=== PATIENT | male | born 1980 | race Caucasian/White ===

== ENCOUNTER 2016-07-27 19:37 | Observation (INO) | payer SELFPAY ==
[2016-07-27 20:08] LABS: BASOPHILS # (AUTO) 0.1 X10^3/uL (0.0-0.1); BASOPHILS % (AUTO) 0.7 % (0.2-1.0); EOSINOPHILS # (AUTO) 0.2 x10^3/uL (0.0-0.2); EOSINOPHILS % (AUTO) 1.9 % (0.9-2.9); HEMATOCRIT 42.9 % (42.0-54.0); HEMOGLOBIN 13.3 g/dL (13.5-18.0); LYMPHOCYTES # (AUTO) 3.1 X10^3/uL (1.3-2.9); LYMPHOCYTES % (AUTO) 29.5 % (21.0-51.0); MEAN CORPUSCULAR HEMOGLOBIN 24.3 pg (27.0-34.0); MEAN CORPUSCULAR HGB CONC 31.1 g/dL (33.0-35.0); MEAN CORPUSCULAR VOLUME 78.3 fL (80.0-100.0); MEAN PLATELET VOLUME 7.3 fL (7.4-11.0); MONOCYTES # (AUTO) 1.1 x10^3/uL (0.3-0.8); MONOCYTES % (AUTO) 10.4 % (0.0-13.0); NEUTROPHILS # (AUTO) 6.1 x10^3/uL (2.2-4.8); NEUTROPHILS % (AUTO) 57.5 % (42.0-75.0); PLATELET COUNT 320 X10^3/uL (150.0-450.0); RED BLOOD COUNT 5.48 X10^6/uL (4.7-6.0); RED CELL DISTRIBUTION WIDTH 19.2 % (11.6-16.5); WHITE BLOOD COUNT 10.6 X10^3/uL (3.6-10.0)
--- NOTE | 2016-07-27 20:12 | DR.GENAD ---
HPI - PCP Primary Care Physician: [email or web address] - HPI Comment HPI Comment: PATIIENT WITH HISTORY CHF WITH EF 45% THAT REPORT ECHO DONE PRESENT TODAY WITH INCREASING SOB. PATIENT NOT TAKING MED CURRENTLY. NO FEVER. REPORT LOWER EXTREMITY EDEMA WELL. - Complaint/Symptoms Chief Complaint Doctors Comments: INCREASING SOB AND EDEMA LOWER EXTREMITIES. Chief Complaint:: pt c/o being sob sleeping alot and feet swelling and cough - Nurses notes reviewed Nurses Notes Review: Yes - Source History Provided: Patient - Mode of Arrival Mode of Arrival: EMS - Timing Onset of Chief Complaint: 05/13/16 Came on: Gradually - Duration Duration: Constant Duration: Days - Severity Severity: Moderate PMH - PMH Past Medical History: Yes Past Medical History: CHF, Hypertension Past Surgical History: Yes Surgical History: Tonsillectomy - Family History History of Family Medical Conditions: Yes Family Medical History: Diabetes Mellitus, Cancer, [place], Coronary Artery Disease, Heart Failure, Sudden Cardiac , Hypertension - Social History Alcohol Use: None Do you use any recreational Drugs:: No Lives With: Family Lives Where: Home - infectious screening In the last 2 months have you had wt loss of >10#?: NO Have you had fever, night sweats or hemotysis?: No Have you traveled outside the country in the last 6 months?: No Isolation: Standard ROS - Review of Systems Constitutional: Weakness, Fatigue. negative: Chills, Fever Eyes: No Symptoms Reported. negative: Eye Pain, Discharge ENTM: negative: Ear Pain, Nose Discharge, Nose Congestion, Throat Pain Respiratoy: Productive Cough, Short of Breath, Wheezing, Hemoptysis Cardiovascular: Chest Pain, Edema Gastrointestinal/Abdominal: No Symptoms Reported Genitourinary: No Symptoms Reported Neurological: Weakness, Dizziness. negative: Headache Musculoskeletal: Back Pain, Chest wall, Back Integumentary: No Symptoms Reported Hematologic/Lymphatic: No Symptoms Reported Endocrine: No Symptoms Reported All Other Systems: Reviewed and Negative PE - Vital Signs Vitals: Temperature 98 F Pulse Rate [Left Brachial] 128 Pulse Rate 130 Respiratory Rate 18 Blood Pressure [Right Arm] 120/57 Blood Pressure [Left Arm] 118/87 Blood Pressure 146/101 O2 Sat by Pulse Oximetry 100 - General Limitations: No Limitations General Appearance: Alert - Head Head Exam: Normal Inspection - Eyes Eye exam: Normal Appearance - ENT ENT Exam: Normal External Ear Exam External Ear Exam: Normal External Inspection TM/Canal Exam: Bilateral Normal Nose Exam: Normal Nose Exam Mouth Exam: Normal Inspection Throat Exam: Normal Inspection - Neck Neck Exam: Trachea Midline. negative: Tenderness, Meningismus, Lymphadenopathy - Chest Chest Inspection: Symmetric Chest Wall Rise - Respiratory Respiratory Exam: Respiratory Distress. negative: Chest Wall Tenderness Respiratory Exam: Bilateral Wheezing, Bilateral Crackles, Upper Wheezing, Upper Rhonchi, Lower Wheezing, Lower Rhonchi - Cardiovascular Cardiovascular Exam: Regular Rate, Normal Rhythm, Normal Heart Sounds, +S3, +S4 - Abdominal Exam Abdominal Exam: Normal Bowel Sounds, Soft. negative: Tenderness - Extremities Extremities Exam: Edema - Back Back Exam: Paraspinal Tenderness - Neurologic Neurological Exam: Alert, Oriented X3 - Psychiatric Psychiatric Exam: Anxious - Skin Skin Exam: Erythema MDM - Differential Diagnosis Differential Diagnosis: CHF, PULMONARY EDEMA, [place], PNEUMONIA, RESPIRATORY DISTRESS Course - Treatment Treatment: SEE ORDERS. - Consultation Consultation Comments: DISCUSS PATIENT WITH DR. WHEAT. HE WILL ADMIT PATIENT. - Education/Counseling Education/Counseling: Patient, Education Educated On: Treatment, Diagnosis ROR - Labs Reviewed Laboratory Results Reviewed?: Yes Result Diagrams: 07/27/16 19:55 07/27/16 19:55 Laboratory: WBC 10.6 X10^3/uL (3.6-10.0) H 07/27/16 19:55 RBC 5.48 X10^6/uL (4.7-6.0) 07/27/16 19:55 Hgb 13.3 g/dL (13.5-18.0) L 07/27/16 19:55 Hct 42.9 % (42.0-54.0) 07/27/16 19:55 MCV 78.3 fL (80.0-100.0) L 07/27/16 19:55 MCH 24.3 pg (27.0-34.0) L 07/27/16 19:55 MCHC 31.1 g/dL (33.0-35.0) L 07/27/16 19:55 RDW 19.2 % (11.6-16.5) H 07/27/16 19:55 Plt Count 320 X10^3/uL (150.0-450.0) 07/27/16 19:55 Plt Count Comment Adequate (ADEQUATE) 07/27/16 19:55 MPV 7.3 fL (7.4-11.0) L 07/27/16 19:55 Neut % 57.5 % (42.0-75.0) 07/27/16 19:55 Lymph % 29.5 % (21.0-51.0) 07/27/16 19:55 [place] % 10.4 % (0.0-13.0) 07/27/16 19:55 Eos % 1.9 % (0.9-2.9) 07/27/16 19:55 Baso % 0.7 % (0.2-1.0) 07/27/16 19:55 Neut # 6.1 x10^3/uL (2.2-4.8) H 07/27/16 19:55 Lymph # 3.1 X10^3/uL (1.3-2.9) H 07/27/16 19:55 [place] # 1.1 x10^3/uL (0.3-0.8) H 07/27/16 19:55 Eos # 0.2 x10^3/uL (0.0-0.2) 07/27/16 19:55 Baso # 0.1 X10^3/uL (0.0-0.1) 07/27/16 19:55 Absolute Nucleated RBC 0.1 /100WBC 07/27/16 19:55 Plt Morphology Comment Normal (NORMAL) 07/27/16 19:55 RBC Morphology Abnormal (NORMAL) 07/27/16 19:55 Poikilocytosis 1+ A 07/27/16 19:55 Anisocytosis 1+ A 07/27/16 19:55 Sodium 140 mmol/L (136-145) 07/27/16 19:55 Corrected Sodium TNP 07/27/16 19:55 Potassium 4.1 mmol/L (3.5-5.1) 07/27/16 19:55 Chloride 104 mmol/L (98-107) 07/27/16 19:55 Carbon Dioxide 26.9 mmol/L (21-32) 07/27/16 19:55 BUN 17 mg/dL (7-18) 07/27/16 19:55 Creatinine 1.40 mg/dL (0.70-1.30) H 07/27/16 19:55 Est GFR (MDRD) Af Amer > 60 (>60) 07/27/16 19:55 Est GFR (MDRD) Non-Af > 60 (>60) 07/27/16 19:55 Glucose 72 mg/dL (65-99) 07/27/16 19:55 Calcium 8.5 mg/dL (8.5-10.1) 07/27/16 19:55 Corrected Calcium 9.3 mg/dL (8.5-10.1) 07/27/16 19:55 Total Bilirubin 1.20 mg/dL (0.2-1.0) H 07/27/16 19:55 AST 69 Units/L (15-37) H 07/27/16 19:55 ALT 72 Units/L (12-78) 07/27/16 19:55 Alkaline Phosphatase 216 Units/L (46-116) H 07/27/16 19:55 Creatine Kinase 119 Units/L (39-308) 07/27/16 19:55 CK-MB (CK-2) 3.2 ng/mL (0-4.0) 07/27/16 19:55 CK/CKMB % Calc 2.7 % (<4) 07/27/16 19:55 Troponin I 0.08 ng/mL (0-1.5) 07/27/16 19:55 B-Natriuretic Peptide 1780 pg/mL (0-79) H* 07/27/16 19:55 Total Protein 7.4 g/dL (6.4-8.2) 07/27/16 19:55 Albumin 3.0 g/dL (3.4-5.0) L 07/27/16 19:55 Globulin 4.4 g/dL (2.5-4.5) 07/27/16 19:55 Albumin/Globulin Ratio 0.7 Ratio (1.1-2.1) L 07/27/16 19:55 Specimen Type Clean catch urine 07/27/16 21:08 Urine Color Dark yellow (YELLOW) 07/27/16 21:08 Urine Appearance Hazy (CLEAR) 07/27/16 21:08 Urine pH 6.5 (5.0 - 8.0) 07/27/16 21:08 Ur Specific [place] 1.015 (1.000-1.030) 07/27/16 21:08 Urine Protein 3+ (NEGATIVE) 07/27/16 21:08 Urine Glucose (UA) Negative (NEGATIVE) 07/27/16 21:08 Urine Ketones Negative (NEGATIVE) 07/27/16 21:08 Urine Occult Blood 3+ (NEGATIVE) 07/27/16 21:08 Urine Nitrite Negative (NEGATIVE) 07/27/16 21:08 Urine Bilirubin Negative (NEGATIVE) 07/27/16 21:08 Urine Urobilinogen Normal (NORMAL) 07/27/16 21:08 Ur Leukocyte Esterase 3+ (NEGATIVE) 07/27/16 21:08 Urine RBC 3 - 5 /HPF (NEGATIVE) 07/27/16 21:08 Urine WBC 25 - 30 with clumps /HPF (NEGATIVE) 07/27/16 21:08 Ur Squamous Epith Cells Few /HPF (NEGATIVE) 07/27/16 21:08 Urine Bacteria Trace /HPF (NEGATIVE) 07/27/16 21:08 Ur Culture Indicated? No/not ordered 07/27/16 21:08 Urine Opiates Screen Negative (NEG=<300) 07/27/16 21:08 Urine Methadone Screen Negative (NEG=<300) 07/27/16 21:08 Ur Barbiturates Screen Negative (NEG=<200) 07/27/16 21:08 Ur Phencyclidine Scrn Negative (NEG=<25) 07/27/16 21:08 Ur Amphetamines Screen Positive (NEG=<1000) 07/27/16 21:08 U Benzodiazepines Scrn Negative (NEG=<200) 07/27/16 21:08 Urine Cocaine Screen Negative (NEG=<300) 07/27/16 21:08 U Marijuana (THC) Screen Negative (NEG=<50) 07/27/16 21:08 - XRAY XRAY Interpreted by: Radiologist XRAY Findings: REPORT DISCUSS WITH PATIENT. - EKG Rhythm: NSR (EKG NOTED) - Diagnosis Discharge Problem: Drug abuse CHF (congestive heart failure) Qualifiers: Congestive heart failure type: combined Congestive heart failure chronicity: acute on chronic Qualified Code(s): I50.43 - Acute on chronic combined systolic (congestive) and diastolic (congestive) heart failure UTI (urinary tract infection) Qualifiers: Urinary tract infection type: site unspecified Hematuria presence: with hematuria Qualified Code(s): N39.0 - Urinary tract infection, site not specified - Discharge Plan Disposition: 09 ADMITTED INPATIENT Condition: Stable - Follow ups/Referrals - Instructions
[2016-07-27 20:23] LABS: ANISOCYTOSIS 1+; PLATELET MORPHOLOGY COMMENT NORMAL (NORMAL); POIKILOCYTOSIS 1+
[2016-07-27] MEDS ORDERED: LASIX IVP ONE ×2 (20:28→21:01)
[2016-07-27 20:31] LABS: BLOOD UREA NITROGEN 17 mg/dL (7-18); CALCIUM 8.5 mg/dL (8.5-10.1); CARBON DIOXIDE 26.9 mmol/L (21-32); CHLORIDE 104 mmol/L (98-107); GLUCOSE 72 mg/dL (65-99); SODIUM 140 mmol/L (136-145); TROPONIN I 0.08 ng/mL (0-1.5); eGFR BLACK RACES > 60 (>60); eGFR NON BLACK RACES > 60 (>60)
[2016-07-27 20:36] LABS: ALANINE AMINOTRANSFERASE 72 Units/L (12-78); ALKALINE PHOSPHATASE 216 Units/L (46-116); ASPARTATE AMINO TRANSFERASE 69 Units/L (15-37); CKMB % 2.7 % (<4); COR CA(FOR HYPOALB) 9.3 mg/dL (8.5-10.1); CREATINE KINASE 119 Units/L (39-308); CREATINE KINASE MB 3.2 ng/mL (0-4.0); TOTAL PROTEIN 7.4 g/dL (6.4-8.2)
[2016-07-27 20:53] LABS: B-TYPE NATRIURETIC PEPTIDE 1780 pg/mL (0-79)
[2016-07-27 21:18] LABS: BILIRUBIN,URINE NEGATIVE (NEGATIVE); BLOOD/HEMOGLOBIN,URINE 3+ (NEGATIVE); GLUCOSE, URINE NEGATIVE (NEGATIVE); KETONES,URINE NEGATIVE (NEGATIVE); LEUKOCYTE ESTERASE ,URINE 3+ (NEGATIVE); NITRITES,URINE NEGATIVE (NEGATIVE); PH,URINE 6.5 (5.0 - 8.0); PROTEIN,URINE 3+ (NEGATIVE); UROBILINOGEN,URINE NORMAL (NORMAL)
[2016-07-27 21:28] LABS: APPEARANCE,URINE HAZY (CLEAR); COLOR,URINE DARK YELLOW (YELLOW)
[2016-07-27 21:31] LABS: BACTERIA,URINE TRACE /HPF (NEGATIVE); SQUAMOUS EPITHELIAL CELL,UR FEW /HPF (NEGATIVE)
[2016-07-27 23:47] VITALS: BMI 24.6
[2016-07-28] MEDS: ROCEPHIN VIAL 1 GM 1 GM in NS 50 ML IV + SPIKE MINIBAG* 50 ML IV SCH ×2 (00:50→09:19)
[2016-07-28 02:24] LABS: CKMB % 2.5 % (<4); CREATINE KINASE MB 2.9 ng/mL (0-4.0); TROPONIN I 0.08 ng/mL (0-1.5)
--- NOTE | 2016-07-28 05:22 | RAD ---
Chest AP portable Indication: Abnormal heartbeat. Dyspnea and swelling. Findings: There is no pneumothorax or effusion. There is cardiomegaly and increased interstitial [place]. Impression: Cardiomegaly and pulmonary edema. Reported By:
[2016-07-28] MEDS ORDERED: NS 100 ML IV 100 ML IV ONE (09:23)
[2016-07-28] MEDS ORDERED: TOPROL XL PO SCH (10:00)
[2016-07-28] MEDS ORDERED: LASIX IVP ONE (10:10)
[2016-07-28] MEDS ORDERED: TOPROL XL PO ONE (10:20)
[2016-07-28 12:44] VITALS: BP 132/76
== END 2016-07-28 14:50 | disposition home or self-care (01) ==
LOC: ER 19:48 → OBS 22:50
PROVIDERS: ADMIT Obstetrics & Gynecology Obstetrics; ATTEND Obstetrics & Gynecology Obstetrics
DX: I50.43 Acute on chronic combined systolic (congestive) and diastolic (congestive) heart failure (principal); N39.0 Urinary tract infection, site not specified; R06.02 Shortness of breath; R60.0 Localized edema; I10 Essential (primary) hypertension; I51.7 Cardiomegaly; J81.0 Acute pulmonary edema; R94.31 Abnormal electrocardiogram [ECG] [EKG]; R94.30 Abnormal result of cardiovascular function study, unspecified
CPT/HCPCS: 36415; 71010; 80053; 80307; 81001; 82550; 82553; 83880; 84484; 85025; 93005; 93010; 94760; 96365; 96374; 99284; A4216; A4222; G0378; G0434; J0696; J1940

== ENCOUNTER 2016-07-29 05:40 | Inpatient (IN) | payer SELFPAY ==
[2016-07-29] MEDS ORDERED: D5 NS 1000 ML 1,000 ML IV ONE ×2 (05:47→06:38)
[2016-07-29] MEDS ORDERED: NARCAN INJ ONE ×2 (05:49→06:19)
[2016-07-29] MEDS ORDERED: D50W ABBOJECT SYR IV ONE ×3 (05:51→06:20)
[2016-07-29] MEDS ORDERED: NARCAN INJ IVP ONE (06:22)
[2016-07-29] MEDS ORDERED: DUONEB 0.5 MG/3 MG ONE (06:28)
[2016-07-29 06:33] LABS: BILIRUBIN,URINE NEGATIVE (NEGATIVE); BLOOD/HEMOGLOBIN,URINE 5+ (NEGATIVE); GLUCOSE, URINE NEGATIVE (NEGATIVE); KETONES,URINE NEGATIVE (NEGATIVE); LEUKOCYTE ESTERASE ,URINE 3+ (NEGATIVE); NITRITES,URINE NEGATIVE (NEGATIVE); PROTEIN,URINE 3+ (NEGATIVE); UROBILINOGEN,URINE 1+ (NORMAL)
--- NOTE | 2016-07-29 06:35 | DR.AMS ---
HPI - Time Seen Time seen: 06:00 - PCP Primary Care Physician: WHEAT - Complaint Cheif Complaint Doctors Comments: GcS 8 on arrival Chief Complaint:: EMS CALLED TOO A UNRESPONSIVE AND FOAMING AT THE MOUTH. REC'D PT VIA EMS WITH SNORING RESPIRATIONS O2 SAT 84% PT'S EARS ARE CYANOTIC WELL THE END OF HIS NOSE. PT HAS HX OF IV DRUG USE. PT HAS FRESH BRUISING TOO RT UPPER ARM AND FRESH PUNCTURE SITE TOO RT WRIST. - Reviewed Nurses Notes Reviewed: Yes - Source History Provided: EMS - Mode of Arrival Mode of Arrival: EMS - Timing Onset of Chief Complaint: 07/29/16 Came On: Gradually Symptoms: Unchanged - Duration Duration: Unknown Duration: Hours - Quality Quality: Decreased Alertness - Severity Severity: Severe, Unable to care for self - Context Recent: Drug Use History Of: IV Drug Use - Associated Signs and Symptoms Associated Signs and Symptoms: Slurred Speech, Confusion, Decreased LOC PMH - PMH Past Medical History: Yes Past Medical History: CHF, Hypertension Past Surgical History: Yes Surgical History: Tonsillectomy - Family History History of Family Medical Conditions: Yes Family Medical History: Diabetes Mellitus, Cancer, [place], Coronary Artery Disease, Heart Failure, Sudden Cardiac , Hypertension - Social History Type of Tobacco Use: Cigarettes Do you use any recreational Drugs:: Yes (IV DRUG USER) Lives With: Friend Lives Where: [place] - infectious screening In the last 2 months have you had wt loss of >10#?: NO Have you had fever, night sweats or hemotysis?: No Have you traveled outside the country in the last 6 months?: No Isolation: Standard ROS - Review of Systems Unable to Obtain Due To: Altered mental status, Medical urgency PE - Vitals Vital Signs: Temp Pulse Pulse Resp BP BP BP 07/29/16 06:52 101 H 24 124/69 07/29/16 06:30 96 H 25 H 148/65 07/29/16 06:15 107 H 24 143/63 07/29/16 06:00 87 26 H 129/78 07/29/16 05:51 97.1 F L 98 H 12 113/84 07/28/16 12:00 132/76 132/76 11/27/15 04:00 120/57 Pulse Ox 07/29/16 06:52 95 07/29/16 06:30 100 07/29/16 06:15 98 07/29/16 06:00 100 07/29/16 05:51 84 L 07/28/16 12:00 11/27/15 04:00 - General Limitations: Altered Mental Status General Appearance: Lethargic, In Distress - Head Head Exam: Normal Inspection Head Exam Physical: negative: Laceration, Abrasion, Contusion, Hematoma, Raccoon Eyes, Fisher's Sign, Tenderness of Temporal Artery, CSF Rhinorrhea, CSF Otorrhea, Other - Eyes Eye exam: Miosis - ENT ENT Exam: Normal Exam External Ear Exam: Normal External Inspection Nose Exam: Normal Nose Exam - Neck Neck Exam: Normal Inspection, Full ROM, Trachea Midline - Chest Chest Inspection: Normal Inspection - Respiratory Respiratory Exam: Respiratory Distress Respiratory Exam: Bilateral Wheezing - Cardiovascular Cardiovascular Exam: Regular Rate - Abdominal Exam Abdominal Exam: Normal Inspection, Normal Bowel Sounds, Soft. negative: Distention, Tenderness - Extremities Extremities Exam: Full ROM - Neurological Neurological Exam: Other (lethargic) Patient Oriented To: Person, Place Speech: Other (awake oriented after D50 throuh IO) - Psychological Psychiatric Exam: Flat Affect - Skin Skin Exam: Mottled (on arrival improved after D50). negative: Normal Color Course - Treatment Treatment: patient arrived unresponsive FSBS 20, given D50 IO and narcan, Awake and talking with course breath sounds. Bp, sats good. ABG reveals acidosis oxygen over 300. 0650: FSBS 156 patient Alert and oriented wanting oral fluid( ice chips given). GCS 15 - Consultation Called: 07:15 Call Returned: 07:15 Consultation Comments: case discussed with DR. Nicholas give 2 amps bicarbonate in IVF and D5Ns ROR - Labs Reviewed Result Diagrams: 07/29/16 06:45 07/29/16 06:05 Laboratory: Sample Site Right brachial 07/29/16 06:58 ABG pH 7.280 (7.35-7.45) L 07/29/16 06:58 ABG pCO2 38.0 mmHg (35.0-45.0) 07/29/16 06:58 ABG pO2 59.0 mmHg (80.0-100.0) L 07/29/16 06:58 ABG HCO3 17.9 mmol/L (22-26) L* 07/29/16 06:58 ABG O2 Saturation 86.0 % (90-100) L 07/29/16 06:58 ABG Base Excess -8.2 mmol/L (-2.0-2.0) L 07/29/16 06:58 Jacques Test Na 07/29/16 06:58 A-a Gradient 122.0 mmHg 07/29/16 06:58 FiO2 32.000 07/29/16 06:58 Blood Gas Comments Hermila well aw 07/29/16 06:58 Sodium 135 mmol/L (136-145) L 07/29/16 06:05 Corrected Sodium TNP 07/29/16 06:05 Potassium 5.5 mmol/L (3.5-5.1) H 07/29/16 06:05 Chloride 101 mmol/L (98-107) 07/29/16 06:05 Carbon Dioxide 18.9 mmol/L (21-32) L 07/29/16 06:05 BUN 27 mg/dL (7-18) H 07/29/16 06:05 Creatinine 2.43 mg/dL (0.70-1.30) H 07/29/16 06:05 Est GFR (MDRD) Af Amer 39 (>60) L 07/29/16 06:05 Est GFR (MDRD) Non-Af 32 (>60) L 07/29/16 06:05 Glucose 13 mg/dL (65-99) L* 07/29/16 06:05 Calcium 8.7 mg/dL (8.5-10.1) 07/29/16 06:05 Urine Opiates Screen Negative (NEG=<300) 07/29/16 06:11 Urine Methadone Screen Negative (NEG=<300) 07/29/16 06:11 Ur Barbiturates Screen Negative (NEG=<200) 07/29/16 06:11 Ur Phencyclidine Scrn Negative (NEG=<25) 07/29/16 06:11 Ur Amphetamines Screen Positive (NEG=<1000) 07/29/16 06:11 U Benzodiazepines Scrn Positive (NEG=<200) 07/29/16 06:11 Urine Cocaine Screen Negative (NEG=<300) 07/29/16 06:11 U Marijuana (THC) Screen Negative (NEG=<50) 07/29/16 06:11 - XRAY XRAY Interpreted by: Radiologist XRAY Findings: chest: cardiomegaly no CHF - EKG Rate: 101 [place]: Normal Rhythm: NSR Block: None Hypertrophy: None ST: Nonsp - Diagnosis Discharge Problem: Hypoglycemia, Drug abuse - Discharge Plan Condition: Stable - Follow ups/Referrals Follow ups/Referrals: NFD,None [Primary Care Provider] - 3 days - Instructions
[2016-07-29 06:57] LABS: ABG BASE EXCESS -9.1 mmol/L (-2.0-2.0); ABG HCO3 20.4 mmol/L (22-26)
[2016-07-29 06:59] LABS: ABG ALLEN TEST POS
--- NOTE | 2016-07-29 07:00 | RAD ---
HISTORY: Shortness of breath Study: Chest one view Comparison: July 27, 2016 Findings: The heart remains enlarged. There is no congestive heart failure visible on today's examination. No acute alveolar infiltrates or pleural effusions are identified. The bony thorax is unremarkable. IMPRESSION: Cardiomegaly without congestive heart failure Lungs clear Reported By:
[2016-07-29] MEDS ORDERED: DUONEB 0.5 MG/3 MG NEB ONE (07:01)
[2016-07-29 07:05] LABS: BLOOD UREA NITROGEN 27 mg/dL (7-18); CALCIUM 8.7 mg/dL (8.5-10.1); CARBON DIOXIDE 18.9 mmol/L (21-32); CHLORIDE 101 mmol/L (98-107); CREATININE 2.43 mg/dL (0.70-1.30); SODIUM 135 mmol/L (136-145); eGFR BLACK RACES 39 (>60); eGFR NON BLACK RACES 32 (>60)
[2016-07-29 07:06] LABS: GLUCOSE 13 mg/dL (65-99)
[2016-07-29] MEDS ORDERED: TORADOL 60 MG VIAL IVP ONE (07:06)
[2016-07-29 07:07] LABS: ABG BASE EXCESS -8.2 mmol/L (-2.0-2.0)
[2016-07-29 07:08] LABS: ABG HCO3 17.9 mmol/L (22-26)
[2016-07-29] MEDS ORDERED: TORADOL 30 MG VIAL ONE (07:21)
[2016-07-29] MEDS ORDERED: SODIUM BICARBONATE 8.4% INJ ADULT 100 ML in NS 1/2 1000 ML IV 1,000 ML IV ONE (07:23)
[2016-07-29 07:24] LABS: APPEARANCE,URINE HAZY (CLEAR); BACTERIA,URINE TRACE /HPF (NEGATIVE); COLOR,URINE AMBER (YELLOW); RBC,URINE 40-50 /HPF (NEGATIVE); SQUAMOUS EPITHELIAL CELL,UR RARE /HPF (NEGATIVE)
[2016-07-29 07:26] LABS: BASOPHILS # (AUTO) 0.1 X10^3/uL (0.0-0.1); BASOPHILS % (AUTO) 0.4 % (0.2-1.0); EOSINOPHILS % (AUTO) 0.1 % (0.9-2.9); HEMATOCRIT 43.4 % (42.0-54.0); LYMPHOCYTES # (AUTO) 1.3 X10^3/uL (1.3-2.9); LYMPHOCYTES % (AUTO) 6.5 % (21.0-51.0); MEAN PLATELET VOLUME 7.8 fL (7.4-11.0); MONOCYTES # (AUTO) 1.7 x10^3/uL (0.3-0.8); MONOCYTES % (AUTO) 8.1 % (0.0-13.0); NEUTROPHILS # (AUTO) 17.5 x10^3/uL (2.2-4.8); NEUTROPHILS % (AUTO) 84.9 % (42.0-75.0); PLATELET COUNT 250 X10^3/uL (150.0-450.0); RED BLOOD COUNT 5.43 X10^6/uL (4.7-6.0); RED CELL DISTRIBUTION WIDTH 19.3 % (11.6-16.5)
[2016-07-29 07:30] LABS: WHITE BLOOD COUNT 20.7 X10^3/uL (3.6-10.0)
[2016-07-29 07:43] LABS: BAND NEUTROPHILS % 2 % (0-10)
[2016-07-29 07:44] LABS: PLATELET MORPHOLOGY COMMENT NORMAL (NORMAL)
[2016-07-29] MEDS ORDERED: NS 1/2 1000 ML IV 1,000 ML IV ONE (08:42)
[2016-07-29] MEDS ORDERED: SODIUM BICARBONATE 8.4% INJ ADULT ONE (08:42)
[2016-07-29 08:49] VITALS: BMI 24.5
[2016-07-29] MEDS ORDERED: PHARMACY CONSULT - TPN XX SCH (10:00)
[2016-07-29] MEDS ORDERED: PHARMACY CONSULT - DOSE _____ XX SCH (10:00)
[2016-07-29] MEDS ORDERED: PHARMACY CONSULT - VANCOMYCIN XX SCH (10:00)
[2016-07-29] MEDS: LEVAQUIN PREMIX IV 750 MG 750 MG/150 ML BAG IV SCH (10:34)
[2016-07-29] MEDS ORDERED: HumuLIN R SUBCUT PRN (11:00)
[2016-07-29 11:43] LABS: ALBUMIN 3.1 g/dL (3.4-5.0); BILIRUBIN,DIRECT 2.12 mg/dL (0-0.2); TOTAL PROTEIN 7.8 g/dL (6.4-8.2)
[2016-07-29] MEDS: DUONEB 0.5 MG/3 MG NEB SCH ×2 (11:46→16:59)
[2016-07-29] MEDS: VANCOMYCIN 1 GM PREMIX (ADDVANTAGE) 250 ML IV SCH (12:08)
--- NOTE | 2016-07-29 13:01 | DR.H&P ---
H&P - History & Physical for Day of: H&P Date: 07/29/16 - Chief Complaint Chief Complaint: UNRESPONSIVE - Allergies Allergies/Adverse Reactions: Allergies Allergy/AdvReac Type Severity Reaction Status Date / Time No Known Drug Allergy Allergy Verified 11/25/15 00:18 - History of Present Illness History of Present Illness: THIS IS A 35 YEAR OLD MALE, WHO PRESENTS TO THE EMERGENCY ROOM, VIA EMS, WITH REPORTS OF BEING UNRESPONSIVE, FOAMING FROM HIS MOUTH, AND O2 SATURATION OF 84%. ON ARRIVAL, PATIENT'S EARS AND TIP OF NOSE IS CYANOTIC. GCS WAS 8. PATIENT HAS A HISTORY OF IV DRUG USE AND HAS FRESH BRUISING NOTED TO HIS RIGHT UPPER ARM WITH FRESH PUNCTURE SITE TO RIGHT WRIST. PATIENT WAS LETHARGIC AND IN DISTRESS ON ARRIVAL TO ER. ON AUSCULTATION, LUNGS WERE NOTED WITH BILATERAL WHEEZING AND PATIENT WAS IN RESPIRATORY DISTRESS. SKIN WAS MOTTLED. LABS AND XRAY OBTAINED. CBC WNL EXCEPT: WBC 20.7, HGB 13.0. CMP WNL EXCEPT: SODIUM 135, POTASSIUM 5.5, CARBON DIOXIDE 18.9, BUN/CREAT 27/ 2.43, GFR 32, GLUCOSE 13, TOT BILIRUBIN 3.30, DIRECT BILIRUBIN 2.12, INDIRECT BILIRUBIN 1.18, AST 495, ALT 308, ALK PHOS 247, ALBUMIN 3.1. ABG ABNORMALS: PH 7.140, PCO2 60.0, PO2 430.0, HCO3 20.4, FIO2 100.0. URINALYSIS ABNORMALS: PROTEIN 3+, OCCULT BLOOD 5+, UROBILINOGEN 1+, LEUKOCYTE ESTERASE 3+, RBC 40-50, WBC 30-40, BACTERIA TRACE; CULTURE PENDING. AN IO WAS PLACED PER ER DOCTOR AND D50 WAS ADMINISTERED FOR A GLUCOSE OF 13. PATIENT ALSO RECEIVED NARCAN AND BECAME MORE RESPONSIVE WITH COARSE BREATH SOUNDS, SLURRED SPEECH, AND CONFUSION. PATIENT HAS A HISTORY OF CHF WITH AN EJECTION FRACTION OF 45%. PATIENT STATES HE TAKES HIS GRANDMOTHER'S DIURETIC FOR CHF. PATIENT WILL BE ADMITTED TO HOSPITAL FOR FURTHER TREATMENT AND EVALUATION. PATIENT WILL BE STARTED ON IV LEVAQUIN, IV VANCOMYCIN, AGGRESSIVE IV FLUID HYDRATION, AND MONITOR ON CONTINUOUS PULSE OXIMETRY AND THERMOCOUPLE TESTER. WE WILL FOLLOW UP IN AM WITH LABS. - Past Medical History Past Medical History: Angina, CHF, Hypertension Additional Medical History: Enlarged Tonsils - Past Surgical History Surgical History: Tonsillectomy - Family History Family Medical History: Diabetes Mellitus, Cancer, [place], Coronary Artery Disease, Heart Failure, Sudden Cardiac , Hypertension - Social History Does patient currently use any type of tobacco product: Yes Have you used tobacco products in the last 12 months: Yes Type of Tobacco Use: Cigarettes Does any household member use tobacco: Yes Alcohol Use: None Drug Use: Other (IV Drug Use) - Medications Home Medications: Metoprolol Succinate Ext Rel [TOPROL XL 100 MG *] 100 mg PO DAILY #30 tabsr - Review of Systems Constitutional: Other (Lethargy) Eyes: denies: Pain, Vision Change, Conjunctivae Inflammation, Eyelid Inflammation, Redness ENT: No Symptoms Reported. denies: Ear Pain, Ear Discharge, Nose Pain, Nose Discharge, Nose Congestion, Mouth Pain, Mouth Swelling, Throat Pain, Throat Swelling Respiratory: Shortness of Breath, SOB with Excertion, Wheezing. denies: Cough, Hemoptysis, Pleuritic Pain, Sputum Cardiovascular: No Symptoms Reported. denies: Chest Pain, Palpitations, Orthopnea, Paroxysmal Noc. Dyspnea, Edema, Light Headedness Gastrointestinal: No Symptoms Reported. denies: Nausea, Vomiting, Abdominal Pain, Diarrhea, Constipation, Melena, Hematochezia Genitourinary: Dysuria, Frequency, Hematuria. denies: Incontinence, Retention Musculoskeletal: No Symptoms Reported. denies: Shoulder Pain, Arm Pain, Back Pain, Hand Pain, Leg Pain, Foot Pain, Neck Pain Skin: Bruising (Right Upper Arm and Right Wrist). denies: Rash, Lesions, Jaundice, Wound, Ecchymosis Neurological: Weakness, Confusion, Other (Lethargy). denies: Numbness, Incoordination, Change in Speech, Seizures - Physical Exam Vital Signs: Temperature 97.5 F Pulse Rate [Apical] 88 Pulse Rate 89 Respiratory Rate 20 Blood Pressure [Right Arm] 123/57 Blood Pressure [Left Arm] 117/86 O2 Sat by Pulse Oximetry 100 Oriented: Person Eyes: Normal. negative: Blurred Vision, Diplopia, Discharge, Pain, Redness, Photophobia Ear: Normal. negative: Swelling, Ecchymosis, Hemotypanum, Abrasion, Laceration Nose: Normal. negative: Injected, Discharge, Blood Throat: Dry. negative: Tonsillar Hypertrophy, Exudate Respiratory: Wheezes Throughout Cardiovascular: Normal. negative: Murmur, Edema : Dysuria, Hematuria, Frequency. negative: Testicular Pain Auscultation: Bowel Sounds: Decreased. negative: Bruit Palpation: Normal. negative: Spleen Enlarged, Liver Enlarged, Mass Pulsatile Tenderness: Normal. negative: Rebound, Guarding, Rigidity Skin: Decreased [place], Bruising (Right Upper Arm and Right Wrist). negative: Wound Musculoskeletal: Instability Mood Description: Withdrawn Affect: Flat Speech Pattern: Unclear, Inappropriate - Assessment/Plan (1) Unresponsive Status: Acute Plan: ADMIT PATIENT, START IV FLUIDS WITH BICARB, SUPPLEMENTAL OXYGEN, IV VANCOMYCIN, LEVAQUIN, MONITOR. (2) Rhabdomyolysis Qualifiers: Rhabdomyolysis type: non-traumatic Encounter type: E Qualified Code(s): M62.82 - Rhabdomyolysis Status: Acute Plan: START IV FLUIDS WITH TWO AMP OF BICARB, [place] LABS. (3) Leukocytosis Qualifiers: Leukocytosis type: L Status: Acute Plan: START IV VANCOMYCIN, LEVAQUIN, IV FLUIDS, MONITOR VITAL SIGNS, LABS. (4) Hypoglycemia Status: Acute Plan: MONITOR GLUCOSE, START D5 1/2 NS, MONITOR. (5) Hypoalbuminemia Status: Acute Plan: START ALBUMIN, MONITOR LABS. (6) Poor nutrition Status: Acute Plan: START ALBUMIN, TPN, MONITOR. (7) CHF (congestive heart failure) Qualifiers: Congestive heart failure type: unspecified congestive heart failure type Congestive heart failure chronicity: acute Qualified Code(s): I50.9 - Heart failure, unspecified Status: Chronic Plan: MONITOR CHEST XRAY. (8) Drug abuse Status: Chronic Plan: CONTINUE TO MONITOR.
[2016-07-29] MEDS: ALBUMIN HUMAN 25%- 100ML 100 ML IV SCH (14:04)
--- NOTE | 2016-07-29 14:15 | DR.UPDATE ---
H&P Update History and Physical Update: History and Physical reviewed and patient examined. Changes noted: NO Yes with the following:Agree with H&P. will proceed with right IJ central venous catheter. Procedures (ALL) - Central Line Placement PCM.CLCO: written consent Time out performed: Yes Patient placed pm monitor/pulse ox: Yes prep: mask, gown, gloves, other Centrial line prep: chlorhexidine scrub Local anesthsia used: lidocane 1% Ultrasound used for placement: Yes Central line lumen ininserted: triple Post procedure: sutured in place, good blood return, all ports aspirated, flushed,capped, sterile dressing applied Post procedure xray: tip oc catheter in good position, no pneumothorax seen Patient tolerated procedure: Yes Complications: none
--- NOTE | 2016-07-29 14:36 | RAD ---
AP Chest Indication: Central line placement Comparison: 07/29/2016 Findings: Right-sided IJ central venous catheter is present with its tip within the lower SVC. No pneumothorax . The trachea is midline. The cardiac silhouette is moderately enlarged. The lungs are clear without focal infiltrate or effusion. The bony thorax is unremarkable. IMPRESSION: 1. Moderate cardiomegaly. 2.Right IJ central venous catheter with its tip terminating in the lower SVC without pneumothorax Reported By:
[2016-07-29] MEDS: CLINIMIX 4.25 %/10 % 1,000 ML with MVI INJ (ADULT) 10 ML, TRACE ELEMENTS INJ 10 ML, TPN... IV SCH ×10 (15:33→21:18)
[2016-07-29] MEDS: D5 NS + KCL 20 MEQ/L 1,000 ML IV SCH ×2 (18:40→21:13)
[2016-07-29] MEDS ORDERED: LIPOSYN III 20% 100ML 100 ML IV SCH (21:00)
[2016-07-29] MEDS: ZOFRAN INJ 4 MG VIAL IVP PRN (23:34)
[2016-07-30] MEDS: CLINIMIX 4.25 %/10 % 1,000 ML with MVI INJ (ADULT) 10 ML, TRACE ELEMENTS INJ 10 ML, TPN... IV SCH ×5 (00:35)
[2016-07-30] MEDS: DUONEB 0.5 MG/3 MG NEB SCH ×4 (00:40→17:05)
[2016-07-30] MEDS: D5 NS + KCL 20 MEQ/L 1,000 ML IV SCH ×2 (03:39→05:15)
[2016-07-30 06:57] LABS: ALANINE AMINOTRANSFERASE 775 Units/L (12-78); ALBUMIN 3.1 g/dL (3.4-5.0); ALKALINE PHOSPHATASE 202 Units/L (46-116); BLOOD UREA NITROGEN 44 mg/dL (7-18); CALCIUM 8.1 mg/dL (8.5-10.1); CARBON DIOXIDE 18.8 mmol/L (21-32); CHLORIDE 100 mmol/L (98-107); COR CA(FOR HYPOALB) 8.8 mg/dL (8.5-10.1); CREATININE 3.09 mg/dL (0.70-1.30); GLUCOSE 99 mg/dL (65-99); MAGNESIUM 2.5 mg/dL (1.7-2.9); PHOSPHORUS 5.4 mg/dL (2.6-4.7); TRIGLYCERIDES 60 mg/dL (0-150); eGFR BLACK RACES 30 (>60); eGFR NON BLACK RACES 25 (>60)
[2016-07-30 07:43] LABS: BASOPHILS # (AUTO) 0.2 X10^3/uL (0.0-0.1); BASOPHILS % (AUTO) 0.7 % (0.2-1.0); EOSINOPHILS # (AUTO) 0.2 x10^3/uL (0.0-0.2); EOSINOPHILS % (AUTO) 0.9 % (0.9-2.9); HEMATOCRIT 41.8 % (42.0-54.0); HEMOGLOBIN 13.1 g/dL (13.5-18.0); LYMPHOCYTES # (AUTO) 2.1 X10^3/uL (1.3-2.9); LYMPHOCYTES % (AUTO) 9.8 % (21.0-51.0); MEAN CORPUSCULAR HEMOGLOBIN 24.6 pg (27.0-34.0); MEAN CORPUSCULAR HGB CONC 31.3 g/dL (33.0-35.0); MEAN CORPUSCULAR VOLUME 78.5 fL (80.0-100.0); MONOCYTES # (AUTO) 1.6 x10^3/uL (0.3-0.8); MONOCYTES % (AUTO) 7.4 % (0.0-13.0); NEUTROPHILS # (AUTO) 17.5 x10^3/uL (2.2-4.8); NEUTROPHILS % (AUTO) 81.2 % (42.0-75.0); PLATELET COUNT 301 X10^3/uL (150.0-450.0); RED BLOOD COUNT 5.33 X10^6/uL (4.7-6.0)
[2016-07-30 07:51] LABS: WHITE BLOOD COUNT 21.6 X10^3/uL (3.6-10.0)
[2016-07-30 07:57] LABS: SODIUM 133 mmol/L (136-145)
[2016-07-30 08:11] LABS: BAND NEUTROPHILS % 3 % (0-10)
[2016-07-30 08:12] LABS: PLATELET MORPHOLOGY COMMENT NORMAL (NORMAL)
[2016-07-30 08:36] LABS: ASPARTATE AMINO TRANSFERASE 1237 Units/L (15-37)
[2016-07-30] MEDS: VANCOMYCIN 1 GM PREMIX (ADDVANTAGE) 250 ML IV SCH (08:54)
[2016-07-30] MEDS ORDERED: D5 NS 1000 ML 1,000 ML IV SCH (10:00)
[2016-07-30] MEDS: ALBUMIN HUMAN 25%- 100ML 100 ML IV SCH (10:03)
[2016-07-30] MEDS ORDERED: CLINIMIX 4.25 %/10 % 1,000 ML with MVI INJ (ADULT) 10 ML, TRACE ELEMENTS INJ 10 ML, POT... IV SCH ×5 (11:00)
--- NOTE | 2016-07-30 13:26 | PCM.PROG ---
Progress Note - Progress Note for Day of Date: 07/30/16 - Subjective Subjective: PATIENT RESTS IN BED, GRANDMOTHER AT BEDSIDE. PATIENT IS CURRETNLY BEING TREATED FOR RHABDOMYOLYSIS, DEHYDRATION, RENAL FAILURE, LEUKOCYTOSIS, AND POOR NUTRITION. HE IS MORE ALERT THIS MORNING AND REPORTS HE DOESN'T FEEL WELL. PATIENT HAD A CENTRAL LINE PLACED YESTERDAY DUE TO POOR VENOUS ACCESS AND FOR FURTHER IV NUTRITION AND IV ANTIBIOTICS. STAFF REPORTS PATIENT HAD NEMEROUS BOUTS OF VOMITING THROUGH THE NIGHT. HE DENIES NAUSEA THIS MORNING. PATIENT IS SHORT OF BREATH AT REST. ON AUSCULTATION, LUNGS ARE DIMINISHED BUT CLEAR. CBC WNL EXCEPT: WBC 21.6, H/H 13.1/41.8. CMP WNL EXCEPT: SODIUM 133, POTASSIUM 5.8, CARBON DIOXIDE 18.8, BUN/CREAT 44/3.09, GFR 25, CALCIUM 8.1, TOT BILIRUBIN 3.00, AST 1237, ALT 775, ALK PHOS 202, ALBUMIN 3.1. CHEST XRAY REPORTS MODERATE CARDIOMEGALY. WE WILL OBTAIN AN ECHO, RENAL US, START A CLEAR LIQUID DIET. WE WILL CONTINUE AGGRESSIVE IV HYDRATION, IV ANTIBIOTICS, TPN, ALBUMIN, AND MONITOR. WE WILL FOLLOW UP IN AM WITH LABS. - Past Medical Family Social History Past Med/Fam/Surg Hx: No changes since H&P Allergies: Allergies No Known Drug Allergy Allergy (Verified 11/25/15 00:18) - Review of Systems ROS: No change since H&P - Vital Signs and I&O's Vital Signs: Temperature 97.0 F Pulse Rate [Apical] 92 Pulse Rate 78 Respiratory Rate 18 Blood Pressure [Right Arm] 123/57 Blood Pressure [Left Arm] 109/76 O2 Sat by Pulse Oximetry 98 Intake and Output: Intake & Output 07/28/16 07/29/16 07/30/16 07/31/16 11:59 11:59 11:59 11:59 Intake Total 5726 Output Total 600 Balance 5126 - Physical Exam Oriented: Normal, Time, Person, Place Eyes: Normal. negative: Blurred Vision, Diplopia, Discharge, Pain, Redness, Photophobia Ear: Normal. negative: Swelling, Ecchymosis, Hemotypanum, Abrasion, Laceration Nose: Normal. negative: Injected, Discharge, Blood Throat: Dry. negative: Tonsillar Hypertrophy, Exudate Respiratory: Generalized, Diminished Cardiovascular: Normal. negative: Murmur, Edema : Dysuria, Hematuria, Frequency. negative: Testicular Pain Auscultation: Bowel Sounds: Decreased. negative: Bruit Palpation: Normal Tenderness: Normal. negative: Rebound, Guarding, Rigidity Skin: Decreased Turgur, Bruising (Right Upper Arm and Right Wrist). negative: Wound Musculoskeletal: Instability Psychiatric: Normal Mood Description: Calm, Appropriate Affect: Normal Speech Pattern: Clear, Appropriate - Laboratory and Diagnostics Result Diagrams: 07/30/16 07:30 07/30/16 05:27 Labs: Laboratory WBC 21.6 X10^3/uL (3.6-10.0) H* 07/30/16 07:30 RBC 5.33 X10^6/uL (4.7-6.0) 07/30/16 07:30 Hgb 13.1 g/dL (13.5-18.0) L 07/30/16 07:30 Hct 41.8 % (42.0-54.0) L 07/30/16 07:30 MCV 78.5 fL (80.0-100.0) L 07/30/16 07:30 MCH 24.6 pg (27.0-34.0) L 07/30/16 07:30 MCHC 31.3 g/dL (33.0-35.0) L 07/30/16 07:30 RDW 19.0 % (11.6-16.5) H 07/30/16 07:30 Plt Count 301 X10^3/uL (150.0-450.0) 07/30/16 07:30 Plt Count Comment Adequate (ADEQUATE) 07/30/16 07:30 MPV 8.0 fL (7.4-11.0) 07/30/16 07:30 Neut % 81.2 % (42.0-75.0) H 07/30/16 07:30 Lymph % 9.8 % (21.0-51.0) L 07/30/16 07:30 Blanco % 7.4 % (0.0-13.0) 07/30/16 07:30 Eos % 0.9 % (0.9-2.9) 07/30/16 07:30 Baso % 0.7 % (0.2-1.0) 07/30/16 07:30 Neut # 17.5 x10^3/uL (2.2-4.8) H 07/30/16 07:30 Lymph # 2.1 X10^3/uL (1.3-2.9) 07/30/16 07:30 [place]anco # 1.6 x10^3/uL (0.3-0.8) H 07/30/16 07:30 Eos # 0.2 x10^3/uL (0.0-0.2) 07/30/16 07:30 Baso # 0.2 X10^3/uL (0.0-0.1) H 07/30/16 07:30 Absolute Nucleated RBC 0.2 /100WBC 07/30/16 07:30 Total Counted 100 07/30/16 07:30 Neutrophils % (Manual) 71 % (39-76) 07/30/16 07:30 Band Neutrophils % 3 % (0-10) 07/30/16 07:30 Lymphocytes % (Manual) 20 % (13-43) 07/30/16 07:30 Monocytes % (Manual) 4 % (4-9) 07/30/16 07:30 Eosinophils % (Manual) 2 % (0-6) 07/30/16 07:30 Plt Morphology Comment Normal (NORMAL) 07/30/16 07:30 RBC Morphology Normal (NORMAL) 07/30/16 07:30 Sample Site Right brachial 07/29/16 06:58 ABG pH 7.280 (7.35-7.45) L 07/29/16 06:58 ABG pCO2 38.0 mmHg (35.0-45.0) 07/29/16 06:58 ABG pO2 59.0 mmHg (80.0-100.0) L 07/29/16 06:58 ABG HCO3 17.9 mmol/L (22-26) L* 07/29/16 06:58 ABG O2 Saturation 86.0 % (90-100) L 07/29/16 06:58 ABG Base Excess -8.2 mmol/L (-2.0-2.0) L 07/29/16 06:58 Jacques Test Na 07/29/16 06:58 A-a Gradient 122.0 mmHg 07/29/16 06:58 FiO2 32.000 07/29/16 06:58 Blood Gas Comments Hermila well aw 07/29/16 06:58 Sodium 133 mmol/L (136-145) L 07/30/16 05:27 Corrected Sodium TNP 07/30/16 05:27 Potassium 5.8 mmol/L (3.5-5.1) H 07/30/16 05:27 Chloride 100 mmol/L (98-107) 07/30/16 05:27 Carbon Dioxide 18.8 mmol/L (21-32) L 07/30/16 05:27 BUN 44 mg/dL (7-18) H 07/30/16 05:27 Creatinine 3.09 mg/dL (0.70-1.30) H 07/30/16 05:27 Est GFR (MDRD) Af Amer 30 (>60) L 07/30/16 05:27 Est GFR (MDRD) Non-Af 25 (>60) L 07/30/16 05:27 Glucose 99 mg/dL (65-99) 07/30/16 05:27 Calcium 8.1 mg/dL (8.5-10.1) L 07/30/16 05:27 Corrected Calcium 8.8 mg/dL (8.5-10.1) 07/30/16 05:27 Phosphorus 5.4 mg/dL (2.6-4.7) H 07/30/16 05:27 Magnesium 2.5 mg/dL (1.7-2.9) 07/30/16 05:27 Total Bilirubin 3.00 mg/dL (0.2-1.0) H 07/30/16 05:27 Direct Bilirubin 2.12 mg/dL (0-0.2) H 07/29/16 10:10 Indirect Bilirubin 1.18 mg/dL (0.2-0.8) H 07/29/16 10:10 AST 1237 Units/L (15-37) H 07/30/16 05:27 ALT 775 Units/L (12-78) H 07/30/16 05:27 Alkaline Phosphatase 202 Units/L (46-116) H 07/30/16 05:27 Total Protein 7.0 g/dL (6.4-8.2) 07/30/16 05:27 Albumin 3.1 g/dL (3.4-5.0) L 07/30/16 05:27 Globulin 3.9 g/dL (2.5-4.5) 07/30/16 05:27 Albumin/Globulin Ratio 0.8 Ratio (1.1-2.1) L 07/30/16 05:27 Prealbumin 11.8 mg/dL (18-35.7) L 07/29/16 18:30 Triglycerides 60 mg/dL (0-150) 07/30/16 05:27 Specimen Type Catherized urine 07/29/16 06:11 Urine Color Lisette (YELLOW) 07/29/16 06:11 Urine Appearance Hazy (CLEAR) 07/29/16 06:11 Urine pH 7.0 (5.0 - 8.0) 07/29/16 06:11 Ur Specific [place] 1.010 (1.000-1.030) 07/29/16 06:11 Urine Protein 3+ (NEGATIVE) 07/29/16 06:11 Urine Glucose (UA) Negative (NEGATIVE) 07/29/16 06:11 Urine Ketones Negative (NEGATIVE) 07/29/16 06:11 Urine Occult Blood 5+ (NEGATIVE) 07/29/16 06:11 Urine Nitrite Negative (NEGATIVE) 07/29/16 06:11 Urine Bilirubin Negative (NEGATIVE) 07/29/16 06:11 Urine Urobilinogen 1+ (NORMAL) 07/29/16 06:11 Ur Leukocyte Esterase 3+ (NEGATIVE) 07/29/16 06:11 Urine RBC 40-50 /HPF (NEGATIVE) 07/29/16 06:11 Urine WBC 30-40 /HPF (NEGATIVE) 07/29/16 06:11 Ur Squamous Epith Cells Rare /HPF (NEGATIVE) 07/29/16 06:11 Urine Bacteria Trace /HPF (NEGATIVE) 07/29/16 06:11 Ur Culture Indicated? Yes/culture set up 07/29/16 06:11 Urine Opiates Screen Negative (NEG=<300) 07/29/16 06:11 Urine Methadone Screen Negative (NEG=<300) 07/29/16 06:11 Ur Barbiturates Screen Negative (NEG=<200) 07/29/16 06:11 Ur Phencyclidine Scrn Negative (NEG=<25) 07/29/16 06:11 Ur Amphetamines Screen Positive (NEG=<1000) 07/29/16 06:11 U Benzodiazepines Scrn Positive (NEG=<200) 07/29/16 06:11 Urine Cocaine Screen Negative (NEG=<300) 07/29/16 06:11 U Marijuana (THC) Screen Negative (NEG=<50) 07/29/16 06:11 - Plan (1) Unresponsive Status: Acute Plan: CONTINUE IV FLUIDS WITH BICARB, SUPPLEMENTAL OXYGEN, IV VANCOMYCIN, LEVAQUIN, MONITOR. (2) Rhabdomyolysis Status: Acute Qualifiers: Rhabdomyolysis type: non-traumatic Encounter type: E Qualified Code(s): M62.82 - Rhabdomyolysis Plan: CONTINUE AGGRESSIVE IV FLUIDS HYDRATION, MONTOR LABS. (3) Renal failure Status: Acute Qualifiers: Renal failure chronicity: acute Acute renal failure type: A Chronic kidney disease stage: C Plan: OBTAIN RENAL US, MONITOR LABS, CONTINUE IV FLUIDS. (4) Leukocytosis Status: Acute Qualifiers: Leukocytosis type: L Plan: CONTINUE IV VANCOMYCIN, LEVAQUIN, IV FLUIDS, MONITOR VITAL SIGNS, LABS. (5) Hypoglycemia Status: Acute Plan: MONITOR GLUCOSE, CONITNUE D5 1/2 NS, MONITOR. (6) Hypoalbuminemia Status: Acute Plan: CONTINUE ALBUMIN, MONITOR LABS. (7) Poor nutrition Status: Acute Plan: START CLEAR LIQUID DIET, CONTINUE ALBUMIN, TPN, MONITOR. (8) CHF (congestive heart failure) Status: Chronic Qualifiers: Congestive heart failure type: unspecified congestive heart failure type Congestive heart failure chronicity: acute Qualified Code(s): I50.9 - Heart failure, unspecified Plan: OBTAIN ECHO, MONITOR CHEST XRAY. (9) Drug abuse Status: Chronic Plan: CONTINUE TO MONITOR.
[2016-07-30] MEDS: D5 NS IV SCH ×2 (16:58)
[2016-07-30] MEDS: SODIUM BICARBONATE IV SCH ×2 (16:58)
--- NOTE | 2016-07-30 18:04 | US ---
HISTORY: Acute renal failure. Study: Renal ultrasound Comparison: None. Technique: Multiple etienne scale and color flow Doppler images of the kidneys were obtained. The sierra on of the urinary bladder was evaluated as well. Findings: The right kidney is normal in echotexture and size. The right kidney measures 10 x 6 x 6 centimeters . No focal mass, hydronephrosis, or stones identified. The left kidney is unremarkable in its echotexture and size. The left kidney measures 8 x 6 x 4 cent imeters. No focal mass, hydronephrosis, or stone can be seen within the left kidney. The region of the urinary bladder is grossly unremarkable. IMPRESSION: 1. Unremarkable evaluation of the kidneys. Reported By:
[2016-07-30] MEDS: CLINIMIX 4.25 %/10 % 1,000 ML with MVI INJ (ADULT) 10 ML, TRACE ELEMENTS INJ 10 ML, DRU... IV SCH ×4 (20:12)
[2016-07-30] MEDS: SNACK - Diabetic Appropriate PO SCH (21:31)
[2016-07-31] MEDS: DUONEB 0.5 MG/3 MG NEB SCH ×4 (01:00→16:05)
[2016-07-31] MEDS: SODIUM BICARBONATE IV SCH ×8 (03:26→21:19)
[2016-07-31] MEDS: D5 NS IV SCH ×8 (03:26→21:19)
[2016-07-31] MEDS: CLINIMIX 4.25 %/10 % 1,000 ML with MVI INJ (ADULT) 10 ML, TRACE ELEMENTS INJ 10 ML, DRU... IV SCH ×20 (05:50→22:56)
--- NOTE | 2016-07-31 06:34 | RAD ---
Chest AP portable Indication: CHF. Comparison: July 29, 2016. Findings: There is cardiomegaly. Right IJ catheter tip projects over the cavoatrial junction. There is no pneumothorax, effusion or consolidation. Impression: Cardiomegaly without severe edema or a new acute abnormality. Reported By:
[2016-07-31] MEDS: ALBUMIN HUMAN 25%- 100ML 100 ML IV SCH (10:12)
[2016-07-31] MEDS: VANCOMYCIN 1 GM PREMIX (ADDVANTAGE) 250 ML IV SCH (10:13)
[2016-07-31] MEDS: LEVAQUIN PREMIX IV 750 MG 750 MG/150 ML BAG IV SCH (10:13)
[2016-07-31 11:21] LABS: ALANINE AMINOTRANSFERASE 986 Units/L (12-78); ALBUMIN 3.2 g/dL (3.4-5.0); ALKALINE PHOSPHATASE 177 Units/L (46-116); BLOOD UREA NITROGEN 64 mg/dL (7-18); CALCIUM 8.1 mg/dL (8.5-10.1); CARBON DIOXIDE 25.8 mmol/L (21-32); CHLORIDE 102 mmol/L (98-107); COR CA(FOR HYPOALB) 8.7 mg/dL (8.5-10.1); CREATININE 2.97 mg/dL (0.70-1.30); GLUCOSE 91 mg/dL (65-99); MAGNESIUM 1.9 mg/dL (1.7-2.9); PHOSPHORUS 3.2 mg/dL (2.6-4.7); SODIUM 134 mmol/L (136-145); TOTAL PROTEIN 6.5 g/dL (6.4-8.2); TRIGLYCERIDES 43 mg/dL (0-150); eGFR BLACK RACES 31 (>60); eGFR NON BLACK RACES 26 (>60)
[2016-07-31 11:23] LABS: LACTIC ACID 1.7 mmol/L (0.4-2.0)
[2016-07-31 11:34] LABS: ASPARTATE AMINO TRANSFERASE 1376 Units/L (15-37)
[2016-07-31 11:40] LABS: BASOPHILS # (AUTO) 0.1 X10^3/uL (0.0-0.1); EOSINOPHILS # (AUTO) 0.2 x10^3/uL (0.0-0.2); MONOCYTES # (AUTO) 1.8 x10^3/uL (0.3-0.8)
[2016-07-31 11:59] LABS: BASOPHILS % (AUTO) 0.6 % (0.2-1.0); EOSINOPHILS % (AUTO) 0.9 % (0.9-2.9); HEMATOCRIT 39.6 % (42.0-54.0); HEMOGLOBIN 12.1 g/dL (13.5-18.0); LYMPHOCYTES % (AUTO) 8.3 % (21.0-51.0); MEAN CORPUSCULAR HEMOGLOBIN 24.2 pg (27.0-34.0); MEAN CORPUSCULAR HGB CONC 30.6 g/dL (33.0-35.0); MEAN PLATELET VOLUME 8.6 fL (7.4-11.0); MONOCYTES % (AUTO) 7.7 % (0.0-13.0); NEUTROPHILS # (AUTO) 19.3 x10^3/uL (2.2-4.8); NEUTROPHILS % (AUTO) 82.5 % (42.0-75.0); PLATELET COUNT 257 X10^3/uL (150.0-450.0); RED BLOOD COUNT 5.01 X10^6/uL (4.7-6.0)
[2016-07-31] MEDS: COLACE CAP 100 MG PO SCH ×2 (12:08→21:19)
[2016-07-31] MEDS: MILK OF MAGNESIA PO SCH ×4 (12:09→21:22)
[2016-07-31 12:35] LABS: WHITE BLOOD COUNT 23.4 X10^3/uL (3.6-10.0)
[2016-07-31 12:52] LABS: PLATELET MORPHOLOGY COMMENT NORMAL (NORMAL)
[2016-07-31] MEDS ORDERED: NS 1000 ML 1,000 ML IV ONE (13:38)
--- NOTE | 2016-07-31 14:31 | PCM.PROG ---
Progress Note - Progress Note for Day of Date: 07/31/16 - Subjective Subjective: PATIENT RESTS IN BED, FRIENDS AT BEDSIDE. PATIENT IS CURRENTLY BEING TREATED FOR RHABDOMYOLYSIS, DEHYDRATION, RENAL FAILURE, LEUKOCYTOSIS, AND POOR NUTRITION. HE CONTINUES TO REPORT THAT HE DOESN'T FEEL WELL. HE IS NOTED WITH CELLULITIES WITH ERYTHEMA, WARMTH, AND EDEMA TO BILATERAL LOWER EXTREMITIES. PATIENT CONTINUES ON IV VANCOMYCIN, IV LEVAQUIN, AND TPN. PATIENT IS ALSO NOTED WITH GENERALIZED NON-PITTING EDEMA TO UPPER EXTERMITIES. WE DISCUSS AGGRESSIVE IV FLUID HYDRATION FOR RENAL FAILURE AND RHABDO AND CELLULITIS POSSIBLY RELATED TO IV DRUG USE. PATIENT VOICES UNDERSTANDING. PATIENT HAS REFUSED BLOOD CULTURES, LABS, AND ABG THIS MORNING AND STATES HE'S TIRED OF BEING STUCK. WE WILL OBTAIN BLOOD FROM CENTRAL LINE FOR LABS. ON AUSCULTATION, LUNGS ARE DIMINISHED BUT CLEAR. CBC WNL EXCEPT: WBC 23.4, H/H 12.1/39.6. CMP WNL EXCEPT: SODIUM 134, POTASSIUM 4.8, BUN/CREAT 64/2.97, GFR 26 , CALCIUM 8.1, TOT BILIRUBIN 5.00, AST 1376, ALT 986, ALK PHOS 177, ALBUMIN 3.2. RENAL US REPORTS UNREMARKABLE EVALUATION OF THE KIDNEYS. CHEST XRAY REPORTS CARDIOMEGALY WITHOUT SEVERE EDEMA OR A NEW ACUTE ABNORMALITY. WE WILL ADMINISTER NS BOLUS, ADVANCE DIET TO SOFT. WE WILL OBTAIN HEPATITIS PANEL, START BOWEL REGIMEN FOR CONSTIPATION, CONTINUE AGGRESSIVE IV HYDRATION, IV ANTIBIOTICS, TPN, ALBUMIN, AND MONITOR. WE WILL FOLLOW UP IN AM WITH LABS. - Past Medical Family Social History Past Med/Fam/Surg Hx: No changes since H&P Allergies: Allergies No Known Drug Allergy Allergy (Verified 11/25/15 00:18) - Review of Systems ROS: No change since H&P - Vital Signs and I&O's Vital Signs: Temperature 97.9 F Pulse Rate [Apical] 106 Pulse Rate 100 Respiratory Rate 20 Blood Pressure [Right Arm] 123/57 Blood Pressure [Left Arm] 141/93 O2 Sat by Pulse Oximetry 99 Intake and Output: Intake & Output 07/29/16 07/30/16 07/31/16 08/01/16 11:59 11:59 11:59 11:59 Intake Total 5726 6026 Output Total 600 253 Balance 9829 4540 - Physical Exam Oriented: Normal, Time, Person, Place Eyes: Normal. negative: Blurred Vision, Diplopia, Discharge, Pain, Redness, Photophobia Ear: Normal. negative: Swelling, Ecchymosis, Hemotypanum, Abrasion, Laceration Nose: Normal. negative: Injected, Discharge, Blood Throat: Dry. negative: Tonsillar Hypertrophy, Exudate Respiratory: Generalized, Diminished Cardiovascular: Normal. negative: Murmur, Edema : Dysuria, Hematuria, Frequency. negative: Testicular Pain Auscultation: Bowel Sounds: Normal. negative: Bruit Palpation: Normal. negative: Spleen Enlarged, Liver Enlarged, Mass Pulsatile Tenderness: Normal. negative: Rebound, Guarding, Rigidity Skin: Decreased Turgur, Wound (Cellulitis BLE), Bruising (Right Upper Arm and Right Wrist) Musculoskeletal: Instability Psychiatric: Normal Mood Description: Calm, Appropriate Affect: Normal Speech Pattern: Clear, Appropriate - Laboratory and Diagnostics Result Diagrams: 07/31/16 10:50 07/31/16 10:50 Labs: Laboratory WBC 23.4 X10^3/uL (3.6-10.0) H* 07/31/16 10:50 RBC 5.01 X10^6/uL (4.7-6.0) 07/31/16 10:50 Hgb 12.1 g/dL (13.5-18.0) L 07/31/16 10:50 Hct 39.6 % (42.0-54.0) L 07/31/16 10:50 MCV 79.0 fL (80.0-100.0) L 07/31/16 10:50 MCH 24.2 pg (27.0-34.0) L 07/31/16 10:50 MCHC 30.6 g/dL (33.0-35.0) L 07/31/16 10:50 RDW 19.0 % (11.6-16.5) H 07/31/16 10:50 Plt Count 257 X10^3/uL (150.0-450.0) 07/31/16 10:50 Plt Count Comment Adequate (ADEQUATE) 07/31/16 10:50 MPV 8.6 fL (7.4-11.0) 07/31/16 10:50 Neut % 82.5 % (42.0-75.0) H 07/31/16 10:50 Lymph % 8.3 % (21.0-51.0) L 07/31/16 10:50 [place] % 7.7 % (0.0-13.0) 07/31/16 10:50 Eos % 0.9 % (0.9-2.9) 07/31/16 10:50 Baso % 0.6 % (0.2-1.0) 07/31/16 10:50 Neut # 19.3 x10^3/uL (2.2-4.8) H 07/31/16 10:50 Lymph # 2.0 X10^3/uL (1.3-2.9) 07/31/16 10:50 [place] # 1.8 x10^3/uL (0.3-0.8) H 07/31/16 10:50 Eos # 0.2 x10^3/uL (0.0-0.2) 07/31/16 10:50 Baso # 0.1 X10^3/uL (0.0-0.1) 07/31/16 10:50 Absolute Nucleated RBC 0.4 /100WBC 07/31/16 10:50 Total Counted 100 07/30/16 07:30 Neutrophils % (Manual) 71 % (39-76) 07/30/16 07:30 Band Neutrophils % 3 % (0-10) 07/30/16 07:30 Lymphocytes % (Manual) 20 % (13-43) 07/30/16 07:30 Monocytes % (Manual) 4 % (4-9) 07/30/16 07:30 Eosinophils % (Manual) 2 % (0-6) 07/30/16 07:30 Plt Morphology Comment Normal (NORMAL) 07/31/16 10:50 RBC Morphology Normal (NORMAL) 07/31/16 10:50 Sample Site Right brachial 07/29/16 06:58 ABG pH 7.280 (7.35-7.45) L 07/29/16 06:58 ABG pCO2 38.0 mmHg (35.0-45.0) 07/29/16 06:58 ABG pO2 59.0 mmHg (80.0-100.0) L 07/29/16 06:58 ABG HCO3 17.9 mmol/L (22-26) L* 07/29/16 06:58 ABG O2 Saturation 86.0 % (90-100) L 07/29/16 06:58 ABG Base Excess -8.2 mmol/L (-2.0-2.0) L 07/29/16 06:58 Jacques Test Na 07/29/16 06:58 A-a Gradient 122.0 mmHg 07/29/16 06:58 FiO2 32.000 07/29/16 06:58 Blood Gas Comments Hermila well aw 07/29/16 06:58 Sodium 134 mmol/L (136-145) L 07/31/16 10:50 Corrected Sodium TNP 07/31/16 10:50 Potassium 4.8 mmol/L (3.5-5.1) 07/31/16 10:50 Chloride 102 mmol/L (98-107) 07/31/16 10:50 Carbon Dioxide 25.8 mmol/L (21-32) 07/31/16 10:50 BUN 64 mg/dL (7-18) H 07/31/16 10:50 Creatinine 2.97 mg/dL (0.70-1.30) H 07/31/16 10:50 Est GFR (MDRD) Af Amer 31 (>60) L 07/31/16 10:50 Est GFR (MDRD) Non-Af 26 (>60) L 07/31/16 10:50 Glucose 91 mg/dL (65-99) 07/31/16 10:50 Lactic Acid 1.7 mmol/L (0.4-2.0) 07/31/16 10:50 Calcium 8.1 mg/dL (8.5-10.1) L 07/31/16 10:50 Corrected Calcium 8.7 mg/dL (8.5-10.1) 07/31/16 10:50 Phosphorus 3.2 mg/dL (2.6-4.7) 07/31/16 10:50 Magnesium 1.9 mg/dL (1.7-2.9) 07/31/16 10:50 Total Bilirubin 5.00 mg/dL (0.2-1.0) H 07/31/16 10:50 Direct Bilirubin 2.12 mg/dL (0-0.2) H 07/29/16 10:10 Indirect Bilirubin 1.18 mg/dL (0.2-0.8) H 07/29/16 10:10 AST 1376 Units/L (15-37) H 07/31/16 10:50 ALT 986 Units/L (12-78) H 07/31/16 10:50 Alkaline Phosphatase 177 Units/L (46-116) H 07/31/16 10:50 Total Protein 6.5 g/dL (6.4-8.2) 07/31/16 10:50 Albumin 3.2 g/dL (3.4-5.0) L 07/31/16 10:50 Globulin 3.3 g/dL (2.5-4.5) 07/31/16 10:50 Albumin/Globulin Ratio 1.0 Ratio (1.1-2.1) L 07/31/16 10:50 Prealbumin 11.8 mg/dL (18-35.7) L 07/29/16 18:30 Triglycerides 43 mg/dL (0-150) 07/31/16 10:50 Specimen Type Catherized urine 07/29/16 06:11 Urine Color Lisette (YELLOW) 07/29/16 06:11 Urine Appearance Hazy (CLEAR) 07/29/16 06:11 Urine pH 7.0 (5.0 - 8.0) 07/29/16 06:11 Ur Specific [place] 1.010 (1.000-1.030) 07/29/16 06:11 Urine Protein 3+ (NEGATIVE) 07/29/16 06:11 Urine Glucose (UA) Negative (NEGATIVE) 07/29/16 06:11 Urine Ketones Negative (NEGATIVE) 07/29/16 06:11 Urine Occult Blood 5+ (NEGATIVE) 07/29/16 06:11 Urine Nitrite Negative (NEGATIVE) 07/29/16 06:11 Urine Bilirubin Negative (NEGATIVE) 07/29/16 06:11 Urine Urobilinogen 1+ (NORMAL) 07/29/16 06:11 Ur Leukocyte Esterase 3+ (NEGATIVE) 07/29/16 06:11 Urine RBC 40-50 /HPF (NEGATIVE) 07/29/16 06:11 Urine WBC 30-40 /HPF (NEGATIVE) 07/29/16 06:11 Ur Squamous Epith Cells Rare /HPF (NEGATIVE) 07/29/16 06:11 Urine Bacteria Trace /HPF (NEGATIVE) 07/29/16 06:11 Ur Culture Indicated? Yes/culture set up 07/29/16 06:11 Urine Opiates Screen Negative (NEG=<300) 07/29/16 06:11 Urine Methadone Screen Negative (NEG=<300) 07/29/16 06:11 Ur Barbiturates Screen Negative (NEG=<200) 07/29/16 06:11 Ur Phencyclidine Scrn Negative (NEG=<25) 07/29/16 06:11 Ur Amphetamines Screen Positive (NEG=<1000) 07/29/16 06:11 U Benzodiazepines Scrn Positive (NEG=<200) 07/29/16 06:11 Urine Cocaine Screen Negative (NEG=<300) 07/29/16 06:11 U Marijuana (THC) Screen Negative (NEG=<50) 07/29/16 06:11 - Plan (1) Sepsis Status: Suspected Qualifiers: Sepsis type: sepsis due to unspecified organism Qualified Code(s): A41.9 - Sepsis, unspecified organism Plan: OBTAIN BLOOD CULTURES, LACTIC ACID, CONTINUE IV FLUIDS WITH BICARB, SUPPLEMENTAL OXYGEN, IV VANCOMYCIN, LEVAQUIN, MONITOR. (2) Leukocytosis Status: Acute Qualifiers: Leukocytosis type: L Plan: OBTAIN BLOOD CULTURES, LACTIC ACID, CONTINUE IV FLUIDS WITH BICARB, SUPPLEMENTAL OXYGEN, IV VANCOMYCIN, LEVAQUIN, MONITOR. (3) Bilateral lower leg cellulitis Status: Acute Plan: CONTINUE IV ANTIBIOTICS, MONITOR. (4) Rhabdomyolysis Status: Acute Qualifiers: Rhabdomyolysis type: non-traumatic Encounter type: E Qualified Code(s): M62.82 - Rhabdomyolysis Plan: CONTINUE AGGRESSIVE IV FLUIDS HYDRATION, MONTOR LABS. (5) Renal failure Status: Acute Qualifiers: Renal failure chronicity: acute Acute renal failure type: A Chronic kidney disease stage: C Plan: OBTAIN RENAL US, MONITOR LABS, CONTINUE IV FLUIDS. (6) Hypoglycemia Status: Acute Plan: MONITOR GLUCOSE, CONITNUE D5 1/2 NS, MONITOR. (7) Hypoalbuminemia Status: Acute Plan: CONTINUE ALBUMIN, MONITOR LABS. (8) Poor nutrition Status: Acute Plan: START CLEAR LIQUID DIET, CONTINUE ALBUMIN, TPN, MONITOR. (9) CHF (congestive heart failure) Status: Chronic Qualifiers: Congestive heart failure type: unspecified congestive heart failure type Congestive heart failure chronicity: acute Qualified Code(s): I50.9 - Heart failure, unspecified Plan: OBTAIN ECHO, MONITOR CHEST XRAY. (10) Drug abuse Status: Chronic Plan: CONTINUE TO MONITOR. (11) Unresponsive Status: Resolved
[2016-07-31] MEDS: MIRALAX POWDER (1 DOSE 17GM) PO SCH (21:22)
[2016-07-31] MEDS: SNACK - Diabetic Appropriate PO SCH (22:57)
[2016-08-01] MEDS: DUONEB 0.5 MG/3 MG NEB SCH ×4 (00:57→17:02)
[2016-08-01 05:15] LABS: ABG BASE EXCESS -0.1 mmol/L (-2.0-2.0); ABG HCO3 23.9 mmol/L (22-26)
[2016-08-01] MEDS: CLINIMIX 4.25 %/10 % 1,000 ML with MVI INJ (ADULT) 10 ML, TRACE ELEMENTS INJ 10 ML, DRU... IV SCH ×12 (06:04→21:04)
[2016-08-01] MEDS: D5 NS IV SCH ×8 (06:08→21:02)
[2016-08-01] MEDS: SODIUM BICARBONATE IV SCH ×8 (06:08→21:02)
[2016-08-01 07:00] LABS: BASOPHILS # (AUTO) 0.1 X10^3/uL (0.0-0.1); BASOPHILS % (AUTO) 0.5 % (0.2-1.0); EOSINOPHILS # (AUTO) 0.4 x10^3/uL (0.0-0.2); EOSINOPHILS % (AUTO) 1.9 % (0.9-2.9); HEMATOCRIT 38.9 % (42.0-54.0); LYMPHOCYTES # (AUTO) 1.9 X10^3/uL (1.3-2.9); LYMPHOCYTES % (AUTO) 10.3 % (21.0-51.0); MEAN CORPUSCULAR HEMOGLOBIN 24.2 pg (27.0-34.0); MEAN CORPUSCULAR HGB CONC 30.9 g/dL (33.0-35.0); MEAN CORPUSCULAR VOLUME 78.3 fL (80.0-100.0); MONOCYTES # (AUTO) 1.8 x10^3/uL (0.3-0.8); MONOCYTES % (AUTO) 9.7 % (0.0-13.0); NEUTROPHILS # (AUTO) 14.1 x10^3/uL (2.2-4.8); NEUTROPHILS % (AUTO) 77.6 % (42.0-75.0); PLATELET COUNT 224 X10^3/uL (150.0-450.0); RED BLOOD COUNT 4.96 X10^6/uL (4.7-6.0); RED CELL DISTRIBUTION WIDTH 19.1 % (11.6-16.5); WHITE BLOOD COUNT 18.2 X10^3/uL (3.6-10.0)
[2016-08-01 07:04] LABS: ALANINE AMINOTRANSFERASE 706 Units/L (12-78); ALBUMIN 2.9 g/dL (3.4-5.0); ALKALINE PHOSPHATASE 166 Units/L (46-116); ASPARTATE AMINO TRANSFERASE 768 Units/L (15-37); BLOOD UREA NITROGEN 63 mg/dL (7-18); CALCIUM 7.9 mg/dL (8.5-10.1); CHLORIDE 102 mmol/L (98-107); COR CA(FOR HYPOALB) 8.8 mg/dL (8.5-10.1); CREATININE 2.18 mg/dL (0.70-1.30); GLUCOSE 100 mg/dL (65-99); LACTIC ACID 1.4 mmol/L (0.4-2.0); MAGNESIUM 1.8 mg/dL (1.7-2.9); PHOSPHORUS 1.8 mg/dL (2.6-4.7); SODIUM 134 mmol/L (136-145); TRIGLYCERIDES 41 mg/dL (0-150); eGFR BLACK RACES 44 (>60); eGFR NON BLACK RACES 37 (>60)
[2016-08-01 07:26] LABS: TOTAL PROTEIN 6.1 g/dL (6.4-8.2)
[2016-08-01 07:46] LABS: BAND NEUTROPHILS % 6 % (0-10); BASOPHILS % (MANUAL) 1 % (0-1); HYPOCHROMASIA SLIGHT; PLATELET MORPHOLOGY COMMENT NORMAL (NORMAL)
--- NOTE | 2016-08-01 07:48 | RAD ---
HISTORY: Shortness of breath Study: Single view of the chest. Comparison: 07/31/2016 Findings: Cardiomegaly and pulmonary edema which is not changed from prior. No focal consolidations, pleural e ffusions or pneumothorax. Osseous structures demonstrate no acute abnormality. IMPRESSION: 1. Cardiomegaly and pulmonary edema which has not changed since prior. Reported By:
[2016-08-01] MEDS: ALBUMIN HUMAN 25%- 100ML 100 ML IV SCH (08:23)
[2016-08-01] MEDS: COLACE CAP 100 MG PO SCH ×2 (08:24→20:53)
[2016-08-01] MEDS: MILK OF MAGNESIA PO SCH ×4 (08:24→20:52)
[2016-08-01] MEDS: VANCOMYCIN 1 GM PREMIX (ADDVANTAGE) 250 ML IV SCH (08:24)
--- NOTE | 2016-08-01 13:54 | VAS ---
VENOUS ULTRASOUND DOPPLER EXAMINATION OF THE BILATERAL LOWER EXTREMITIES HISTORY: The lateral pain and swelling Comparison: None TECHNIQUE: Multiple etienne scale and color flow Doppler images of the deep venous system were obtaine d of the right and left lower extremity. FINDINGS: The deep venous system of the right and left lower extremities were evaluated from the level of the common femoral vein through the popliteal vein. Normal color flow and augmentation can be observed. In addition, normal compression is seen throughout the deep venous system. IMPRESSION: 1. Negative for DVT. Reported By:
[2016-08-01] MEDS: ZOFRAN INJ 4 MG VIAL IVP PRN (18:25)
[2016-08-01] MEDS: MIRALAX POWDER (1 DOSE 17GM) PO SCH (20:52)
[2016-08-01] MEDS: SNACK - Diabetic Appropriate PO SCH (21:03)
[2016-08-01 21:35] LABS: HEPATITIS A ANTIBODY IGM Negative (Negative)
[2016-08-01 22:09] LABS: HEPATITIS B CORE IGM Negative (Negative); HEPATITIS B SURFACE ANTIGEN Negative (Negative)
[2016-08-02] MEDS: DUONEB 0.5 MG/3 MG NEB SCH ×4 (00:51→17:16)
[2016-08-02 05:39] LABS: BASOPHILS # (AUTO) 0.1 X10^3/uL (0.0-0.1); BASOPHILS % (AUTO) 0.8 % (0.2-1.0); EOSINOPHILS # (AUTO) 0.2 x10^3/uL (0.0-0.2); EOSINOPHILS % (AUTO) 1.5 % (0.9-2.9); HEMATOCRIT 37.2 % (42.0-54.0); HEMOGLOBIN 11.8 g/dL (13.5-18.0); LYMPHOCYTES # (AUTO) 1.8 X10^3/uL (1.3-2.9); LYMPHOCYTES % (AUTO) 11.4 % (21.0-51.0); MEAN CORPUSCULAR HEMOGLOBIN 24.4 pg (27.0-34.0); MEAN CORPUSCULAR HGB CONC 31.7 g/dL (33.0-35.0); MEAN CORPUSCULAR VOLUME 76.8 fL (80.0-100.0); MEAN PLATELET VOLUME 7.8 fL (7.4-11.0); MONOCYTES # (AUTO) 2.3 x10^3/uL (0.3-0.8); MONOCYTES % (AUTO) 14.8 % (0.0-13.0); NEUTROPHILS # (AUTO) 11.1 x10^3/uL (2.2-4.8); NEUTROPHILS % (AUTO) 71.5 % (42.0-75.0); PLATELET COUNT 193 X10^3/uL (150.0-450.0); RED BLOOD COUNT 4.84 X10^6/uL (4.7-6.0); RED CELL DISTRIBUTION WIDTH 19.6 % (11.6-16.5); WHITE BLOOD COUNT 15.6 X10^3/uL (3.6-10.0)
[2016-08-02 05:42] LABS: ALANINE AMINOTRANSFERASE 528 Units/L (12-78); ALBUMIN 2.9 g/dL (3.4-5.0); ALKALINE PHOSPHATASE 164 Units/L (46-116); ASPARTATE AMINO TRANSFERASE 508 Units/L (15-37); BLOOD UREA NITROGEN 54 mg/dL (7-18); CALCIUM 8.1 mg/dL (8.5-10.1); CARBON DIOXIDE 22.4 mmol/L (21-32); CHLORIDE 105 mmol/L (98-107); CREATININE 1.63 mg/dL (0.70-1.30); GLUCOSE 105 mg/dL (65-99); SODIUM 137 mmol/L (136-145); TOTAL PROTEIN 5.9 g/dL (6.4-8.2); eGFR BLACK RACES > 60 (>60); eGFR NON BLACK RACES 51 (>60)
[2016-08-02] MEDS: D5 NS IV SCH ×2 (06:19)
[2016-08-02] MEDS: SODIUM BICARBONATE IV SCH ×2 (06:19)
[2016-08-02] MEDS: CLINIMIX 4.25 %/10 % 1,000 ML with MVI INJ (ADULT) 10 ML, TRACE ELEMENTS INJ 10 ML, DRU... IV SCH ×4 (06:19)
[2016-08-02 06:41] LABS: BAND NEUTROPHILS % 4 % (0-10); PLATELET MORPHOLOGY COMMENT NORMAL (NORMAL)
[2016-08-02 06:42] LABS: ANISOCYTOSIS 1+; CRENATED RBC SLIGHT; HYPOCHROMASIA SLIGHT; OVALOCYTES SLIGHT; POIKILOCYTOSIS 1+
--- NOTE | 2016-08-02 07:30 | RAD ---
HISTORY: Congestive heart failure Study: Single view of the chest. Comparison: 08/01/2016 Findings: Cardiomegaly and pulmonary edema. Unchanged from prior. Right-sided central catheter terminating ove r the SVC. No focal consolidations, pleural effusions or pneumothorax. Osseous structures demonstrat e no acute abnormality. IMPRESSION: 1. No change in cardiomegaly and pulmonary edema. Reported By:
[2016-08-02] MEDS: ALBUMIN HUMAN 25%- 100ML 100 ML IV SCH (08:32)
[2016-08-02] MEDS: COLACE CAP 100 MG PO SCH ×2 (08:33→22:14)
[2016-08-02] MEDS: VANCOMYCIN 1 GM PREMIX (ADDVANTAGE) 250 ML IV SCH ×2 (08:33→22:13)
[2016-08-02] MEDS: MILK OF MAGNESIA PO SCH ×4 (08:33→22:14)
[2016-08-02] MEDS: LEVAQUIN PREMIX IV 750 MG 750 MG/150 ML BAG IV SCH (10:43)
[2016-08-02] MEDS: LASIX IVP SCH ×2 (13:30→22:14)
[2016-08-02] MEDS ORDERED: NS 500 ML IV 500 ML IV ONE (22:08)
[2016-08-02] MEDS: MIRALAX POWDER (1 DOSE 17GM) PO SCH (22:15)
[2016-08-03] MEDS: DUONEB 0.5 MG/3 MG NEB SCH ×5 (00:39→20:52)
[2016-08-03 04:59] LABS: BASOPHILS % (AUTO) 0.2 % (0.2-1.0); EOSINOPHILS # (AUTO) 0.1 x10^3/uL (0.0-0.2); EOSINOPHILS % (AUTO) 0.7 % (0.9-2.9); HEMATOCRIT 36.6 % (42.0-54.0); HEMOGLOBIN 11.6 g/dL (13.5-18.0); LYMPHOCYTES # (AUTO) 1.4 X10^3/uL (1.3-2.9); LYMPHOCYTES % (AUTO) 8.8 % (21.0-51.0); MEAN CORPUSCULAR HEMOGLOBIN 24.1 pg (27.0-34.0); MEAN CORPUSCULAR HGB CONC 31.7 g/dL (33.0-35.0); MEAN PLATELET VOLUME 7.5 fL (7.4-11.0); MONOCYTES # (AUTO) 2.6 x10^3/uL (0.3-0.8); MONOCYTES % (AUTO) 15.7 % (0.0-13.0); NEUTROPHILS # (AUTO) 12.2 x10^3/uL (2.2-4.8); NEUTROPHILS % (AUTO) 74.6 % (42.0-75.0); PLATELET COUNT 209 X10^3/uL (150.0-450.0); RED BLOOD COUNT 4.81 X10^6/uL (4.7-6.0); RED CELL DISTRIBUTION WIDTH 19.4 % (11.6-16.5); WHITE BLOOD COUNT 16.3 X10^3/uL (3.6-10.0)
[2016-08-03 05:12] LABS: ALANINE AMINOTRANSFERASE 444 Units/L (12-78); ALKALINE PHOSPHATASE 162 Units/L (46-116); ASPARTATE AMINO TRANSFERASE 423 Units/L (15-37); BLOOD UREA NITROGEN 40 mg/dL (7-18); CALCIUM 8.7 mg/dL (8.5-10.1); CARBON DIOXIDE 27.9 mmol/L (21-32); CHLORIDE 103 mmol/L (98-107); COR CA(FOR HYPOALB) 9.5 mg/dL (8.5-10.1); CREATININE 1.53 mg/dL (0.70-1.30); GLUCOSE 97 mg/dL (65-99); SODIUM 138 mmol/L (136-145); TOTAL PROTEIN 6.2 g/dL (6.4-8.2); eGFR BLACK RACES > 60 (>60); eGFR NON BLACK RACES 55 (>60)
[2016-08-03 05:16] LABS: BAND NEUTROPHILS % 1 % (0-10); HYPOCHROMASIA SLIGHT; PLATELET MORPHOLOGY COMMENT NORMAL (NORMAL)
--- NOTE | 2016-08-03 06:41 | RAD ---
HISTORY: Follow up congestive heart failure Study: Chest one view Comparison: August 02, 2016 and multiple priors Findings: There is a right IJ line in good position. The heart remains markedly enlarged. There does not appea r to be any congestive heart failure on today's examination. However there is now visualized diffuse alveolar infiltrate throughout the right lung. This is most consistent with pneumonia. The left ramandeep g is clear. No pleural effusions are identified. The bony thorax is unremarkable. IMPRESSION: Cardiomegaly without congestive heart failure Now visualized is diffuse alveolar infiltrate throughout the right lung most consistent with pneumon ia. Reported By:
[2016-08-03 09:03] LABS: CREATININE 1.46 mg/dL (0.70-1.30); VANCOMYCIN,TROUGH 13.8 ug/mL (15-20)
[2016-08-03] MEDS: MILK OF MAGNESIA PO SCH ×4 (09:14→21:13)
[2016-08-03] MEDS: VANCOMYCIN 1 GM PREMIX (ADDVANTAGE) 250 ML IV SCH ×2 (09:14→21:14)
[2016-08-03] MEDS: COLACE CAP 100 MG PO SCH ×2 (09:14→21:13)
[2016-08-03] MEDS: ALBUMIN HUMAN 25%- 100ML 100 ML IV SCH (10:29)
[2016-08-03] MEDS ORDERED: MAALOX or MYLANTA PO PRN (12:13)
--- NOTE | 2016-08-03 16:29 | PCM.PROG ---
Progress Note - Progress Note for Day of Date: 08/03/16 - Subjective Subjective: PATIENT RESTS IN BED, GRANDMOTHER AT BEDSIDE. PATIENT IS ALERT AND ORIENTED. PATIENT IS SLOWLY IMPROVING EACH DAY WITH IV ANTIBIOTICS. PATIENT CONTINUES WITH CELLULITIES WITH ERYTHEMA, WARMTH, AND EDEMA TO BILATERAL LOWER EXTREMITIES. PATIENT CONTINUES ON IV VANCOMYCIN, IV LEVAQUIN, AND TPN. APPETITE IS IMPROVING. PATIENT HAS SCROTAL EDEMA RELATED TO DEPENDANT EDEMA AND AGGRESSIVE IV HYDRATION WITH RENAL FAILURE. WBC HAS IMPROVED FROM 23.4 TO 16.3. ON AUSCULTATION, RIGHT LUNG IS NOTED WITH SCATTERED WHEEZES, LEFT LUNG IS CLEAR. COUGH IS MOIST, NON-RPODUCTIVE. CBC WNL EXCEPT: WBC 16.3, H/H 11.6/ 36.6. CMP WNL EXCEPT: BUN/CREAT 40/1.53, GFR 55, TOT BILIRUBIN 6.80, AST 423, ALT 444, ALK PHOS 162, TOT PROTEIN 6.2, ALBUMIN 3.0. CHEST XRAY REPORTS CARDIOMEGALY WITHOUT CHF; DIFFUSE ALVEOLAR INFILTRATE THROUGHOUT THE RIGHT LUNG. WE WILL CONSULT GI RELATED TO ELEVATED BILIRUBIN, ADVANCE DIET TO REGULAR , CONTINUE BOWEL REGIMEN, IV ANTIBIOTICS, TPN, ALBUMIN, AND MONITOR. WE WILL FOLLOW UP IN AM WITH LABS AND CHEST XRAY. - Past Medical Family Social History Past Med/Fam/Surg Hx: No changes since H&P Allergies: Allergies No Known Drug Allergy Allergy (Verified 11/25/15 00:18) - Review of Systems ROS: No change since H&P - Vital Signs and I&O's Vital Signs: Temperature 98.5 F Pulse Rate [Left Brachial] 126 Pulse Rate [Apical] 119 Pulse Rate 112 Respiratory Rate 22 Blood Pressure [Right Arm] 123/57 Blood Pressure [Left Arm] 129/91 O2 Sat by Pulse Oximetry 96 Intake and Output: Intake & Output 08/01/16 08/02/16 08/03/16 08/04/16 11:59 11:59 11:59 11:59 Intake Total 520 5956 2860 900 Output Total 2550 1500 Balance -2029 4456 2860 900 - Physical Exam Oriented: Normal, Time, Person, Place Eyes: Normal. negative: Blurred Vision, Diplopia, Discharge, Pain, Redness, Photophobia Ear: Normal. negative: Swelling, Ecchymosis, Hemotypanum, Abrasion, Laceration Nose: Normal. negative: Injected, Discharge, Blood Throat: Dry. negative: Tonsillar Hypertrophy, Exudate Respiratory: Right, Left (Clear), Wheezes Cardiovascular: Normal. negative: Murmur, Edema : Normal. negative: Testicular Pain Auscultation: Bowel Sounds: Normal. negative: Bruit Palpation: Normal. negative: Spleen Enlarged, Liver Enlarged, Mass Pulsatile Tenderness: Normal. negative: Rebound, Guarding, Rigidity Skin: Normal, Wound (Cellulitis BLE) Musculoskeletal: Instability Psychiatric: Normal Mood Description: Calm, Appropriate Affect: Normal Speech Pattern: Clear, Appropriate - Laboratory and Diagnostics Result Diagrams: 08/03/16 04:25 08/03/16 08:36 Labs: 07/31/16 15:56 Leg - Left Gram Stain - Final 07/31/16 15:56 Leg - Left Wound Culture - Preliminary 07/31/16 14:20 Blood Blood Culture - Preliminary 07/31/16 14:15 Blood Blood Culture - Preliminary Laboratory WBC 16.3 X10^3/uL (3.6-10.0) H 08/03/16 04:25 RBC 4.81 X10^6/uL (4.7-6.0) 08/03/16 04:25 Hgb 11.6 g/dL (13.5-18.0) L 08/03/16 04:25 Hct 36.6 % (42.0-54.0) L 08/03/16 04:25 MCV 76.0 fL (80.0-100.0) L 08/03/16 04:25 MCH 24.1 pg (27.0-34.0) L 08/03/16 04:25 MCHC 31.7 g/dL (33.0-35.0) L 08/03/16 04:25 RDW 19.4 % (11.6-16.5) H 08/03/16 04:25 Plt Count 209 X10^3/uL (150.0-450.0) 08/03/16 04:25 Plt Count Comment Adequate (ADEQUATE) 08/03/16 04:25 MPV 7.5 fL (7.4-11.0) 08/03/16 04:25 Neut % 74.6 % (42.0-75.0) 08/03/16 04:25 Lymph % 8.8 % (21.0-51.0) L 08/03/16 04:25 [place] % 15.7 % (0.0-13.0) H 08/03/16 04:25 Eos % 0.7 % (0.9-2.9) L 08/03/16 04:25 Baso % 0.2 % (0.2-1.0) 08/03/16 04:25 Neut # 12.2 x10^3/uL (2.2-4.8) H 08/03/16 04:25 Lymph # 1.4 X10^3/uL (1.3-2.9) 08/03/16 04:25 [place] # 2.6 x10^3/uL (0.3-0.8) H 08/03/16 04:25 Eos # 0.1 x10^3/uL (0.0-0.2) 08/03/16 04:25 Baso # 0.0 X10^3/uL (0.0-0.1) 08/03/16 04:25 Absolute Nucleated RBC 0.2 /100WBC 08/03/16 04:25 Total Counted 100 08/03/16 04:25 Neutrophils % (Manual) 73 % (39-76) 08/03/16 04:25 Band Neutrophils % 1 % (0-10) 08/03/16 04:25 Lymphocytes % (Manual) 12 % (13-43) L 08/03/16 04:25 Monocytes % (Manual) 14 % (4-9) H 08/03/16 04:25 Eosinophils % (Manual) 1 % (0-6) 08/01/16 05:55 Basophils % (Manual) 1 % (0-1) 08/01/16 05:55 Plt Morphology Comment Normal (NORMAL) 08/03/16 04:25 RBC Morphology Abnormal (NORMAL) 08/03/16 04:25 Hypochromasia Slight A 08/03/16 04:25 Poikilocytosis 1+ A 08/02/16 04:55 Anisocytosis 1+ A 08/02/16 04:55 Ovalocytes Slight A 08/02/16 04:55 Crenated Cell Slight A 08/02/16 04:55 Sample Site Lb 08/01/16 05:10 ABG pH 7.430 (7.35-7.45) 08/01/16 05:10 ABG pCO2 36.0 mmHg (35.0-45.0) 08/01/16 05:10 ABG pO2 86.0 mmHg (80.0-100.0) 08/01/16 05:10 ABG HCO3 23.9 mmol/L (22-26) 08/01/16 05:10 ABG O2 Saturation 97.0 % (90-100) 08/01/16 05:10 ABG Base Excess -0.1 mmol/L (-2.0-2.0) 08/01/16 05:10 Jacques Test N/a 08/01/16 05:10 A-a Gradient 97.0 mmHg 08/01/16 05:10 FiO2 32.000 08/01/16 05:10 Blood Gas Comments Hermila well 08/01/16 05:10 Sodium 138 mmol/L (136-145) 08/03/16 04:25 Corrected Sodium TNP 08/03/16 04:25 Potassium 3.9 mmol/L (3.5-5.1) 08/03/16 04:25 Chloride 103 mmol/L (98-107) 08/03/16 04:25 Carbon Dioxide 27.9 mmol/L (21-32) 08/03/16 04:25 BUN 40 mg/dL (7-18) H 08/03/16 04:25 Creatinine 1.46 mg/dL (0.70-1.30) H 08/03/16 08:36 Est GFR (MDRD) Af Amer > 60 (>60) 08/03/16 04:25 Est GFR (MDRD) Non-Af 55 (>60) L 08/03/16 04:25 Glucose 97 mg/dL (65-99) 08/03/16 04:25 Lactic Acid 1.4 mmol/L (0.4-2.0) 08/01/16 05:55 Calcium 8.7 mg/dL (8.5-10.1) 08/03/16 04:25 Corrected Calcium 9.5 mg/dL (8.5-10.1) 08/03/16 04:25 Phosphorus 1.8 mg/dL (2.6-4.7) L 08/01/16 05:55 Magnesium 1.8 mg/dL (1.7-2.9) 08/01/16 05:55 Total Bilirubin 6.80 mg/dL (0.2-1.0) H 08/03/16 04:25 Direct Bilirubin 2.12 mg/dL (0-0.2) H 07/29/16 10:10 Indirect Bilirubin 1.18 mg/dL (0.2-0.8) H 07/29/16 10:10 AST 423 Units/L (15-37) H 08/03/16 04:25 ALT 444 Units/L (12-78) H 08/03/16 04:25 Alkaline Phosphatase 162 Units/L (46-116) H 08/03/16 04:25 Total Protein 6.2 g/dL (6.4-8.2) L 08/03/16 04:25 Albumin 3.0 g/dL (3.4-5.0) L 08/03/16 04:25 Globulin 3.2 g/dL (2.5-4.5) 08/03/16 04:25 Albumin/Globulin Ratio 0.9 Ratio (1.1-2.1) L 08/03/16 04:25 Prealbumin 11.8 mg/dL (18-35.7) L 07/29/16 18:30 Triglycerides 41 mg/dL (0-150) 08/01/16 05:55 Specimen Type Catherized urine 07/29/16 06:11 Urine Color [place] (YELLOW) 07/29/16 06:11 Urine Appearance Hazy (CLEAR) 07/29/16 06:11 Urine pH 7.0 (5.0 - 8.0) 07/29/16 06:11 Ur Specific [place] 1.010 (1.000-1.030) 07/29/16 06:11 Urine Protein 3+ (NEGATIVE) 07/29/16 06:11 Urine Glucose (UA) Negative (NEGATIVE) 07/29/16 06:11 Urine Ketones Negative (NEGATIVE) 07/29/16 06:11 Urine Occult Blood 5+ (NEGATIVE) 07/29/16 06:11 Urine Nitrite Negative (NEGATIVE) 07/29/16 06:11 Urine Bilirubin Negative (NEGATIVE) 07/29/16 06:11 Urine Urobilinogen 1+ (NORMAL) 07/29/16 06:11 Ur Leukocyte Esterase 3+ (NEGATIVE) 07/29/16 06:11 Urine RBC 40-50 /HPF (NEGATIVE) 07/29/16 06:11 Urine WBC 30-40 /HPF (NEGATIVE) 07/29/16 06:11 Ur Squamous Epith Cells Rare /HPF (NEGATIVE) 07/29/16 06:11 Urine Bacteria Trace /HPF (NEGATIVE) 07/29/16 06:11 Ur Culture Indicated? Yes/culture set up 07/29/16 06:11 Vancomycin Trough 13.8 ug/mL (15-20) L 08/03/16 08:36 Random Vancomycin 6.4 ug/mL 08/01/16 05:55 Urine Opiates Screen Negative (NEG=<300) 07/29/16 06:11 Urine Methadone Screen Negative (NEG=<300) 07/29/16 06:11 Ur Barbiturates Screen Negative (NEG=<200) 07/29/16 06:11 Ur Phencyclidine Scrn Negative (NEG=<25) 07/29/16 06:11 Ur Amphetamines Screen Positive (NEG=<1000) 07/29/16 06:11 U Benzodiazepines Scrn Positive (NEG=<200) 07/29/16 06:11 Urine Cocaine Screen Negative (NEG=<300) 07/29/16 06:11 U Marijuana (THC) Screen Negative (NEG=<50) 07/29/16 06:11 Hepatitis A IgM Ab Negative (Negative) 07/31/16 10:50 Hep Bs Antigen Negative (Negative) 07/31/16 10:50 Hep Bs Ag Confirmation TNP 07/31/16 10:50 Hep B Core IgM Ab Negative (Negative) 07/31/16 10:50 Hepatitis C Ab Index >11.00 IV 07/31/16 10:50 Hepatitis C Interp High pos (Negative) H 07/31/16 10:50 Hepatitis Interpret See note 07/31/16 10:50 - Plan (1) Bilateral lower leg cellulitis Status: Acute Plan: CONTINUE IV ANTIBIOTICS, MONITOR. (2) Elevated bilirubin Status: Acute Plan: CONSULT GI, CONTINUE IV FLUIDS, MONITOR LABS. (3) Elevated LFTs Status: Acute Plan: ABOVE. (4) Leukocytosis Status: Acute Qualifiers: Leukocytosis type: L Plan: CONTINUE IV VANCOMYCIN, LEVAQUIN, MONITOR. (5) Rhabdomyolysis Status: Acute Qualifiers: Rhabdomyolysis type: non-traumatic Encounter type: E Qualified Code(s): M62.82 - Rhabdomyolysis Plan: CONTINUE TO [place] LABS. (6) Renal failure Status: Acute Qualifiers: Renal failure chronicity: acute Acute renal failure type: A Chronic kidney disease stage: C Plan: CONTINUE TO MONITOR LABS, CONTINUE IV FLUIDS. (7) Hypoalbuminemia Status: Acute Plan: CONTINUE ALBUMIN, MONITOR LABS. (8) Poor nutrition Status: Acute Plan: ADVANCE DIET TO REGULAR, CONTINUE ALBUMIN, TPN, MONITOR. (9) Scrotal edema Status: Acute Plan: CONTINUE TO MONITOR. (10) CHF (congestive heart failure) Status: Chronic Qualifiers: Congestive heart failure type: unspecified congestive heart failure type Congestive heart failure chronicity: acute Qualified Code(s): I50.9 - Heart failure, unspecified Plan: OBTAIN ECHO, MONITOR CHEST XRAY. (11) Drug abuse Status: Chronic Plan: CONTINUE TO MONITOR. (12) Unresponsive Status: Resolved Plan: CONTINUE IV FLUIDS WITH BICARB, SUPPLEMENTAL OXYGEN, IV VANCOMYCIN, LEVAQUIN, MONITOR. (13) Sepsis Status: Ruled-out Qualifiers: Sepsis type: sepsis due to unspecified organism Qualified Code(s): A41.9 - Sepsis, unspecified organism (14) Hypoglycemia Status: Resolved
[2016-08-03] MEDS: PROTONIX INJ 40 MG VIAL IVP SCH (17:47)
[2016-08-03] MEDS: MIRALAX POWDER (1 DOSE 17GM) PO SCH (21:14)
[2016-08-03] MEDS: PEPCID 20 MG IV PREMIX* 20 MG/50 ML BAG IV SCH (21:14)
[2016-08-03] MEDS: ROBITUSSIN DM PO SCH (21:14)
[2016-08-03] MEDS ORDERED: TYLENOL 325 MG TAB PO PRN (21:15)
[2016-08-04] MEDS: DUONEB 0.5 MG/3 MG NEB SCH ×5 (01:16→16:19)
[2016-08-04 05:56] LABS: ALANINE AMINOTRANSFERASE 327 Units/L (12-78); ALBUMIN 2.8 g/dL (3.4-5.0); ALKALINE PHOSPHATASE 150 Units/L (46-116); ASPARTATE AMINO TRANSFERASE 261 Units/L (15-37); BLOOD UREA NITROGEN 28 mg/dL (7-18); CALCIUM 8.3 mg/dL (8.5-10.1); CHLORIDE 103 mmol/L (98-107); COR CA(FOR HYPOALB) 9.3 mg/dL (8.5-10.1); COR NA(FOR HYPERGLY) 138 mmol/L (136-145); CREATININE 1.44 mg/dL (0.70-1.30); GLUCOSE 117 mg/dL (65-99); SODIUM 138 mmol/L (136-145); eGFR BLACK RACES > 60 (>60); eGFR NON BLACK RACES 59 (>60)
[2016-08-04 06:19] LABS: BASOPHILS # (AUTO) 0.1 X10^3/uL (0.0-0.1); BASOPHILS % (AUTO) 0.5 % (0.2-1.0); EOSINOPHILS # (AUTO) 0.3 x10^3/uL (0.0-0.2); EOSINOPHILS % (AUTO) 1.9 % (0.9-2.9); HEMATOCRIT 34.3 % (42.0-54.0); HEMOGLOBIN 10.8 g/dL (13.5-18.0); LYMPHOCYTES # (AUTO) 1.6 X10^3/uL (1.3-2.9); LYMPHOCYTES % (AUTO) 9.7 % (21.0-51.0); MEAN CORPUSCULAR HEMOGLOBIN 24.1 pg (27.0-34.0); MEAN CORPUSCULAR HGB CONC 31.6 g/dL (33.0-35.0); MEAN CORPUSCULAR VOLUME 76.3 fL (80.0-100.0); MEAN PLATELET VOLUME 7.9 fL (7.4-11.0); MONOCYTES # (AUTO) 2.5 x10^3/uL (0.3-0.8); MONOCYTES % (AUTO) 15.3 % (0.0-13.0); NEUTROPHILS # (AUTO) 11.8 x10^3/uL (2.2-4.8); NEUTROPHILS % (AUTO) 72.6 % (42.0-75.0); PLATELET COUNT 185 X10^3/uL (150.0-450.0); RED CELL DISTRIBUTION WIDTH 19.9 % (11.6-16.5); WHITE BLOOD COUNT 16.2 X10^3/uL (3.6-10.0)
--- NOTE | 2016-08-04 06:19 | RAD ---
HISTORY: Follow up pneumonia Study: Chest one view Comparison: August 03, 2016 Findings: There is a right IJ line in good position. The heart remains enlarged. No definite congestive heart failure is present. There is dense consolidation of the right upper lobe and a large portion of the right lower lobe not significantly changed when compared with the prior examination. The left lung i s clear. The bony thorax is unremarkable. IMPRESSION: Cardiomegaly without congestive heart failure No change dense alveolar infiltrate throughout the right lung most consistent with pneumonia Reported By:
[2016-08-04 06:42] LABS: BAND NEUTROPHILS % 3 % (0-10)
[2016-08-04 06:43] LABS: PLATELET MORPHOLOGY COMMENT NORMAL (NORMAL)
[2016-08-04] MEDS: MILK OF MAGNESIA PO SCH ×4 (08:53→16:45)
[2016-08-04] MEDS: PEPCID 20 MG IV PREMIX* 20 MG/50 ML BAG IV SCH (08:53)
[2016-08-04] MEDS: COLACE CAP 100 MG PO SCH ×2 (08:54→09:01)
[2016-08-04] MEDS: ROBITUSSIN DM PO SCH ×4 (08:54→17:50)
[2016-08-04] MEDS: PROTONIX INJ 40 MG VIAL IVP SCH (08:54)
[2016-08-04] MEDS: ALBUMIN HUMAN 25%- 100ML 100 ML IV SCH (11:11)
[2016-08-04] MEDS: VANCOMYCIN 1 GM PREMIX (ADDVANTAGE) 250 ML IV SCH (11:50)
[2016-08-04] MEDS: LEVAQUIN PREMIX IV 750 MG 750 MG/150 ML BAG IV SCH (13:15)
[2016-08-04 16:37] VITALS: BP 145/99
--- NOTE | 2016-08-05 06:19 | US ---
HISTORY: Elevated liver enzymes Study: Right upper quadrant ultrasound Comparison: None Technique: Multiple grayscale sonographic images were obtained. The examination was limited by respi ratory motion and a moderately large amount of bowel gas. Findings: The liver was normal in size and configuration and without cysts, mass, or biliary ductal dilatation . No gallstones are present within the gallbladder. The gallbladder wall appeared mildly thickened w hich could be on the basis of inflammation or chronic liver disease. The common duct measured 3.6 mi llimeters. The pancreas was obscured by overlying bowel gas. The right kidney measured 12 x 6.5 x 6 centimeters and demonstrated no solid masses, hydronephrosis, stones, or perinephric fluid collectio ns. IMPRESSION: Limited examination for the reasons noted above. No evidence for cholelithiasis, however, there is mild thickening of the gallbladder wall which coul d be on the basis of a calculus cholecystitis or chronic liver disease. Clinical correlation is sarahy mmended. Reported By:
[2016-08-05] MEDS ORDERED: LASIX ONE (07:05)
--- NOTE | 2016-08-05 11:32 | PCM.PROG ---
Progress Note - Progress Note for Day of Date: 08/02/16 - Subjective Subjective: PATIENT RESTS IN BED AND IS MILDLY SHORT OF BREATH. PATIENT IS ON ROOM AIR AND WITH 100% OXYGEN SATURATION. PATIENT IS ALERT AND ORIENTED. PATIENT IS SHOWING SLOW PROGRESS WITH LOWER EXTREMITY CELLULITIS. BILATERAL LOWER EXTREMITIES CONTINUE WITH ERYTHEMA, WARMTH, AND EDEMA. PATIENT HAS REPORTED SEVERE BILATERAL LEG PAIN AND WE OBTAINED A LOWER EXTREMITY VENOUS DOPPLER THAT WAS NEGATIVE FOR DVT. PATIENT CONTINUES ON IV VANCOMYCIN, IV LEVAQUIN, AND TPN. PATIENT REPORTS SCROTAL EDEMA AND UPON EXAMINTATION SCROTUM IS NOTED WITH NON-PITTING EDEMA RELATED TO RENAL FAILURE AND AGGRESSIVE IV HYDRATION. ON AUSCULTATION, LUNGS ARE DIMINISHED. COUGH IS MOIST, NON- PRODUCTIVE, INTERMITTENT. CBC WNL EXCEPT: WBC 15.6, H/H 11.8/37.2. CMP WNL EXCEPT: BUN/CREAT 54/1.63, GFR 51, TOT BILIRUBIN 6.00, AST 508, ALT 528, ALK PHOS 164, TOT PROTEIN 5.9, ALBUMIN 2.9. CHEST XRAY IS REPORTING CARDIOMEGALY AND PULMONARY EDEMA. WE WILL DISCONTINUE IV FLUIDS, TPN, AND CHANGE VANCOMYCIN TO BID. WE WILL ADMINISTER LASIX 40MG IV BID FOR TWO DOSES FOR CHF. WE WILL FOLLOW UP IN AM WITH LABS AND CHEST XRAY. - Past Medical Family Social History Past Med/Fam/Surg Hx: No changes since H&P Allergies: Allergies No Known Drug Allergy Allergy (Verified 11/25/15 00:18) - Review of Systems ROS: No change since H&P - Vital Signs and I&O's Vital Signs: Temperature 98.5 F Pulse Rate [Right Brachial] 129 Pulse Rate [Left Brachial] 129 Pulse Rate [Apical] 119 Pulse Rate 86 Respiratory Rate 22 Blood Pressure [Right Arm] 145/99 Blood Pressure [Left Arm] 152/97 O2 Sat by Pulse Oximetry 95 Intake and Output: Intake & Output 08/02/16 08/03/16 08/04/16 08/05/16 11:59 11:59 11:59 11:59 Intake Total 5956 2860 2570 480 Output Total 1500 Balance 4456 2860 2570 480 - Physical Exam Oriented: Normal, Time, Person, Place Eyes: Normal. negative: Blurred Vision, Diplopia, Discharge, Pain, Redness, Photophobia Ear: Normal. negative: Swelling, Ecchymosis, Hemotypanum, Abrasion, Laceration Nose: Normal. negative: Injected, Discharge, Blood Throat: Dry. negative: Tonsillar Hypertrophy, Exudate Respiratory: Generalized, Diminished Cardiovascular: Normal. negative: Murmur, Edema : Normal. negative: Testicular Pain Auscultation: Bowel Sounds: Normal. negative: Bruit Palpation: Normal. negative: Spleen Enlarged, Liver Enlarged, Mass Pulsatile Tenderness: Normal. negative: Rebound, Guarding, Rigidity Skin: Normal, Wound (Cellulitis BLE) Musculoskeletal: Instability Psychiatric: Normal Mood Description: Calm, Appropriate Affect: Normal Speech Pattern: Clear, Appropriate - Laboratory and Diagnostics Result Diagrams: 08/04/16 05:10 08/04/16 05:10 Labs: 08/04/16 10:34 Sputum - Expectorated Sputum Sputum Culture - Final 08/04/16 10:34 Sputum - Expectorated Sputum - Final 07/31/16 15:56 Leg - Left Gram Stain - Final 07/31/16 15:56 Leg - Left Wound Culture - Final 07/31/16 14:20 Blood Blood Culture - Preliminary 07/31/16 14:15 Blood Blood Culture - Preliminary Laboratory WBC 16.2 X10^3/uL (3.6-10.0) H 08/04/16 05:10 RBC 4.50 X10^6/uL (4.7-6.0) L 08/04/16 05:10 Hgb 10.8 g/dL (13.5-18.0) L 08/04/16 05:10 Hct 34.3 % (42.0-54.0) L 08/04/16 05:10 MCV 76.3 fL (80.0-100.0) L 08/04/16 05:10 MCH 24.1 pg (27.0-34.0) L 08/04/16 05:10 MCHC 31.6 g/dL (33.0-35.0) L 08/04/16 05:10 RDW 19.9 % (11.6-16.5) H 08/04/16 05:10 Plt Count 185 X10^3/uL (150.0-450.0) 08/04/16 05:10 Plt Count Comment Adequate (ADEQUATE) 08/04/16 05:10 MPV 7.9 fL (7.4-11.0) 08/04/16 05:10 Neut % 72.6 % (42.0-75.0) 08/04/16 05:10 Lymph % 9.7 % (21.0-51.0) L 08/04/16 05:10 Hawkins % 15.3 % (0.0-13.0) H 08/04/16 05:10 Eos % 1.9 % (0.9-2.9) 08/04/16 05:10 Baso % 0.5 % (0.2-1.0) 08/04/16 05:10 Neut # 11.8 x10^3/uL (2.2-4.8) H 08/04/16 05:10 Lymph # 1.6 X10^3/uL (1.3-2.9) 08/04/16 05:10 Hawkins # 2.5 x10^3/uL (0.3-0.8) H 08/04/16 05:10 Eos # 0.3 x10^3/uL (0.0-0.2) H 08/04/16 05:10 Baso # 0.1 X10^3/uL (0.0-0.1) 08/04/16 05:10 Absolute Nucleated RBC 0.1 /100WBC 08/04/16 05:10 Total Counted 100 08/04/16 05:10 Neutrophils % (Manual) 87 % (39-76) H 08/04/16 05:10 Band Neutrophils % 3 % (0-10) 08/04/16 05:10 Lymphocytes % (Manual) 9 % (13-43) L 08/04/16 05:10 Monocytes % (Manual) 1 % (4-9) L 08/04/16 05:10 Eosinophils % (Manual) 1 % (0-6) 08/01/16 05:55 Basophils % (Manual) 1 % (0-1) 08/01/16 05:55 Plt Morphology Comment Normal (NORMAL) 08/04/16 05:10 RBC Morphology Normal (NORMAL) 08/04/16 05:10 Hypochromasia Slight A 08/03/16 04:25 Poikilocytosis 1+ A 08/02/16 04:55 Anisocytosis 1+ A 08/02/16 04:55 Ovalocytes Slight A 08/02/16 04:55 Crenated Cell Slight A 08/02/16 04:55 Sample Site Lb 08/01/16 05:10 ABG pH 7.430 (7.35-7.45) 08/01/16 05:10 ABG pCO2 36.0 mmHg (35.0-45.0) 08/01/16 05:10 ABG pO2 86.0 mmHg (80.0-100.0) 08/01/16 05:10 ABG HCO3 23.9 mmol/L (22-26) 08/01/16 05:10 ABG O2 Saturation 97.0 % (90-100) 08/01/16 05:10 ABG Base Excess -0.1 mmol/L (-2.0-2.0) 08/01/16 05:10 Jacques Test N/a 08/01/16 05:10 A-a Gradient 97.0 mmHg 08/01/16 05:10 FiO2 32.000 08/01/16 05:10 Blood Gas Comments Hermila well 08/01/16 05:10 Sodium 138 mmol/L (136-145) 08/04/16 05:10 Corrected Sodium 138 mmol/L (136-145) 08/04/16 05:10 Potassium 3.9 mmol/L (3.5-5.1) 08/04/16 05:10 Chloride 103 mmol/L (98-107) 08/04/16 05:10 Carbon Dioxide 28.0 mmol/L (21-32) 08/04/16 05:10 BUN 28 mg/dL (7-18) H 08/04/16 05:10 Creatinine 1.44 mg/dL (0.70-1.30) H 08/04/16 05:10 Est GFR (MDRD) Af Amer > 60 (>60) 08/04/16 05:10 Est GFR (MDRD) Non-Af 59 (>60) 08/04/16 05:10 Glucose 117 mg/dL (65-99) H 08/04/16 05:10 Lactic Acid 1.4 mmol/L (0.4-2.0) 08/01/16 05:55 Calcium 8.3 mg/dL (8.5-10.1) L 08/04/16 05:10 Corrected Calcium 9.3 mg/dL (8.5-10.1) 08/04/16 05:10 Phosphorus 1.8 mg/dL (2.6-4.7) L 08/01/16 05:55 Magnesium 1.8 mg/dL (1.7-2.9) 08/01/16 05:55 Total Bilirubin 5.80 mg/dL (0.2-1.0) H 08/04/16 05:10 Direct Bilirubin 2.12 mg/dL (0-0.2) H 07/29/16 10:10 Indirect Bilirubin 1.18 mg/dL (0.2-0.8) H 07/29/16 10:10 AST 261 Units/L (15-37) H 08/04/16 05:10 ALT 327 Units/L (12-78) H 08/04/16 05:10 Alkaline Phosphatase 150 Units/L (46-116) H 08/04/16 05:10 Total Protein 6.0 g/dL (6.4-8.2) L 08/04/16 05:10 Albumin 2.8 g/dL (3.4-5.0) L 08/04/16 05:10 Globulin 3.2 g/dL (2.5-4.5) 08/04/16 05:10 Albumin/Globulin Ratio 0.9 Ratio (1.1-2.1) L 08/04/16 05:10 Prealbumin 11.8 mg/dL (18-35.7) L 07/29/16 18:30 Triglycerides 41 mg/dL (0-150) 08/01/16 05:55 Specimen Type Catherized urine 07/29/16 06:11 Urine Color Lisette (YELLOW) 07/29/16 06:11 Urine Appearance Hazy (CLEAR) 07/29/16 06:11 Urine pH 7.0 (5.0 - 8.0) 07/29/16 06:11 Ur Specific [place] 1.010 (1.000-1.030) 07/29/16 06:11 Urine Protein 3+ (NEGATIVE) 07/29/16 06:11 Urine Glucose (UA) Negative (NEGATIVE) 07/29/16 06:11 Urine Ketones Negative (NEGATIVE) 07/29/16 06:11 Urine Occult Blood 5+ (NEGATIVE) 07/29/16 06:11 Urine Nitrite Negative (NEGATIVE) 07/29/16 06:11 Urine Bilirubin Negative (NEGATIVE) 07/29/16 06:11 Urine Urobilinogen 1+ (NORMAL) 07/29/16 06:11 Ur Leukocyte Esterase 3+ (NEGATIVE) 07/29/16 06:11 Urine RBC 40-50 /HPF (NEGATIVE) 07/29/16 06:11 Urine WBC 30-40 /HPF (NEGATIVE) 07/29/16 06:11 Ur Squamous Epith Cells Rare /HPF (NEGATIVE) 07/29/16 06:11 Urine Bacteria Trace /HPF (NEGATIVE) 07/29/16 06:11 Ur Culture Indicated? Yes/culture set up 07/29/16 06:11 Vancomycin Trough 13.8 ug/mL (15-20) L 08/03/16 08:36 Random Vancomycin 6.4 ug/mL 08/01/16 05:55 Urine Opiates Screen Negative (NEG=<300) 07/29/16 06:11 Urine Methadone Screen Negative (NEG=<300) 07/29/16 06:11 Ur Barbiturates Screen Negative (NEG=<200) 07/29/16 06:11 Ur Phencyclidine Scrn Negative (NEG=<25) 07/29/16 06:11 Ur Amphetamines Screen Positive (NEG=<1000) 07/29/16 06:11 U Benzodiazepines Scrn Positive (NEG=<200) 07/29/16 06:11 Urine Cocaine Screen Negative (NEG=<300) 07/29/16 06:11 U Marijuana (THC) Screen Negative (NEG=<50) 07/29/16 06:11 Hepatitis A IgM Ab Negative (Negative) 07/31/16 10:50 Hep Bs Antigen Negative (Negative) 07/31/16 10:50 Hep Bs Ag Confirmation TNP 07/31/16 10:50 Hep B Core IgM Ab Negative (Negative) 07/31/16 10:50 Hepatitis C Ab Index >11.00 IV 07/31/16 10:50 Hepatitis C Interp High pos (Negative) H 07/31/16 10:50 Hepatitis Interpret See note 07/31/16 10:50 - Plan (1) CHF (congestive heart failure) Status: Chronic Qualifiers: Congestive heart failure type: unspecified congestive heart failure type Congestive heart failure chronicity: acute Qualified Code(s): I50.9 - Heart failure, unspecified Plan: ADMINISTER LASIX 40MG IV BID FOR TWO DOSES, OBTAIN ECHO, MONITOR CHEST XRAY. (2) Bilateral lower leg cellulitis Status: Acute Plan: CONTINUE IV ANTIBIOTICS, MONITOR. (3) Elevated bilirubin Status: Acute Plan: CONSULT GI, CONTINUE IV FLUIDS, MONITOR LABS. (4) Elevated LFTs Status: Acute Plan: ABOVE. (5) Leukocytosis Status: Acute Qualifiers: Leukocytosis type: L Plan: CONTINUE IV VANCOMYCIN, LEVAQUIN, MONITOR. (6) Rhabdomyolysis Status: Acute Qualifiers: Rhabdomyolysis type: non-traumatic Encounter type: E Qualified Code(s): M62.82 - Rhabdomyolysis Plan: CONTINUE TO [place] LABS. (7) Renal failure Status: Acute Qualifiers: Renal failure chronicity: acute Acute renal failure type: A Chronic kidney disease stage: C Plan: CONTINUE TO MONITOR LABS, CONTINUE IV FLUIDS. (8) Hypoalbuminemia Status: Acute Plan: CONTINUE ALBUMIN, MONITOR LABS. (9) Poor nutrition Status: Acute Plan: ADVANCE DIET TO REGULAR, CONTINUE ALBUMIN, TPN, MONITOR. (10) Scrotal edema Status: Acute Plan: CONTINUE TO MONITOR. (11) Drug abuse Status: Chronic Plan: CONTINUE TO MONITOR.
--- NOTE | 2016-08-05 11:35 | DR.CARTERD ---
- Discharge Summary for: Discharge Summary for Date of:: 08/04/16 - Admission Date Date of Admission: 07/29/16 - Admission Diagnoses Admission Diagnosis: (1) Unresponsive (2) Rhabdomyolysis (3) Leukocytosis (4) Hypoglycemia (5) Hypoalbuminemia (6) Poor nutrition (7) CHF (congestive heart failure) (8) Drug abuse - Discharge Date Discharge Date: 08/04/16 - Discharge Diagnoses Discharge Diagnosis: (1) Pneumonia (2) Bilateral lower leg cellulitis (3) Hepatitis C (4) Elevated bilirubin (5) Elevated LFTs (6) Leukocytosis (7) Rhabdomyolysis (8) Renal failure (9) Hypoalbuminemia (10) Poor nutrition (11) Scrotal edema (12) CHF (congestive heart failure) (13) Drug abuse (14) Unresponsive (15) Sepsis (16) Hypoglycemia - Hospital Course Hospital Course: THIS IS A 35 YEAR OLD MALE, WHO PRESENTED TO THE EMERGENCY ROOM, VIA EMS, WITH REPORTS OF BEING UNRESPONSIVE, FOAMING FROM HIS MOUTH, AND O2 SATURATION OF 84% . ON ARRIVAL, PATIENT'S EARS AND TIP OF NOSE WERE CYANOTIC. GCS WAS 8. PATIENT HAS A HISTORY OF IV DRUG USE AND HAD FRESH BRUISING NOTED TO HIS RIGHT UPPER ARM WITH FRESH PUNCTURE SITE TO RIGHT WRIST. PATIENT WAS LETHARGIC AND IN DISTRESS ON ARRIVAL TO ER. ON AUSCULTATION, LUNGS WERE NOTED WITH BILATERAL WHEEZING AND PATIENT WAS IN RESPIRATORY DISTRESS. SKIN WAS MOTTLED. LABS AND XRAY OBTAINED. CBC WNL EXCEPT: WBC 20.7, HGB 13.0. CMP WNL EXCEPT: SODIUM 135 , POTASSIUM 5.5, CARBON DIOXIDE 18.9, BUN/CREAT 27/2.43, GFR 32, GLUCOSE 13, TOT BILIRUBIN 3.30, DIRECT BILIRUBIN 2.12, INDIRECT BILIRUBIN 1.18, AST 495, ALT 308, ALK PHOS 247, ALBUMIN 3.1. ABG ABNORMALS: PH 7.140, PCO2 60.0, PO2 430.0, HCO3 20.4, FIO2 100.0. URINALYSIS ABNORMALS: PROTEIN 3+, OCCULT BLOOD 5+ , UROBILINOGEN 1+, LEUKOCYTE ESTERASE 3+, RBC 40-50, WBC 30-40, BACTERIA TRACE; CULTURE PENDING. TOXICOLOGY REPORTS POSITIVE FOR AMPHETAMINES AND BENZODIAZEPINES. AN IO WAS PLACED PER ER DOCTOR AND D50 WAS ADMINISTERED FOR A GLUCOSE OF 13. PATIENT ALSO RECEIVED NARCAN AND BECAME MORE RESPONSIVE WITH COARSE BREATH SOUNDS, SLURRED SPEECH, AND CONFUSION NOTED. PATIENT HAS A HISTORY OF CHF WITH AN EJECTION FRACTION OF 45% NOTED IN 2015. PATIENT STATED HE TOOK HIS GRANDMOTHER'S DIURETIC FOR CHF. PATIENT WAS BE ADMITTED TO HOSPITAL FOR FURTHER TREATMENT AND EVALUATION. PATIENT WAS STARTED ON IV LEVAQUIN, IV VANCOMYCIN, AGGRESSIVE IV FLUID HYDRATION, AND MONITORED ON CONTINUOUS PULSE OXIMETRY AND PASTRY MIXER. OVER THE COURSE OF A WEEK WE MONITORED PATIENT ON TELEMETRY AND ADMINISTERED IV FLUIDS WITH IV ANTIBIOTICS AND PATIENT SLOWLY IMPROVED. HE WAS NOTED WITH CELLULITIS TO BILATERAL LOWER EXTREMITIES AND A VENOUS DOPPLER WAS NEGATIVE FOR DVT. PHYSICAL THERAPY WORKED WITH PATIENT FOR STRENGTH AND MOBILITY. PATIENT IMPROVED. ON THE LAST DAY, PATIENT REPORTED HE FELT WELL. GI CONSULTED FOR ELEVATED BILIRUBIN AND LFT'S AND OBTAINED A LIVER ULTRASOUND WHICH REPORTED NORMAL LIVER; MILD THICKENING OF THE GALLBLADDER WALL WITHOUT EVIDENCE FOR CHOLELITHIASIS. HEPATITIS PANEL WAS OBTAINED AND REPORTED HIGH PROBABILITY OF HEPATITIS C. PATIENT WAS NOTED WITH A RIGHT LUNG INFILTRATE ONE DAY PRIOR TO DISCHARGE AND WE DISCUSSED THIS WITH PATIENT. PATIENT WAS AFEBRILE WITH NO RESPIRATORY DISTRESS NOTED. O2 SATURATION WAS 95% ON 2 LITERS OF OXYGEN VIA NASAL CANNULA. PATIENT REPORTED THAT HE WAS FEELING BETTER WITH NEB TREATMENT AND IV ANTIBIOTICS. WE PLANNED FOR DISCHARGE. WE ALSO DISCUSSED CESSATION OF ILLICIT DRUGS AND HE VOICED UNDERSTANDING. PATIENT IS DISCHARGED ON LEVAQUIN, MUCINEX, DUONEBS, ZANTAC, LASIX, AND LISINOPRIL. - Discharge Medications Discharge Medications: Furosemide [Lasix] 20 mg PO BID #60 tab 08/04/16 [Rx] Guaifenesin Ext Rel [Mucinex Expectorant] 600 mg PO Q12H #28 tab.sr.12h [Rx] Ipratropium/Albuterol Nebule [DUONEB 0.5 MG/3 MG NEBULE *] 1 ea NEB QID #120 each 08/04/16 [Rx] Levofloxacin [Levaquin Tab 750 mg] 750 mg PO Q24H #14 tab 08/04/16 [Rx] Lisinopril 10 mg PO HS #30 tab 08/04/16 [Rx] Ranitidine HCl [ZANTAC TAB 150 MG *] 150 mg PO BID #60 tab 08/04/16 [Rx] - Discharge Disposition Discharge Disposition: PATIENT IS TO FOLLOW UP WITH MD OF CHOICE IN THREE DAYS.
[2016-08-10 07:20] LABS: HCV VIRAL LOG 5.4 log IU
== END 2016-08-04 18:28 | disposition home or self-care (01) | DRG 947 ==
LOC: ER 05:40 → ICU 07:16 → MED/SURG 07-31 09:20
PROVIDERS: ADMIT Internal Medicine; ATTEND Internal Medicine
PROC: 05HM33Z Insertion of Infusion Device into Right Internal Jugular Vein, Percutaneous Approach (ICD-10-PCS; principal; 2016-07-29)
DX: R41.82 Altered mental status, unspecified (principal); E16.1 Other hypoglycemia; I50.9 Heart failure, unspecified; R06.09 Other forms of dyspnea; I51.7 Cardiomegaly; R47.81 Slurred speech; R06.02 Shortness of breath; M62.82 Rhabdomyolysis; E86.0 Dehydration; N17.8 Other acute kidney failure; D72.828 Other elevated white blood cell count; F15.10 Other stimulant abuse, uncomplicated; E88.09 Other disorders of plasma-protein metabolism, not elsewhere classified; L03.116 Cellulitis of left lower limb; L03.115 Cellulitis of right lower limb; R94.5 Abnormal results of liver function studies; E80.6 Other disorders of bilirubin metabolism; N50.89 Other specified disorders of the male genital organs; Z78.1 Physical restraint status; J18.8 Other pneumonia, unspecified organism; B17.10 Acute hepatitis C without hepatic coma; R26.89 Other abnormalities of gait and mobility; I87.2 Venous insufficiency (chronic) (peripheral); F13.10 Sedative, hypnotic or anxiolytic abuse, uncomplicated; Y95 Nosocomial condition
CPT/HCPCS: 36415; 36556; 36600; 51702; 71010; 76705; 76770; 80048; 80053; 80074; 80076; 80202; 80307; 81001; 82565; 82803; 83605; 83735; 84100; 84134; 84478; 85025; 87040; 87070; 87075; 87086; 87205; 87522; 87902; 93005; 93010; 93306; 93970; 94640; 96365; 96367; 96374; 96375; 99284; 99285; A4222; B4189; C9113; P9047; S0028; G0434; J1885; J1940; J1956; J2310; J2405; J3370; J3480; J3490; J7620

== ENCOUNTER 2016-08-04 23:44 | Emergency (ER) | payer SELFPAY ==
[2016-08-05 00:01] VITALS: BMI 25.0
--- NOTE | 2016-08-05 00:04 | DR.GENAD ---
HPI - PCP Primary Care Physician: NFD - Complaint/Symptoms Chief Complaint:: PT STATES" I WENT HOME TODAY FROM THE HOSPITAL AND I TOLD THEM I WASN'T ANY BETTER. I CAN'T BREATHE AND I FEEL WORSE THAN I DID. I GOT PNUEMONIA AND THEY SENT ME HOME WHY? MY JUNK IS SWOLLEN AND BLUE THAT CANISTER RIGHT THERE. " - Nurses notes reviewed Nurses Notes Review: Yes - Source History Provided: Patient - Mode of Arrival Mode of Arrival: EMS - Timing Onset of Chief Complaint: 08/04/16 Came on: Gradually - Duration Duration: Constant How lon Duration: Days - Location Location: lungs - Severity Severity: Moderate - Associated Signs and Symptoms Associated Signs and Symptoms: swollen testicles PMH - PMH Past Medical History: Yes Past Medical History: Angina, CHF, Hypertension Past Surgical History: Yes Surgical History: Tonsillectomy - Family History History of Family Medical Conditions: Yes Family Medical History: Diabetes Mellitus, Cancer, PR, Coronary Artery Disease, Heart Failure, Sudden Cardiac , Hypertension - Social History Type of Tobacco Use: Cigarettes Alcohol Use: Occasionally Do you use any recreational Drugs:: Yes Lives With: Family Lives Where: Home - infectious screening In the last 2 months have you had wt loss of >10#?: NO Have you had fever, night sweats or hemotysis?: No Have you traveled outside the country in the last 6 months?: No Isolation: Standard ROS - Review of Systems Constitutional: Fever Eyes: No Symptoms Reported ENTM: No Symptoms Reported Respiratoy: Productive Cough Gastrointestinal/Abdominal: No Symptoms Reported Genitourinary: Other (testicles swollen) Neurological: No Symptoms Reported Musculoskeletal: No Symptoms Reported Integumentary: No Symptoms Reported Hematologic/Lymphatic: No Symptoms Reported Endocrine: No Symptoms Reported Psychiatric: Depression All Other Systems: Reviewed and Negative PE - Vital Signs Vitals: Temperature 100 F Pulse Rate [Apical] 126 Pulse Rate 130 Respiratory Rate 22 Blood Pressure [Right Arm] 136/92 Blood Pressure [Left Arm] 152/97 Blood Pressure 158/90 O2 Sat by Pulse Oximetry 96 - General Limitations: No Limitations General Appearance: Alert - Head Head Exam: Normal Inspection - Eyes Eye exam: Normal Appearance, EOMI. negative: Scleral Icterus, Conjunctival Injection - ENT ENT Exam: Normal Exam External Ear Exam: Normal External Inspection Mouth Exam: Normal Inspection Throat Exam: Normal Inspection - Neck Neck Exam: Normal Inspection, Full ROM, Trachea Midline - Chest Chest Inspection: Normal Inspection - Respiratory Respiratory Exam: Normal Lung Sounds Bilat, Respiratory Distress. negative: Accessory Muscle Use Respiratory Exam: Bilateral Rhonchi, Right Rhonchi - Cardiovascular Cardiovascular Exam: Tachycardia - Abdominal Exam Abdominal Exam: Normal Inspection, Normal Bowel Sounds, Soft. negative: Distention, Tenderness Abdominal Tenderness: Other (scrotum the size of a grape fruit but normal color) - Extremities Extremities Exam: Normal Inspection, Full ROM - Back Back Exam: Normal Inspection, Full ROM - Neurologic Neurological Exam: Alert, Oriented X3, CN II-XII Intact - Psychiatric Psychiatric Exam: Anxious - Skin Skin Exam: Intact. negative: Normal Color (left leg with erythema early cellulitis) Course - Consultation Called: 00:05 Call Returned: 06:58 Consultation Comments: Nurse electrician supervisor substation relayed message to transfer patient per DR. Nicholas. [id number]: [facility] case discused [facility] DR. PRATER accepted, zithromax added to antibiotics already given. ROR - Labs Reviewed Result Diagrams: 08/05/16 00:30 08/05/16 00:30 Laboratory: 08/05/16 00:15 Sputum - Expectorated Sputum - Final WBC 16.7 X10^3/uL (3.6-10.0) H 08/05/16 00:30 RBC 4.65 X10^6/uL (4.7-6.0) L 08/05/16 00:30 Hgb 11.0 g/dL (13.5-18.0) L 08/05/16 00:30 Hct 35.2 % (42.0-54.0) L 08/05/16 00:30 MCV 75.7 fL (80.0-100.0) L 08/05/16 00:30 MCH 23.6 pg (27.0-34.0) L 08/05/16 00:30 MCHC 31.2 g/dL (33.0-35.0) L 08/05/16 00:30 RDW 19.7 % (11.6-16.5) H 08/05/16 00:30 Plt Count 175 X10^3/uL (150.0-450.0) 08/05/16 00:30 Plt Count Comment Adequate (ADEQUATE) 08/05/16 00:30 MPV 7.5 fL (7.4-11.0) 08/05/16 00:30 Neut % 73.0 % (42.0-75.0) 08/05/16 00:30 Lymph % 8.5 % (21.0-51.0) L 08/05/16 00:30 [place] % 16.7 % (0.0-13.0) H 08/05/16 00:30 Eos % 1.1 % (0.9-2.9) 08/05/16 00:30 Baso % 0.7 % (0.2-1.0) 08/05/16 00:30 Neut # 12.2 x10^3/uL (2.2-4.8) H 08/05/16 00:30 Lymph # 1.4 X10^3/uL (1.3-2.9) 08/05/16 00:30 [place] # 2.8 x10^3/uL (0.3-0.8) H 08/05/16 00:30 Eos # 0.2 x10^3/uL (0.0-0.2) 08/05/16 00:30 Baso # 0.1 X10^3/uL (0.0-0.1) 08/05/16 00:30 Absolute Nucleated RBC 0.1 /100WBC 08/05/16 00:30 Plt Morphology Comment Normal (NORMAL) 08/05/16 00:30 RBC Morphology Abnormal (NORMAL) 08/05/16 00:30 Hypochromasia 1+ A 08/05/16 00:30 Poikilocytosis 1+ A 08/05/16 00:30 Anisocytosis Slight A 08/05/16 00:30 Target Cells Noted 08/05/16 00:30 Ovalocytes Noted 08/05/16 00:30 Sample Site Lbra 08/05/16 00:23 ABG pH 7.480 (7.35-7.45) H 08/05/16 00:23 ABG pCO2 32.0 mmHg (35.0-45.0) L 08/05/16 00:23 ABG pO2 57.0 mmHg (80.0-100.0) L 08/05/16:23 ABG HCO3 23.8 mmol/L (22-26) 08/05/16 00:23 ABG O2 Saturation 91.0 % (90-100) 08/05/16 00:23 ABG Base Excess 0.9 mmol/L (-2.0-2.0) 08/05/16: Jacques Test Na 08/05/16: A-a Gradient 53.0 mmHg 08/05/16:23 FiO2 21.000 08/05/16 00:23 Blood Gas Comments Hermila abg well-mtf 08/05/16:23 Sodium 138 mmol/L (136-145) 08/05/16 00:30 Corrected Sodium TNP 08/05/16:30 Potassium 4.1 mmol/L (3.5-5.1) 08/05/16: Chloride 102 mmol/L (98-107) 08/05/16: Carbon Dioxide 24.0 mmol/L (21-32) 08/05/16 00:30 BUN 26 mg/dL (7-18) H 08/05/16 00:30 Creatinine 1.64 mg/dL (0.70-1.30) H 08/05/16 00:30 Est GFR (MDRD) Af Amer > 60 (>60) 08/05/16 00:30 Est GFR (MDRD) Non-Af 51 (>60) L 08/05/16 00:30 Glucose 109 mg/dL (65-99) H 08/05/16 00:30 Calcium 8.4 mg/dL (8.5-10.1) L 08/05/16 00:30 Corrected Calcium 9.1 mg/dL (8.5-10.1) 08/05/16 00:30 Total Bilirubin 5.50 mg/dL (0.2-1.0) H 08/05/16 00:30 AST 181 Units/L (15-37) H 08/05/16 00:30 ALT 273 Units/L (12-78) H 08/05/16 00:30 Alkaline Phosphatase 143 Units/L (46-116) H 08/05/16 00:30 Creatine Kinase 476 Units/L (39-308) H 08/05/16 00:30 CK-MB (CK-2) 4.0 ng/mL (0-4.0) 08/05/16 00: CK/CKMB % Calc 0.8 % (<4) 08/05/16 00:30 Troponin I 0.10 ng/mL (0-1.5) 08/05/16 00:30 B-Natriuretic Peptide 2900 pg/mL (0-79) H* 08/05/16 00:30 Total Protein 6.5 g/dL (6.4-8.2) 08/05/16 00:30 Albumin 3.1 g/dL (3.4-5.0) L 08/05/16 00:30 Globulin 3.4 g/dL (2.5-4.5) 08/05/16 00:30 Albumin/Globulin Ratio 0.9 Ratio (1.1-2.1) L 08/05/16 00:30 Specimen Type Clean catch urine 08/05/16 01:03 Urine Color Dark yellow (YELLOW) 08/05/16 01:03 Urine Appearance Clear (CLEAR) 08/05/16 01:03 Urine pH 5.0 (5.0 - 8.0) 08/05/16 01:03 Ur Specific [place] 1.010 (1.000-1.030) 08/05/16 01:03 Urine Protein 2+ (NEGATIVE) 08/05/16 01:03 Urine Glucose (UA) Negative (NEGATIVE) 08/05/16 01:03 Urine Ketones Negative (NEGATIVE) 08/05/16 01:03 Urine Occult Blood 1+ (NEGATIVE) 08/05/16 01:03 Urine Nitrite Negative (NEGATIVE) 08/05/16 01:03 Urine Bilirubin 1+ (NEGATIVE) 08/05/16 01:03 Urine Urobilinogen 1+ (NORMAL) 08/05/16 01:03 Ur Leukocyte Esterase 1+ (NEGATIVE) 08/05/16 01:03 Urine RBC 0-3 /HPF (NEGATIVE) 08/05/16 01:03 Urine WBC 6-8 /HPF (NEGATIVE) 08/05/16 01:03 Ur Squamous Epith Cells Rare /HPF (NEGATIVE) 08/05/16 01:03 Urine Bacteria 1+ /HPF (NEGATIVE) 08/05/16 01:03 Ur Culture Indicated? Yes/culture set up 08/05/16 01:03 Urine Opiates Screen Negative (NEG=<300) 08/05/16 01:03 Urine Methadone Screen Negative (NEG=<300) 08/05/16 01:03 Ur Barbiturates Screen Negative (NEG=<200) 08/05/16 01:03 Ur Phencyclidine Scrn Negative (NEG=<25) 08/05/16 01:03 Ur Amphetamines Screen Negative (NEG=<1000) 08/05/16 01:03 U Benzodiazepines Scrn Negative (NEG=<200) 08/05/16 01:03 Urine Cocaine Screen Negative (NEG=<300) 08/05/16 01:03 U Marijuana (THC) Screen Negative (NEG=<50) 08/05/16 01:03 - XRAY XRAY Interpreted by: Radiologist XRAY Findings: chest: right lobar infiltrate-pneumonia /CHF - EKG Rate: 134 [place]: Normal Rhythm: ST Block: None Hypertrophy: None ST: Normal Procedures - Central Line Central Line Lumen: single Central Line Procedure: sterile drapes applied Central Line Postion: subclavian (R) Anesthesia: Lidocaine cc's of anesthesia: 10 Progress: unable to get vein, procedure halted. - Diagnosis Discharge Problem: Pneumonia Qualifiers: Pneumonia type: due to unspecified organism Laterality: right Lung location: lower lobe of lung Qualified Code(s): J18.1 - Lobar pneumonia, unspecified organism Cellulitis Qualifiers: Site of cellulitis: extremity Site of cellulitis of extremity: lower extremity Laterality: left Qualified Code(s): L03.116 - Cellulitis of left lower limb CHF (congestive heart failure) Qualifiers: Congestive heart failure type: unspecified congestive heart failure type Congestive heart failure chronicity: acute on chronic Qualified Code(s): I50.9 - Heart failure, unspecified - Discharge Plan Condition: Stable - Follow ups/Referrals Follow ups/Referrals: NFD,None [Primary Care Provider] - 3 days - Instructions
[2016-08-05 00:28] LABS: ABG BASE EXCESS 0.9 mmol/L (-2.0-2.0); ABG HCO3 23.8 mmol/L (22-26)
--- NOTE | 2016-08-05 00:28 | RAD ---
EXAM: Chest X-ray INDICATION: Shortness of breath COMPARISION: Prior exam from August 04, 2016 TECHNIQUE: AP, single view FINDINGS: Again identified is dense consolidation throughout the right lung. The heart is moderately enlarged and there is central vascular congestion and interstitial prominence bilaterally. No pneumothorax or pleural effusion. The regional skeleton is intact. IMPRESSION: Dense alveolar consolidation is seen throughout the right lung consistent with pneumonia. There is c ardiomegaly with vascular congestion and interstitial prominence consistent with congestive heart fa ilure. Reported By:
[2016-08-05] MEDS ORDERED: XOPENEX 1.25 MG/3 ML NEBULE NEB ONE (00:41)
[2016-08-05] MEDS ORDERED: XOPENEX 1.25 MG/3 ML NEBULE ONE (00:41)
[2016-08-05 00:47] LABS: BASOPHILS # (AUTO) 0.1 X10^3/uL (0.0-0.1); BASOPHILS % (AUTO) 0.7 % (0.2-1.0); EOSINOPHILS # (AUTO) 0.2 x10^3/uL (0.0-0.2); EOSINOPHILS % (AUTO) 1.1 % (0.9-2.9); HEMATOCRIT 35.2 % (42.0-54.0); LYMPHOCYTES # (AUTO) 1.4 X10^3/uL (1.3-2.9); LYMPHOCYTES % (AUTO) 8.5 % (21.0-51.0); MEAN CORPUSCULAR HEMOGLOBIN 23.6 pg (27.0-34.0); MEAN CORPUSCULAR HGB CONC 31.2 g/dL (33.0-35.0); MEAN CORPUSCULAR VOLUME 75.7 fL (80.0-100.0); MEAN PLATELET VOLUME 7.5 fL (7.4-11.0); MONOCYTES # (AUTO) 2.8 x10^3/uL (0.3-0.8); MONOCYTES % (AUTO) 16.7 % (0.0-13.0); NEUTROPHILS # (AUTO) 12.2 x10^3/uL (2.2-4.8); PLATELET COUNT 175 X10^3/uL (150.0-450.0); RED BLOOD COUNT 4.65 X10^6/uL (4.7-6.0); RED CELL DISTRIBUTION WIDTH 19.7 % (11.6-16.5); WHITE BLOOD COUNT 16.7 X10^3/uL (3.6-10.0)
[2016-08-05 01:02] LABS: BLOOD UREA NITROGEN 26 mg/dL (7-18); CALCIUM 8.4 mg/dL (8.5-10.1); CHLORIDE 102 mmol/L (98-107); CREATININE 1.64 mg/dL (0.70-1.30); GLUCOSE 109 mg/dL (65-99); SODIUM 138 mmol/L (136-145); eGFR BLACK RACES > 60 (>60); eGFR NON BLACK RACES 51 (>60)
[2016-08-05] MEDS ORDERED: MOTRIN TAB 800 MG PO ONE ×2 (01:06→01:28)
[2016-08-05 01:09] LABS: B-TYPE NATRIURETIC PEPTIDE 2900 pg/mL (0-79)
[2016-08-05 01:12] LABS: BILIRUBIN,URINE 1+ (NEGATIVE); BLOOD/HEMOGLOBIN,URINE 1+ (NEGATIVE); GLUCOSE, URINE NEGATIVE (NEGATIVE); KETONES,URINE NEGATIVE (NEGATIVE); LEUKOCYTE ESTERASE ,URINE 1+ (NEGATIVE); NITRITES,URINE NEGATIVE (NEGATIVE); PROTEIN,URINE 2+ (NEGATIVE); UROBILINOGEN,URINE 1+ (NORMAL)
[2016-08-05 01:15] LABS: HYPOCHROMASIA 1+; PLATELET MORPHOLOGY COMMENT NORMAL (NORMAL)
[2016-08-05 01:16] LABS: ANISOCYTOSIS SLIGHT; OVALOCYTES NOTED; POIKILOCYTOSIS 1+; TARGET CELLS NOTED
[2016-08-05 01:24] LABS: APPEARANCE,URINE CLEAR (CLEAR); BACTERIA,URINE 1+ /HPF (NEGATIVE); COLOR,URINE DARK YELLOW (YELLOW); RBC,URINE 0-3 /HPF (NEGATIVE); SQUAMOUS EPITHELIAL CELL,UR RARE /HPF (NEGATIVE)
[2016-08-05 01:39] LABS: ALANINE AMINOTRANSFERASE 273 Units/L (12-78); ALBUMIN 3.1 g/dL (3.4-5.0); ALKALINE PHOSPHATASE 143 Units/L (46-116); ASPARTATE AMINO TRANSFERASE 181 Units/L (15-37); CKMB % 0.8 % (<4); COR CA(FOR HYPOALB) 9.1 mg/dL (8.5-10.1); CREATINE KINASE 476 Units/L (39-308); TOTAL PROTEIN 6.5 g/dL (6.4-8.2)
[2016-08-05] MEDS ORDERED: ROCEPHIN VIAL 1 GM IM ONE (02:25)
[2016-08-05] MEDS ORDERED: XYLOCAINE 1 % (PLAIN) ONE (02:31)
[2016-08-05] MEDS ORDERED: ROCEPHIN VIAL 1 GM ONE (02:31)
[2016-08-05] MEDS ORDERED: ZITHROMAX TAB 250 MG PO ONE ×3 (04:35→06:32)
[2016-08-05] MEDS ORDERED: LASIX ONE (07:05)
[2016-08-05 07:14] VITALS: BP 136/90
[2016-08-05] MEDS ORDERED: LASIX PO SCH (09:00)
== END 2016-08-05 08:05 | disposition short-term general hospital (02) ==
LOC: ER 23:46
PROC: 02HV33Z Insertion of Infusion Device into Superior Vena Cava, Percutaneous Approach (ICD-10-PCS; principal; 2016-08-04)
DX: I50.9 Heart failure, unspecified (principal); J18.1 Lobar pneumonia, unspecified organism; L03.116 Cellulitis of left lower limb
CPT/HCPCS: 36415; 36556; 36600; 71010; 80053; 80307; 81001; 82550; 82553; 82803; 83880; 84484; 85025; 87070; 87086; 87205; 93005; 94640; 96372; 99283; 99285; A4216; A4222; Q0144; G0434; J0696; J2001

== ENCOUNTER 2016-11-21 15:48 | Observation (INO) | payer SELFPAY ==
[2016-11-21] MEDS ORDERED: LASIX IVP ONE ×4 (16:25→18:14)
[2016-11-21 16:28] LABS: BASOPHILS # (AUTO) 0.1 X10^3/uL (0.0-0.1); BASOPHILS % (AUTO) 1.3 % (0.2-1.0); EOSINOPHILS # (AUTO) 0.1 x10^3/uL (0.0-0.2); EOSINOPHILS % (AUTO) 1.3 % (0.9-2.9); HEMATOCRIT 40.7 % (42.0-54.0); HEMOGLOBIN 13.7 g/dL (13.5-18.0); LYMPHOCYTES # (AUTO) 3.5 X10^3/uL (1.3-2.9); LYMPHOCYTES % (AUTO) 33.5 % (21.0-51.0); MEAN CORPUSCULAR HEMOGLOBIN 28.8 pg (27.0-34.0); MEAN CORPUSCULAR HGB CONC 33.6 g/dL (33.0-35.0); MEAN CORPUSCULAR VOLUME 85.5 fL (80.0-100.0); MEAN PLATELET VOLUME 7.4 fL (7.4-11.0); MONOCYTES # (AUTO) 0.9 x10^3/uL (0.3-0.8); MONOCYTES % (AUTO) 8.3 % (0.0-13.0); NEUTROPHILS # (AUTO) 5.8 x10^3/uL (2.2-4.8); NEUTROPHILS % (AUTO) 55.6 % (42.0-75.0); PLATELET COUNT 300 X10^3/uL (150.0-450.0); RED BLOOD COUNT 4.76 X10^6/uL (4.7-6.0); RED CELL DISTRIBUTION WIDTH 15.2 % (11.6-16.5); WHITE BLOOD COUNT 10.3 X10^3/uL (3.6-10.0)
--- NOTE | 2016-11-21 16:33 | DR.GENAD ---
HPI - PCP Primary Care Physician: PRASHANT - Complaint/Symptoms Chief Complaint Doctors Comments: Patient states he has been having sharp chest pain in anterior chest worst when he takes a deep breath for the past seven days. States he is suppose to be wearing a defibrillator vest at all times and he has the vest but cannot afford the monthly payments. States he was in [place] for four weeks and they told him his EF was 15% and he was suppose to get a pacemaker but could not afford it. He has not been able to afford his medicines and has been off most of his medicines for a while and off the medicines for leg swelling for the past two days. States he is suppose to be on Aldactone, Lasix Coreg but has not been on them in a while. States his hands and legs has been swelling for the past two days. He denies cold, cough, fever or chills. States his heart was beating fast earlier. Chief Complaint:: PATIENT STATED SHE HAS BEEN HAVING SHORTNESS OF BREATH AND CHEST PAIN FOR 3 DAYS. - Nurses notes reviewed Nurses Notes Review: Yes - Source History Provided: Patient - Mode of Arrival Mode of Arrival: Ambulatory - Timing Onset of Chief Complaint: 11/19/16 Came on: Gradually - Duration Duration: Intermittent How lon Duration: Days - Location Location: xiphoid chest pain - Severity Severity: Moderate - Modifying Factors Worsens:: deep breathing Improves:: nothing PMH - PMH Past Medical History: Yes Past Medical History: Angina, CHF, Hypertension Past Surgical History: Yes Surgical History: Tonsillectomy - Family History History of Family Medical Conditions: Yes Family Medical History: Diabetes Mellitus, Cancer, [place], Coronary Artery Disease, Heart Failure, Sudden Cardiac , Hypertension - Social History Does patient currently use any type of tobacco product: Yes Have you used tobacco products in the last 12 months: Yes Type of Tobacco Use: Cigarettes How many years tobacco product used: 10 Does any household member use tobacco: No Alcohol Use: None Do you use any recreational Drugs:: No Lives With: Family Lives Where: Home - infectious screening In the last 2 months have you had wt loss of >10#?: NO Have you had fever, night sweats or hemotysis?: No Have you traveled outside the country in the last 6 months?: No Isolation: Standard ROS - Review of Systems Constitutional: No Symptoms Reported, Weakness. negative: See HPI, Chills, Diaphoresis, Fever, Malaise, Irritable, Fatigue, Loss of Appetite, Other Eyes: No Symptoms Reported. negative: See HPI, Eye Pain, Blurred Vision, Tearing, Discharge, Photophobia, Diplopia, Other ENTM: No Symptoms Reported Respiratoy: No Symptoms Reported. negative: See HPI, Productive Cough, Non- Productive Cough, Moist Cough, Dry Cough, Hacking Cough, Barking Cough, Brassy Cough, Orthopnea, Short of Breath, Stridor, Wheezing, Hemoptysis, Other Cardiovascular: No Symptoms Reported. negative: See HPI, Chest Pain, Edema, Palpitations, Syncope, Cyanosis, Skin Mottling, Other Gastrointestinal/Abdominal: No Symptoms Reported. negative: See HPI, Abdominal Pain, Constipation, Diarrhea, Nausea, Vomiting, Food Intolerance, Other Genitourinary: No Symptoms Reported. negative: See HPI, Discharge, Dysuria, Frequency, Hematuria, Pain, Bleeding, Other Neurological: No Symptoms Reported. negative: See HPI, Anxiety, Depressed, Emotional Problems, Headache, Numbness, Paresthesia, Pre-existing Deficit, Seizure, Tingling, Tremors, Weakness, Dizziness, Problems Walking, Speech Problem, Other Musculoskeletal: No Symptoms Reported. negative: See HPI, Back Pain, Gout, Joint Pain, Joint Swelling, Muscle Pain, Muscle Stiffness, Neck Pain, Right, Left, Neck, Chest wall, Rib(s), Back, Shoulder, Arm, Elbow, Forearm, Wrist, Hand , Pelvis, Hip, Leg, Knee, Ankle, Foot, Other Integumentary: No Symptoms Reported. negative: See HPI, Change in Color, Change in Hair/Nails, Dryness, Lesions, Lumps, Rash, Itching, Wound, Bruises, Juandice, Other Hematologic/Lymphatic: No Symptoms Reported. negative: See HPI, Anemia, Blood Clots, Easy Bleeding, Easy Bruising, Swollen Glands, Lymphadenopathy, Other Endocrine: No Symptoms Reported Psychiatric: No Symptoms Reported PE - Vital Signs Vitals: Temperature 98.6 F Pulse Rate [Left Brachial] 96 Pulse Rate 120 Respiratory Rate 23 Blood Pressure [Right Arm] 123/81 Blood Pressure [Left Arm] 146/83 Blood Pressure 74/65 O2 Sat by Pulse Oximetry 97 - General Limitations: No Limitations General Appearance: Alert, In Distress (moderate) - Head Head Exam: Normal Inspection, Atraumatic, Normocephalic - Eyes Eye exam: Normal Appearance, PERRL, EOMI. negative: Scleral Icterus, Conjunctival Injection, Nystagmus, Miosis, Mydrasis, Periorbital Swelling, Periorbital Tenderness, Other - ENT ENT Exam: Normal Exam, Normal Oropharynx, Normal External Ear Exam, Mucous Membranes Moist, TM's Normal Bilaterally External Ear Exam: Normal External Inspection TM/Canal Exam: Bilateral Normal Mouth Exam: Normal Inspection. negative: Drooling, Trismus, Lip Swelling, Tongue Elevation, Tongue Swelling, Laceration, Other Throat Exam: Normal Inspection. negative: Tonsillar Erythema, Tonsillomegaly, Tonsillar Exudate, R Peritonsillar Mass, L Peritonsillar Mass, Muffled Voice, Other - Neck Neck Exam: Normal Inspection, Full ROM, Trachea Midline. negative: Tenderness, Meningismus, Lymphadenopathy, Thyromegaly, Other - Chest Chest Inspection: Normal Inspection, Symmetric Chest Wall Rise - Respiratory Respiratory Exam: Normal Lung Sounds Bilat Respiratory Exam: Bilateral Clear to Auscultation - Cardiovascular Cardiovascular Exam: Tachycardia, Irregular Rhythm, Systolic Murmur - Abdominal Exam Abdominal Exam: Normal Inspection, Normal Bowel Sounds, Soft Abdominal Tenderness: negative: RUQ, RLQ, LUQ, LLQ, Epigastrium, Suprapubic, Diffuse, Mild, Moderate, Severe, Other - Extremities Extremities Exam: Normal Inspection, Full ROM, Normal Capillary Refill. negative: Tenderness, Edema, Joint Swelling, Calf Tenderness, Other - Back Back Exam: Normal Inspection, Full ROM - Neurologic Neurological Exam: Alert, Oriented X3, CN II-XII Intact, Reflexes Normal. negative: Normal Gait (gait not tested) - Psychiatric Psychiatric Exam: Normal Affect, Normal Mood - Skin Skin Exam: Warm, Dry, Intact, Normal Color ROR - Labs Reviewed Laboratory Results Reviewed?: Yes (all labs and x-ray results and discussed with patient) Result Diagrams: 11/21/16 16:20 11/21/16 16:20 Laboratory: WBC 10.3 X10^3/uL (3.6-10.0) H 11/21/16 16:20 RBC 4.76 X10^6/uL (4.7-6.0) 11/21/16 16:20 Hgb 13.7 g/dL (13.5-18.0) 11/21/16 16:20 Hct 40.7 % (42.0-54.0) L 11/21/16 16:20 MCV 85.5 fL (80.0-100.0) 11/21/16 16:20 MCH 28.8 pg (27.0-34.0) 11/21/16 16:20 MCHC 33.6 g/dL (33.0-35.0) 11/21/16 16:20 RDW 15.2 % (11.6-16.5) 11/21/16 16:20 Plt Count 300 X10^3/uL (150.0-450.0) 11/21/16 16:20 MPV 7.4 fL (7.4-11.0) 11/21/16 16:20 Neut % 55.6 % (42.0-75.0) 11/21/16 16:20 Lymph % 33.5 % (21.0-51.0) 11/21/16 16:20 Coffey % 8.3 % (0.0-13.0) 11/21/16 16:20 Eos % 1.3 % (0.9-2.9) 11/21/16 16:20 Baso % 1.3 % (0.2-1.0) H 11/21/16 16:20 Neut # 5.8 x10^3/uL (2.2-4.8) H 11/21/16 16:20 Lymph # 3.5 X10^3/uL (1.3-2.9) H 11/21/16 16:20 [place] # 0.9 x10^3/uL (0.3-0.8) H 11/21/16 16:20 Eos # 0.1 x10^3/uL (0.0-0.2) 11/21/16 16:20 Baso # 0.1 X10^3/uL (0.0-0.1) 11/21/16 16:20 Absolute Nucleated RBC 0.1 /100WBC 11/21/16 16:20 INR Target Range - 11/21/16 16:20 INR 1.03 (0.8-1.3) 11/21/16 16:20 PTT 28.6 SECONDS (22.9-36.5) 11/21/16 16:20 PTT Comment - 11/21/16 16:20 Sodium 138 mmol/L (136-145) 11/21/16 16:20 Corrected Sodium TNP 11/21/16 16:20 Potassium 4.2 mmol/L (3.5-5.1) 11/21/16 16:20 Chloride 104 mmol/L (98-107) 11/21/16 16:20 Carbon Dioxide 26.2 mmol/L (21-32) 11/21/16 16:20 BUN 16 mg/dL (7-18) 11/21/16 16:20 Creatinine 1.14 mg/dL (0.70-1.30) 11/21/16 16:20 Est GFR (MDRD) Af Amer > 60 (>60) 11/21/16 16:20 Est GFR (MDRD) Non-Af > 60 (>60) 11/21/16 16:20 Glucose 90 mg/dL (65-99) 11/21/16 16:20 Calcium 8.8 mg/dL (8.5-10.1) 11/21/16 16:20 Corrected Calcium 9.4 mg/dL (8.5-10.1) 11/21/16 16:20 Magnesium 1.9 mg/dL (1.7-2.9) 11/21/16 16:20 Total Bilirubin 0.60 mg/dL (0.2-1.0) 11/21/16 16:20 AST 32 Units/L (15-37) 11/21/16 16:20 ALT 33 Units/L (12-78) 11/21/16 16:20 Alkaline Phosphatase 116 Units/L (46-116) 11/21/16 16:20 Creatine Kinase 66 Units/L (39-308) 11/21/16 16:20 CK-MB (CK-2) 2.7 ng/mL (0-4.0) 11/21/16 16:20 CK/CKMB % Calc 4.1 % (<4) 11/21/16 16:20 Troponin I 0.05 ng/mL (0-1.5) 11/21/16 16:20 B-Natriuretic Peptide 1680 pg/mL (0-79) H* 11/21/16 16:20 Total Protein 7.0 g/dL (6.4-8.2) 11/21/16 16:20 Albumin 3.2 g/dL (3.4-5.0) L 11/21/16 16:20 Globulin 3.8 g/dL (2.5-4.5) 11/21/16 16:20 Albumin/Globulin Ratio 0.8 Ratio (1.1-2.1) L 11/21/16 16:20 - XRAY XRAY Interpreted by: Radiologist (CXR: Unchanged cardiomegaly. Lungs are clear) - Diagnosis Discharge Problem: Dyspnea due to congestive heart failure, Congestive heart failure, Systolic CHF , Sinus tachycardia - Discharge Plan Disposition: ADMITTED INPATIENT Condition: Stable - Follow ups/Referrals Follow ups/Referrals: Luis Nicholas [Primary Care Provider] - 3 days - Instructions
[2016-11-21 16:42] LABS: BLOOD UREA NITROGEN 16 mg/dL (7-18); CALCIUM 8.8 mg/dL (8.5-10.1); CARBON DIOXIDE 26.2 mmol/L (21-32); CHLORIDE 104 mmol/L (98-107); CREATININE 1.14 mg/dL (0.70-1.30); SODIUM 138 mmol/L (136-145); TROPONIN I 0.05 ng/mL (0-1.5); eGFR BLACK RACES > 60 (>60); eGFR NON BLACK RACES > 60 (>60)
[2016-11-21 16:46] LABS: ALANINE AMINOTRANSFERASE 33 Units/L (12-78); ALBUMIN 3.2 g/dL (3.4-5.0); ALKALINE PHOSPHATASE 116 Units/L (46-116); ASPARTATE AMINO TRANSFERASE 32 Units/L (15-37); CKMB % 4.1 % (<4); COR CA(FOR HYPOALB) 9.4 mg/dL (8.5-10.1); CREATINE KINASE 66 Units/L (39-308); CREATINE KINASE MB 2.7 ng/mL (0-4.0); MAGNESIUM 1.9 mg/dL (1.7-2.9)
--- NOTE | 2016-11-21 16:51 | RAD ---
HISTORY: Chest pain. Study: Single-view chest. Comparison: August 05, 2016. Findings: The trachea is midline. The cardiac silhouette is enlarged similar to the comparison study. The lungs are clear without focal consolidation, pleural effusion or pneumothorax. The bony thorax is grossly unremarkable. IMPRESSION: 1. Unchanged cardiomegaly. 2. The lungs are clear. Reported By:
[2016-11-21] MEDS ORDERED: LOPRESSOR INJ 5 MG AMP IVP ONE (17:46)
[2016-11-21] MEDS ORDERED: LOPRESSOR INJ 5 MG AMP ONE (17:51)
[2016-11-21] MEDS ORDERED: MORPHINE SULFATE INJ 2 MG INJ IVP ONE (18:13)
[2016-11-21] MEDS ORDERED: MORPHINE SULFATE INJ 2 MG INJ ONE (18:14)
[2016-11-21] MEDS: COREG TAB 3.125 MG PO SCH (22:26)
[2016-11-21] MEDS: LASIX IVP SCH (22:27)
[2016-11-21] MEDS ORDERED: NS 100 ML IV 100 ML IV ONE (22:29)
[2016-11-21] MEDS: PEPCID 20 MG IV PREMIX* 20 MG/50 ML BAG IV SCH (22:41)
[2016-11-21 23:35] LABS: BILIRUBIN,URINE NEGATIVE (NEGATIVE); BLOOD/HEMOGLOBIN,URINE NEGATIVE (NEGATIVE); GLUCOSE, URINE NEGATIVE (NEGATIVE); KETONES,URINE NEGATIVE (NEGATIVE); LEUKOCYTE ESTERASE ,URINE NEGATIVE (NEGATIVE); NITRITES,URINE NEGATIVE (NEGATIVE); PH,URINE 6.5 (5.0 - 8.0); PROTEIN,URINE NEGATIVE (NEGATIVE); UROBILINOGEN,URINE NORMAL (NORMAL)
[2016-11-21 23:42] LABS: APPEARANCE,URINE CLEAR (CLEAR); BACTERIA,URINE NEGATIVE /HPF (NEGATIVE); COLOR,URINE YELLOW (YELLOW); RBC,URINE 0-3 /HPF (NEGATIVE); SQUAMOUS EPITHELIAL CELL,UR RARE /HPF (NEGATIVE)
[2016-11-22 01:23] VITALS: BMI 25.9
[2016-11-22 06:09] LABS: BASOPHILS # (AUTO) 0.1 X10^3/uL (0.0-0.1); EOSINOPHILS # (AUTO) 0.2 x10^3/uL (0.0-0.2); EOSINOPHILS % (AUTO) 2.1 % (0.9-2.9); HEMATOCRIT 42.5 % (42.0-54.0); HEMOGLOBIN 14.4 g/dL (13.5-18.0); LYMPHOCYTES # (AUTO) 3.5 X10^3/uL (1.3-2.9); LYMPHOCYTES % (AUTO) 39.8 % (21.0-51.0); MEAN CORPUSCULAR HGB CONC 33.8 g/dL (33.0-35.0); MEAN CORPUSCULAR VOLUME 85.6 fL (80.0-100.0); MEAN PLATELET VOLUME 7.8 fL (7.4-11.0); MONOCYTES # (AUTO) 0.8 x10^3/uL (0.3-0.8); NEUTROPHILS # (AUTO) 4.3 x10^3/uL (2.2-4.8); NEUTROPHILS % (AUTO) 48.1 % (42.0-75.0); PLATELET COUNT 313 X10^3/uL (150.0-450.0); RED BLOOD COUNT 4.97 X10^6/uL (4.7-6.0); RED CELL DISTRIBUTION WIDTH 14.8 % (11.6-16.5); WHITE BLOOD COUNT 8.9 X10^3/uL (3.6-10.0)
[2016-11-22 06:28] LABS: ALANINE AMINOTRANSFERASE 31 Units/L (12-78); ALBUMIN 3.3 g/dL (3.4-5.0); ALKALINE PHOSPHATASE 124 Units/L (46-116); ASPARTATE AMINO TRANSFERASE 27 Units/L (15-37); BLOOD UREA NITROGEN 16 mg/dL (7-18); CALCIUM 8.5 mg/dL (8.5-10.1); CARBON DIOXIDE 25.4 mmol/L (21-32); CHLORIDE 105 mmol/L (98-107); COR CA(FOR HYPOALB) 9.1 mg/dL (8.5-10.1); CREATININE 1.16 mg/dL (0.70-1.30); TOTAL PROTEIN 7.3 g/dL (6.4-8.2); eGFR BLACK RACES > 60 (>60); eGFR NON BLACK RACES > 60 (>60)
[2016-11-22 06:41] LABS: SODIUM 140 mmol/L (136-145)
[2016-11-22 07:01] LABS: CHOL/HDL RATIO 3.2 (0.0-5.0)
[2016-11-22] MEDS: LASIX IVP SCH (09:00)
[2016-11-22] MEDS ORDERED: LOVENOX INJ 30 MG SYR SC SCH (09:00)
[2016-11-22] MEDS: PEPCID 20 MG IV PREMIX* 20 MG/50 ML BAG IV SCH (09:00)
[2016-11-22] MEDS ORDERED: ALDACTONE TAB 25 MG PO SCH (09:00)
[2016-11-22] MEDS: COREG TAB 3.125 MG PO SCH (09:00)
[2016-11-22] MEDS ORDERED: NS 250 ML IV 250 ML IV ONE (09:07)
[2016-11-22 14:17] VITALS: BP 118/87
== END 2016-11-22 14:50 | disposition home or self-care (01) ==
LOC: ER 16:43 → MED/SURG 20:32
PROVIDERS: ADMIT Internal Medicine; ATTEND Internal Medicine
DX: R07.89 Other chest pain (principal); R06.09 Other forms of dyspnea; I51.7 Cardiomegaly; I50.20 Unspecified systolic (congestive) heart failure; R06.02 Shortness of breath; R94.31 Abnormal electrocardiogram [ECG] [EKG]
CPT/HCPCS: 36415; 71010; 80053; 80061; 80307; 81001; 82550; 82553; 83735; 83880; 84484; 85025; 85610; 85730; 93005; 93010; 94760; 96365; 96367; 96374; 96375; 99284; A4216; A4222; S0028; G0378; G0434; J1650; J1940; J2270; J3490

== ENCOUNTER 2016-12-20 11:06 | Emergency (ER) | payer SELFPAY ==
[2016-12-20 11:17] VITALS: BP 147/97; BMI 25.6
--- NOTE | 2016-12-20 11:51 | DR.GENAD ---
HPI - PCP Primary Care Physician: DR. CERDA - HPI Comment HPI Comment: PATIENT WITH HISTORY OF CHF WITH INCREASING SOB. PATIENT DENIES EDEMA. NO FEVER. NO PRODUCTIVE COUGH. WAS OUT OF HIS LASIX BUT STARTED TAKING IT AGAIN. - Complaint/Symptoms Chief Complaint Doctors Comments: SOB, EXERTIONAL DYSPNEA. Chief Complaint:: PT C/O FEELING LIKE FLUID IS BACKING UP AND HIS FACE IS SWOLLEN AND HE IS SHORT OF BREATHE.. Self Treatment fo Chief Complaint: PT C/O THAT IS SWELLING HAS BEEN GOING ON FOR A MONTH AND ITS WORSE TODAY.. - Nurses notes reviewed Nurses Notes Review: Yes - Source History Provided: Patient - Mode of Arrival Mode of Arrival: Ambulatory - Timing Onset of Chief Complaint: 12/20/16 Came on: Gradually - Duration Duration: Constant Duration: Weeks - Severity Severity: Moderate PMH - PMH Past Medical History: Yes Past Medical History: Angina, CHF, Hypertension Past Surgical History: Yes Surgical History: Tonsillectomy - Family History History of Family Medical Conditions: Yes Family Medical History: Diabetes Mellitus, Cancer, [place], Coronary Artery Disease, Heart Failure, Sudden Cardiac , Hypertension - Social History Does patient currently use any type of tobacco product: Yes Have you used tobacco products in the last 12 months: Yes Type of Tobacco Use: Cigarettes How many years tobacco product used: 10 Does any household member use tobacco: No Alcohol Use: None Do you use any recreational Drugs:: No Lives With: Family Lives Where: Home - infectious screening In the last 2 months have you had wt loss of >10#?: NO Have you had fever, night sweats or hemotysis?: No Have you traveled outside the country in the last 6 months?: No Isolation: Standard ROS - Review of Systems Constitutional: Weakness, Fatigue. negative: Chills, Fever Eyes: No Symptoms Reported ENTM: No Symptoms Reported. negative: Ear Pain, Nose Discharge, Nose Congestion , Throat Pain Respiratoy: Non-Productive Cough, Short of Breath. negative: Wheezing, Hemoptysis Cardiovascular: Chest Pain. negative: Edema Gastrointestinal/Abdominal: No Symptoms Reported. negative: Abdominal Pain, Diarrhea, Nausea, Vomiting Genitourinary: No Symptoms Reported. negative: Dysuria, Frequency, Hematuria Neurological: Weakness. negative: Headache, Dizziness Musculoskeletal: No Symptoms Reported Integumentary: No Symptoms Reported Hematologic/Lymphatic: No Symptoms Reported Endocrine: No Symptoms Reported All Other Systems: Reviewed and Negative PE - Vital Signs Vitals: Temperature 97.9 F Pulse Rate 116 Respiratory Rate 18 Blood Pressure [Right Arm] 118/87 Blood Pressure [Left Arm] 146/83 Blood Pressure 147/97 O2 Sat by Pulse Oximetry 99 - General Limitations: No Limitations General Appearance: Alert - Head Head Exam: Normal Inspection - Eyes Eye exam: Normal Appearance - ENT ENT Exam: Normal External Ear Exam External Ear Exam: Normal External Inspection TM/Canal Exam: Bilateral Normal Nose Exam: Normal Nose Exam Mouth Exam: Normal Inspection Throat Exam: Normal Inspection - Neck Neck Exam: Trachea Midline - Chest Chest Inspection: Symmetric Chest Wall Rise - Respiratory Respiratory Exam: Respiratory Distress. negative: Chest Wall Tenderness Respiratory Exam: Bilateral Rhonchi, Lower Rhonchi - Cardiovascular Cardiovascular Exam: Regular Rate, Normal Rhythm, Normal Heart Sounds - Abdominal Exam Abdominal Exam: Normal Bowel Sounds, Soft. negative: Tenderness - Extremities Extremities Exam: negative: Edema - Back Back Exam: Normal Inspection - Neurologic Neurological Exam: Alert, Oriented X3 - Psychiatric Psychiatric Exam: Normal Affect, Normal Mood - Skin Skin Exam: Normal Color MDM - Additional Information Additional Information Obtained From: Family - Differential Diagnosis Differential Diagnosis: CHF, PNEUMONIA, COPD, RESPIRATORY DISTRESS. Course - Treatment Treatment: SEE ORDERS. LASIX IN ED. - Education/Counseling Education/Counseling: Patient, Family, Education Educated On: Treatment, Diagnosis, Needs for Follow Up ROR - Labs Reviewed Laboratory Results Reviewed?: Yes Result Diagrams: 12/20/16 12:00 12/20/16 12:00 Laboratory: WBC 9.3 X10^3/uL (3.6-10.0) 12/20/16 12:00 RBC 4.81 X10^6/uL (4.7-6.0) 12/20/16 12:00 Hgb 13.3 g/dL (13.5-18.0) L 12/20/16 12:00 Hct 40.3 % (42.0-54.0) L 12/20/16 12:00 MCV 83.8 fL (80.0-100.0) 12/20/16 12:00 MCH 27.6 pg (27.0-34.0) 12/20/16 12:00 MCHC 33.0 g/dL (33.0-35.0) 12/20/16 12:00 RDW 15.5 % (11.6-16.5) 12/20/16 12:00 Plt Count 270 X10^3/uL (150.0-450.0) 12/20/16 12:00 MPV 7.5 fL (7.4-11.0) 12/20/16 12:00 Neut % 63.3 % (42.0-75.0) 12/20/16 12:00 Lymph % 27.3 % (21.0-51.0) 12/20/16 12:00 Bell % 7.0 % (0.0-13.0) 12/20/16 12:00 Eos % 1.9 % (0.9-2.9) 12/20/16 12:00 Baso % 0.5 % (0.2-1.0) 12/20/16 12:00 Neut # 5.9 x10^3/uL (2.2-4.8) H 12/20/16 12:00 Lymph # 2.5 X10^3/uL (1.3-2.9) 12/20/16 12:00 Bell # 0.7 x10^3/uL (0.3-0.8) 12/20/16 12:00 Eos # 0.2 x10^3/uL (0.0-0.2) 12/20/16 12:00 Baso # 0.0 X10^3/uL (0.0-0.1) 12/20/16 12:00 Absolute Nucleated RBC 0.1 /100WBC 12/20/16 12:00 Sodium 142 mmol/L (136-145) 12/20/16 12:00 Corrected Sodium TNP 12/20/16 12:00 Potassium 3.1 mmol/L (3.5-5.1) L 12/20/16 12:00 Chloride 107 mmol/L (98-107) 12/20/16 12:00 Carbon Dioxide 22.8 mmol/L (21-32) 12/20/16 12:00 BUN 14 mg/dL (7-18) 12/20/16 12:00 Creatinine 1.43 mg/dL (0.70-1.30) H 12/20/16 12:00 Est GFR (MDRD) Af Amer > 60 (>60) 12/20/16 12:00 Est GFR (MDRD) Non-Af 59 (>60) 12/20/16 12:00 Glucose 106 mg/dL (65-99) H 12/20/16 12:00 Calcium 8.4 mg/dL (8.5-10.1) L 12/20/16 12:00 Corrected Calcium 9.1 mg/dL (8.5-10.1) 12/20/16 12:00 Total Bilirubin 0.80 mg/dL (0.2-1.0) 12/20/16 12:00 AST 32 Units/L (15-37) 12/20/16 12:00 ALT 39 Units/L (12-78) 12/20/16 12:00 Alkaline Phosphatase 113 Units/L (46-116) 12/20/16 12:00 Creatine Kinase 74 Units/L (39-308) 12/20/16 12:00 CK-MB (CK-2) 2.8 ng/mL (0-4.0) 12/20/16 12:00 CK/CKMB % Calc 3.8 % (<4) 12/20/16 12:00 Troponin I 0.05 ng/mL (0-1.5) 12/20/16 12:00 B-Natriuretic Peptide 2330 pg/mL (0-79) H* 12/20/16 12:00 Total Protein 6.5 g/dL (6.4-8.2) 12/20/16 12:00 Albumin 3.1 g/dL (3.4-5.0) L 12/20/16 12:00 Globulin 3.4 g/dL (2.5-4.5) 12/20/16 12:00 Albumin/Globulin Ratio 0.9 Ratio (1.1-2.1) L 12/20/16 12:00 - XRAY XRAY Interpreted by: Radiologist XRAY Findings: REPORT DISCUSS WITH PATIENT. - EKG Rhythm: NSR (EKG NOTED) - Diagnosis Discharge Problem: Dyspnea due to congestive heart failure CHF (congestive heart failure) Qualifiers: Congestive heart failure type: combined Congestive heart failure chronicity: acute Qualified Code(s): I50.41 - Acute combined systolic (congestive) and diastolic (congestive) heart failure Chest pain Qualifiers: Chest pain type: intercostal pain Qualified Code(s): R07.82 - Intercostal pain - Discharge Plan Disposition: 01 HOME, SELF-CARE Condition: Stable - Follow ups/Referrals Follow ups/Referrals: NFD,None [Primary Care Provider] - 3 days ERNESTINA WHEAT [STAFF PHYSICIAN] - 3 days - Instructions Instructions: Heart Failure, [id number] Additional Instructions: RETURN TO ED IF WORSE. TAKE 80MG OF LASIX IN AM AND 40MG AT NIGHT. DAILY WEIGHT AND CHART AND TAKE TO PCP.
[2016-12-20] MEDS ORDERED: LASIX PO ONE (11:57)
[2016-12-20] MEDS ORDERED: LASIX ONE (11:57)
[2016-12-20 12:09] LABS: BASOPHILS % (AUTO) 0.5 % (0.2-1.0); EOSINOPHILS # (AUTO) 0.2 x10^3/uL (0.0-0.2); EOSINOPHILS % (AUTO) 1.9 % (0.9-2.9); HEMATOCRIT 40.3 % (42.0-54.0); HEMOGLOBIN 13.3 g/dL (13.5-18.0); LYMPHOCYTES # (AUTO) 2.5 X10^3/uL (1.3-2.9); LYMPHOCYTES % (AUTO) 27.3 % (21.0-51.0); MEAN CORPUSCULAR HEMOGLOBIN 27.6 pg (27.0-34.0); MEAN CORPUSCULAR VOLUME 83.8 fL (80.0-100.0); MEAN PLATELET VOLUME 7.5 fL (7.4-11.0); MONOCYTES # (AUTO) 0.7 x10^3/uL (0.3-0.8); NEUTROPHILS # (AUTO) 5.9 x10^3/uL (2.2-4.8); NEUTROPHILS % (AUTO) 63.3 % (42.0-75.0); PLATELET COUNT 270 X10^3/uL (150.0-450.0); RED BLOOD COUNT 4.81 X10^6/uL (4.7-6.0); RED CELL DISTRIBUTION WIDTH 15.5 % (11.6-16.5); WHITE BLOOD COUNT 9.3 X10^3/uL (3.6-10.0)
[2016-12-20 12:39] LABS: B-TYPE NATRIURETIC PEPTIDE 2330 pg/mL (0-79)
--- NOTE | 2016-12-20 12:42 | RAD ---
HISTORY: Swelling Study: Single view of the chest. Comparison: None. Findings: Cardiomegaly. No focal consolidations, pleural effusions or pneumothorax. Osseous structures demonstr ate no acute abnormality. IMPRESSION: 1. No acute cardiopulmonary process. Reported By:
[2016-12-20 13:02] LABS: ALANINE AMINOTRANSFERASE 39 Units/L (12-78); ALBUMIN 3.1 g/dL (3.4-5.0); ALKALINE PHOSPHATASE 113 Units/L (46-116); ASPARTATE AMINO TRANSFERASE 32 Units/L (15-37); BLOOD UREA NITROGEN 14 mg/dL (7-18); CALCIUM 8.4 mg/dL (8.5-10.1); CARBON DIOXIDE 22.8 mmol/L (21-32); CHLORIDE 107 mmol/L (98-107); CKMB % 3.8 % (<4); COR CA(FOR HYPOALB) 9.1 mg/dL (8.5-10.1); CREATINE KINASE 74 Units/L (39-308); CREATINE KINASE MB 2.8 ng/mL (0-4.0); CREATININE 1.43 mg/dL (0.70-1.30); SODIUM 142 mmol/L (136-145); TOTAL PROTEIN 6.5 g/dL (6.4-8.2); TROPONIN I 0.05 ng/mL (0-1.5); eGFR BLACK RACES > 60 (>60); eGFR NON BLACK RACES 59 (>60)
[2016-12-20] MEDS ORDERED: POTASSIUM CHLORIDE LIQ 20 MEQ UDC PO ONE (14:15)
[2016-12-20] MEDS ORDERED: POTASSIUM CHLORIDE LIQ 20 MEQ UDC ONE (14:19)
== END 2016-12-20 14:27 | disposition home or self-care (01) ==
LOC: ER 11:32
DX: I50.41 Acute combined systolic (congestive) and diastolic (congestive) heart failure (principal); R07.82 Intercostal pain; R06.02 Shortness of breath
CPT/HCPCS: 36415; 71010; 80053; 82550; 82553; 83880; 84484; 85025; 93005; 93010; 99282; 99283

== ENCOUNTER 2016-12-29 21:31 | Observation (INO) | payer SELFPAY ==
--- NOTE | 2016-12-29 21:45 | DR.CP ---
HPI - Time Seen Time seen: 21:45 - HPI Comment HPI Comment: PATIENT HAVE CHF WITH EF LESS THAN 15 PER PATIENT. ON LASIX BUT NOT TAKING MED RECENTLY. HAVE PROGRESSIVE SOB. CHEST PRESSURE STARTED FEW DAYS AGO AND IS WORSE TODAY. PATIENT HAVE HISTORY OF ILLICIT DRUG UAS. DENIES USE OF COCAINE. - Complaint Chief Complaint Doctor Comments: INCREASING SOB AND CHEST PAIN TIMES SEVERAL DAYS. - Reviewed Nurses Notes Review: Yes - Source History Provided: Patient - Mode of Arrival Mode of Arrival: EMS - Timing Came on: Gradually Pain: Present Now - Duration Duration: Constant Duration: Days - Location Location of Chest Pain: Chest Chest Pain Radiation Location: None - Context Cardiac Risk Factors: Smoker PE Risk Factors: None History of: Similar pain in the past Prehospital Care: None - Quality Quality: Pressure like, Heavy - Severity Severity: Moderate - Modifying Factors Worsens: Exertion, Breathing Impoves: Nothing - Associated Signs and Symptoms Associated Signs and Symptoms: Shortness of Breath PMH - PMH Past Medical History: Angina, CHF, Hypertension Past Surgical History: Yes Surgical History: Tonsillectomy - Family History Family Medical History: Diabetes Mellitus, Cancer, [place], Coronary Artery Disease, Heart Failure, Sudden Cardiac , Hypertension - Social History Do you use any recreational Drugs:: No ROS - Review of Systems Constitutional: Weakness, Fatigue. negative: Chills, Fever, Loss of Appetite Eyes: negative: Eye Pain, Discharge ENTM: negative: Ear Pain, Nose Discharge, Nose Congestion, Throat Pain Respiratoy: Productive Cough, Short of Breath, Wheezing. negative: Non- Productive Cough, Hemoptysis Cardiovascular: Chest Pain. negative: Edema, Palpitations Gastrointestinal/Abdominal: Nausea. negative: Abdominal Pain, Diarrhea, Vomiting Genitourinary: No Symptoms Reported. negative: Dysuria, Frequency, Hematuria Neurological: Weakness, Dizziness. negative: Headache Musculoskeletal: Muscle Pain Integumentary: No Symptoms Reported Hematologic/Lymphatic: No Symptoms Reported Endocrine: No Symptoms Reported All Other Systems: Reviewed and Negative PE - Vitals Vitals: Temperature 98.1 F Pulse Rate [Apical] 118 Pulse Rate 126 Respiratory Rate 18 Blood Pressure [Right Arm] 130/88 Blood Pressure [Left Arm] 146/83 Blood Pressure 142/91 O2 Sat by Pulse Oximetry 100 - General Limitations: No Limitations General Appearance: Alert - Head Head Exam: Normal Inspection - Eyes Eye exam: Normal Appearance - ENT ENT Exam: Normal External Ear Exam - Chest Chest Inspection: Symmetric Chest Wall Rise - Respiratory Respiratory Exam: Normal Lung Sounds Bilat Respiratory Exam: Bilateral Wheezing, Bilateral Rhonchi, Upper Rhonchi, Lower Wheezing, Lower Rhonchi - Cardiovascular Cardiovascular Exam: Regular Rate, Normal Rhythm, Normal Heart Sounds Pulse: Normal, Radial, Femoral Edema: Normal - Abdominal Exam Abdominal Exam: Normal Bowel Sounds, Soft. negative: Distention, Tenderness - Extremities Extremities Exam: Normal Inspection. negative: Edema - Back Back Exam: Normal Inspection - Neurologic Neurological Exam: Alert, Oriented X3, CN II-XII Intact. negative: Motor Sensory Deficit - Psychiatric Psychiatric Exam: Normal Affect, Normal Mood - Skin Skin Exam: Normal Color MDM - Differential Diagnosis Differential Diagnosis: Angina, CHF, Gastritis, Myocardial Infarction, Pericarditis, Pleuritis, Pancreatitis, Pneumonia, Pneumothorax, Pulmonary Embolus Course - Treatment Treatment: SEE ORDERS. LASIX IV IN ED. ZOFRAN AND TORADOL IV IN ED. - Consultation Consultation Comments: DISCUSS PATIENT WITH DR. CERDA. HE WILL ADMIT PATIENT. - Education/Counseling Education/Counseling: Patient, Education Educated On: Treatment, Diagnosis, Needs for Follow Up ROR - Labs Reviewed Laboratory Results Reviewed?: Yes Result Diagrams: 12/29/16 21:40 12/29/16 21:40 Laboratory: WBC 10.8 X10^3/uL (3.6-10.0) H 12/29/16 21:40 RBC 5.20 X10^6/uL (4.7-6.0) 12/29/16 21:40 Hgb 14.2 g/dL (13.5-18.0) 12/29/16 21:40 Hct 43.4 % (42.0-54.0) 12/29/16 21:40 MCV 83.3 fL (80.0-100.0) 12/29/16 21:40 MCH 27.2 pg (27.0-34.0) 12/29/16 21:40 MCHC 32.7 g/dL (33.0-35.0) L 12/29/16 21:40 RDW 16.5 % (11.6-16.5) 12/29/16 21:40 Plt Count 396 X10^3/uL (150.0-450.0) 12/29/16 21:40 MPV 7.4 fL (7.4-11.0) 12/29/16 21:40 Neut % 54.2 % (42.0-75.0) 12/29/16 21:40 Lymph % 34.5 % (21.0-51.0) 12/29/16 21:40 Branch % 8.1 % (0.0-13.0) 12/29/16 21:40 Eos % 1.5 % (0.9-2.9) 12/29/16 21:40 Baso % 1.7 % (0.2-1.0) H 12/29/16 21:40 Neut # 5.8 x10^3/uL (2.2-4.8) H 12/29/16 21:40 Lymph # 3.7 X10^3/uL (1.3-2.9) H 12/29/16 21:40 Branch # 0.9 x10^3/uL (0.3-0.8) H 12/29/16 21:40 Eos # 0.2 x10^3/uL (0.0-0.2) 12/29/16 21:40 Baso # 0.2 X10^3/uL (0.0-0.1) H 12/29/16 21:40 Absolute Nucleated RBC 0.0 /100WBC 12/29/16 21:40 Sample Site R rad 12/29/16 21:55 ABG pH 7.460 (7.35-7.45) H 12/29/16 21:55 ABG pCO2 30.0 mmHg (35.0-45.0) L 12/29/16 21:55 ABG pO2 98.0 mmHg (80.0-100.0) 12/29/16 21:55 ABG HCO3 21.3 mmol/L (22-26) L 12/29/16 21:55 ABG O2 Saturation 98.0 % (90-100) 12/29/16 21:55 ABG Base Excess -1.6 mmol/L (-2.0-2.0) 12/29/16 21:55 Jacques Test Pos 12/29/16 21:55 A-a Gradient 14.0 mmHg 12/29/16 21:55 FiO2 21.000 12/29/16 21:55 Blood Gas Comments Hermila well, afh 12/29/16 21:55 Sodium 140 mmol/L (136-145) 12/29/16 21:40 Corrected Sodium 140 mmol/L (136-145) 12/29/16 21:40 Potassium 3.8 mmol/L (3.5-5.1) 12/29/16 21:40 Chloride 105 mmol/L (98-107) 12/29/16 21:40 Carbon Dioxide 24.0 mmol/L (21-32) 12/29/16 21:40 BUN 21 mg/dL (7-18) H 12/29/16 21:40 Creatinine 1.51 mg/dL (0.70-1.30) H 12/29/16 21:40 Est GFR (MDRD) Af Amer > 60 (>60) 12/29/16 21:40 Est GFR (MDRD) Non-Af 56 (>60) L 12/29/16 21:40 Glucose 113 mg/dL (65-99) H 12/29/16 21:40 Calcium 8.9 mg/dL (8.5-10.1) 12/29/16 21:40 Corrected Calcium TNP 12/29/16 21:40 Total Bilirubin 0.70 mg/dL (0.2-1.0) 12/29/16 21:40 AST 48 Units/L (15-37) H 12/29/16 21:40 ALT 51 Units/L (12-78) 12/29/16 21:40 Alkaline Phosphatase 119 Units/L (46-116) H 12/29/16 21:40 Creatine Kinase 90 Units/L (39-308) 12/29/16 21:40 CK-MB (CK-2) 3.1 ng/mL (0-4.0) 12/29/16 21:40 CK/CKMB % Calc 3.4 % (<4) 12/29/16 21:40 Troponin I 0.05 ng/mL (0-1.5) 12/29/16 21:40 B-Natriuretic Peptide 2620 pg/mL (0-79) H* 12/29/16 21:40 Total Protein 7.4 g/dL (6.4-8.2) 12/29/16 21:40 Albumin 3.6 g/dL (3.4-5.0) 12/29/16 21:40 Globulin 3.8 g/dL (2.5-4.5) 12/29/16 21:40 Albumin/Globulin Ratio 0.9 Ratio (1.1-2.1) L 12/29/16 21:40 Urine Opiates Screen Negative (NEG=<300) 12/29/16 23:34 Urine Methadone Screen Negative (NEG=<300) 12/29/16 23:34 Ur Barbiturates Screen Negative (NEG=<200) 12/29/16 23:34 Ur Phencyclidine Scrn Negative (NEG=<25) 12/29/16 23:34 Ur Amphetamines Screen Positive (NEG=<1000) 12/29/16 23:34 U Benzodiazepines Scrn Negative (NEG=<200) 12/29/16 23:34 Urine Cocaine Screen Negative (NEG=<300) 12/29/16 23:34 U Marijuana (THC) Screen Negative (NEG=<50) 12/29/16 23:34 - XRAY XRAY Interpreted by: Radiologist XRAY Findings: REPORT DISCUSS WITH PATIENT. - EKG Rhythm: NSR (EKG NOTED) - Diagnosis Discharge Problem: Substance abuse Chest pain Qualifiers: Chest pain type: precordial pain Qualified Code(s): R07.2 - Precordial pain CHF (congestive heart failure) Qualifiers: Congestive heart failure type: combined Congestive heart failure chronicity: acute on chronic Qualified Code(s): I50.43 - Acute on chronic combined systolic (congestive) and diastolic (congestive) heart failure - Discharge Plan Disposition: ADMITTED INPATIENT Condition: Stable - Follow ups/Referrals - Instructions
[2016-12-29 21:54] LABS: BASOPHILS # (AUTO) 0.2 X10^3/uL (0.0-0.1); BASOPHILS % (AUTO) 1.7 % (0.2-1.0); EOSINOPHILS # (AUTO) 0.2 x10^3/uL (0.0-0.2); EOSINOPHILS % (AUTO) 1.5 % (0.9-2.9); HEMATOCRIT 43.4 % (42.0-54.0); HEMOGLOBIN 14.2 g/dL (13.5-18.0); LYMPHOCYTES # (AUTO) 3.7 X10^3/uL (1.3-2.9); LYMPHOCYTES % (AUTO) 34.5 % (21.0-51.0); MEAN CORPUSCULAR HEMOGLOBIN 27.2 pg (27.0-34.0); MEAN CORPUSCULAR HGB CONC 32.7 g/dL (33.0-35.0); MEAN CORPUSCULAR VOLUME 83.3 fL (80.0-100.0); MEAN PLATELET VOLUME 7.4 fL (7.4-11.0); MONOCYTES # (AUTO) 0.9 x10^3/uL (0.3-0.8); MONOCYTES % (AUTO) 8.1 % (0.0-13.0); NEUTROPHILS # (AUTO) 5.8 x10^3/uL (2.2-4.8); NEUTROPHILS % (AUTO) 54.2 % (42.0-75.0); PLATELET COUNT 396 X10^3/uL (150.0-450.0); RED CELL DISTRIBUTION WIDTH 16.5 % (11.6-16.5); WHITE BLOOD COUNT 10.8 X10^3/uL (3.6-10.0)
[2016-12-29 22:06] LABS: ABG ALLEN TEST POS; ABG BASE EXCESS -1.6 mmol/L (-2.0-2.0); ABG HCO3 21.3 mmol/L (22-26)
--- NOTE | 2016-12-29 22:07 | RAD ---
Chest, one view Indication: Chest pain Comparison: 12/20/2016 Findings: Cardiac silhouette enlargement is unchanged. The lungs are clear without overt edema, focal infiltrates, or large effusion. Impression: Stable cardiomegaly without acute chest process. Reported By:
[2016-12-29 22:16] LABS: ALANINE AMINOTRANSFERASE 51 Units/L (12-78); ALBUMIN 3.6 g/dL (3.4-5.0); ALKALINE PHOSPHATASE 119 Units/L (46-116); ASPARTATE AMINO TRANSFERASE 48 Units/L (15-37); BLOOD UREA NITROGEN 21 mg/dL (7-18); CALCIUM 8.9 mg/dL (8.5-10.1); CHLORIDE 105 mmol/L (98-107); CKMB % 3.4 % (<4); COR NA(FOR HYPERGLY) 140 mmol/L (136-145); CREATINE KINASE 90 Units/L (39-308); CREATINE KINASE MB 3.1 ng/mL (0-4.0); CREATININE 1.51 mg/dL (0.70-1.30); SODIUM 140 mmol/L (136-145); TOTAL PROTEIN 7.4 g/dL (6.4-8.2); TROPONIN I 0.05 ng/mL (0-1.5); eGFR BLACK RACES > 60 (>60); eGFR NON BLACK RACES 56 (>60)
[2016-12-29] MEDS ORDERED: LASIX IVP ONE ×2 (22:47→23:11)
[2016-12-29] MEDS ORDERED: TORADOL 30 MG VIAL IVP PRN (23:25)
[2016-12-30] MEDS: PEPCID 20 MG IV PREMIX* 20 MG/50 ML BAG IV SCH ×2 (01:05→09:20)
[2016-12-30 01:42] VITALS: BMI 25.9
[2016-12-30] MEDS ORDERED: XOPENEX 1.25 MG/3 ML NEBULE NEB ONE (04:03)
[2016-12-30 05:25] LABS: BASOPHILS # (AUTO) 0.1 X10^3/uL (0.0-0.1); BASOPHILS % (AUTO) 0.8 % (0.2-1.0); EOSINOPHILS # (AUTO) 0.2 x10^3/uL (0.0-0.2); EOSINOPHILS % (AUTO) 1.5 % (0.9-2.9); HEMATOCRIT 42.3 % (42.0-54.0); HEMOGLOBIN 13.9 g/dL (13.5-18.0); MEAN CORPUSCULAR HEMOGLOBIN 27.2 pg (27.0-34.0); MEAN CORPUSCULAR HGB CONC 32.8 g/dL (33.0-35.0); MEAN CORPUSCULAR VOLUME 83.1 fL (80.0-100.0); MEAN PLATELET VOLUME 7.8 fL (7.4-11.0); MONOCYTES # (AUTO) 0.8 x10^3/uL (0.3-0.8); MONOCYTES % (AUTO) 7.6 % (0.0-13.0); NEUTROPHILS # (AUTO) 5.8 x10^3/uL (2.2-4.8); NEUTROPHILS % (AUTO) 53.1 % (42.0-75.0); PLATELET COUNT 357 X10^3/uL (150.0-450.0); RED BLOOD COUNT 5.09 X10^6/uL (4.7-6.0); RED CELL DISTRIBUTION WIDTH 16.1 % (11.6-16.5); WHITE BLOOD COUNT 10.9 X10^3/uL (3.6-10.0)
[2016-12-30 05:33] LABS: ALANINE AMINOTRANSFERASE 55 Units/L (12-78); ALBUMIN 3.4 g/dL (3.4-5.0); ALKALINE PHOSPHATASE 114 Units/L (46-116); ASPARTATE AMINO TRANSFERASE 52 Units/L (15-37); BLOOD UREA NITROGEN 23 mg/dL (7-18); CALCIUM 8.7 mg/dL (8.5-10.1); CARBON DIOXIDE 22.2 mmol/L (21-32); CHLORIDE 106 mmol/L (98-107); CHOL/HDL RATIO 2.5 (0.0-5.0); CHOLESTEROL 142 mg/dL (0-200); CREATININE 1.55 mg/dL (0.70-1.30); HDL CHOLESTEROL 57 mg/dL (40-60); SODIUM 139 mmol/L (136-145); TOTAL PROTEIN 7.1 g/dL (6.4-8.2); TRIGLYCERIDES 56 mg/dL (0-150); eGFR BLACK RACES > 60 (>60); eGFR NON BLACK RACES 54 (>60)
[2016-12-30 05:38] LABS: CKMB % 3.8 % (<4); CREATINE KINASE MB 3.2 ng/mL (0-4.0); TROPONIN I 0.06 ng/mL (0-1.5)
[2016-12-30] MEDS: XOPENEX 1.25 MG/3 ML NEBULE NEB PRN ×2 (06:36→11:29)
[2016-12-30 08:42] VITALS: BP 151/98
[2016-12-30] MEDS ORDERED: XOPENEX 1.25 MG/3 ML NEBULE NEB SCH (09:00)
[2016-12-30] MEDS ORDERED: K-DUR TAB 20 MEQ PO SCH (09:00)
[2016-12-30] MEDS ORDERED: LASIX IVP SCH (09:00)
[2016-12-30 11:55] LABS: CKMB % 3.3 % (<4); CREATINE KINASE MB 2.9 ng/mL (0-4.0); TROPONIN I 0.06 ng/mL (0-1.5)
--- NOTE | 2017-01-05 23:05 | DR.CARTERS ---
Short Stay Summary - Short Stay Summary for: Short Stay Summary for Date of:: 12/30/16 - Admission Date Date of Admission: 12/29/16 - Discharge Date Discharge Date: 12/30/16 - Admission Diagnoses (1) CHF (congestive heart failure) Status: Acute (2) Chest pain Status: Acute - Hospital Course Hospital Course: IS A 36 YEAR OLD WHITE MALE WHO PRESENTED TO THE EMERGENCY ROOM WITH COMPLAINTS OF SHORTNESS OF BREATH AND CHEST PAIN. HE REPORTED THAT PAIN BEGAN SEVERAL DAYS AGO, BUT HAS PROGRESSIVELY GOTTEN WORSE. PATIENT REPORTS A HISTORY OF CONGESTIVE HEART FAILURE WITH AN EJECTION FRACTION OF LESS THAN 15%. HE REPORTS BEING PRESCRIBED LASIX, BUT ADMITS TO NOT BEING COMPLIANT WITH MEDICATION. HE HAS A HISTORY OF ILLICIT DRUG USE, BUT DENIES USE OF COCAINE LATELY. ASSOCIATED SYMPTOMS WERE WEAKNESS, FATIGUE, PRODUCTIVE COUGH, WHEEZING, DIZZINESS, NAUSEA, AND MUSCLE PAIN. ON EXAMINATION, LUNGS WERE NOTED WITH BILATERAL WHEEZING AND RHONCHI TO AUSCULTATION. ABDOMEN WAS ROUND, SOFT, AND NON -TENDER WITH NORMAL BOWEL SOUNDS IN ALL QUADRANTS. ON ARRIVAL TO THE ER, VITAL SIGNS WERE 98.1-126-18-99%-142/91. LABS, CHEST XRAY, AND EKG WERE OBTAINED. ABNORMAL LAB VALUES INCLUDE THE FOLLOWING: WBC 10.8, BUN 21, CREATININE 1.51, GLUCOSE 113, AST 48, ALK PHOS 119, BNP 2620. ABG REPORTED PH 7.460, PC02 30, P02 98, HC03 21.3. TOXICOLOGY POSITIVE FOR AMPHETAMINES. CHEST XRAY REPORTED STABLE CARDIOMEGALY WITHOUT ACUTE CHEST PROCESS. EKG REPORTED SINUS TACHYCARDA WITH HR 122, RIGHT VENTRICULAR HYPERTROPHY. PATIENT WAS ADMITTED FOR FURTHER TREATMENT AND EVALUATION. HE WAS STARTED ON LASIX 40MG IV BID, PEPCID 20GM IV Q124, TORADOL 30MG IV Q6HPRN, AND NEB TX QID. WE PLANNED TO OBTAIN SERIAL CARDIAC ENZYMES AND EKGS AND FOLLOW UP WITH AM LABS. DAY 2 OF STAY: IS ALERT AND ORIENTED, LYING IN BED ON MORNING ROUNDS. HE DENIES COMPLAINTS OF CHEST PAIN OR SHORTNESS OF BREATH UPON ROUNDS. ON EXAMINATION, LUNG SOUNDS WERE DIMINISHED THROUGHOUT. ABDOMEN WAS SOFT, ROUND, AND NON-TENDER WITH NORMAL BOWEL SOUNDS NOTED IN ALL QUADRANTS. HE IS UTILIZING OXYGEN VIA NASAL CANNULA WITH OXYGEN AT 2L/MIN. HIS VITAL SIGNS THIS MORNING WERE 98.5-116-22-94%-151/98. LABS AND EKGS WERE OBTAINED. ABNORMAL LAB VALUES INCLUDE THE FOLLOWING: WBC 10.9, AST 52, A/G RATIO 0.9, BUN 23, CREATININE 1.55 , BNP 2510. CARDIAC ENZYMES WITHIN NORMAL LIMITS. MOST RECENT EKG REPORTED SINUS TACHYCARDIA WITH HR 123. PATIENT REPORTS FEELING BETTER TODAY THAN ON ADMISSION AND STATES THAT HE IS READY FOR DISCHARGE HOME. WE DISCUSSED WITH PATIENT THE IMPORTANCE OF COMPLIANCE WITH MEDICATIONS FOR HEART FAILURE. WE PLANNED FOR DISCHARGE. INSTRUCTIONS FOR MEDICATIONS AND FOLLOW UP WERE DISCUSSED WITH PATIENT. HE VERBALIZED UNDERSTANDING OF ALL ORDERS. PATIENT WAS DISCHARGED TO HOME WITH FAMILY IN STABLE CONDITION WITH NEW PRESCRIPTIONS FOR LASIX 20MG PO BID AND LISINOPRIL 5MG PO DAILY. HE HAS INSTRUCTIONS TO FOLLOW UP WITH ELAN KUMAR ON 01/01/17. - Discharge Medications Discharge Medications: Furosemide [Lasix] 20 mg PO BID #60 tab 12/30/16 [Rx] Lisinopril 5 mg PO DAILY #30 tab 12/30/16 [Rx] - Discharge Plan Disposition: 01 HOME, SELF-CARE Condition: Stable Prescriptions: Furosemide [Lasix] 20 mg PO BID #60 tab Lisinopril 5 mg PO DAILY #30 tab - Follow up/Referrals Follow up/Referrals: NILAY KUMAR [Nurse Practitioner] - 01/01/17 8:30 am - Instructions Instructions: Smoking Cessation, Tips for Success, [id number], Leukocytosis, Heart Failure, [id number], Stimulant Use Disorder-Methamphetamines, Chest Pain Observation Additional Instructions: ACTIVITY TOLERATED. DIET TOLERATED. Forms: Patient Portal
== END 2016-12-30 12:00 | disposition home or self-care (01) ==
LOC: ER 21:34 → MED/SURG 23:17
PROVIDERS: ADMIT Internal Medicine; ATTEND Internal Medicine
DX: I50.43 Acute on chronic combined systolic (congestive) and diastolic (congestive) heart failure (principal); R07.89 Other chest pain; R06.03 Acute respiratory distress; R06.02 Shortness of breath; F19.10 Other psychoactive substance abuse, uncomplicated; R94.31 Abnormal electrocardiogram [ECG] [EKG]
CPT/HCPCS: 36415; 36600; 71010; 80053; 80061; 80307; 82550; 82553; 82803; 83880; 84484; 85025; 85610; 85730; 93005; 94640; 94760; 96374; 96375; 99284; A4216; A4222; S0028; G0378; G0434; J1885; J1940

== ENCOUNTER 2017-01-09 13:10 | Emergency (ER) | payer SELFPAY ==
[2017-01-09 13:41] VITALS: BP 119/78; BMI 25.0
[2017-01-09 14:04] LABS: BASOPHILS # (AUTO) 0.1 X10^3/uL (0.0-0.1); BASOPHILS % (AUTO) 1.3 % (0.2-1.0); EOSINOPHILS # (AUTO) 0.2 x10^3/uL (0.0-0.2); EOSINOPHILS % (AUTO) 2.3 % (0.9-2.9); HEMOGLOBIN 12.9 g/dL (13.5-18.0); LYMPHOCYTES # (AUTO) 3.4 X10^3/uL (1.3-2.9); LYMPHOCYTES % (AUTO) 34.8 % (21.0-51.0); MEAN CORPUSCULAR HEMOGLOBIN 26.5 pg (27.0-34.0); MEAN CORPUSCULAR HGB CONC 32.3 g/dL (33.0-35.0); MEAN PLATELET VOLUME 7.8 fL (7.4-11.0); MONOCYTES # (AUTO) 1.1 x10^3/uL (0.3-0.8); MONOCYTES % (AUTO) 11.4 % (0.0-13.0); NEUTROPHILS # (AUTO) 4.9 x10^3/uL (2.2-4.8); NEUTROPHILS % (AUTO) 50.2 % (42.0-75.0); PLATELET COUNT 303 X10^3/uL (150.0-450.0); RED BLOOD COUNT 4.88 X10^6/uL (4.7-6.0); RED CELL DISTRIBUTION WIDTH 16.5 % (11.6-16.5); WHITE BLOOD COUNT 9.7 X10^3/uL (3.6-10.0)
[2017-01-09 14:14] LABS: BLOOD UREA NITROGEN 26 mg/dL (7-18); CALCIUM 8.4 mg/dL (8.5-10.1); CARBON DIOXIDE 26.2 mmol/L (21-32); CHLORIDE 105 mmol/L (98-107); CREATININE 1.64 mg/dL (0.70-1.30); SODIUM 140 mmol/L (136-145); TROPONIN I 0.05 ng/mL (0-1.5); eGFR BLACK RACES > 60 (>60); eGFR NON BLACK RACES 51 (>60)
[2017-01-09 14:18] LABS: ALANINE AMINOTRANSFERASE 107 Units/L (12-78); ALBUMIN 3.1 g/dL (3.4-5.0); ALKALINE PHOSPHATASE 136 Units/L (46-116); ASPARTATE AMINO TRANSFERASE 58 Units/L (15-37); CKMB % 3.7 % (<4); COR CA(FOR HYPOALB) 9.1 mg/dL (8.5-10.1); CREATINE KINASE 79 Units/L (39-308); CREATINE KINASE MB 2.9 ng/mL (0-4.0); MAGNESIUM 2.1 mg/dL (1.7-2.9); TOTAL PROTEIN 6.7 g/dL (6.4-8.2)
--- NOTE | 2017-01-09 14:30 | DR.GENAD ---
HPI - HPI Comment HPI Comment: PATIENT HAVE HISTORY OF CHF. INCREASING DYSPNEA ON EXERTION. NO FEVER OR URI SYMTOMS. DOUBLE HIS LASIX TODAY. DIURESING IN ED. - Complaint/Symptoms Chief Complaint Doctors Comments: CHEST PAIN FEW WEEKS. SOB TODAY. Chief Complaint:: "I have been having a lot of trouble breathing the last few minutes. I have also had chest pain for the past few weeks." - Nurses notes reviewed Nurses Notes Review: Yes - Source History Provided: Patient - Mode of Arrival Mode of Arrival: Stretcher - Timing Onset of Chief Complaint: 01/09/17 Came on: Gradually - Duration Duration: Constant Duration: Hours - Severity Severity: Moderate PMH - PMH Past Medical History: Yes Past Medical History: Angina, CHF, Hypertension Past Surgical History: Yes Surgical History: Tonsillectomy - Family History History of Family Medical Conditions: Yes Family Medical History: Diabetes Mellitus, Cancer, [place], Coronary Artery Disease, Heart Failure, Sudden Cardiac , Hypertension - Social History Does patient currently use any type of tobacco product: Yes Have you used tobacco products in the last 12 months: Yes Type of Tobacco Use: Cigarettes Does any household member use tobacco: Yes Alcohol Use: None Do you use any recreational Drugs:: No Lives With: Family Lives Where: Home - infectious screening In the last 2 months have you had wt loss of >10#?: NO Have you had fever, night sweats or hemotysis?: No Have you traveled outside the country in the last 6 months?: No Isolation: Standard ROS - Review of Systems Constitutional: Weakness, Fatigue. negative: Chills, Fever Eyes: No Symptoms Reported ENTM: No Symptoms Reported Respiratoy: Short of Breath. negative: Productive Cough, Non-Productive Cough, Wheezing, Hemoptysis Cardiovascular: Chest Pain Gastrointestinal/Abdominal: No Symptoms Reported Genitourinary: No Symptoms Reported Neurological: No Symptoms Reported Musculoskeletal: No Symptoms Reported Integumentary: No Symptoms Reported Hematologic/Lymphatic: No Symptoms Reported Endocrine: No Symptoms Reported All Other Systems: Reviewed and Negative PE - Vital Signs Vitals: Temperature 97.7 F Pulse Rate 93 Respiratory Rate 18 Blood Pressure [Right Arm] 130/88 Blood Pressure [Left Arm] 151/98 Blood Pressure 119/78 O2 Sat by Pulse Oximetry 98 - General Limitations: No Limitations General Appearance: Alert - Head Head Exam: Normal Inspection - Eyes Eye exam: Normal Appearance - ENT ENT Exam: Normal External Ear Exam External Ear Exam: Normal External Inspection TM/Canal Exam: Bilateral Normal Mouth Exam: Normal Inspection Throat Exam: Normal Inspection - Neck Neck Exam: Trachea Midline - Chest Chest Inspection: Symmetric Chest Wall Rise - Respiratory Respiratory Exam: Normal Lung Sounds Bilat Respiratory Exam: Bilateral Clear to Auscultation - Cardiovascular Cardiovascular Exam: Regular Rate, Normal Rhythm, Normal Heart Sounds - Abdominal Exam Abdominal Exam: Normal Bowel Sounds, Soft. negative: Tenderness - Extremities Extremities Exam: Normal Inspection - Back Back Exam: Normal Inspection - Neurologic Neurological Exam: Alert, Oriented X3 - Psychiatric Psychiatric Exam: Normal Affect, Normal Mood - Skin Skin Exam: Erythema MDM - Additional Information Additional Information Obtained From: Family - Differential Diagnosis Differential Diagnosis: CHEST PAIN, SOB, CHF Course - Treatment Treatment: SEE ORDERS. - Education/Counseling Education/Counseling: Patient, Family, Education Educated On: Diagnosis, Needs for Follow Up ROR - Labs Reviewed Laboratory Results Reviewed?: Yes Result Diagrams: 01/09/17 13:35 01/09/17 13:35 Laboratory: WBC 9.7 X10^3/uL (3.6-10.0) 01/09/17 13:35 RBC 4.88 X10^6/uL (4.7-6.0) 01/09/17 13:35 Hgb 12.9 g/dL (13.5-18.0) L 01/09/17 13:35 Hct 40.0 % (42.0-54.0) L 01/09/17 13:35 MCV 82.0 fL (80.0-100.0) 01/09/17 13:35 MCH 26.5 pg (27.0-34.0) L 01/09/17 13:35 MCHC 32.3 g/dL (33.0-35.0) L 01/09/17 13:35 RDW 16.5 % (11.6-16.5) 01/09/17 13:35 Plt Count 303 X10^3/uL (150.0-450.0) 01/09/17 13:35 MPV 7.8 fL (7.4-11.0) 01/09/17 13:35 Neut % 50.2 % (42.0-75.0) 01/09/17 13:35 Lymph % 34.8 % (21.0-51.0) 01/09/17 13:35 [place] % 11.4 % (0.0-13.0) 01/09/17 13:35 Eos % 2.3 % (0.9-2.9) 01/09/17 13:35 Baso % 1.3 % (0.2-1.0) H 01/09/17 13:35 Neut # 4.9 x10^3/uL (2.2-4.8) H 01/09/17 13:35 Lymph # 3.4 X10^3/uL (1.3-2.9) H 01/09/17 13:35 [place] # 1.1 x10^3/uL (0.3-0.8) H 01/09/17 13:35 Eos # 0.2 x10^3/uL (0.0-0.2) 01/09/17 13:35 Baso # 0.1 X10^3/uL (0.0-0.1) 01/09/17 13:35 Absolute Nucleated RBC 0.1 /100WBC 01/09/17 13:35 INR Target Range - 01/09/17 13:35 INR 1.19 (0.8-1.3) 01/09/17 13:35 Sodium 140 mmol/L (136-145) 01/09/17 13:35 Corrected Sodium TNP 01/09/17 13:35 Potassium 4.2 mmol/L (3.5-5.1) 01/09/17 13:35 Chloride 105 mmol/L (98-107) 01/09/17 13:35 Carbon Dioxide 26.2 mmol/L (21-32) 01/09/17 13:35 BUN 26 mg/dL (7-18) H 01/09/17 13:35 Creatinine 1.64 mg/dL (0.70-1.30) H 01/09/17 13:35 Est GFR (MDRD) Af Amer > 60 (>60) 01/09/17 13:35 Est GFR (MDRD) Non-Af 51 (>60) L 01/09/17 13:35 Glucose 81 mg/dL (65-99) 01/09/17 13:35 Calcium 8.4 mg/dL (8.5-10.1) L 01/09/17 13:35 Corrected Calcium 9.1 mg/dL (8.5-10.1) 01/09/17 13:35 Phosphorus 5.0 mg/dL (2.6-4.7) H 01/09/17 13:35 Magnesium 2.1 mg/dL (1.7-2.9) 01/09/17 13:35 Total Bilirubin 0.90 mg/dL (0.2-1.0) 01/09/17 13:35 AST 58 Units/L (15-37) H 01/09/17 13:35 ALT 107 Units/L (12-78) H 01/09/17 13:35 Alkaline Phosphatase 136 Units/L (46-116) H 01/09/17 13:35 Creatine Kinase 79 Units/L (39-308) 01/09/17 13:35 CK-MB (CK-2) 2.9 ng/mL (0-4.0) 01/09/17 13:35 CK/CKMB % Calc 3.7 % (<4) 01/09/17 13:35 Troponin I 0.05 ng/mL (0-1.5) 01/09/17 13:35 B-Natriuretic Peptide 1900 pg/mL (0-79) H* 01/09/17 13:35 Total Protein 6.7 g/dL (6.4-8.2) 01/09/17 13:35 Albumin 3.1 g/dL (3.4-5.0) L 01/09/17 13:35 Globulin 3.6 g/dL (2.5-4.5) 01/09/17 13:35 Albumin/Globulin Ratio 0.9 Ratio (1.1-2.1) L 01/09/17 13:35 Specimen Type Clean catch urine 01/09/17 15:25 Urine Color Yellow (YELLOW) 01/09/17 15:25 Urine Appearance Clear (CLEAR) 01/09/17 15:25 Urine pH 6.5 (5.0 - 8.0) 01/09/17 15:25 Ur Specific [place] 1.010 (1.000-1.030) 01/09/17 15:25 Urine Protein Negative (NEGATIVE) 01/09/17 15:25 Urine Glucose (UA) Negative (NEGATIVE) 01/09/17 15:25 Urine Ketones Negative (NEGATIVE) 01/09/17 15:25 Urine Occult Blood Negative (NEGATIVE) 01/09/17 15:25 Urine Nitrite Negative (NEGATIVE) 01/09/17 15:25 Urine Bilirubin Negative (NEGATIVE) 01/09/17 15:25 Urine Urobilinogen Normal (NORMAL) 01/09/17 15:25 Ur Leukocyte Esterase Negative (NEGATIVE) 01/09/17 15:25 Urine RBC None seen /HPF (NEGATIVE) 01/09/17 15:25 Urine WBC None seen /HPF (NEGATIVE) 01/09/17 15:25 Ur Squamous Epith Cells Rare /HPF (NEGATIVE) 01/09/17 15:25 Amorphous Sediment Trace /HPF (NEGATIVE) 01/09/17 15:25 Urine Bacteria Negative /HPF (NEGATIVE) 01/09/17 15:25 Ur Culture Indicated? No/not indicated 01/09/17 15:25 Urine Opiates Screen Negative (NEG=<300) 01/09/17 15:25 Urine Methadone Screen Negative (NEG=<300) 01/09/17 15:25 Ur Barbiturates Screen Negative (NEG=<200) 01/09/17 15:25 Ur Phencyclidine Scrn Negative (NEG=<25) 01/09/17 15:25 Ur Amphetamines Screen Positive (NEG=<1000) 01/09/17 15:25 U Benzodiazepines Scrn Negative (NEG=<200) 01/09/17 15:25 Urine Cocaine Screen Negative (NEG=<300) 01/09/17 15:25 U Marijuana (THC) Screen Negative (NEG=<50) 01/09/17 15:25 - XRAY XRAY Findings: REPORT DISCUSS WITH PATIENT. - EKG Rhythm: NSR (EKG NOTED) - Diagnosis Discharge Problem: Chest pain, SOB (shortness of breath) - Discharge Plan Disposition: 01 HOME, SELF-CARE Condition: Stable - Follow ups/Referrals Follow ups/Referrals: [facility],None [Primary Care Provider] - 3 days CORINNE NICKERSON [STAFF PHYSICIAN] - 3 days - Instructions Instructions: Heart Failure, [id number], Chest Pain Observation Additional Instructions: RETURN TO ED IF WORSE.
--- NOTE | 2017-01-09 15:09 | RAD ---
Chest, one-view Indication: Mid chest pain Comparison: 12/29/2016 Findings: There is stable cardiomegaly without congestive failure. No focal consolidation, effusion, or pneumothorax is identified. Osseous thorax is unremarkable. Impression: Stable cardiomegaly without congestive failure or focal pneumonia. Reported By:
[2017-01-09 15:56] LABS: BILIRUBIN,URINE NEGATIVE (NEGATIVE); BLOOD/HEMOGLOBIN,URINE NEGATIVE (NEGATIVE); GLUCOSE, URINE NEGATIVE (NEGATIVE); KETONES,URINE NEGATIVE (NEGATIVE); LEUKOCYTE ESTERASE ,URINE NEGATIVE (NEGATIVE); NITRITES,URINE NEGATIVE (NEGATIVE); PH,URINE 6.5 (5.0 - 8.0); PROTEIN,URINE NEGATIVE (NEGATIVE); UROBILINOGEN,URINE NORMAL (NORMAL)
[2017-01-09 15:58] LABS: APPEARANCE,URINE CLEAR (CLEAR); COLOR,URINE YELLOW (YELLOW)
[2017-01-09 16:11] LABS: RBC,URINE NONE SEEN /HPF (NEGATIVE); SQUAMOUS EPITHELIAL CELL,UR RARE /HPF (NEGATIVE)
[2017-01-09 16:12] LABS: AMORPHOUS SEDIMENT,UR TRACE /HPF (NEGATIVE); BACTERIA,URINE NEGATIVE /HPF (NEGATIVE)
== END 2017-01-09 16:40 | disposition home or self-care (01) ==
LOC: ER 13:27
DX: R07.89 Other chest pain (principal); R06.02 Shortness of breath; I51.7 Cardiomegaly
CPT/HCPCS: 36415; 71010; 80053; 80307; 81001; 82550; 82553; 83735; 83880; 84100; 84484; 85025; 85610; 93005; 93010; 99283; G0434

== ENCOUNTER 2017-02-17 06:29 | Observation (INO) | payer SELFPAY ==
[2017-02-17 06:36] VITALS: BMI 26.6
[2017-02-17] MEDS ORDERED: LASIX IVP ONE ×2 (06:51→06:53)
[2017-02-17] MEDS ORDERED: NITRO-BID OINT 2% Multi-Dose tube TD ONE (06:58)
[2017-02-17 06:59] LABS: BASOPHILS % (AUTO) 0.2 % (0.2-1.0); EOSINOPHILS # (AUTO) 0.2 x10^3/uL (0.0-0.2); EOSINOPHILS % (AUTO) 2.5 % (0.9-2.9); LYMPHOCYTES # (AUTO) 1.8 X10^3/uL (1.3-2.9); LYMPHOCYTES % (AUTO) 20.5 % (21.0-51.0); MEAN CORPUSCULAR HEMOGLOBIN 24.2 pg (27.0-34.0); MEAN CORPUSCULAR HGB CONC 31.5 g/dL (33.0-35.0); MEAN CORPUSCULAR VOLUME 76.8 fL (80.0-100.0); MEAN PLATELET VOLUME 7.8 fL (7.4-11.0); MONOCYTES % (AUTO) 10.8 % (0.0-13.0); NEUTROPHILS # (AUTO) 5.9 x10^3/uL (2.2-4.8); PLATELET COUNT 246 X10^3/uL (150.0-450.0); RED BLOOD COUNT 4.94 X10^6/uL (4.7-6.0); RED CELL DISTRIBUTION WIDTH 18.1 % (11.6-16.5)
--- NOTE | 2017-02-17 07:00 | DR.GENAD ---
HPI - PCP Primary Care Physician: LIYA - Complaint/Symptoms Chief Complaint Doctors Comments: Patient presented to the ED with complain of shortness of breath for three days. He denies fever, vomiting or diarrhea. He admits to smoking one pack in three days. Chief Complaint:: SHORT OF BREATH CHEST PAIN - Source History Provided: Patient - Mode of Arrival Mode of Arrival: Stretcher - Timing Onset of Chief Complaint: 02/17/17 PMH - PMH Past Medical History: Yes Past Medical History: CHF, Coronary Artery Disease, Hypertension Past Surgical History: Yes Surgical History: Tonsillectomy - Family History History of Family Medical Conditions: Yes Family Medical History: Diabetes Mellitus, Coronary Artery Disease, Hypertension - Social History Does patient currently use any type of tobacco product: No Have you used tobacco products in the last 12 months: No Type of Tobacco Use: Cigarettes Does any household member use tobacco: Yes Alcohol Use: Occasionally Do you use any recreational Drugs:: No Lives With: Family Lives Where: Home - infectious screening In the last 2 months have you had wt loss of >10#?: NO Have you had fever, night sweats or hemotysis?: No Have you traveled outside the country in the last 6 months?: No Isolation: Standard ROS - Review of Systems Constitutional: negative: Diaphoresis Eyes: No Symptoms Reported ENTM: No Symptoms Reported Respiratoy: Moist Cough, Orthopnea Cardiovascular: No Symptoms Reported Gastrointestinal/Abdominal: No Symptoms Reported Genitourinary: No Symptoms Reported Neurological: No Symptoms Reported Musculoskeletal: No Symptoms Reported Integumentary: No Symptoms Reported, Dryness Hematologic/Lymphatic: No Symptoms Reported Endocrine: No Symptoms Reported Psychiatric: No Symptoms Reported All Other Systems: Reviewed and Negative PE - Vital Signs Vitals: Temperature 98.3 F Pulse Rate [Left Brachial] 112 Pulse Rate [Apical] 114 Pulse Rate 123 Respiratory Rate 25 Blood Pressure [Right Arm] 130/88 Blood Pressure [Left Arm] 133/90 Blood Pressure 124/90 O2 Sat by Pulse Oximetry 100 - General Limitations: No Limitations General Appearance: Alert, Anxious, In Distress - Head Head Exam: Normal Inspection, Atraumatic - Eyes Eye exam: Normal Appearance, PERRL, EOMI - ENT ENT Exam: Normal Exam External Ear Exam: Normal External Inspection TM/Canal Exam: Bilateral Normal Nose Exam: Normal Nose Exam Mouth Exam: Normal Inspection Throat Exam: Normal Inspection - Neck Neck Exam: Normal Inspection, Full ROM - Chest Chest Inspection: Normal Inspection - Respiratory Respiratory Exam: Normal Lung Sounds Bilat Respiratory Exam: Bilateral Clear to Auscultation - Cardiovascular Cardiovascular Exam: Regular Rate, Tachycardia - Abdominal Exam Abdominal Exam: Normal Inspection, Normal Bowel Sounds Abdominal Tenderness: negative: RUQ, RLQ, LUQ, LLQ, Epigastrium, Suprapubic, Diffuse, Mild, Moderate, Severe, Other - Extremities Extremities Exam: Normal Inspection, Edema (2-3+pitting) - Back Back Exam: Normal Inspection - Neurologic Neurological Exam: Alert, Oriented X3, CN II-XII Intact - Psychiatric Psychiatric Exam: Normal Affect - Skin Skin Exam: Warm, Dry, Intact Course - Reevaluation 1st: Improved - Consultation Called: 07:45 (Dr Nicholas agreed to admit for further treatment) ROR - Labs Reviewed Result Diagrams: 02/17/17 06:50 02/17/17 06:50 Laboratory: WBC 9.0 X10^3/uL (3.6-10.0) 02/17/17 06:50 RBC 4.94 X10^6/uL (4.7-6.0) 02/17/17 06:50 Hgb 12.0 g/dL (13.5-18.0) L 02/17/17 06:50 Hct 38.0 % (42.0-54.0) L 02/17/17 06:50 MCV 76.8 fL (80.0-100.0) L 02/17/17 06:50 MCH 24.2 pg (27.0-34.0) L 02/17/17 06:50 MCHC 31.5 g/dL (33.0-35.0) L 02/17/17 06:50 RDW 18.1 % (11.6-16.5) H 02/17/17 06:50 Plt Count 246 X10^3/uL (150.0-450.0) 02/17/17 06:50 Plt Count Comment Adequate (ADEQUATE) 02/17/17 06:50 MPV 7.8 fL (7.4-11.0) 02/17/17 06:50 Neut % 66.0 % (42.0-75.0) 02/17/17 06:50 Lymph % 20.5 % (21.0-51.0) L 02/17/17 06:50 [place] % 10.8 % (0.0-13.0) 02/17/17 06:50 Eos % 2.5 % (0.9-2.9) 02/17/17 06:50 Baso % 0.2 % (0.2-1.0) 02/17/17 06:50 Neut # 5.9 x10^3/uL (2.2-4.8) H 02/17/17 06:50 Lymph # 1.8 X10^3/uL (1.3-2.9) 02/17/17 06:50 [place] # 1.0 x10^3/uL (0.3-0.8) H 02/17/17 06:50 Eos # 0.2 x10^3/uL (0.0-0.2) 02/17/17 06:50 Baso # 0.0 X10^3/uL (0.0-0.1) 02/17/17 06:50 Absolute Nucleated RBC 0.1 /100WBC 02/17/17 06:50 Plt Morphology Comment Normal (NORMAL) 02/17/17 06:50 RBC Morphology Normal (NORMAL) 02/17/17 06:50 Sodium 140 mmol/L (136-145) 02/17/17 06:50 Corrected Sodium TNP 02/17/17 06:50 Potassium 3.7 mmol/L (3.5-5.1) 02/17/17 06:50 Chloride 107 mmol/L (98-107) 02/17/17 06:50 Carbon Dioxide 21.4 mmol/L (21-32) 02/17/17 06:50 BUN 17 mg/dL (7-18) 02/17/17 06:50 Creatinine 1.18 mg/dL (0.70-1.30) 02/17/17 06:50 Est GFR (MDRD) Af Amer > 60 (>60) 02/17/17 06:50 Est GFR (MDRD) Non-Af > 60 (>60) 02/17/17 06:50 Glucose 97 mg/dL (65-99) 02/17/17 06:50 Calcium 7.8 mg/dL (8.5-10.1) L 02/17/17 06:50 Corrected Calcium 8.7 mg/dL (8.5-10.1) 02/17/17 06:50 Total Bilirubin 0.50 mg/dL (0.2-1.0) 02/17/17 06:50 AST 61 Units/L (15-37) H 02/17/17 06:50 ALT 77 Units/L (12-78) 02/17/17 06:50 Alkaline Phosphatase 137 Units/L (46-116) H 02/17/17 06:50 B-Natriuretic Peptide 1880 pg/mL (0-79) H* 02/17/17 06:50 Total Protein 6.6 g/dL (6.4-8.2) 02/17/17 06:50 Albumin 2.9 g/dL (3.4-5.0) L 02/17/17 06:50 Globulin 3.7 g/dL (2.5-4.5) 02/17/17 06:50 Albumin/Globulin Ratio 0.8 Ratio (1.1-2.1) L 02/17/17 06:50 Specimen Type Clean catch urine 02/17/17 07:12 Urine Color Yellow (YELLOW) 02/17/17 07:12 Urine Appearance Clear (CLEAR) 02/17/17 07:12 Urine pH 6.5 (5.0 - 8.0) 02/17/17 07:12 Ur Specific [place] 1.010 (1.000-1.030) 02/17/17 07:12 Urine Protein Negative (NEGATIVE) 02/17/17 07:12 Urine Glucose (UA) Negative (NEGATIVE) 02/17/17 07:12 Urine Ketones Negative (NEGATIVE) 02/17/17 07:12 Urine Occult Blood Negative (NEGATIVE) 02/17/17 07:12 Urine Nitrite Negative (NEGATIVE) 02/17/17 07:12 Urine Bilirubin Negative (NEGATIVE) 02/17/17 07:12 Urine Urobilinogen Normal (NORMAL) 02/17/17 07:12 Ur Leukocyte Esterase Negative (NEGATIVE) 02/17/17 07:12 Urine RBC 0-1 /HPF (NEGATIVE) 02/17/17 07:12 Urine WBC 0-1 /HPF (NEGATIVE) 02/17/17 07:12 Ur Squamous Epith Cells Rare /HPF (NEGATIVE) 02/17/17 07:12 Urine Bacteria Negative /HPF (NEGATIVE) 02/17/17 07:12 Ur Culture Indicated? No/not indicated 02/17/17 07:12 - XRAY XRAY Interpreted by: Radiologist (Chest: The heart remains markedly enlarged. No definite congestive heart failure is noted. No acute alveolar infiltrates or pleural effusions are present. The bony thorax is unremarkable.) - Diagnosis Discharge Problem: SOB (shortness of breath) CHF (congestive heart failure) Qualifiers: Congestive heart failure type: combined Congestive heart failure chronicity: acute on chronic Qualified Code(s): I50.43 - Acute on chronic combined systolic (congestive) and diastolic (congestive) heart failure - Discharge Plan Condition: Stable - Follow ups/Referrals Follow ups/Referrals: CORINNE NICKERSON [Primary Care Provider] - 3 days - Instructions
[2017-02-17 07:10] LABS: ALANINE AMINOTRANSFERASE 77 Units/L (12-78); ALBUMIN 2.9 g/dL (3.4-5.0); ALKALINE PHOSPHATASE 137 Units/L (46-116); ASPARTATE AMINO TRANSFERASE 61 Units/L (15-37); BLOOD UREA NITROGEN 17 mg/dL (7-18); CALCIUM 7.8 mg/dL (8.5-10.1); CARBON DIOXIDE 21.4 mmol/L (21-32); CHLORIDE 107 mmol/L (98-107); COR CA(FOR HYPOALB) 8.7 mg/dL (8.5-10.1); CREATININE 1.18 mg/dL (0.70-1.30); SODIUM 140 mmol/L (136-145); TOTAL PROTEIN 6.6 g/dL (6.4-8.2); eGFR BLACK RACES > 60 (>60); eGFR NON BLACK RACES > 60 (>60)
[2017-02-17 07:11] LABS: PLATELET MORPHOLOGY COMMENT NORMAL (NORMAL)
--- NOTE | 2017-02-17 07:12 | RAD ---
HISTORY: Respiratory difficulty Study: Chest AP portable Comparison: 01/09/2017 Findings: The heart remains markedly enlarged. No definite congestive heart failure is noted. No acute alveolar infiltrates or pleural effusions are present. The bony thorax is unremarkable. IMPRESSION: Cardiomegaly without congestive heart failure No infiltrates Reported By:
[2017-02-17] MEDS ORDERED: NITRO-BID OINT 2% Multi-Dose tube ONE (07:13)
[2017-02-17] MEDS ORDERED: MORPHINE SULFATE INJ 4 MG IVP ONE (07:16)
[2017-02-17] MEDS ORDERED: MORPHINE SULFATE INJ 4 MG ONE (07:18)
[2017-02-17 07:20] LABS: B-TYPE NATRIURETIC PEPTIDE 1880 pg/mL (0-79)
[2017-02-17 07:27] LABS: BILIRUBIN,URINE NEGATIVE (NEGATIVE); BLOOD/HEMOGLOBIN,URINE NEGATIVE (NEGATIVE); KETONES,URINE NEGATIVE (NEGATIVE); LEUKOCYTE ESTERASE ,URINE NEGATIVE (NEGATIVE); NITRITES,URINE NEGATIVE (NEGATIVE); PH,URINE 6.5 (5.0 - 8.0); PROTEIN,URINE NEGATIVE (NEGATIVE); UROBILINOGEN,URINE NORMAL (NORMAL)
[2017-02-17 07:34] LABS: GLUCOSE, URINE NEGATIVE (NEGATIVE)
[2017-02-17 07:35] LABS: APPEARANCE,URINE CLEAR (CLEAR); BACTERIA,URINE NEGATIVE /HPF (NEGATIVE); COLOR,URINE YELLOW (YELLOW); RBC,URINE 0-1 /HPF (NEGATIVE); SQUAMOUS EPITHELIAL CELL,UR RARE /HPF (NEGATIVE)
[2017-02-17 07:47] LABS: ABG ALLEN TEST POS; ABG BASE EXCESS -2.2 mmol/L (-2.0-2.0); ABG HCO3 21.1 mmol/L (22-26)
[2017-02-17] MEDS ORDERED: MORPHINE SULFATE INJ 4 MG IVP PRN (07:56)
[2017-02-17 08:06] LABS: CKMB % 6.6 % (<4); TROPONIN I 0.04 ng/mL (0-1.5)
[2017-02-17 08:13] LABS: CREATINE KINASE MB 4.5 ng/mL (0-4.0)
[2017-02-17] MEDS: LASIX IVP SCH ×3 (08:57→21:48)
[2017-02-17 11:40] LABS: TROPONIN I 0.04 ng/mL (0-1.5)
[2017-02-17 11:41] LABS: CREATINE KINASE MB 4.4 ng/mL (0-4.0)
[2017-02-17] MEDS: ZESTRIL TAB 5 MG PO SCH (12:29)
[2017-02-17] MEDS: ALDACTONE TAB 25 MG PO SCH (12:29)
[2017-02-17] MEDS: MOTRIN TAB 800 MG PO SCH ×2 (13:18→21:46)
[2017-02-17 15:15] LABS: CKMB % 6.1 % (<4); TROPONIN I 0.04 ng/mL (0-1.5)
[2017-02-18 05:39] LABS: BASOPHILS # (AUTO) 0.1 X10^3/uL (0.0-0.1); BASOPHILS % (AUTO) 1.3 % (0.2-1.0); EOSINOPHILS # (AUTO) 0.2 x10^3/uL (0.0-0.2); EOSINOPHILS % (AUTO) 2.1 % (0.9-2.9); HEMATOCRIT 37.3 % (42.0-54.0); HEMOGLOBIN 11.8 g/dL (13.5-18.0); LYMPHOCYTES # (AUTO) 2.4 X10^3/uL (1.3-2.9); LYMPHOCYTES % (AUTO) 27.4 % (21.0-51.0); MEAN CORPUSCULAR HEMOGLOBIN 24.3 pg (27.0-34.0); MEAN CORPUSCULAR HGB CONC 31.7 g/dL (33.0-35.0); MEAN CORPUSCULAR VOLUME 76.7 fL (80.0-100.0); MEAN PLATELET VOLUME 7.9 fL (7.4-11.0); MONOCYTES # (AUTO) 0.9 x10^3/uL (0.3-0.8); MONOCYTES % (AUTO) 9.9 % (0.0-13.0); NEUTROPHILS # (AUTO) 5.3 x10^3/uL (2.2-4.8); NEUTROPHILS % (AUTO) 59.3 % (42.0-75.0); PLATELET COUNT 234 X10^3/uL (150.0-450.0); RED BLOOD COUNT 4.86 X10^6/uL (4.7-6.0); RED CELL DISTRIBUTION WIDTH 17.9 % (11.6-16.5); WHITE BLOOD COUNT 8.9 X10^3/uL (3.6-10.0)
--- NOTE | 2017-02-18 05:49 | RAD ---
Chest, AP portable Indication: CHF Comparison: 02/17/2017 Findings: Cardiac silhouette enlargement is unchanged. The lungs remain clear without overt edema, fo althea infiltrates, or significant pleural effusion. Impression: No acute chest process or significant change. Cardiomegaly. Reported By:
[2017-02-18 06:07] LABS: ALANINE AMINOTRANSFERASE 75 Units/L (12-78); ALBUMIN 2.9 g/dL (3.4-5.0); ALKALINE PHOSPHATASE 143 Units/L (46-116); ASPARTATE AMINO TRANSFERASE 57 Units/L (15-37); BLOOD UREA NITROGEN 24 mg/dL (7-18); CALCIUM 7.9 mg/dL (8.5-10.1); CARBON DIOXIDE 21.4 mmol/L (21-32); CHLORIDE 106 mmol/L (98-107); COR CA(FOR HYPOALB) 8.8 mg/dL (8.5-10.1); CREATININE 1.41 mg/dL (0.70-1.30); SODIUM 141 mmol/L (136-145); TOTAL PROTEIN 6.6 g/dL (6.4-8.2); eGFR BLACK RACES > 60 (>60); eGFR NON BLACK RACES > 60 (>60)
[2017-02-18] MEDS ORDERED: MORPHINE SULFATE INJ 2 MG INJ ONE ×3 (06:22→14:32)
[2017-02-18] MEDS: MORPHINE SULFATE INJ 2 MG INJ IVP PRN ×3 (06:32→22:00)
[2017-02-18] MEDS: MOTRIN TAB 800 MG PO SCH ×3 (06:32→14:29)
[2017-02-18 06:42] LABS: PLATELET MORPHOLOGY COMMENT NORMAL (NORMAL)
[2017-02-18] MEDS ORDERED: K-LYTE EFFERVESCENT PO PRN (07:06)
[2017-02-18] MEDS ORDERED: MAG-OX TAB PO PRN (07:06)
[2017-02-18] MEDS ORDERED: MAGNESIUM SULFATE 1 GM/100 mL PREMIX 1 GM/100 ML BAG IV PRN (07:06)
[2017-02-18] MEDS ORDERED: POTASSIUM CHL 40 MEQ/NS 0.45% 500 ML IV PRN (07:06)
[2017-02-18] MEDS ORDERED: K-RIDER 10 MEQ/NS 100 ML 10 MEQ/100 ML BAG IV PRN (07:06)
[2017-02-18] MEDS ORDERED: POTASSIUM CHL 60 MEQ/NS 0.45% 500 ML IV PRN (07:06)
[2017-02-18] MEDS ORDERED: POTASSIUM CHLORIDE LIQ 20 MEQ UDC PO PRN (07:06)
[2017-02-18] MEDS: ZESTRIL TAB 5 MG PO SCH (09:27)
[2017-02-18] MEDS: ALDACTONE TAB 25 MG PO SCH (09:27)
[2017-02-18] MEDS: LASIX IVP SCH ×2 (09:27→22:01)
[2017-02-18] MEDS: LANOXIN PO SCH (10:32)
--- NOTE | 2017-02-18 10:37 | DR.H&P ---
H&P - History & Physical for Day of: H&P Date: 02/17/17 - Chief Complaint Chief Complaint: SHORT OF BREATH, CHEST PAIN - Allergies Allergies/Adverse Reactions: Allergies Allergy/AdvReac Type Severity Reaction Status Date / Time No Known Drug Allergies Allergy Verified 12/29/16 21:53 - History of Present Illness History of Present Illness: IS A 36 YEAR OLD PATIENT OF OURS WHO PRESENTED TO THE EMERGENCY ROOM WITH COMPLAINTS OF SHORTNESS OF BREATH AND CHEST PAIN. PATIENT REPORTS THAT SYMPTOMS BEGAN APPROXIMATELY THREE DAYS PRIOR TO PRESENTING. PATIENT ADMITS TO SMOKING ONE THIRD TO ONE HALF PACK OF CIGARETTES/DAY. HE ALSO HAS A HISTORY OF ILLICIT DRUG USE. PATIENT REPORTS A MEDICAL HISTORY OF CONGESTIVE HEART FAILURE, CORONARY ARTERY DISEASE, AND HYPERTENSION. ON EXAMINATION, HEARTRATE IS RAPID AND REGULAR. 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 LUNGS SOUNDS ARE DIMINISHED THROUGHOUT. PATIENT IS CURRENTLY UTILIZING OXYGEN VIA NASAL CANNULA AT 2L/MIN. ABDOMEN IS ROUND, SOFT, AND NON-TENDER WITH NORMAL BOWEL SOUNDS NOTED IN ALL QUADRANTS. GOOD RANGE OF MOTION IS NOTED IN ALL EXTREMITIES. NON-PITTING EDEMA NOTED TO BILATERAL LOWER EXTREMITIES. ON ARRIVAL TO THE ER, VITAL SIGNS WERE NOTED TO BE 98.2-858-78-100%-124/90. LABS, EKG, AND CHEST XRAY WERE OBTAINED. ABNORMAL LAB VALUES INCLUDE THE FOLLOWING: HGB 12, HCT 38. CALCIUM 7.8, AST 61, ALK PHOS 137, ALBUMIN 2.9, BNP 1180. CARDIAC PROFILE REPORTS CK-MB 4.5, OTHERWISE NORMAL. ABG REPORTS PH 7.440, PC02 31, P02 99, HC03 21.1, BASE EXCESS -2.2. URINALYSIS UNREMARKABLE. URINE DRUG SCREEN POSITIVE FOR AMPHETAMINES. EKG REPORTS SINUS TACHYCARDIA, RIGHT AXIS DEVIATION, PROBABLE ANTEROSEPTAL INFARC. HR 114. CHEST XRAY REPORTS CARDIOMEGALY, NO INFILTRATES. HE WAS GIVEN LASIX 40MG IV X 1, NITROBID OINTMENT , AND MORPHINE 4MG IVP X 1 WITH NO IMPROVEMENT IN SYMPTOMS. WE ADMITTED PATIENT FOR FURTHER EVALUATION AND TREATMENT OF CHEST PAIN AND CONGESTIVE HEART FAILURE. WE PLAN TO FOLLOW UP WITH SERIAL CARDIAC ENZYMES AND EKG. WE WILL OBTAIN AM LABS AND CHEST XRAY AND CONTINUE TO MONITOR PATIENT. - Past Medical History Past Medical History: CHF, Coronary Artery Disease, Hypertension Additional Medical History: Enlarged Tonsils - Past Surgical History Surgical History: Tonsillectomy - Family History Family Medical History: Diabetes Mellitus, Cancer, [place], Coronary Artery Disease, Heart Failure, Hypertension - Social History Does patient currently use any type of tobacco product: Yes Have you used tobacco products in the last 12 months: Yes Type of Tobacco Use: Cigarettes How many years tobacco product used: 20 Packs per day or dips/chews per day: 1 Does any household member use tobacco: Yes Alcohol Use: Rarely Drug Use: None - Medications Home Medications: Spironolactone 12.5 mg PO DAILY 02/17/17 [History Confirmed 02/17/17] - Review of Systems Constitutional: Weakness. denies: No Symptoms Reported, See HPI, Fever, Chills , Sweats, Malaise, Other Eyes: No Symptoms Reported. denies: See HPI, Pain, Vision Change, Conjunctivae Inflammation, Eyelid Inflammation, Redness, Other ENT: No Symptoms Reported. denies: See HPI, Ear Pain, Ear Discharge, Nose Pain , Nose Discharge, Nose Congestion, Mouth Pain, Mouth Swelling, Throat Pain, Throat Swelling, Other Respiratory: Shortness of Breath, SOB with Excertion. denies: Hemoptysis, Sputum, Wheezing Cardiovascular: Chest Pain, Edema. denies: Paroxysmal Noc. Dyspnea, Light Headedness Gastrointestinal: No Symptoms Reported. denies: See HPI, Nausea, Vomiting, Abdominal Pain, Diarrhea, Constipation, Melena, Hematochezia, Other Genitourinary: No Symptoms Reported. denies: See HPI, Dysuria, Frequency, Incontinence, Hematuria, Retention, Other Musculoskeletal: No Symptoms Reported. denies: See HPI, Shoulder Pain, Arm Pain , Back Pain, Hand Pain, Leg Pain, Foot Pain, Neck Pain, Other Skin: No Symptoms Reported. denies: See HPI, Rash, Lesions, Jaundice, Bruising , Wound, Ecchymosis, Other Neurological: Weakness. denies: No Symptoms Reported, See HPI, Numbness, Incoordination, Change in Speech, Confusion, Seizures, Other - Physical Exam Vital Signs: Temperature 97.7 F Pulse Rate [Left Brachial] 114 Pulse Rate [Apical] 84 Pulse Rate 123 Respiratory Rate 18 Blood Pressure [Right Arm] 130/88 Blood Pressure [Left Arm] 134/99 Blood Pressure 124/90 O2 Sat by Pulse Oximetry 99 Oriented: Normal Eyes: Normal. negative: Blurred Vision, Diplopia, Discharge, Pain, Redness, Photophobia, Other Ear: Normal. negative: Right, Left, Swelling, Ecchymosis, Hemotypanum, Abrasion , Laceration Nose: Normal Throat: Normal. negative: Tonsillar Hypertrophy, Red, Exudate, Dry, Other Respiratory: Diminished Throughout Cardiovascular: Tachycardia : Normal. negative: Dysuria, Hematuria, Frequency, Discharge, Testicular Pain , Bleeding, , Other Auscultation: Bowel Sounds: Normal Palpation: Normal Tenderness: Normal Skin: Normal Musculoskeletal: Normal Psychiatric: Normal Mood Description: Calm Affect: Normal Speech Pattern: Clear - Assessment/Plan (1) CHF (congestive heart failure) Qualifiers: Congestive heart failure type: combined Congestive heart failure chronicity : acute on chronic Qualified Code(s): I50.43 - Acute on chronic combined systolic (congestive) and diastolic (congestive) heart failure Status: Acute Plan: LASIX 20MG IV BID, LISINOPRIL 5MG PO DAILY, ALDACTONE 12.5MG PO DAILY, OBTAIN ECHO, CONTINUE TO MONITOR LABS AND CHEST XRAY (2) SOB (shortness of breath) Status: Acute Plan: CONTINUE TO MONTIOR, RESPIRATORY CONSULTATION (3) Chest pain, rule out acute myocardial infarction Status: Acute Plan: SERIAL CARDIAC ENZYMES AND EKG, MORPHINE 4MG IVP Q6H PRN, CONTINUE TO MONITOR
[2017-02-18] MEDS ORDERED: PROVENTIL NEB TX 0.083% 2.5MG/ 3ML NEB PRN (12:17)
--- NOTE | 2017-02-18 21:03 | PCM.PROG ---
Progress Note - Progress Note for Day of Date: 02/18/17 - Subjective Subjective: WAS ADMITTED FOR CONGESTIVE HEART FAILURE AND CHEST PAIN. TODAY, HE IS ALERT AND ORIENTED, LYING IN BED ON MORNING ROUNDS. HE IS NOTED WITH COMPLAINTS OF SHORTNESS OF BREATH, BUT DENIES CHEST PAIN THIS MORNING. ON EXAMINATION, HEART IS REGULAR IN RATE AND RHYTHM. LUNG SOUNDS ARE DIMINISHED THROUGHOUT. HE IS NOTED TO BE UTILIZING OXYGEN VIA NASAL CANNULA AT 2L/MIN. ABDOMEN IS ROUND, SOFT, AND NON-TENDER WITH NORMAL BOWEL SOUNDS NOTED IN ALL QUADRANTS. BILATERAL LOWER EXTREMITIES ARE NOTED WITH NON PITTING EDEMA. GOOD MOVEMENT NOTED IN ALL EXTREMITIES. HIS VITAL SIGNS THIS MORNING ARE 97.8-94-20- 100%-143/98. ABNORMAL LAB VALUES INCLUDE THE FOLLOWING: HGB 11.8, HCT 37.3, ALBUMIN 2.9, POTASSIUM 3.4, BUN 24, CREATININE 1.41, CALCIUM 7.9, AST 57, ALK PHOS 143. CARDIAC ENZYMES WNL. A CHEST XRAY WAS OBTAINED THIS MORNING AND REPORTED NO ACUTE CHEST PROCESS OR SIGNIFICANT CHANGE. CARDIOMEGALY. WE PLAN TO OBTAIN AN ECHOCARDIOGRAM TODAY. WE WILL START DIGOXIN 0.125 MG DAILY. OTHERWISE , WE WILL CONTINUE WITH CURRENT PLAN OF CARE. WE PLAN TO FOLLOW UP WITH AM LABS AND CONTINUE TO MONITOR PATIENT. - Past Medical Family Social History Past Med/Fam/Surg Hx: No changes since H&P Allergies: Allergies No Known Drug Allergies Allergy (Verified 12/29/16 21:53) - Review of Systems ROS: No change since H&P - Vital Signs and I&O's Vital Signs: Temperature 97.7 F Pulse Rate [Left Brachial] 100 Pulse Rate [Apical] 84 Pulse Rate 107 Respiratory Rate 18 Blood Pressure [Right Arm] 130/88 Blood Pressure [Left Arm] 123/85 Blood Pressure 124/90 O2 Sat by Pulse Oximetry 100 Intake and Output: Intake & Output 02/16/17 02/17/17 02/18/17 02/19/17 11:59 11:59 11:59 11:59 Intake Total 1484 830 Output Total 1175 1200 Balance -1175 1484 -370 - Physical Exam Oriented: Normal Eyes: Normal. negative: Blurred Vision, Diplopia, Discharge, Pain, Redness, Photophobia, Other Ear: Normal. negative: Right, Left, Swelling, Ecchymosis, Hemotypanum, Abrasion , Laceration Nose: Normal Throat: Normal. negative: Tonsillar Hypertrophy, Red, Exudate, Dry, Other Respiratory: Right, Left, Generalized, Diminished Cardiovascular: Normal, Edema : Normal. negative: Dysuria, Hematuria, Frequency, Discharge, Testicular Pain , Bleeding, , Other Auscultation: Bowel Sounds: Normal Palpation: Normal Tenderness: Normal Skin: Normal Musculoskeletal: Normal Psychiatric: Normal Mood Description: Calm Affect: Normal Speech Pattern: Clear - Laboratory and Diagnostics Result Diagrams: 02/18/17 05:12 02/18/17 05:12 Labs: Laboratory WBC 8.9 X10^3/uL (3.6-10.0) 02/18/17 05:12 RBC 4.86 X10^6/uL (4.7-6.0) 02/18/17 05:12 Hgb 11.8 g/dL (13.5-18.0) L 02/18/17 05:12 Hct 37.3 % (42.0-54.0) L 02/18/17 05:12 MCV 76.7 fL (80.0-100.0) L 02/18/17 05:12 MCH 24.3 pg (27.0-34.0) L 02/18/17 05:12 MCHC 31.7 g/dL (33.0-35.0) L 02/18/17 05:12 RDW 17.9 % (11.6-16.5) H 02/18/17 05:12 Plt Count 234 X10^3/uL (150.0-450.0) 02/18/17 05:12 Plt Count Comment Adequate (ADEQUATE) 02/18/17 05:12 MPV 7.9 fL (7.4-11.0) 02/18/17 05:12 Neut % 59.3 % (42.0-75.0) 02/18/17 05:12 Lymph % 27.4 % (21.0-51.0) 02/18/17 05:12 [place] % 9.9 % (0.0-13.0) 02/18/17 05:12 Eos % 2.1 % (0.9-2.9) 02/18/17 05:12 Baso % 1.3 % (0.2-1.0) H 02/18/17 05:12 Neut # 5.3 x10^3/uL (2.2-4.8) H 02/18/17 05:12 Lymph # 2.4 X10^3/uL (1.3-2.9) 02/18/17 05:12 [place] # 0.9 x10^3/uL (0.3-0.8) H 02/18/17 05:12 Eos # 0.2 x10^3/uL (0.0-0.2) 02/18/17 05:12 Baso # 0.1 X10^3/uL (0.0-0.1) 02/18/17 05:12 Absolute Nucleated RBC 0.0 /100WBC 02/18/17 05:12 Plt Morphology Comment Normal (NORMAL) 02/18/17 05:12 RBC Morphology Normal (NORMAL) 02/18/17 05:12 Sample Site [place] 02/17/17 07:40 ABG pH 7.440 (7.35-7.45) 02/17/17 07:40 ABG pCO2 31.0 mmHg (35.0-45.0) L 02/17/17 07:40 ABG pO2 99.0 mmHg (80.0-100.0) 02/17/17 07:40 ABG HCO3 21.1 mmol/L (22-26) L 02/17/17 07:40 ABG O2 Saturation 98.0 % (90-100) 02/17/17 07:40 ABG Base Excess -2.2 mmol/L (-2.0-2.0) L 02/17/17 07:40 Jacques Test Pos 02/17/17 07:40 A-a Gradient 62.0 mmHg 02/17/17 07:40 FiO2 28.000 02/17/17 07:40 Blood Gas Comments Hermila [facility]g [facility] 02/17/17 07:40 Sodium 141 mmol/L (136-145) 02/18/17 05:12 Corrected Sodium TNP 02/18/17 05:12 Potassium 3.4 mmol/L (3.5-5.1) L 02/18/17 05:12 Chloride 106 mmol/L (98-107) 02/18/17 05:12 Carbon Dioxide 21.4 mmol/L (21-32) 02/18/17 05:12 BUN 24 mg/dL (7-18) H 02/18/17 05:12 Creatinine 1.41 mg/dL (0.70-1.30) H 02/18/17 05:12 Est GFR (MDRD) Af Amer > 60 (>60) 02/18/17 05:12 Est GFR (MDRD) Non-Af > 60 (>60) 02/18/17 05:12 Glucose 92 mg/dL (65-99) 02/18/17 05:12 Calcium 7.9 mg/dL (8.5-10.1) L 02/18/17 05:12 Corrected Calcium 8.8 mg/dL (8.5-10.1) 02/18/17 05:12 Magnesium 1.7 mg/dL (1.7-2.9) 02/18/17 05:12 Total Bilirubin 0.60 mg/dL (0.2-1.0) 02/18/17 05:12 AST 57 Units/L (15-37) H 02/18/17 05:12 ALT 75 Units/L (12-78) 02/18/17 05:12 Alkaline Phosphatase 143 Units/L (46-116) H 02/18/17 05:12 Creatine Kinase 66 Units/L (39-308) 02/17/17 14:42 CK-MB (CK-2) 4.0 ng/mL (0-4.0) 02/17/17 14:42 CK/CKMB % Calc 6.1 % (<4) 02/17/17 14:42 Troponin I 0.04 ng/mL (0-1.5) 02/17/17 14:42 B-Natriuretic Peptide 1880 pg/mL (0-79) H* 02/17/17 06:50 Total Protein 6.6 g/dL (6.4-8.2) 02/18/17 05:12 Albumin 2.9 g/dL (3.4-5.0) L 02/18/17 05:12 Globulin 3.7 g/dL (2.5-4.5) 02/18/17 05:12 Albumin/Globulin Ratio 0.8 Ratio (1.1-2.1) L 02/18/17 05:12 Specimen Type Clean catch urine 02/17/17 07:12 Urine Color Yellow (YELLOW) 02/17/17 07:12 Urine Appearance Clear (CLEAR) 02/17/17 07:12 Urine pH 6.5 (5.0 - 8.0) 02/17/17 07:12 Ur Specific [place] 1.010 (1.000-1.030) 02/17/17 07:12 Urine Protein Negative (NEGATIVE) 02/17/17 07:12 Urine Glucose (UA) Negative (NEGATIVE) 02/17/17 07:12 Urine Ketones Negative (NEGATIVE) 02/17/17 07:12 Urine Occult Blood Negative (NEGATIVE) 02/17/17 07:12 Urine Nitrite Negative (NEGATIVE) 02/17/17 07:12 Urine Bilirubin Negative (NEGATIVE) 02/17/17 07:12 Urine Urobilinogen Normal (NORMAL) 02/17/17 07:12 Ur Leukocyte Esterase Negative (NEGATIVE) 02/17/17 07:12 Urine RBC 0-1 /HPF (NEGATIVE) 02/17/17 07:12 Urine WBC 0-1 /HPF (NEGATIVE) 02/17/17 07:12 Ur Squamous Epith Cells Rare /HPF (NEGATIVE) 02/17/17 07:12 Urine Bacteria Negative /HPF (NEGATIVE) 02/17/17 07:12 Ur Culture Indicated? No/not indicated 02/17/17 07:12 Urine Opiates Screen Negative (NEG=<300) 02/17/17 13:27 Urine Methadone Screen Negative (NEG=<300) 02/17/17 13:27 Ur Barbiturates Screen Negative (NEG=<200) 02/17/17 13:27 Ur Phencyclidine Scrn Negative (NEG=<25) 02/17/17 13:27 Ur Amphetamines Screen Positive (NEG=<1000) 02/17/17 13:27 U Benzodiazepines Scrn Negative (NEG=<200) 02/17/17 13:27 Urine Cocaine Screen Negative (NEG=<300) 02/17/17 13:27 U Marijuana (THC) Screen Negative (NEG=<50) 02/17/17 13:27 - Plan (1) CHF (congestive heart failure) Status: Acute Qualifiers: Congestive heart failure type: combined Congestive heart failure chronicity : acute on chronic Qualified Code(s): I50.43 - Acute on chronic combined systolic (congestive) and diastolic (congestive) heart failure Plan: LASIX 20MG IV BID, LISINOPRIL 5MG PO DAILY, ALDACTONE 12.5MG PO DAILY, OBTAIN ECHO, CONTINUE TO MONITOR LABS AND CHEST XRAY (2) SOB (shortness of breath) Status: Acute Plan: CONTINUE TO MONTIOR, RESPIRATORY CONSULTATION (3) Chest pain, rule out acute myocardial infarction Status: Acute Plan: CONTINUE MORPHINE 4MG IVP Q6H PRN, CONTINUE TO MONITOR
[2017-02-18] MEDS ORDERED: MORPHINE SULFATE INJ 4 MG ONE (21:58)
--- NOTE | 2017-02-19 06:01 | RAD ---
Examination: Portable AP chest History: CHF Comparison reference 02/18/2017 Findings: Persistent marked cardiomegaly with pulmonary vascular congestion. No evidence for developi ng consolidation, pulmonary edema or pleural fluid. Impression: No change. Reported By:
[2017-02-19 06:10] LABS: BASOPHILS # (AUTO) 0.1 X10^3/uL (0.0-0.1); BASOPHILS % (AUTO) 1.2 % (0.2-1.0); EOSINOPHILS # (AUTO) 0.2 x10^3/uL (0.0-0.2); EOSINOPHILS % (AUTO) 1.8 % (0.9-2.9); HEMATOCRIT 37.5 % (42.0-54.0); HEMOGLOBIN 11.9 g/dL (13.5-18.0); LYMPHOCYTES # (AUTO) 2.3 X10^3/uL (1.3-2.9); LYMPHOCYTES % (AUTO) 21.1 % (21.0-51.0); MEAN CORPUSCULAR HEMOGLOBIN 24.2 pg (27.0-34.0); MEAN CORPUSCULAR HGB CONC 31.9 g/dL (33.0-35.0); MEAN CORPUSCULAR VOLUME 76.1 fL (80.0-100.0); MEAN PLATELET VOLUME 8.1 fL (7.4-11.0); MONOCYTES # (AUTO) 0.9 x10^3/uL (0.3-0.8); MONOCYTES % (AUTO) 7.7 % (0.0-13.0); NEUTROPHILS # (AUTO) 7.6 x10^3/uL (2.2-4.8); NEUTROPHILS % (AUTO) 68.2 % (42.0-75.0); PLATELET COUNT 255 X10^3/uL (150.0-450.0); RED BLOOD COUNT 4.93 X10^6/uL (4.7-6.0); RED CELL DISTRIBUTION WIDTH 18.6 % (11.6-16.5); WHITE BLOOD COUNT 11.1 X10^3/uL (3.6-10.0)
[2017-02-19 06:24] LABS: ALANINE AMINOTRANSFERASE 78 Units/L (12-78); ALKALINE PHOSPHATASE 148 Units/L (46-116); ASPARTATE AMINO TRANSFERASE 59 Units/L (15-37); BLOOD UREA NITROGEN 24 mg/dL (7-18); CARBON DIOXIDE 23.5 mmol/L (21-32); CHLORIDE 106 mmol/L (98-107); COR CA(FOR HYPOALB) 8.8 mg/dL (8.5-10.1); CREATININE 1.26 mg/dL (0.70-1.30); DIGOXIN < 0.20 ng/mL (0.9-2); SODIUM 141 mmol/L (136-145); eGFR BLACK RACES > 60 (>60); eGFR NON BLACK RACES > 60 (>60)
[2017-02-19] MEDS: MORPHINE SULFATE INJ 2 MG INJ IVP PRN (06:33)
[2017-02-19 07:00] LABS: PLATELET MORPHOLOGY COMMENT NORMAL (NORMAL)
[2017-02-19] MEDS: ALDACTONE TAB 25 MG PO SCH (09:48)
[2017-02-19] MEDS: LANOXIN PO SCH (09:48)
[2017-02-19] MEDS: ZESTRIL TAB 5 MG PO SCH (09:49)
[2017-02-19] MEDS: LASIX IVP SCH (09:49)
[2017-02-19] MEDS ORDERED: NORCO 5/325 MG TAB PO ONE (12:14)
[2017-02-19 12:54] LABS: CKMB % 6.4 % (<4); CREATINE KINASE MB 3.7 ng/mL (0-4.0); TROPONIN I 0.03 ng/mL (0-1.5)
[2017-02-19] MEDS ORDERED: ZOFRAN INJ 4 MG VIAL IVP PRN (13:22)
[2017-02-19] MEDS ORDERED: COREG TAB 3.125 MG PO SCH (14:00)
[2017-02-19 16:28] VITALS: BP 121/71
[2017-02-19 16:32] LABS: CKMB % 5.9 % (<4); CREATINE KINASE MB 3.1 ng/mL (0-4.0); TROPONIN I 0.03 ng/mL (0-1.5)
== END 2017-02-19 16:56 | disposition home or self-care (01) ==
LOC: ER 06:29 → OBS 08:19
PROVIDERS: ADMIT Internal Medicine; ATTEND Internal Medicine
DX: I50.43 Acute on chronic combined systolic (congestive) and diastolic (congestive) heart failure (principal); R06.02 Shortness of breath; I25.10 Atherosclerotic heart disease of native coronary artery without angina pectoris; R94.31 Abnormal electrocardiogram [ECG] [EKG]; I10 Essential (primary) hypertension; F19.10 Other psychoactive substance abuse, uncomplicated; R07.89 Other chest pain; R60.0 Localized edema; R00.0 Tachycardia, unspecified; Z79.899 Other long term (current) drug therapy
CPT/HCPCS: 36415; 36600; 71010; 80053; 80162; 80307; 81001; 82550; 82553; 82803; 83735; 83880; 84484; 85025; 93005; 93010; 93306; 94760; 96365; 96374; 96375; 99284; A4222; G0378; G0434; J1940; J2270; J2405

== ENCOUNTER 2017-02-27 13:26 | Emergency (ER) | payer SELFPAY ==
[2017-02-27 13:35] VITALS: BMI 26.6
[2017-02-27] MEDS ORDERED: NITRO-BID OINT 2% Multi-Dose tube ONE (13:41)
[2017-02-27] MEDS ORDERED: MORPHINE SULFATE INJ 4 MG ONE ×2 (13:41→14:54)
[2017-02-27] MEDS ORDERED: MORPHINE SULFATE INJ 4 MG IVP ONE ×2 (13:54→14:54)
[2017-02-27] MEDS ORDERED: NITRO-BID OINT 2% Multi-Dose tube TD ONE (13:55)
[2017-02-27] MEDS ORDERED: NS 1000 ML 1,000 ML IV ONE (13:56)
[2017-02-27] MEDS ORDERED: LASIX IVP ONE ×2 (14:00→14:01)
[2017-02-27] MEDS ORDERED: NS 1000 ML 1,000 ML ONE (14:01)
[2017-02-27 14:05] LABS: BASOPHILS # (AUTO) 0.1 X10^3/uL (0.0-0.1); BASOPHILS % (AUTO) 1.3 % (0.2-1.0); EOSINOPHILS # (AUTO) 0.2 x10^3/uL (0.0-0.2); EOSINOPHILS % (AUTO) 1.9 % (0.9-2.9); HEMATOCRIT 39.3 % (42.0-54.0); HEMOGLOBIN 12.2 g/dL (13.5-18.0); LYMPHOCYTES # (AUTO) 2.1 X10^3/uL (1.3-2.9); LYMPHOCYTES % (AUTO) 23.4 % (21.0-51.0); MEAN CORPUSCULAR HEMOGLOBIN 23.9 pg (27.0-34.0); MEAN CORPUSCULAR HGB CONC 31.1 g/dL (33.0-35.0); MEAN CORPUSCULAR VOLUME 76.8 fL (80.0-100.0); MEAN PLATELET VOLUME 7.4 fL (7.4-11.0); MONOCYTES # (AUTO) 0.8 x10^3/uL (0.3-0.8); MONOCYTES % (AUTO) 9.2 % (0.0-13.0); NEUTROPHILS # (AUTO) 5.8 x10^3/uL (2.2-4.8); NEUTROPHILS % (AUTO) 64.2 % (42.0-75.0); PLATELET COUNT 328 X10^3/uL (150.0-450.0); RED BLOOD COUNT 5.11 X10^6/uL (4.7-6.0); RED CELL DISTRIBUTION WIDTH 18.6 % (11.6-16.5)
[2017-02-27 14:20] LABS: BLOOD UREA NITROGEN 18 mg/dL (7-18); CALCIUM 8.6 mg/dL (8.5-10.1); CARBON DIOXIDE 24.1 mmol/L (21-32); CHLORIDE 108 mmol/L (98-107); CREATININE 1.19 mg/dL (0.70-1.30); SODIUM 143 mmol/L (136-145); TROPONIN I 0.04 ng/mL (0-1.5); eGFR BLACK RACES > 60 (>60); eGFR NON BLACK RACES > 60 (>60)
--- NOTE | 2017-02-27 14:20 | DR.CP ---
HPI - Time Seen Time seen: 13:40 - PCP Primary Care Physician: DR. CERDA - Complaint Chief Complaint Doctor Comments: Patient with a history of severe cardiac disease with an ejection fraction of 15%. He was hospitalized on last week with severe dyspnea. He reports that his lasix was increased to 40mg bid. Patient admits to increased edema of lower extremities. Chief Complaint:: CHEST PAIN, SOB, FEELS LIKE FLUID BUILDING UP. STATES THAT HE HAS GAINED 5LBS. STATES THAT HE HAS BEEN HAVING THE CHEST PAIN BUT IT HAS WORSENED TODAY Self Treatment fo Chief Complaint: TOOK AM MEDS - Source History Provided: Patient - Mode of Arrival Mode of Arrival: Wheelchair - Timing Onset of Chief Complaint: 02/27/17 - Associated Signs and Symptoms Associated Signs and Symptoms: Shortness of Breath PMH - PMH Past Medical History: Yes Past Medical History: Anxiety, CHF, Hypertension Past Surgical History: No Surgical History: Tonsillectomy - Family History History of Family Medical Conditions: Yes Family Medical History: Diabetes Mellitus, Cancer, [place], Coronary Artery Disease, Heart Failure, Hypertension - Social History Does patient currently use any type of tobacco product: Yes Have you used tobacco products in the last 12 months: Yes Type of Tobacco Use: Cigarettes Alcohol Use: None Do you use any recreational Drugs:: No Lives With: Family Lives Where: Home - infectious screening In the last 2 months have you had wt loss of >10#?: NO Have you had fever, night sweats or hemotysis?: No Have you traveled outside the country in the last 6 months?: No Isolation: Standard ROS - Review of Systems Eyes: No Symptoms Reported ENTM: No Symptoms Reported Respiratoy: No Symptoms Reported Cardiovascular: Other (CHF) Gastrointestinal/Abdominal: No Symptoms Reported Genitourinary: No Symptoms Reported Neurological: No Symptoms Reported Musculoskeletal: No Symptoms Reported Integumentary: No Symptoms Reported Hematologic/Lymphatic: No Symptoms Reported Endocrine: No Symptoms Reported Psychiatric: No Symptoms Reported All Other Systems: Reviewed and Negative PE - Vitals Vitals: Temperature 99.6 F Pulse Rate 119 Respiratory Rate 20 Blood Pressure [Right Arm] 130/88 Blood Pressure [Left Arm] 121/71 Blood Pressure 138/88 O2 Sat by Pulse Oximetry 99 - General Limitations: No Limitations General Appearance: Alert - Head Head Exam: Normal Inspection, Atraumatic - Eyes Eye exam: Normal Appearance, PERRL, EOMI - ENT ENT Exam: Normal Exam - Chest Chest Inspection: Normal Inspection, Symmetric Chest Wall Rise - Respiratory Respiratory Exam: Normal Lung Sounds Bilat Respiratory Exam: Bilateral Clear to Auscultation - Cardiovascular Cardiovascular Exam: Regular Rate Pulse: Normal, Radial Edema: 2, 3 - Extremities Extremities Exam: Normal Inspection, Edema - Back Back Exam: Normal Inspection - Neurologic Neurological Exam: Alert, Oriented X3, CN II-XII Intact - Psychiatric Psychiatric Exam: Normal Affect - Skin Skin Exam: Warm, Dry, Intact Course - Treatment Treatment: Discussed with patient and mom; social situation of not having a place to stay except his brother. He states that he is trying to get disability. He has voided 2L fluid s/p 40mg furosemide IV. He states that he feels better. - Reevaluation 1st: Improved - Education/Counseling Educated On: Treatment, Diagnosis, Prognosis ROR - Labs Reviewed Laboratory Results Reviewed?: Yes (caridacs negative) Result Diagrams: 02/27/17 14:02 02/27/17 14:02 Laboratory: WBC 9.0 X10^3/uL (3.6-10.0) 02/27/17 14:02 RBC 5.11 X10^6/uL (4.7-6.0) 02/27/17 14:02 Hgb 12.2 g/dL (13.5-18.0) L 02/27/17 14:02 Hct 39.3 % (42.0-54.0) L 02/27/17 14:02 MCV 76.8 fL (80.0-100.0) L 02/27/17 14:02 MCH 23.9 pg (27.0-34.0) L 02/27/17 14:02 MCHC 31.1 g/dL (33.0-35.0) L 02/27/17 14:02 RDW 18.6 % (11.6-16.5) H 02/27/17 14:02 Plt Count 328 X10^3/uL (150.0-450.0) 02/27/17 14:02 MPV 7.4 fL (7.4-11.0) 02/27/17 14:02 Neut % 64.2 % (42.0-75.0) 02/27/17 14:02 Lymph % 23.4 % (21.0-51.0) 02/27/17 14:02 [place] % 9.2 % (0.0-13.0) 02/27/17 14:02 Eos % 1.9 % (0.9-2.9) 02/27/17 14:02 Baso % 1.3 % (0.2-1.0) H 02/27/17 14:02 Neut # 5.8 x10^3/uL (2.2-4.8) H 02/27/17 14:02 Lymph # 2.1 X10^3/uL (1.3-2.9) 02/27/17 14:02 [place] # 0.8 x10^3/uL (0.3-0.8) 02/27/17 14:02 Eos # 0.2 x10^3/uL (0.0-0.2) 02/27/17 14:02 Baso # 0.1 X10^3/uL (0.0-0.1) 02/27/17 14:02 Absolute Nucleated RBC 0.0 /100WBC 02/27/17 14:02 INR Target Range - 02/27/17 14:02 INR 1.08 (0.8-1.3) 02/27/17 14:02 Sodium 143 mmol/L (136-145) 02/27/17 14:02 Corrected Sodium TNP 02/27/17 14:02 Potassium 3.9 mmol/L (3.5-5.1) 02/27/17 14:02 Chloride 108 mmol/L (98-107) H 02/27/17 14:02 Carbon Dioxide 24.1 mmol/L (21-32) 02/27/17 14:02 BUN 18 mg/dL (7-18) 02/27/17 14:02 Creatinine 1.19 mg/dL (0.70-1.30) 02/27/17 14:02 Est GFR (MDRD) Af Amer > 60 (>60) 02/27/17 14:02 Est GFR (MDRD) Non-Af > 60 (>60) 02/27/17 14:02 Glucose 102 mg/dL (65-99) H 02/27/17 14:02 Calcium 8.6 mg/dL (8.5-10.1) 02/27/17 14:02 Corrected Calcium 9.3 mg/dL (8.5-10.1) 02/27/17 14:02 Phosphorus 2.8 mg/dL (2.6-4.7) 02/27/17 14:02 Magnesium 1.8 mg/dL (1.7-2.9) 02/27/17 14:02 Total Bilirubin 0.50 mg/dL (0.2-1.0) 02/27/17 14:02 AST 46 Units/L (15-37) H 02/27/17 14:02 ALT 66 Units/L (12-78) 02/27/17 14:02 Alkaline Phosphatase 138 Units/L (46-116) H 02/27/17 14:02 Creatine Kinase 71 Units/L (39-308) 02/27/17 14:02 CK-MB (CK-2) 4.0 ng/mL (0-4.0) 02/27/17 14:02 CK/CKMB % Calc 5.6 % (<4) 02/27/17 14:02 Troponin I 0.04 ng/mL (0-1.5) 02/27/17 14:02 Total Protein 7.1 g/dL (6.4-8.2) 02/27/17 14:02 Albumin 3.1 g/dL (3.4-5.0) L 02/27/17 14:02 Globulin 4.0 g/dL (2.5-4.5) 02/27/17 14:02 Albumin/Globulin Ratio 0.8 Ratio (1.1-2.1) L 02/27/17 14:02 Specimen Type Random urine 02/27/17 14:26 Urine Color Yellow (YELLOW) 02/27/17 14:26 Urine Appearance Clear (CLEAR) 02/27/17 14:26 Urine pH 6.0 (5.0 - 8.0) 02/27/17 14:26 Ur Specific [place] 1.010 (1.000-1.030) 02/27/17 14:26 Urine Protein 1+ (NEGATIVE) 02/27/17 14:26 Urine Glucose (UA) Negative (NEGATIVE) 02/27/17 14:26 Urine Ketones Negative (NEGATIVE) 02/27/17 14:26 Urine Occult Blood Negative (NEGATIVE) 02/27/17 14:26 Urine Nitrite Negative (NEGATIVE) 02/27/17 14:26 Urine Bilirubin Negative (NEGATIVE) 02/27/17 14:26 Urine Urobilinogen Normal (NORMAL) 02/27/17 14:26 Ur Leukocyte Esterase Negative (NEGATIVE) 02/27/17 14:26 Urine RBC None seen /HPF (NEGATIVE) 02/27/17 14:26 Urine WBC None seen /HPF (NEGATIVE) 02/27/17 14:26 Ur Squamous Epith Cells Rare /HPF (NEGATIVE) 02/27/17 14:26 Urine Bacteria Negative /HPF (NEGATIVE) 02/27/17 14:26 Ur Culture Indicated? No/not indicated 02/27/17 14:26 Urine Opiates Screen Negative (NEG=<300) 02/27/17 14:26 Urine Methadone Screen Negative (NEG=<300) 02/27/17 14:26 Ur Barbiturates Screen Negative (NEG=<200) 02/27/17 14:26 Ur Phencyclidine Scrn Negative (NEG=<25) 02/27/17 14:26 Ur Amphetamines Screen Negative (NEG=<1000) 02/27/17 14:26 U Benzodiazepines Scrn Negative (NEG=<200) 02/27/17 14:26 Urine Cocaine Screen Negative (NEG=<300) 02/27/17 14:26 U Marijuana (THC) Screen Negative (NEG=<50) 02/27/17 14:26 - XRAY XRAY Interpreted by: Radiologist (Chest: Continued marked enlargement of the cardiac silhouette with mild pulmonary vascular congestion. There is no evidence for interstitial edema, pneumonia or pleural fluid. Impression: Stable enlargement of the cardiac silhouette with mild vascular congestion...) - Diagnosis Discharge Problem: Chest pain Qualifiers: Chest pain type: unspecified Qualified Code(s): R07.9 - Chest pain, unspecified CHF (congestive heart failure) Qualifiers: Congestive heart failure type: systolic Congestive heart failure chronicity: chronic Qualified Code(s): I50.22 - Chronic systolic (congestive) heart failure - Discharge Plan Condition: Stable - Follow ups/Referrals Follow ups/Referrals: Luis Cerda [Primary Care Provider] - 3 days - Instructions
--- NOTE | 2017-02-27 14:25 | RAD ---
Examination: Chest, PA and lateral views History: Chest pain SOB Comparison reference 02/19/2017 Findings: Continued marked enlargement of the cardiac silhouette with mild pulmonary vascular congest ion. There is no evidence for interstitial edema, pneumonia or pleural fluid. Impression: Stable enlargement of the cardiac silhouette with mild vascular congestion. The possible contributing factor of pericardial effusion should be clinically considered. Reported By:
[2017-02-27 14:36] LABS: BILIRUBIN,URINE NEGATIVE (NEGATIVE); BLOOD/HEMOGLOBIN,URINE NEGATIVE (NEGATIVE); GLUCOSE, URINE NEGATIVE (NEGATIVE); KETONES,URINE NEGATIVE (NEGATIVE); LEUKOCYTE ESTERASE ,URINE NEGATIVE (NEGATIVE); NITRITES,URINE NEGATIVE (NEGATIVE); PROTEIN,URINE 1+ (NEGATIVE); UROBILINOGEN,URINE NORMAL (NORMAL)
[2017-02-27 14:42] LABS: ALANINE AMINOTRANSFERASE 66 Units/L (12-78); ALBUMIN 3.1 g/dL (3.4-5.0); ALKALINE PHOSPHATASE 138 Units/L (46-116); ASPARTATE AMINO TRANSFERASE 46 Units/L (15-37); CKMB % 5.6 % (<4); COR CA(FOR HYPOALB) 9.3 mg/dL (8.5-10.1); CREATINE KINASE 71 Units/L (39-308); MAGNESIUM 1.8 mg/dL (1.7-2.9); PHOSPHORUS 2.8 mg/dL (2.6-4.7); TOTAL PROTEIN 7.1 g/dL (6.4-8.2)
[2017-02-27 14:56] LABS: APPEARANCE,URINE CLEAR (CLEAR); COLOR,URINE YELLOW (YELLOW)
[2017-02-27 14:57] LABS: BACTERIA,URINE NEGATIVE /HPF (NEGATIVE); RBC,URINE NONE SEEN /HPF (NEGATIVE); SQUAMOUS EPITHELIAL CELL,UR RARE /HPF (NEGATIVE)
[2017-02-27 16:13] VITALS: BP 145/85
== END 2017-02-27 16:22 | disposition home or self-care (01) ==
LOC: ER 13:41
DX: I50.22 Chronic systolic (congestive) heart failure (principal)
CPT/HCPCS: 36415; 71020; 80053; 80307; 81001; 82550; 82553; 83735; 84100; 84484; 85025; 85610; 93005; 93010; 96365; 96367; 96374; 96375; 99283; A4222; G0434; J1940; J2270

== ENCOUNTER 2017-04-27 19:25 | Emergency (ER) | payer SELFPAY ==
[2017-04-27 19:32] VITALS: BMI 26.6
[2017-04-27] MEDS ORDERED: DUONEB 0.5 MG/3 MG NEB ONE (20:28)
[2017-04-27] MEDS ORDERED: NS 1000 ML 1,000 ML ONE (20:29)
[2017-04-27] MEDS ORDERED: TORADOL 30 MG VIAL ONE (20:29)
--- NOTE | 2017-04-27 20:29 | DR.GENAD ---
HPI - PCP Primary Care Physician: gabriela - Complaint/Symptoms Chief Complaint Doctors Comments: Patient admits to cold symptoms for couple of days. Admits to frequent cough. Chief Complaint:: cough, cold, congestion Self Treatment fo Chief Complaint: nyquil and dayquil - Source History Provided: Patient - Mode of Arrival Mode of Arrival: Ambulatory - Timing Onset of Chief Complaint: 04/25/17 PMH - PMH Past Medical History: Yes Past Medical History: Anxiety, CHF, Hypertension Past Surgical History: Yes Surgical History: Tonsillectomy - Family History History of Family Medical Conditions: Yes Family Medical History: Diabetes Mellitus, Cancer, [place], Coronary Artery Disease, Heart Failure, Hypertension - Social History Does patient currently use any type of tobacco product: No Have you used tobacco products in the last 12 months: No Type of Tobacco Use: Cigarettes Does any household member use tobacco: No Alcohol Use: None Do you use any recreational Drugs:: No Lives With: Family Lives Where: Home - infectious screening In the last 2 months have you had wt loss of >10#?: NO Have you had fever, night sweats or hemotysis?: No Have you traveled outside the country in the last 6 months?: No Isolation: Standard ROS - Review of Systems Constitutional: negative: Diaphoresis ENTM: No Symptoms Reported Respiratoy: Non-Productive Cough, Wheezing (posterior base) Cardiovascular: No Symptoms Reported Gastrointestinal/Abdominal: No Symptoms Reported Genitourinary: No Symptoms Reported Neurological: No Symptoms Reported Musculoskeletal: No Symptoms Reported Integumentary: No Symptoms Reported Hematologic/Lymphatic: No Symptoms Reported Endocrine: No Symptoms Reported Psychiatric: No Symptoms Reported All Other Systems: Reviewed and Negative PE - Vital Signs Vitals: Temperature 98.1 F Pulse Rate 122 Respiratory Rate 18 Blood Pressure [Right Arm] 130/88 Blood Pressure [Left Arm] 145/85 Blood Pressure 151/95 O2 Sat by Pulse Oximetry 100 - General Limitations: No Limitations General Appearance: Alert, In No Apparent Distress - Head Head Exam: Normal Inspection - Eyes Eye exam: Normal Appearance, PERRL, EOMI - ENT ENT Exam: Normal Exam External Ear Exam: Normal External Inspection TM/Canal Exam: Bilateral Normal Nose Exam: Normal Nose Exam, Sinus Tenderness Mouth Exam: Normal Inspection Throat Exam: Normal Inspection - Neck Neck Exam: Normal Inspection, Full ROM - Chest Chest Inspection: Normal Inspection - Respiratory Respiratory Exam: Prolonged Expiratory Phase. negative: Respiratory Distress Respiratory Exam: Bilateral Wheezing (bases) - Cardiovascular Cardiovascular Exam: Regular Rate, Normal Rhythm - Abdominal Exam Abdominal Exam: Normal Inspection Abdominal Tenderness: negative: RUQ, RLQ, LUQ, LLQ, Epigastrium, Suprapubic, Diffuse, Mild, Moderate, Severe, Other - Extremities Extremities Exam: Normal Inspection, Full ROM - Back Back Exam: Normal Inspection - Neurologic Neurological Exam: Alert, Oriented X3, CN II-XII Intact - Psychiatric Psychiatric Exam: Normal Affect - Skin Skin Exam: Warm, Dry, Intact Course - Reevaluation 1st: Improved ROR - Labs Reviewed Laboratory Results Reviewed?: Yes (influenza negative) Laboratory: Influenza Type A (PCR) Negative (NEGATIVE) 04/27/17 20:03 Influenza Type B (PCR) Negative (NEGATIVE) 04/27/17 20:03 - Diagnosis Discharge Problem: Wheezing associated respiratory illness - Discharge Plan Condition: Stable - Follow ups/Referrals Follow ups/Referrals: NFD,None [Primary Care Provider] - 3 days - Instructions
[2017-04-27] MEDS ORDERED: TORADOL 30 MG VIAL IVP ONE (20:30)
[2017-04-27] MEDS ORDERED: DUONEB 0.5 MG/3 MG ONE (20:52)
[2017-04-27] MEDS ORDERED: NS 1000 ML 1,000 ML IV SCH (21:00)
[2017-04-27 21:29] VITALS: BP 137/92
--- NOTE | 2017-04-27 23:13 | RAD ---
HISTORY: Cough x2 days. Study: Portable chest. Comparison: Chest x-ray dated February 27, 2017. Findings: The trachea is midline. The cardiac silhouette is enlarged without overt signs of failure. No obvio us focal consolidation, pleural effusion, or pneumothorax. The bony thorax is unremarkable. IMPRESSION: No acute cardiopulmonary disease. Reported By:
== END 2017-04-27 21:20 | disposition home or self-care (01) ==
LOC: ER 19:36
DX: R06.2 Wheezing (principal)
CPT/HCPCS: 71045; 87502; 94640; 96365; 96367; 96374; 99283; A4222; J1885; J7620

== ENCOUNTER 2017-06-01 12:53 | Inpatient (IN) | payer SELFPAY ==
[2017-06-01 12:57] VITALS: BMI 27.4
--- NOTE | 2017-06-01 14:22 | DR.SOBA ---
HPI - Time Seen Time seen: 13:00 - Primary Care Physician Primary Care Physician: PRASHANT - HPI Comment HPI Comment: Patient presents with complaint of shortness of breath for a couple of days. He denies vomiting, diarrhea or fever. Patient has severe cardipmyopathy. - Complaints Chief Complaint Doctors Comments: Patient presents with complaint of shortness of breath for a couple of days. He presents with tachypnes and shallow breathing. He has severe cardiomyopthy with less than 10-15% function. Chief Complaint:: PT. C/O SHORTNESS OF BREATH, SWELLING, AND CHEST PAIN. PT. STATES HIS HEART IS ONLY FUNCTIONING AT 10%. - Source History Provided: Patient, Family Member - Mode of Arrival Mode of Arrival: Ambulatory - Timing Onset of Chief Complaint: 05/30/17 PMH - PMH Past Medical History: Yes Past Medical History: Anxiety, CHF, Hypertension Past Surgical History: Yes Surgical History: Tonsillectomy - Family History History of Family Medical Conditions: Yes Family Medical History: Diabetes Mellitus, Cancer, [place], Coronary Artery Disease, Heart Failure, Hypertension - Social History Does patient currently use any type of tobacco product: Yes Have you used tobacco products in the last 12 months: Yes Type of Tobacco Use: Cigarettes Does any household member use tobacco: No Alcohol Use: None Do you use any recreational Drugs:: No Lives With: Family Lives Where: Home - infectious screening In the last 2 months have you had wt loss of >10#?: NO Have you had fever, night sweats or hemotysis?: No Have you traveled outside the country in the last 6 months?: No Isolation: Standard ROS - Review of Systems Eyes: No Symptoms Reported ENTM: No Symptoms Reported Respiratoy: No Symptoms Reported Cardiovascular: No Symptoms Reported Gastrointestinal/Abdominal: No Symptoms Reported Genitourinary: No Symptoms Reported Neurological: No Symptoms Reported Musculoskeletal: No Symptoms Reported Integumentary: No Symptoms Reported Hematologic/Lymphatic: No Symptoms Reported Endocrine: No Symptoms Reported Psychiatric: No Symptoms Reported All Other Systems: Reviewed and Negative PE - Vital Signs Vitals: Temperature 97.6 F Pulse Rate [Apical] 109 Pulse Rate 127 Respiratory Rate 18 Blood Pressure [Right Arm] 130/88 Blood Pressure [Left Arm] 140/84 Blood Pressure 155/89 O2 Sat by Pulse Oximetry 100 - General Limitations: No Limitations, Physical Limitation General Appearance: Alert, Anxious, Other (tachypneic) - Head Head Exam: Normal Inspection, Atraumatic - Eyes Eye exam: Normal Appearance, PERRL, EOMI - ENT ENT Exam: Normal Exam - Neck Neck Exam: Normal Inspection, Full ROM - Chest Chest Inspection: Normal Inspection, Symmetric Chest Wall Rise - Respiratory Respiratory Exam: Normal Lung Sounds Bilat Respiratory Exam: Bilateral Clear to Auscultation - Cardiovascular Cardiovascular Exam: Tachycardia - Abdominal Exam Abdominal Exam: Normal Inspection, Normal Bowel Sounds, Soft Abdominal Tenderness: RUQ, RLQ, LUQ - Extremities Extremities Exam: Normal Inspection, Full ROM - Back Back Exam: Normal Inspection, Full ROM - Neurologic Neurological Exam: Alert, Oriented X3, CN II-XII Intact - Psychiatric Psychiatric Exam: Normal Affect - Skin Skin Exam: Warm, Dry, Intact Course - Treatment Treatment: Lasix 40mg voided 875ml of urine - Consultation Called: 14:10 (Dr Nicholas agreed to admit for further treatment) - Education/Counseling Educated On: Treatment ROR - Labs Reviewed Result Diagrams: 06/01/17 14:28 06/01/17 14:28 Laboratory: WBC 11.2 X10^3/uL (3.6-10.0) H 06/01/17 14:28 RBC 5.56 X10^6/uL (4.7-6.0) 06/01/17 14:28 Hgb 13.3 g/dL (13.5-18.0) L 06/01/17 14:28 Hct 41.9 % (42.0-54.0) L 06/01/17 14:28 MCV 75.4 fL (80.0-100.0) L 06/01/17 14:28 MCH 24.0 pg (27.0-34.0) L 06/01/17 14:28 MCHC 31.8 g/dL (33.0-35.0) L 06/01/17 14:28 RDW 21.4 % (11.6-16.5) H 06/01/17 14:28 Plt Count 318 X10^3/uL (150.0-450.0) 06/01/17 14:28 Plt Count Comment Adequate (ADEQUATE) 06/01/17 14:28 MPV 7.2 fL (7.4-11.0) L 06/01/17 14:28 Neut % (Auto) 68.1 % (42.0-75.0) 06/01/17 14: Lymph % (Auto) 18.9 % (21.0-51.0) L 06/01/17 14: [place] % (Auto) 9.1 % (0.0-13.0) 06/01/17 14: Eos % (Auto) 2.5 % (0.9-2.9) 06/01/17 14: Baso % (Auto) 1.4 % (0.2-1.0) H 06/01/17 14:28 Neut # (Auto) 7.6 x10^3/uL (2.2-4.8) H 06/01/17 14: Lymph # (Auto) 2.1 X10^3/uL (1.3-2.9) 06/01/17 14: [place] # (Auto) 1.0 x10^3/uL (0.3-0.8) H 06/01/17 14: Eos # (Auto) 0.3 x10^3/uL (0.0-0.2) H 06/01/17 14:28 Baso # (Auto) 0.2 X10^3/uL (0.0-0.1) H 06/01/17 14: Absolute Nucleated RBC 0.0 /100WBC 06/01/17 14:28 Plt Morphology Comment Normal (NORMAL) 06/01/17 14: RBC Morphology Abnormal (NORMAL) 06/01/17 14:28 Poikilocytosis Slight A 06/01/17 14: Anisocytosis 1+ A 06/01/17 14:28 INR Target Range - 06/01/17 14:28 INR 1.08 (0.8-1.3) 06/01/17 14:28 APTT 29.9 SECONDS (22.9-36.5) 06/01/17 14:28 PTT Comment - 06/01/17 14:28 D-Dimer < 100 ng/mL (0-400) 06/01/17 14:28 Sodium 140 mmol/L (136-145) 06/01/17 14:28 Corrected Sodium TNP 06/01/17 14:28 Potassium 4.4 mmol/L (3.5-5.1) 06/01/17 14:28 Chloride 106 mmol/L (98-107) 06/01/17 14:28 Carbon Dioxide 25.6 mmol/L (21-32) 06/01/17 14:28 BUN 16 mg/dL (7-18) 06/01/17 14:28 Creatinine 1.06 mg/dL (0.70-1.30) 06/01/17 14:28 Est GFR (MDRD) Af Amer > 60 (>60) 06/01/17 14:28 Est GFR (MDRD) Non-Af > 60 (>60) 06/01/17 14:28 Glucose 85 mg/dL (65-99) 06/01/17 14:28 Calcium 8.4 mg/dL (8.5-10.1) L 06/01/17 14:28 Corrected Calcium 9.0 mg/dL (8.5-10.1) 06/01/17 14:28 Total Bilirubin 0.50 mg/dL (0.2-1.0) 06/01/17 14:28 AST 38 Units/L (15-37) H 06/01/17 14:28 ALT 40 Units/L (12-78) 06/01/17 14:28 Alkaline Phosphatase 154 Units/L (46-116) H 06/01/17 14:28 Creatine Kinase 149 Units/L (39-308) 06/01/17 14:28 CK-MB (CK-2) 4.1 ng/mL (0-4.0) H 06/01/17 14:28 CK/CKMB % Calc 2.8 % (<4) 06/01/17 14:28 Troponin I 0.05 ng/mL (0-1.5) 06/01/17 14:28 B-Natriuretic Peptide 1750 pg/mL (0-79) H* 06/01/17 14:28 Total Protein 7.3 g/dL (6.4-8.2) 06/01/17 14:28 Albumin 3.2 g/dL (3.4-5.0) L 06/01/17 14:28 Globulin 4.1 g/dL (2.5-4.5) 06/01/17 14:28 Albumin/Globulin Ratio 0.8 Ratio (1.1-2.1) L 06/01/17 14:28 Specimen Type Random urine 06/01/17 16:34 Urine Color Yellow (YELLOW) 06/01/17 16:34 Urine Appearance Clear (CLEAR) 06/01/17 16:34 Urine pH 6.5 (5.0 - 8.0) 06/01/17 16:34 Ur Specific [place] 1.015 (1.000-1.030) 06/01/17 16:34 Urine Protein Negative (NEGATIVE) 06/01/17 16:34 Urine Glucose (UA) Negative (NEGATIVE) 06/01/17 16:34 Urine Ketones Negative (NEGATIVE) 06/01/17 16:34 Urine Occult Blood Negative (NEGATIVE) 06/01/17 16:34 Urine Nitrite Negative (NEGATIVE) 06/01/17 16:34 Urine Bilirubin Negative (NEGATIVE) 06/01/17 16:34 Urine Urobilinogen Normal (NORMAL) 06/01/17 16:34 Ur Leukocyte Esterase Negative (NEGATIVE) 06/01/17 16:34 Urine RBC 0-1 /HPF (NONE SEEN) 06/01/17 16:34 Urine WBC None seen /HPF (NONE SEEN) 06/01/17 16:34 Ur Squamous Epith Cells Negative /HPF (NEGATIVE) 06/01/17 16:34 Amorphous Sediment Trace /HPF (NEGATIVE) 06/01/17 16:34 Urine Bacteria Negative /HPF (NEGATIVE) 06/01/17 16:34 Ur Culture Indicated? No/not indicated 06/01/17 16:34 Urine Opiates Screen Negative (NEG=<300) 06/01/17 16:34 Urine Methadone Screen Negative (NEG=<300) 06/01/17 16:34 Ur Barbiturates Screen Negative (NEG=<200) 06/01/17 16:34 Ur Phencyclidine Scrn Negative (NEG=<25) 06/01/17 16:34 Ur Amphetamines Screen Positive (NEG=<1000) 06/01/17 16:34 U Benzodiazepines Scrn Negative (NEG=<200) 06/01/17 16:34 Urine Cocaine Screen Negative (NEG=<300) 06/01/17 16:34 U Marijuana (THC) Screen Negative (NEG=<50) 06/01/17 16:34 - XRAY XRAY Interpreted by: Radiologist (Minimal central pulmonary vascular congestion is noted. Moderate cardiomegaly is present. Minimal thoracic sponylosis is noted. Impression: Moderate cardiomegaly with minimal pulmonary vascular congestion.) - Diagnosis Discharge Problem: CHF (congestive heart failure) Qualifiers: Heart failure type: unspecified Heart failure chronicity: acute on chronic Qualified Code(s): I50.9 - Heart failure, unspecified Dyspnea Qualifiers: Dyspnea type: shortness of breath Qualified Code(s): R06.02 - Shortness of breath; R06.00 - Dyspnea, unspecified; R06.01 - Orthopnea - Discharge Plan Condition: Stable - Follow ups/Referrals Follow ups/Referrals: Luis Nicholas [Primary Care Provider] - 3 days - Instructions
[2017-06-01 14:38] LABS: BASOPHILS # (AUTO) 0.2 X10^3/uL (0.0-0.1); BASOPHILS % (AUTO) 1.4 % (0.2-1.0); EOSINOPHILS # (AUTO) 0.3 x10^3/uL (0.0-0.2); EOSINOPHILS % (AUTO) 2.5 % (0.9-2.9); HEMATOCRIT 41.9 % (42.0-54.0); HEMOGLOBIN 13.3 g/dL (13.5-18.0); LYMPHOCYTES # (AUTO) 2.1 X10^3/uL (1.3-2.9); LYMPHOCYTES % (AUTO) 18.9 % (21.0-51.0); MEAN CORPUSCULAR HGB CONC 31.8 g/dL (33.0-35.0); MEAN CORPUSCULAR VOLUME 75.4 fL (80.0-100.0); MEAN PLATELET VOLUME 7.2 fL (7.4-11.0); MONOCYTES % (AUTO) 9.1 % (0.0-13.0); NEUTROPHILS # (AUTO) 7.6 x10^3/uL (2.2-4.8); NEUTROPHILS % (AUTO) 68.1 % (42.0-75.0); PLATELET COUNT 318 X10^3/uL (150.0-450.0); RED BLOOD COUNT 5.56 X10^6/uL (4.7-6.0); RED CELL DISTRIBUTION WIDTH 21.4 % (11.6-16.5); WHITE BLOOD COUNT 11.2 X10^3/uL (3.6-10.0)
[2017-06-01 14:47] LABS: ANISOCYTOSIS 1+; PLATELET MORPHOLOGY COMMENT NORMAL (NORMAL); POIKILOCYTOSIS SLIGHT
--- NOTE | 2017-06-01 14:56 | RAD ---
HISTORY: Chest pain. Shortness of breath. Study: PA and lateral chest Comparison: 04/27/2017 Findings: Minimal central pulmonary vascular congestion is noted. Moderate cardiomegaly is present. Minimal t horacic spondylosis is noted. IMPRESSION: 1. Moderate cardiomegaly with minimal central pulmonary vascular congestion. 2. No significant change is noted when compared to the prior examination. Reported By:
[2017-06-01 15:05] LABS: B-TYPE NATRIURETIC PEPTIDE 1750 pg/mL (0-79)
[2017-06-01 15:12] LABS: BLOOD UREA NITROGEN 16 mg/dL (7-18); CALCIUM 8.4 mg/dL (8.5-10.1); CARBON DIOXIDE 25.6 mmol/L (21-32); CHLORIDE 106 mmol/L (98-107); CREATININE 1.06 mg/dL (0.70-1.30); SODIUM 140 mmol/L (136-145); TROPONIN I 0.05 ng/mL (0-1.5); eGFR BLACK RACES > 60 (>60); eGFR NON BLACK RACES > 60 (>60)
[2017-06-01] MEDS ORDERED: LASIX IVP ONE ×2 (15:13→15:18)
[2017-06-01] MEDS ORDERED: MORPHINE SULFATE INJ 4 MG IVP ONE (15:18)
[2017-06-01] MEDS ORDERED: MORPHINE SULFATE INJ 4 MG ONE (15:19)
[2017-06-01 15:36] LABS: ALANINE AMINOTRANSFERASE 40 Units/L (12-78); ALBUMIN 3.2 g/dL (3.4-5.0); ALKALINE PHOSPHATASE 154 Units/L (46-116); ASPARTATE AMINO TRANSFERASE 38 Units/L (15-37); CKMB % 2.8 % (<4); CREATINE KINASE 149 Units/L (39-308); TOTAL PROTEIN 7.3 g/dL (6.4-8.2)
[2017-06-01 15:37] LABS: CREATINE KINASE MB 4.1 ng/mL (0-4.0)
[2017-06-01 16:43] LABS: BILIRUBIN,URINE NEGATIVE (NEGATIVE); BLOOD/HEMOGLOBIN,URINE NEGATIVE (NEGATIVE); GLUCOSE, URINE NEGATIVE (NEGATIVE); KETONES,URINE NEGATIVE (NEGATIVE); LEUKOCYTE ESTERASE ,URINE NEGATIVE (NEGATIVE); NITRITES,URINE NEGATIVE (NEGATIVE); PH,URINE 6.5 (5.0 - 8.0); PROTEIN,URINE NEGATIVE (NEGATIVE); UROBILINOGEN,URINE NORMAL (NORMAL)
[2017-06-01 16:49] LABS: AMORPHOUS SEDIMENT,UR TRACE /HPF (NEGATIVE); APPEARANCE,URINE CLEAR (CLEAR); BACTERIA,URINE NEGATIVE /HPF (NEGATIVE); COLOR,URINE YELLOW (YELLOW); RBC,URINE 0-1 /HPF (NONE SEEN); SQUAMOUS EPITHELIAL CELL,UR NEGATIVE /HPF (NEGATIVE)
[2017-06-01] MEDS ORDERED: ZOFRAN INJ 4 MG VIAL IVP PRN (17:16)
[2017-06-01] MEDS: NS 1000 ML 1,000 ML IV SCH (17:55)
[2017-06-01] MEDS: LASIX IVP SCH (20:32)
[2017-06-01] MEDS: MORPHINE SULFATE INJ 4 MG IVP PRN (21:43)
[2017-06-02 05:32] LABS: BASOPHILS # (AUTO) 0.1 X10^3/uL (0.0-0.1); BASOPHILS % (AUTO) 1.2 % (0.2-1.0); EOSINOPHILS # (AUTO) 0.3 x10^3/uL (0.0-0.2); EOSINOPHILS % (AUTO) 2.8 % (0.9-2.9); HEMATOCRIT 39.6 % (42.0-54.0); HEMOGLOBIN 12.8 g/dL (13.5-18.0); LYMPHOCYTES # (AUTO) 2.7 X10^3/uL (1.3-2.9); LYMPHOCYTES % (AUTO) 24.2 % (21.0-51.0); MEAN CORPUSCULAR HGB CONC 32.3 g/dL (33.0-35.0); MEAN CORPUSCULAR VOLUME 74.3 fL (80.0-100.0); MEAN PLATELET VOLUME 7.2 fL (7.4-11.0); MONOCYTES % (AUTO) 8.5 % (0.0-13.0); NEUTROPHILS # (AUTO) 7.1 x10^3/uL (2.2-4.8); NEUTROPHILS % (AUTO) 63.3 % (42.0-75.0); PLATELET COUNT 316 X10^3/uL (150.0-450.0); RED BLOOD COUNT 5.33 X10^6/uL (4.7-6.0); RED CELL DISTRIBUTION WIDTH 21.2 % (11.6-16.5); WHITE BLOOD COUNT 11.2 X10^3/uL (3.6-10.0)
[2017-06-02 05:43] LABS: ALANINE AMINOTRANSFERASE 40 Units/L (12-78); ALBUMIN 3.2 g/dL (3.4-5.0); ALKALINE PHOSPHATASE 150 Units/L (46-116); ASPARTATE AMINO TRANSFERASE 39 Units/L (15-37); BLOOD UREA NITROGEN 18 mg/dL (7-18); CALCIUM 8.1 mg/dL (8.5-10.1); CARBON DIOXIDE 24.8 mmol/L (21-32); CHLORIDE 104 mmol/L (98-107); COR CA(FOR HYPOALB) 8.7 mg/dL (8.5-10.1); CREATININE 1.09 mg/dL (0.70-1.30); SODIUM 139 mmol/L (136-145); TOTAL PROTEIN 7.1 g/dL (6.4-8.2); eGFR BLACK RACES > 60 (>60); eGFR NON BLACK RACES > 60 (>60)
[2017-06-02 06:02] LABS: ANISOCYTOSIS 1+; HYPOCHROMASIA 1+; PLATELET MORPHOLOGY COMMENT NORMAL (NORMAL); POIKILOCYTOSIS SLIGHT
[2017-06-02 06:03] LABS: OVALOCYTES PRESENT
[2017-06-02] MEDS: NS 1000 ML 1,000 ML IV SCH ×2 (07:49→23:54)
[2017-06-02] MEDS: MORPHINE SULFATE INJ 4 MG IVP PRN ×3 (07:49→20:22)
[2017-06-02] MEDS: LASIX IVP SCH ×2 (08:26→20:22)
[2017-06-02] MEDS: LANOXIN PO SCH (08:27)
[2017-06-02] MEDS: PROzac PO SCH (08:28)
[2017-06-02] MEDS: ZESTRIL TAB 5 MG PO SCH (08:28)
[2017-06-02] MEDS ORDERED: PATIENT'S HOME MEDICATION (Fluoxetine Hcl [Prozac Cap 40 Mg] 40 MG) PO SCH (09:00)
--- NOTE | 2017-06-02 21:18 | DR.H&P ---
H&P - History & Physical for Day of: H&P Date: 06/01/17 - Chief Complaint Chief Complaint: SHORT OF BREATH - Allergies Allergies/Adverse Reactions: Allergies Allergy/AdvReac Type Severity Reaction Status Date / Time No Known Drug Allergies Allergy Verified 06/01/17 12:57 - History of Present Illness History of Present Illness: IS A 36 YEAR OLD PATIENT OF OURS WHO PRESENTED TO THE EMERGENCY ROOM WITH COMPLAINTS OF SHORTNESS OF BREATH, BILATERAL LOWER EXTREMITY EDEMA, AND CHEST PAIN FOR TWO DAYS. HE DENIES FEVER, VOMITING, OR DIARRHEA. UPON ARRIVAL TO THE ER, PATIENT IS NOTED WITH TACHYCARDIA AND SHALLOW RESPIRATIONS. HE HAS A MEDICAL HISTORY SIGNIFCANT FOR CARDIOMYOPATHY AND CONGESTIVE HEART FAILURE. HE REPORTS THAT HIS MOST RECENT ECHOCARDIOGRAM REPORTED AN EJECTION FRACTION OF 10%. ON ARRIVAL, VITALS WERE NOTED TO BE 97.9-920-59-99-155/89. LABS WERE OBTAINED. ABNORMAL LAB VALUES INCLUDE THE FOLLOWING: WBC 11.2, HGB 13.3, HCT 41.9, CALCIUM 8.4, AST 38, ALK PHOS 154, CK-MB 4.1, BNP 1750, ALBUMIN 3.2. A CHEST XRAY WAS OBTAINED AND REVEALED MODERATE CARDIOMEGALY WITH MINIMAL CENTRAL PULMONARY VASCULAR CONGESTION. EKG REVEALED SINUS TACHYCARDIA WITH HR 128. PATIENT WAS GIVEN LASIX 40MG IV X 1, MORPHINE SULFATE 4MG IV X 1, AND STARTED ON NORMAL SALINE AT 80ML/ HR. ONLY SLIGHT IMPROVEMENT IN SYMPTOMS NOTED. PATIENT WAS ADMITTED FOR FURTHER TREATMENT AND EVALUATION OF CONGESTIVE HEART FAILURE AND DYSPNEA. WE PLAN TO FOLLOW UP WITH AM LABS AND CHEST XRAY AND CONTINUE TO MONITOR PATIENT. - Past Medical History Past Medical History: Anxiety, CHF, Hypertension Additional Medical History: Enlarged Tonsils - Past Surgical History Surgical History: Tonsillectomy - Family History Family Medical History: Diabetes Mellitus, Cancer, [place], Coronary Artery Disease, Heart Failure, Hypertension - Social History Does patient currently use any type of tobacco product: Yes Have you used tobacco products in the last 12 months: Yes Type of Tobacco Use: Cigarettes Does any household member use tobacco: No Alcohol Use: None Drug Use: None - Review of Systems Constitutional: No Symptoms Reported Eyes: No Symptoms Reported ENT: No Symptoms Reported Respiratory: Shortness of Breath Cardiovascular: Chest Pain, Edema (BILATERAL LOWER EXTREMITIES ) Gastrointestinal: No Symptoms Reported Genitourinary: No Symptoms Reported Musculoskeletal: No Symptoms Reported Skin: No Symptoms Reported Neurological: No Symptoms Reported - Physical Exam Vital Signs: Temperature 97.7 F Pulse Rate [Left Brachial] 108 Pulse Rate [Apical] 109 Pulse Rate 114 Respiratory Rate 22 Blood Pressure [Right Arm] 130/88 Blood Pressure [Left Arm] 113/72 Blood Pressure 155/89 O2 Sat by Pulse Oximetry 96 Oriented: Normal Eyes: Normal Ear: Normal Nose: Normal Throat: Normal Respiratory: Diminished Throughout Cardiovascular: Tachycardia, Edema (BILATERAL LOWER EXTREMITY 1+ PITTING EDEMA ) . negative: S3, S4, Murmur : Normal Auscultation: Bowel Sounds: Normal Palpation: Normal Tenderness: Normal Skin: Normal Musculoskeletal: Normal Psychiatric: Normal Mood Description: Calm Affect: Normal Speech Pattern: Clear - Assessment/Plan (1) CHF (congestive heart failure) Qualifiers: Heart failure type: unspecified Heart failure chronicity: acute on chronic Qualified Code(s): I50.9 - Heart failure, unspecified Status: Acute Plan: LASIX 20MG IV BID, CONTINUE ZESTRIL, CONTINUE LANOXIN, CONTINUE TO MONITOR (2) Dyspnea Qualifiers: Dyspnea type: shortness of breath Qualified Code(s): R06.02 - Shortness of breath; R06.00 - Dyspnea, unspecified; R06.01 - Orthopnea Status: Acute Plan: LASIX 20MG IV BID, SUPPLEMENTAL OXYGEN, CONTINUE TO MONITOR
[2017-06-03] MEDS: MORPHINE SULFATE INJ 4 MG IVP PRN (04:43)
[2017-06-03 05:56] LABS: BASOPHILS # (AUTO) 0.1 X10^3/uL (0.0-0.1); EOSINOPHILS # (AUTO) 0.3 x10^3/uL (0.0-0.2); EOSINOPHILS % (AUTO) 2.6 % (0.9-2.9); HEMATOCRIT 40.8 % (42.0-54.0); LYMPHOCYTES # (AUTO) 2.5 X10^3/uL (1.3-2.9); LYMPHOCYTES % (AUTO) 23.2 % (21.0-51.0); MEAN CORPUSCULAR HEMOGLOBIN 23.8 pg (27.0-34.0); MEAN CORPUSCULAR HGB CONC 31.9 g/dL (33.0-35.0); MEAN CORPUSCULAR VOLUME 74.6 fL (80.0-100.0); MEAN PLATELET VOLUME 7.1 fL (7.4-11.0); MONOCYTES # (AUTO) 0.9 x10^3/uL (0.3-0.8); MONOCYTES % (AUTO) 8.5 % (0.0-13.0); NEUTROPHILS % (AUTO) 64.7 % (42.0-75.0); PLATELET COUNT 307 X10^3/uL (150.0-450.0); RED BLOOD COUNT 5.46 X10^6/uL (4.7-6.0); RED CELL DISTRIBUTION WIDTH 21.3 % (11.6-16.5); WHITE BLOOD COUNT 10.8 X10^3/uL (3.6-10.0)
[2017-06-03 06:12] LABS: ALANINE AMINOTRANSFERASE 43 Units/L (12-78); ALKALINE PHOSPHATASE 148 Units/L (46-116); ASPARTATE AMINO TRANSFERASE 52 Units/L (15-37); BLOOD UREA NITROGEN 19 mg/dL (7-18); CALCIUM 7.9 mg/dL (8.5-10.1); CARBON DIOXIDE 25.2 mmol/L (21-32); CHLORIDE 103 mmol/L (98-107); COR CA(FOR HYPOALB) 8.7 mg/dL (8.5-10.1); CREATININE 1.07 mg/dL (0.70-1.30); SODIUM 139 mmol/L (136-145); eGFR BLACK RACES > 60 (>60); eGFR NON BLACK RACES > 60 (>60)
[2017-06-03 06:28] LABS: PLATELET MORPHOLOGY COMMENT NORMAL (NORMAL)
[2017-06-03 06:29] LABS: ANISOCYTOSIS 1+; HYPOCHROMASIA 1+; MICROCYTOSIS SLIGHT; POIKILOCYTOSIS SLIGHT
--- NOTE | 2017-06-03 07:00 | RAD ---
HISTORY: Chest pain, shortness of breath Study: Chest AP portable Comparison: 06/01/2017 Findings: The heart remains enlarged. No congestive heart failure is noted. No acute alveolar infiltrates or pl eural effusions are identified. The bony thorax is unremarkable. IMPRESSION: Cardiomegaly without congestive heart failure Lungs clear Reported By:
[2017-06-03] MEDS: NS 1000 ML 1,000 ML IV SCH (08:32)
[2017-06-03] MEDS: LASIX IVP SCH (08:32)
[2017-06-03] MEDS: PROzac PO SCH (08:32)
[2017-06-03] MEDS: LANOXIN PO SCH (08:33)
[2017-06-03] MEDS: ZESTRIL TAB 5 MG PO SCH (08:33)
[2017-06-03 10:03] VITALS: BP 110/78
== END 2017-06-03 11:30 | disposition home or self-care (01) | DRG 293 ==
LOC: ER 13:15 → MED/SURG 17:06
PROVIDERS: ADMIT Internal Medicine; ATTEND Internal Medicine
DX: I50.9 Heart failure, unspecified (principal); R06.09 Other forms of dyspnea; R06.02 Shortness of breath; R07.89 Other chest pain; F41.8 Other specified anxiety disorders; I10 Essential (primary) hypertension; R94.31 Abnormal electrocardiogram [ECG] [EKG]; I51.7 Cardiomegaly; R60.0 Localized edema
CPT/HCPCS: 36415; 71045; 71046; 80053; 80162; 80307; 81001; 82550; 82553; 83880; 84484; 85025; 85378; 85610; 85730; 93005; 93010; 94760; 96365; 96374; 96375; 99284; A4222; G0434; J1940; J2270

== ENCOUNTER 2017-06-14 16:36 | Emergency (ER) | payer SELFPAY ==
[2017-06-14 16:41] VITALS: BMI 25.7
--- NOTE | 2017-06-14 17:08 | RAD ---
HISTORY: Chest pain, breast Study: Single-view of the chest Comparison: June 03, 2017 Findings: The patient is rotated. The cardiac silhouette is enlarged with mild prominence of the central pulmo nary vasculature. No evidence of focal consolidation is appreciated. Mild blunting of left costoph renic angle may reflect pleural thickening and/or small effusion. IMPRESSION: 1. Cardiomegaly with mild prominence of the central pulmonary vasculature. Reported By:
[2017-06-14 17:22] LABS: BASOPHILS # (AUTO) 0.2 X10^3/uL (0.0-0.1); BASOPHILS % (AUTO) 1.6 % (0.2-1.0); EOSINOPHILS # (AUTO) 0.2 x10^3/uL (0.0-0.2); EOSINOPHILS % (AUTO) 1.8 % (0.9-2.9); HEMOGLOBIN 12.8 g/dL (13.5-18.0); LYMPHOCYTES # (AUTO) 2.1 X10^3/uL (1.3-2.9); MEAN PLATELET VOLUME 7.6 fL (7.4-11.0); MONOCYTES # (AUTO) 0.9 x10^3/uL (0.3-0.8); MONOCYTES % (AUTO) 9.2 % (0.0-13.0); NEUTROPHILS # (AUTO) 6.7 x10^3/uL (2.2-4.8); NEUTROPHILS % (AUTO) 66.4 % (42.0-75.0); PLATELET COUNT 331 X10^3/uL (150.0-450.0); RED BLOOD COUNT 5.33 X10^6/uL (4.7-6.0); RED CELL DISTRIBUTION WIDTH 21.1 % (11.6-16.5); WHITE BLOOD COUNT 10.1 X10^3/uL (3.6-10.0)
[2017-06-14 17:34] LABS: BLOOD UREA NITROGEN 17 mg/dL (7-18); CARBON DIOXIDE 21.8 mmol/L (21-32); CHLORIDE 106 mmol/L (98-107); COR NA(FOR HYPERGLY) 141 mmol/L (136-145); CREATININE 1.41 mg/dL (0.70-1.30); SODIUM 140 mmol/L (136-145); TROPONIN I 0.06 ng/mL (0-1.5); eGFR BLACK RACES > 60 (>60); eGFR NON BLACK RACES > 60 (>60)
[2017-06-14 17:40] LABS: ANISOCYTOSIS 1+; PLATELET MORPHOLOGY COMMENT NORMAL (NORMAL)
--- NOTE | 2017-06-14 17:47 | DR.GENAD ---
HPI - PCP Primary Care Physician: gabriela - Complaint/Symptoms Chief Complaint Doctors Comments: Patient with chronic dyspnea and CHF with 10% ejection fraction. He is concerned about the dyspnea at night whe PND.. He denies having a primary care physician but is working on getting disability. Patient has orthopnea, PND and severe CHF. Chief Complaint:: pt stated he has chf and a couple of weeks ago he has been short of breath and today its worse. - Source History Provided: Patient - Mode of Arrival Mode of Arrival: Ambulatory - Timing Onset of Chief Complaint: 06/11/17 PMH - PMH Past Medical History: Yes Past Medical History: Anxiety, CHF, Hypertension Past Surgical History: Yes Surgical History: Tonsillectomy - Family History History of Family Medical Conditions: Yes Family Medical History: Diabetes Mellitus, Cancer, [place], Coronary Artery Disease, Heart Failure, Hypertension - Social History Does patient currently use any type of tobacco product: Yes Have you used tobacco products in the last 12 months: Yes Type of Tobacco Use: Cigarettes Does any household member use tobacco: No Alcohol Use: None Do you use any recreational Drugs:: No Lives With: Family Lives Where: Home - infectious screening In the last 2 months have you had wt loss of >10#?: NO Have you had fever, night sweats or hemotysis?: No Have you traveled outside the country in the last 6 months?: No Isolation: Standard ROS - Review of Systems Eyes: No Symptoms Reported ENTM: No Symptoms Reported Respiratoy: No Symptoms Reported Cardiovascular: No Symptoms Reported Gastrointestinal/Abdominal: No Symptoms Reported Genitourinary: No Symptoms Reported Neurological: No Symptoms Reported Musculoskeletal: No Symptoms Reported Integumentary: No Symptoms Reported Hematologic/Lymphatic: No Symptoms Reported Endocrine: No Symptoms Reported Psychiatric: No Symptoms Reported All Other Systems: Reviewed and Negative PE - Vital Signs Vitals: Temperature 98.7 F Pulse Rate 120 Respiratory Rate 18 Blood Pressure [Right Arm] 130/88 Blood Pressure [Left Arm] 110/78 Blood Pressure 130/81 O2 Sat by Pulse Oximetry 100 - General Limitations: No Limitations General Appearance: Alert, In No Apparent Distress - Head Head Exam: Normal Inspection, Atraumatic - Eyes Eye exam: Normal Appearance, PERRL, EOMI - ENT ENT Exam: Normal Exam External Ear Exam: Normal External Inspection TM/Canal Exam: Bilateral Normal Nose Exam: Normal Nose Exam Mouth Exam: Normal Inspection Throat Exam: Normal Inspection - Neck Neck Exam: Normal Inspection - Chest Chest Inspection: Normal Inspection - Respiratory Respiratory Exam: Normal Lung Sounds Bilat Respiratory Exam: Bilateral Clear to Auscultation - Cardiovascular Cardiovascular Exam: Regular Rate, Normal Rhythm - Abdominal Exam Abdominal Exam: Normal Inspection Abdominal Tenderness: negative: RUQ, RLQ, LUQ, LLQ, Epigastrium, Suprapubic, Diffuse, Mild, Moderate, Severe, Other - Extremities Extremities Exam: Normal Inspection, Full ROM - Back Back Exam: Normal Inspection, Full ROM - Neurologic Neurological Exam: Alert, Oriented X3, CN II-XII Intact - Psychiatric Psychiatric Exam: Normal Affect - Skin Skin Exam: Warm, Dry, Intact Course - Education/Counseling Education/Counseling: Counseling Educated On: Treatment, Diagnosis, Prognosis ROR - Labs Reviewed Result Diagrams: 06/14/17 17:03 06/14/17 17:03 - Diagnosis Discharge Problem: PND (paroxysmal nocturnal dyspnea) CHF (congestive heart failure) Qualifiers: Heart failure type: unspecified Heart failure chronicity: chronic Qualified Code(s): I50.9 - Heart failure, unspecified - Discharge Plan Condition: Stable - Follow ups/Referrals Follow ups/Referrals: Luis Nicholas [Primary Care Provider] - 3 days - Instructions
[2017-06-14 18:10] LABS: ALANINE AMINOTRANSFERASE 41 Units/L (12-78); ALBUMIN 3.4 g/dL (3.4-5.0); ALKALINE PHOSPHATASE 125 Units/L (46-116); ASPARTATE AMINO TRANSFERASE 36 Units/L (15-37); CKMB % 6.6 % (<4); CREATINE KINASE 87 Units/L (39-308); MAGNESIUM 1.4 mg/dL (1.7-2.9); TOTAL PROTEIN 7.1 g/dL (6.4-8.2)
[2017-06-14] MEDS ORDERED: MORPHINE SULFATE INJ 4 MG IM ONE (18:12)
[2017-06-14 18:14] LABS: CREATINE KINASE MB 5.7 ng/mL (0-4.0)
[2017-06-14] MEDS ORDERED: MORPHINE SULFATE INJ 4 MG ONE (18:15)
[2017-06-14 19:00] VITALS: BP 126/85
== END 2017-06-14 18:59 | disposition home or self-care (01) ==
LOC: ER 16:43
DX: I50.9 Heart failure, unspecified (principal); R06.00 Dyspnea, unspecified; R94.31 Abnormal electrocardiogram [ECG] [EKG]; I51.7 Cardiomegaly
CPT/HCPCS: 36415; 71045; 80053; 82550; 82553; 83735; 84484; 85025; 85610; 85730; 93005; 96372; 99282; 99283; J2270

== ENCOUNTER 2017-07-07 10:42 | Emergency (ER) | payer SELFPAY ==
[2017-07-07 10:47] VITALS: BMI 27.4
--- NOTE | 2017-07-07 10:52 | DR.EXTPAIN ---
HPI - Time seen Time seen: 10:50 - PCP Primary Care Physician: PRASHANT - Complaint/Symptoms Chief Complaint Doctor Comments: Patient presents with complaint of left popliteal pain for two days. He reports that the pain is 10/10 hurts with ambulation. He also states that he was discharged from [facility] two days ago s/p management of hypertension.. Patient is known to us due to his cardiac disease and very poor ejection fraction. Chief Complaint:: PT. C/O LEFT LEG PAIN, MAINLY BEHIND LEFT KNEE, WHICH STARTED YESTERDAY. PT. DENIES INJURY BUT STATES IT IS PAINFUL WHEN HE TRIES TO WALK ON HIS LEG. - Source History Provided: Patient - Mode of arrival Mode of Arrival: Wheelchair - Timing Onset of Chief Complaint: 07/06/17 PMH - PMH Past Medical History: Yes Past Medical History: Anxiety, CHF, Hypertension Past Surgical History: Yes Surgical History: Tonsillectomy - Family History History of Family Medical Conditions: Yes Family Medical History: Diabetes Mellitus, Cancer, [place], Coronary Artery Disease, Heart Failure, Hypertension - Social History Does patient currently use any type of tobacco product: Yes Have you used tobacco products in the last 12 months: Yes Type of Tobacco Use: Cigarettes Does any household member use tobacco: Yes Alcohol Use: Occasionally Do you use any recreational Drugs:: No Lives With: Significant Other Lives Where: Home - infectious screening In the last 2 months have you had wt loss of >10#?: NO Have you had fever, night sweats or hemotysis?: No Have you traveled outside the country in the last 6 months?: No Isolation: Standard ROS - Review of Systems Eyes: No Symptoms Reported ENTM: No Symptoms Reported Respiratoy: No Symptoms Reported Cardiovascular: No Symptoms Reported Gastrointestinal/Abdominal: No Symptoms Reported Genitourinary: No Symptoms Reported Neurological: No Symptoms Reported Musculoskeletal: Leg (left popliteal pain) Integumentary: No Symptoms Reported Hematologic/Lymphatic: No Symptoms Reported Endocrine: No Symptoms Reported Psychiatric: No Symptoms Reported All Other Systems: Reviewed and Negative PE - Vital Signs Vitals: Temperature 97.4 F Pulse Rate 122 Respiratory Rate 20 Blood Pressure [Right Arm] 130/88 Blood Pressure [Left Arm] 126/85 Blood Pressure 131/76 O2 Sat by Pulse Oximetry 100 - General Limitations: No Limitations General Appearance: Alert - Head Head Exam: Normal Inspection, Atraumatic - Eyes Eye exam: Normal Appearance, PERRL, EOMI - ENT ENT Exam: Normal Exam - Neck Neck Exam: Normal Inspection, Full ROM - Chest Chest Inspection: Normal Inspection - Respiratory Respiratory Exam: Normal Lung Sounds Bilat Respiratory Exam: Bilateral Clear to Auscultation - Cardiovascular Cardiovascular Exam: Regular Rate, Normal Rhythm - Abdominal Exam Abdominal Exam: Normal Inspection Abdominal Tenderness: negative: RUQ, RLQ, LUQ, LLQ, Epigastrium, Suprapubic, Diffuse, Mild, Moderate, Severe, Other - Extremities Extremities Exam: Normal Inspection, Full ROM - Upper Extremities Shoulder Exam: Normal Inspection Arm Exam: Normal Inspection Elbow Exam: Normal Inspection Forearm Exam: Normal Inspection, Full ROM Hand Exam: Normal Inspection Neuromotor Exam: Normal Exam Neurosensory Exam: Normal Exam Hand Tendon Exam: Flexor Digitorium Profundus (Location) Upper Ext. Vascular Exam: Capillary Refill - Lower Extremities Hip/Pelvis Exam: Normal Inspection Upper Leg Exam: Normal Inspection, Full ROM Knee Exam: Normal Inspection Lower Leg Exam: Normal Inspection, Tenderness (left popliteas pain) Ankle Exam: Normal Inspection Foot/Toe Exam: Normal Inspection Neurovascular/Tendon Exam: Normal Capillary Refill Gait Exam: Observed and Normal - Back Back Exam: Normal Inspection, Full ROM - Neurological Neurological Exam: Alert, Oriented X3, CN II-XII Intact - Psychiatric Psychiatric Exam: Normal Affect, Normal Mood - Skin Skin Exam: Warm, Dry Type of Lesion: Rash Distribution: Generalized Description: Size ROR - Labs Reviewed Result Diagrams: 07/07/17 11:02 07/07/17 11:02 Laboratory: WBC 10.6 X10^3/uL (3.6-10.0) H 07/07/17 11:02 RBC 5.68 X10^6/uL (4.7-6.0) 07/07/17 11:02 Hgb 13.7 g/dL (13.5-18.0) 07/07/17 11:02 Hct 42.5 % (42.0-54.0) 07/07/17 11:02 MCV 74.8 fL (80.0-100.0) L 07/07/17 11:02 MCH 24.1 pg (27.0-34.0) L 07/07/17 11:02 MCHC 32.2 g/dL (33.0-35.0) L 07/07/17 11:02 RDW 20.5 % (11.6-16.5) H 07/07/17 11:02 Plt Count 381 X10^3/uL (150.0-450.0) 07/07/17 11:02 Plt Count Comment Adequate (ADEQUATE) 07/07/17 11:02 MPV 7.4 fL (7.4-11.0) 07/07/17 11:02 Neut % (Auto) 67.4 % (42.0-75.0) 07/07/17 11:02 Lymph % (Auto) 18.6 % (21.0-51.0) L 07/07/17 11:02 [place] % (Auto) 10.6 % (0.0-13.0) 07/07/17 11:02 Eos % (Auto) 2.2 % (0.9-2.9) 07/07/17 11:02 Baso % (Auto) 1.2 % (0.2-1.0) H 07/07/17 11:02 Neut # (Auto) 7.1 x10^3/uL (2.2-4.8) H 07/07/17 11:02 Lymph # (Auto) 2.0 X10^3/uL (1.3-2.9) 07/07/17 11:02 [place] # (Auto) 1.1 x10^3/uL (0.3-0.8) H 07/07/17 11:02 Eos # (Auto) 0.2 x10^3/uL (0.0-0.2) 07/07/17 11:02 Baso # (Auto) 0.1 X10^3/uL (0.0-0.1) 07/07/17 11:02 Absolute Nucleated RBC 0.0 /100WBC 07/07/17 11:02 Plt Morphology Comment Normal (NORMAL) 07/07/17 11:02 RBC Morphology Abnormal (NORMAL) 07/07/17 11:02 Hypochromasia Slight A 07/07/17 11:02 Anisocytosis 2+ A 07/07/17 11:02 Microcytosis Slight A 07/07/17 11:02 INR Target Range - 07/07/17 11:02 INR 0.99 (0.8-1.3) 07/07/17 11:02 APTT 29.1 SECONDS (22.9-36.5) 07/07/17 11:02 PTT Comment - 07/07/17 11:02 Sodium 137 mmol/L (136-145) 07/07/17 11:02 Corrected Sodium TNP 07/07/17 11:02 Potassium 5.0 mmol/L (3.5-5.1) 07/07/17 11:02 Chloride 102 mmol/L (98-107) 07/07/17 11:02 Carbon Dioxide 26.5 mmol/L (21-32) 07/07/17 11:02 BUN 26 mg/dL (7-18) H 07/07/17 11:02 Creatinine 1.26 mg/dL (0.70-1.30) 07/07/17 11:02 Est GFR (MDRD) Af Amer > 60 (>60) 07/07/17 11:02 Est GFR (MDRD) Non-Af > 60 (>60) 07/07/17 11:02 Glucose 95 mg/dL (65-99) 07/07/17 11:02 Calcium 8.6 mg/dL (8.5-10.1) 07/07/17 11:02 - XRAY XRAY Interpreted by: Radiologist (Lower Extremity droppler: The deep venous system of the left lower extremity was evaluated from the level of the common femoral vein through the popliteal vein. Normal color fluw and augmentation can be observed. In addition, normal compression is seen throughout the deep venous system. Impression: Negative for left lower extremity DVT) - Diagnosis Discharge Problem: Lower extremity pain, left, Negative DVT - Discharge Plan Condition: Stable - Follow ups/Referrals Follow ups/Referrals: Luis Nicholas [Primary Care Provider] - 3 days - Instructions
[2017-07-07 10:59] VITALS: BP 131/76
[2017-07-07 11:18] LABS: BASOPHILS # (AUTO) 0.1 X10^3/uL (0.0-0.1); BASOPHILS % (AUTO) 1.2 % (0.2-1.0); EOSINOPHILS # (AUTO) 0.2 x10^3/uL (0.0-0.2); EOSINOPHILS % (AUTO) 2.2 % (0.9-2.9); HEMATOCRIT 42.5 % (42.0-54.0); HEMOGLOBIN 13.7 g/dL (13.5-18.0); LYMPHOCYTES % (AUTO) 18.6 % (21.0-51.0); MEAN CORPUSCULAR HEMOGLOBIN 24.1 pg (27.0-34.0); MEAN CORPUSCULAR HGB CONC 32.2 g/dL (33.0-35.0); MEAN CORPUSCULAR VOLUME 74.8 fL (80.0-100.0); MEAN PLATELET VOLUME 7.4 fL (7.4-11.0); MONOCYTES # (AUTO) 1.1 x10^3/uL (0.3-0.8); MONOCYTES % (AUTO) 10.6 % (0.0-13.0); NEUTROPHILS # (AUTO) 7.1 x10^3/uL (2.2-4.8); NEUTROPHILS % (AUTO) 67.4 % (42.0-75.0); PLATELET COUNT 381 X10^3/uL (150.0-450.0); RED BLOOD COUNT 5.68 X10^6/uL (4.7-6.0); RED CELL DISTRIBUTION WIDTH 20.5 % (11.6-16.5); WHITE BLOOD COUNT 10.6 X10^3/uL (3.6-10.0)
[2017-07-07 11:19] LABS: BLOOD UREA NITROGEN 26 mg/dL (7-18); CALCIUM 8.6 mg/dL (8.5-10.1); CARBON DIOXIDE 26.5 mmol/L (21-32); CHLORIDE 102 mmol/L (98-107); CREATININE 1.26 mg/dL (0.70-1.30); SODIUM 137 mmol/L (136-145); eGFR BLACK RACES > 60 (>60); eGFR NON BLACK RACES > 60 (>60)
[2017-07-07 11:34] LABS: PLATELET MORPHOLOGY COMMENT NORMAL (NORMAL)
[2017-07-07] MEDS ORDERED: MORPHINE SULFATE INJ 4 MG IM ONE (11:34)
[2017-07-07] MEDS ORDERED: MORPHINE SULFATE INJ 4 MG ONE (11:34)
--- NOTE | 2017-07-07 11:34 | VAS ---
Lower extremity doppler sonogram Indication: Pain and left leg Comparison: None available TECHNIQUE: Multiple etienne scale and color flow Doppler images of the deep venous system were obtained of the left lower extremity. FINDINGS: The deep venous system of the left lower extremity was evaluated from the level of the common femoral vein through the popliteal vein. Normal color flow and augmentation can be observed. In addition, normal compression is seen throughout the deep venous system. IMPRESSION: 1. Negative for left lower extremity DVT. Reported By:
[2017-07-07 11:35] LABS: ANISOCYTOSIS 2+
[2017-07-07 11:36] LABS: HYPOCHROMASIA SLIGHT; MICROCYTOSIS SLIGHT
== END 2017-07-07 11:52 | disposition home or self-care (01) ==
LOC: ER 10:49
DX: M79.605 Pain in left leg (principal)
CPT/HCPCS: 36415; 80048; 85025; 85378; 85610; 85730; 93971; 96372; 99282; 99283; J2270

== ENCOUNTER 2017-09-01 03:22 | Observation (INO) ==
[2017-09-01] MEDS ORDERED: MORPHINE SULFATE INJ 4 MG IVP ONE ×3 (03:37→07:17)
[2017-09-01] MEDS ORDERED: MORPHINE SULFATE INJ 4 MG ONE ×3 (03:39→07:19)
[2017-09-01 03:46] LABS: BASOPHILS # (AUTO) 0.2 X10^3/uL (0.0-0.1); BASOPHILS % (AUTO) 1.6 % (0.2-1.0); EOSINOPHILS # (AUTO) 0.2 x10^3/uL (0.0-0.2); EOSINOPHILS % (AUTO) 2.1 % (0.9-2.9); HEMATOCRIT 39.7 % (42.0-54.0); HEMOGLOBIN 12.3 g/dL (13.5-18.0); LYMPHOCYTES # (AUTO) 2.9 X10^3/uL (1.3-2.9); LYMPHOCYTES % (AUTO) 28.5 % (21.0-51.0); MEAN CORPUSCULAR HEMOGLOBIN 23.6 pg (27.0-34.0); MEAN CORPUSCULAR HGB CONC 30.9 g/dL (33.0-35.0); MEAN CORPUSCULAR VOLUME 76.4 fL (80.0-100.0); MEAN PLATELET VOLUME 7.4 fL (7.4-11.0); MONOCYTES # (AUTO) 0.8 x10^3/uL (0.3-0.8); MONOCYTES % (AUTO) 7.5 % (0.0-13.0); NEUTROPHILS # (AUTO) 6.1 x10^3/uL (2.2-4.8); NEUTROPHILS % (AUTO) 60.3 % (42.0-75.0); PLATELET COUNT 271 X10^3/uL (150.0-450.0); WHITE BLOOD COUNT 10.1 X10^3/uL (3.6-10.0)
--- NOTE | 2017-09-01 03:48 | DR.GENAD ---
HPI - PCP Primary Care Physician: NFD - Complaint/Symptoms Chief Complaint Doctors Comments: Patient presents with complaint of chest pain. He has a history of cardiomyopathy with low ejection fraction. Patient states that he has been of his heart medication for couple of days and he has chest pain. Chief Complaint:: CHEST PAIN. Self Treatment fo Chief Complaint: NITRO SPRAY AT HOME, EMS GAME HIM ASPIRIN - Source History Provided: Patient - Mode of Arrival Mode of Arrival: EMS - Timing Onset of Chief Complaint: 09/01/17 PMH - PMH Past Medical History: Yes Past Medical History: Anxiety, CHF, Hypertension Past Medical History Comment: [place], HEART FAILURE, HX OF METH Past Surgical History: Yes Surgical History: Tonsillectomy - Family History History of Family Medical Conditions: Yes Family Medical History: Hypertension - Social History Does patient currently use any type of tobacco product: Yes Have you used tobacco products in the last 12 months: Yes Type of Tobacco Use: Cigarettes Alcohol Use: None, Rarely Do you use any recreational Drugs:: (METH) Lives With: Spouse Lives Where: Home - infectious screening In the last 2 months have you had wt loss of >10#?: NO Have you had fever, night sweats or hemotysis?: No Have you traveled outside the country in the last 6 months?: No Isolation: Standard ROS - Review of Systems Eyes: No Symptoms Reported ENTM: No Symptoms Reported Respiratoy: No Symptoms Reported Cardiovascular: See HPI, Chest Pain Gastrointestinal/Abdominal: No Symptoms Reported Genitourinary: No Symptoms Reported Neurological: No Symptoms Reported Musculoskeletal: No Symptoms Reported Integumentary: No Symptoms Reported Hematologic/Lymphatic: No Symptoms Reported Endocrine: No Symptoms Reported Psychiatric: No Symptoms Reported All Other Systems: Reviewed and Negative PE - General Limitations: Physical Limitation (due to CHF) General Appearance: Alert, Anxious - Head Head Exam: Normal Inspection, Atraumatic - Eyes Eye exam: Normal Appearance, PERRL, EOMI - ENT ENT Exam: Normal Exam, Normal Oropharynx External Ear Exam: Normal External Inspection TM/Canal Exam: Bilateral Normal Nose Exam: Normal Nose Exam, Sinus Tenderness Mouth Exam: Normal Inspection Throat Exam: Normal Inspection - Neck Neck Exam: Normal Inspection, Full ROM - Chest Chest Inspection: Normal Inspection, Symmetric Chest Wall Rise - Respiratory Respiratory Exam: Normal Lung Sounds Bilat Respiratory Exam: Bilateral Clear to Auscultation - Cardiovascular Cardiovascular Exam: Regular Rate, Tachycardia - Abdominal Exam Abdominal Exam: Normal Inspection, Normal Bowel Sounds Abdominal Tenderness: negative: RUQ, RLQ, LUQ, LLQ, Epigastrium, Suprapubic, Diffuse, Mild, Moderate, Severe, Other - Extremities Extremities Exam: Normal Inspection - Back Back Exam: Normal Inspection - Neurologic Neurological Exam: Alert, Oriented X3, CN II-XII Intact - Psychiatric Psychiatric Exam: Normal Affect - Skin Skin Exam: Warm, Dry, Intact - Vital Signs Vitals: Pulse Rate [Apical] 109 Pulse Rate 121 Respiratory Rate 20 Blood Pressure [Right Arm] 131/87 Blood Pressure [Left Arm] 118/60 Blood Pressure 142/79 O2 Sat by Pulse Oximetry 98 Course - Reevaluation 1st: Improved - Consultation Called: 20:00 (Dr Nicholas agreed to admit for observation) ROR - Labs Reviewed Laboratory Results Reviewed?: Yes (low potassium) Result Diagrams: 09/01/17 03:39 09/01/17 03:39 - XRAY XRAY Interpreted by: Radiologist (Chest: Comparison 08/11/17: There is stable moderate cardiomegaly and persistent mild interstitial edema. No focal consolidation, significant effusion or penumothorax is identified. There is no acute osseous abnormality. Impression: Stable cardiomegaly and mild interstitial edema, suggestive for CHF) - Labs Reviewed Laboratory: WBC 10.1 X10^3/uL (3.6-10.0) H 09/01/17 03:39 RBC 5.20 X10^6/uL (4.7-6.0) 09/01/17 03:39 Hgb 12.3 g/dL (13.5-18.0) L 09/01/17 03:39 Hct 39.7 % (42.0-54.0) L 09/01/17 03:39 MCV 76.4 fL (80.0-100.0) L 09/01/17 03:39 MCH 23.6 pg (27.0-34.0) L 09/01/17 03:39 MCHC 30.9 g/dL (33.0-35.0) L 09/01/17 03:39 RDW 19.0 % (11.6-16.5) H 09/01/17 03:39 Plt Count 271 X10^3/uL (150.0-450.0) 09/01/17 03:39 Plt Count Comment Adequate (ADEQUATE) 09/01/17 03:39 MPV 7.4 fL (7.4-11.0) 09/01/17 03:39 Neut % (Auto) 60.3 % (42.0-75.0) 09/01/17 03:39 Lymph % (Auto) 28.5 % (21.0-51.0) 09/01/17 03:39 [place] % (Auto) 7.5 % (0.0-13.0) 09/01/17 03:39 Eos % (Auto) 2.1 % (0.9-2.9) 09/01/17 03:39 Baso % (Auto) 1.6 % (0.2-1.0) H 09/01/17 03:39 Neut # (Auto) 6.1 x10^3/uL (2.2-4.8) H 09/01/17 03:39 Lymph # (Auto) 2.9 X10^3/uL (1.3-2.9) 09/01/17 03:39 [place] # (Auto) 0.8 x10^3/uL (0.3-0.8) 09/01/17 03:39 Eos # (Auto) 0.2 x10^3/uL (0.0-0.2) 09/01/17 03:39 Baso # (Auto) 0.2 X10^3/uL (0.0-0.1) H 09/01/17 03:39 Absolute Nucleated RBC 0.0 /100WBC 09/01/17 03:39 Plt Morphology Comment Normal (NORMAL) 09/01/17 03:39 RBC Morphology Abnormal (NORMAL) 09/01/17 03:39 Hypochromasia Slight A 09/01/17 03:39 INR Target Range - 09/01/17 03:39 INR 1.14 (0.8-1.3) 09/01/17 03:39 Sodium 137 mmol/L (136-145) 09/01/17 03:39 Corrected Sodium 139 mmol/L (136-145) 09/01/17 03:39 Potassium 3.2 mmol/L (3.5-5.1) L 09/01/17 03:39 Chloride 103 mmol/L (98-107) 09/01/17 03:39 Carbon Dioxide 20.9 mmol/L (21-32) L 09/01/17 03:39 BUN 17 mg/dL (7-18) 09/01/17 03:39 Creatinine 1.46 mg/dL (0.70-1.30) H 09/01/17 03:39 Est GFR (MDRD) Af Amer > 60 (>60) 09/01/17 03:39 Est GFR (MDRD) Non-Af 58 (>60) L 09/01/17 03:39 Glucose 203 mg/dL (65-99) H 09/01/17 03:39 Calcium 8.1 mg/dL (8.5-10.1) L 09/01/17 03:39 Corrected Calcium 8.8 mg/dL (8.5-10.1) 09/01/17 03:39 Magnesium 1.8 mg/dL (1.7-2.9) 09/01/17 03:39 Total Bilirubin 0.90 mg/dL (0.2-1.0) 09/01/17 03:39 AST 32 Units/L (15-37) 09/01/17 03:39 ALT 32 Units/L (12-78) 09/01/17 03:39 Alkaline Phosphatase 137 Units/L (46-116) H 09/01/17 03:39 Creatine Kinase 104 Units/L (39-308) 09/01/17 03:39 CK-MB (CK-2) 3.9 ng/mL (0-4.0) 09/01/17 03:39 CK/CKMB % Calc 3.8 % (<4) 09/01/17 03:39 Troponin I 0.06 ng/mL (0-1.5) 09/01/17 03:39 B-Natriuretic Peptide 1880 pg/mL (0-79) H* 09/01/17 03:39 Total Protein 6.8 g/dL (6.4-8.2) 09/01/17 03:39 Albumin 3.1 g/dL (3.4-5.0) L 09/01/17 03:39 Globulin 3.7 g/dL (2.5-4.5) 09/01/17 03:39 Albumin/Globulin Ratio 0.8 Ratio (1.1-2.1) L 09/01/17 03:39 - Diagnosis Discharge Problem: Chest pain Qualifiers: Chest pain type: unspecified Qualified Code(s): R07.9 - Chest pain, unspecified CHF (congestive heart failure) Qualifiers: Heart failure type: unspecified Heart failure chronicity: chronic Qualified Code(s): I50.9 - Heart failure, unspecified Dyspnea Qualifiers: Dyspnea type: shortness of breath Qualified Code(s): R06.02 - Shortness of breath; R06.00 - Dyspnea, unspecified; R06.01 - Orthopnea - Follow ups/Referrals Follow ups/Referrals: Luis Nicholas [Primary Care Provider] - 3 days - Instructions
[2017-09-01] MEDS ORDERED: NS 1000 ML 1,000 ML IV SCH (04:00)
[2017-09-01 04:03] LABS: BLOOD UREA NITROGEN 17 mg/dL (7-18); CALCIUM 8.1 mg/dL (8.5-10.1); CARBON DIOXIDE 20.9 mmol/L (21-32); CHLORIDE 103 mmol/L (98-107); COR NA(FOR HYPERGLY) 139 mmol/L (136-145); CREATININE 1.46 mg/dL (0.70-1.30); SODIUM 137 mmol/L (136-145); TROPONIN I 0.06 ng/mL (0-1.5); eGFR NON BLACK RACES 58 (>60)
--- NOTE | 2017-09-01 04:07 | RAD ---
Chest, one view Indication: Chest pain Comparison: 08/11/2017 Findings: There is stable moderate cardiomegaly and persistent mild interstitial edema. No focal cons olidation, significant effusion or pneumothorax is identified. There is no acute osseous abnormality. Impression: Stable cardiomegaly and mild interstitial edema, suggestive for CHF. Reported By:
[2017-09-01 04:08] LABS: ALANINE AMINOTRANSFERASE 32 Units/L (12-78); ALBUMIN 3.1 g/dL (3.4-5.0); ALKALINE PHOSPHATASE 137 Units/L (46-116); ASPARTATE AMINO TRANSFERASE 32 Units/L (15-37); CKMB % 3.8 % (<4); COR CA(FOR HYPOALB) 8.8 mg/dL (8.5-10.1); CREATINE KINASE 104 Units/L (39-308); CREATINE KINASE MB 3.9 ng/mL (0-4.0); MAGNESIUM 1.8 mg/dL (1.7-2.9); TOTAL PROTEIN 6.8 g/dL (6.4-8.2)
[2017-09-01 04:18] LABS: HYPOCHROMASIA SLIGHT; PLATELET MORPHOLOGY COMMENT NORMAL (NORMAL)
[2017-09-01] MEDS ORDERED: K-LYTE EFFERVESCENT PO STA (04:30)
[2017-09-01] MEDS ORDERED: LASIX IVP ONE ×2 (04:33→05:50)
[2017-09-01] MEDS ORDERED: K-LYTE EFFERVESCENT ONE (04:34)
[2017-09-01] MEDS ORDERED: LASIX ONE ×2 (04:35→05:51)
[2017-09-01 07:23] LABS: BILIRUBIN,URINE 1+ (NEGATIVE); BLOOD/HEMOGLOBIN,URINE NEGATIVE (NEGATIVE); GLUCOSE, URINE NEGATIVE (NEGATIVE); KETONES,URINE NEGATIVE (NEGATIVE); LEUKOCYTE ESTERASE ,URINE 1+ (NEGATIVE); NITRITES,URINE NEGATIVE (NEGATIVE); PROTEIN,URINE 3+ (NEGATIVE); UROBILINOGEN,URINE 2+ (NORMAL)
[2017-09-01 07:36] LABS: APPEARANCE,URINE HAZY (CLEAR); COLOR,URINE DARK YELLOW (YELLOW); RBC,URINE 0-2 /HPF (NONE SEEN)
[2017-09-01 07:37] LABS: BACTERIA,URINE TRACE /HPF (NEGATIVE); HYALINE CASTS, URINE FEW /LPF (NEGATIVE); SQUAMOUS EPITHELIAL CELL,UR RARE /HPF (NEGATIVE)
[2017-09-01 08:35] LABS: CKMB % 4.5 % (<4); TROPONIN I 0.07 ng/mL (0-1.5)
[2017-09-01 08:42] LABS: CREATINE KINASE MB 4.5 ng/mL (0-4.0)
[2017-09-01] MEDS ORDERED: FLUOXETINE 40 MG PO SCH (09:00)
[2017-09-01] MEDS ORDERED: LASIX IVP SCH (09:00)
[2017-09-01] MEDS ORDERED: LOVENOX INJ 40 MG SYR SC ONE (09:31)
[2017-09-01] MEDS: LANOXIN PO SCH (09:44)
[2017-09-01] MEDS: LASIX IVP SCH ×2 (09:47→20:34)
[2017-09-01] MEDS: PROzac PO SCH (09:48)
[2017-09-01] MEDS: ZESTRIL TAB 5 MG PO SCH (09:48)
[2017-09-01] MEDS: LOVENOX INJ 40 MG SYR SC SCH (09:49)
[2017-09-01 10:20] VITALS: BMI 25.8
[2017-09-01] MEDS: MORPHINE SULFATE INJ 4 MG IVP PRN ×3 (11:40→23:56)
[2017-09-01 12:36] LABS: CKMB % 4.7 % (<4); TROPONIN I 0.06 ng/mL (0-1.5)
[2017-09-01 12:41] LABS: CREATINE KINASE MB 4.5 ng/mL (0-4.0)
--- NOTE | 2017-09-01 18:34 | DR.H&P ---
H&P - History & Physical for Day of: H&P Date: 09/01/17 - Chief Complaint Chief Complaint: chest pain - History of Present Illness History of Present Illness: is a 36 year old patient of ours who presented to the emergency room via EMS with complaints of chest pain. Patient reports a history of cardiomyopathy with low ejection fraction. Patient states that he has been out of his heart medication for couple of days. Patient rates pain as a 10/10. On arrival, vitals were 121, 16, 100% 2L NC, 142/79. Labs were obtained. Abnormal Lab values include the following: WBC 10.1, Hgb 12.3, Hct 39.7, MCV 76.4, MCH 23.6, MCHC 30.9, RDW 19.0, Potassium 3.2, Carbon Dioxide 20.9, Creatinine 1.46, GFR non 58, Glucose 203, Calcium 8.1, Alk Phos 137, BNP 1880, Albumin 3.1, A/G Ratio 0.8. Urinalysis revealed: Protein 3+, Bilirubin 1+, Urobilinogen 2+, Leuk Est 1+, RBC 0-2, WBC 0-2, Bacteria Trace, Hyaline Casts Few. Toxicology: Opiates Screen Positive, Amphetamines Screen Positive. Chest X-Ray revealed: Stable cardiomegaly and mild interstitial edema , suggestive for CHF. EKG revealed: Sinus Tachycardia. Juxv=[id number]. He was given morphine, potassium, and Lasix iv in the ER with no improvement in symptoms. Patient admitted to the hospital as observation for further treatment and evaluation. We plan to obtain serial cardiac enzymes and EKGs. We will follow up with am labs and continue to monitor patient. - Past Medical History Past Medical History: Anxiety, CHF, Hypertension Additional Medical History: Enlarged Tonsils - Past Surgical History Surgical History: Tonsillectomy - Family History Family Medical History: Diabetes Mellitus, Cancer, [place], Coronary Artery Disease, Heart Failure, Hypertension - Social History Does patient currently use any type of tobacco product: Yes Have you used tobacco products in the last 12 months: Yes Type of Tobacco Use: Cigarettes How many years tobacco product used: 10 Does any household member use tobacco: No Alcohol Use: Occasionally Drug Use: Methamphetamine - Medications Home Medications: No Known Drug Allergies Allergy (Verified 09/01/17 10:03) - Review of Systems Constitutional: No Symptoms Reported Eyes: No Symptoms Reported ENT: No Symptoms Reported Respiratory: Shortness of Breath, SOB with Excertion. denies: Sputum, Wheezing Cardiovascular: Chest Pain Gastrointestinal: No Symptoms Reported Genitourinary: No Symptoms Reported Musculoskeletal: No Symptoms Reported Skin: No Symptoms Reported Neurological: No Symptoms Reported - Physical Exam Vital Signs: Temperature 96.7 F Pulse Rate [Apical] 79 Pulse Rate 104 Respiratory Rate 20 Blood Pressure [Right Arm] 130/90 Blood Pressure [Left Arm] 118/60 Blood Pressure 142/79 O2 Sat by Pulse Oximetry 97 Oriented: Normal Eyes: Normal Ear: Normal Nose: Normal Throat: Normal Respiratory: Diminished Throughout Cardiovascular: Normal. negative: S3, S4, Murmur : Normal Auscultation: Bowel Sounds: Normal Palpation: Normal Tenderness: Normal Skin: Normal Musculoskeletal: Normal Psychiatric: Normal Mood Description: Calm Affect: Normal Speech Pattern: Clear - Assessment/Plan (1) CHF (congestive heart failure) Qualifiers: Heart failure type: unspecified Heart failure chronicity: chronic Qualified Code(s): I50.9 - Heart failure, unspecified Status: Acute Plan: lasix 40mg iv bid, supplemental oxygen, continue lanoxin, continue zestril , continue to monitor (2) Chest pain, rule out acute myocardial infarction Status: Acute Plan: obtain serial cardiac enzymes and ekg, telemetry, supplemental oxygen, continue to monitor - Allergies Allergies/Adverse Reactions: Allergies Allergy/AdvReac Type Severity Reaction Status Date / Time No Known Drug Allergies Allergy Verified 09/01/17 10:03
[2017-09-01] MEDS ORDERED: POTASSIUM CHLORIDE LIQ 20 MEQ UDC PO PRN (20:32)
[2017-09-01] MEDS ORDERED: POTASSIUM CHL 60 MEQ/NS 0.45% 500 ML IV PRN (20:32)
[2017-09-01] MEDS ORDERED: K-LYTE EFFERVESCENT PO PRN (20:32)
[2017-09-01] MEDS ORDERED: K-RIDER 10 MEQ/NS 100 ML 10 MEQ/100 ML BAG IV PRN (20:32)
[2017-09-01] MEDS ORDERED: POTASSIUM CHL 40 MEQ/NS 0.45% 500 ML IV PRN (20:32)
[2017-09-02] MEDS: MORPHINE SULFATE INJ 4 MG IVP PRN ×5 (05:44→23:58)
[2017-09-02 06:19] LABS: BASOPHILS # (AUTO) 0.1 X10^3/uL (0.0-0.1); BASOPHILS % (AUTO) 0.7 % (0.2-1.0); EOSINOPHILS # (AUTO) 0.2 x10^3/uL (0.0-0.2); EOSINOPHILS % (AUTO) 2.2 % (0.9-2.9); HEMOGLOBIN 12.9 g/dL (13.5-18.0); LYMPHOCYTES # (AUTO) 2.3 X10^3/uL (1.3-2.9); LYMPHOCYTES % (AUTO) 24.9 % (21.0-51.0); MEAN CORPUSCULAR HEMOGLOBIN 23.9 pg (27.0-34.0); MEAN CORPUSCULAR HGB CONC 31.5 g/dL (33.0-35.0); MEAN CORPUSCULAR VOLUME 75.9 fL (80.0-100.0); MEAN PLATELET VOLUME 7.6 fL (7.4-11.0); MONOCYTES % (AUTO) 10.6 % (0.0-13.0); NEUTROPHILS # (AUTO) 5.8 x10^3/uL (2.2-4.8); NEUTROPHILS % (AUTO) 61.6 % (42.0-75.0); PLATELET COUNT 287 X10^3/uL (150.0-450.0); RED BLOOD COUNT 5.39 X10^6/uL (4.7-6.0); RED CELL DISTRIBUTION WIDTH 19.5 % (11.6-16.5); WHITE BLOOD COUNT 9.4 X10^3/uL (3.6-10.0)
[2017-09-02 06:45] LABS: ALANINE AMINOTRANSFERASE 33 Units/L (12-78); ALBUMIN 3.2 g/dL (3.4-5.0); ALKALINE PHOSPHATASE 148 Units/L (46-116); ASPARTATE AMINO TRANSFERASE 31 Units/L (15-37); BLOOD UREA NITROGEN 20 mg/dL (7-18); CALCIUM 8.4 mg/dL (8.5-10.1); CARBON DIOXIDE 27.5 mmol/L (21-32); CHLORIDE 102 mmol/L (98-107); CHOL/HDL RATIO 2.7 (0.0-5.0); CHOLESTEROL 131 mg/dL (0-200); CREATININE 1.49 mg/dL (0.70-1.30); HDL CHOLESTEROL 48 mg/dL (40-60); SODIUM 139 mmol/L (136-145); TOTAL PROTEIN 7.3 g/dL (6.4-8.2); TRIGLYCERIDES 58 mg/dL (0-150); eGFR NON BLACK RACES 57 (>60)
[2017-09-02 06:49] LABS: HYPOCHROMASIA 1+; PLATELET MORPHOLOGY COMMENT NORMAL (NORMAL)
[2017-09-02 06:50] LABS: ANISOCYTOSIS SLIGHT
--- NOTE | 2017-09-02 07:17 | RAD ---
HISTORY: Chest pain Study: Chest AP portable Comparison: 09/01/2017 Findings: The heart remains enlarged. Pulmonary venous congestion is present. No interstitial edema, alveolar e zen, alveolar infiltrates, or pleural effusions are identified. The bony thorax is unremarkable. IMPRESSION: Moderate cardiomegaly with pulmonary venous congestion Reported By:
[2017-09-02] MEDS: LASIX IVP SCH ×2 (08:34→19:59)
[2017-09-02] MEDS: LANOXIN PO SCH (08:34)
[2017-09-02] MEDS: PROzac PO SCH (08:35)
[2017-09-02] MEDS: ZESTRIL TAB 5 MG PO SCH (08:35)
[2017-09-02] MEDS: LOVENOX INJ 40 MG SYR SC SCH (08:35)
[2017-09-02] MEDS: ROBITUSSIN DM PO PRN (12:09)
--- NOTE | 2017-09-02 20:51 | PCM.PROG ---
Progress Note - Progress Note for Day of Date: 09/02/17 - Subjective Subjective: WAS ADMITTED FOR CHF EXACERBATION WITH CHEST PAIN. TODAY, HE IS ALERT AND ORIENTED, LYING IN BED ON MORNING ROUNDS. HE CONTINUES WITH COMPLAINTS OF SHORTNESS OF BREATH. HE DENIES CHEST PAIN THIS MORNING. ON EXAMINATION, HEART RATE IS SLIGHTLY ELEVATED. AIR BRAKE OPERATOR SHOWS SINUS TACHYCARDIA WITH HR 114. BILATERAL LUNGS ARE NOTED WITH DIMINISHED LUNG SOUNDS THROUGHOUT. ABDOMEN IS ROUND, SOFT, AND NON-TENDER WITH NORMAL BOWEL SOUNDS NOTED IN ALL QUADRANTS. HIS VITALS THIS MORNING ARE 97.6-2082-31%-120/70. LABS WERE OBTAINED. ABNORMAL LAB VALUES INCLUDE THE FOLLOWING: HGB 12.9, HCT 41.0, BUN 20, CREATININE 1.49, CALCIUM 8.4, TOTAL BILIRUBIN 1.50, ALK PHOS 148, ALBUMIN 3.2. TODAYS CHEST XRAY REVEALS MODERATE CARDIOMEGALY WITH PULMONARY VENOUS CONGESTION. HE IS CURRENTLY RECEIVING LASIX 40MG IV BID, SUPPLEMENTAL OXYGEN, AND HIS HOME MEDICATIONS. WE WILL CONTINUE WITH CURRENT PLAN OF CARE TODAY. OTHERWISE, WE PLAN TO FOLLOW UP WITH AM LABS AND CHEST XRAY AND CONTINUE TO MONITOR PATIENT. - Past Medical Family Social History Past Med/Fam/Surg Hx: No changes since H&P Allergies: Allergies No Known Drug Allergies Allergy (Verified 09/01/17 10:03) - Review of Systems ROS: No change since H&P - Vital Signs and I&O's Vital Signs: Temperature 97.5 F Pulse Rate [Apical] 111 Pulse Rate 108 Respiratory Rate 18 Blood Pressure [Right Arm] 106/83 Blood Pressure [Left Arm] 129/82 Blood Pressure 142/79 O2 Sat by Pulse Oximetry 98 Intake and Output: Intake & Output 08/31/17 09/01/17 09/02/17 09/03/17 11:59 11:59 11:59 11:59 Intake Total 1460 / 1460 920 / 920 Output Total 900 / 900 Balance 560 / 560 920 / 920 - Physical Exam Oriented: Normal Eyes: Normal Ear: Normal Nose: Normal Throat: Normal Respiratory: Generalized, Diminished Cardiovascular: Normal. negative: S3, S4, Murmur : Normal Auscultation: Bowel Sounds: Normal Palpation: Normal Tenderness: Normal Skin: Normal Musculoskeletal: Normal Psychiatric: Normal Mood Description: Calm Affect: Normal Speech Pattern: Clear, Appropriate - Laboratory and Diagnostics Result Diagrams: 09/02/17 05:39 09/02/17 05:39 Labs: Laboratory WBC 9.4 X10^3/uL (3.6-10.0) 09/02/17 05:39 RBC 5.39 X10^6/uL (4.7-6.0) 09/02/17 05:39 Hgb 12.9 g/dL (13.5-18.0) L 09/02/17 05:39 Hct 41.0 % (42.0-54.0) L 09/02/17 05:39 MCV 75.9 fL (80.0-100.0) L 09/02/17 05:39 MCH 23.9 pg (27.0-34.0) L 09/02/17 05:39 MCHC 31.5 g/dL (33.0-35.0) L 09/02/17 05:39 RDW 19.5 % (11.6-16.5) H 09/02/17 05:39 Plt Count 287 X10^3/uL (150.0-450.0) 09/02/17 05:39 Plt Count Comment Adequate (ADEQUATE) 09/02/17 05:39 MPV 7.6 fL (7.4-11.0) 09/02/17 05:39 Neut % (Auto) 61.6 % (42.0-75.0) 09/02/17 05:39 Lymph % (Auto) 24.9 % (21.0-51.0) 09/02/17 05:39 [place] % (Auto) 10.6 % (0.0-13.0) 09/02/17 05:39 Eos % (Auto) 2.2 % (0.9-2.9) 09/02/17 05:39 Baso % (Auto) 0.7 % (0.2-1.0) 09/02/17 05:39 Neut # (Auto) 5.8 x10^3/uL (2.2-4.8) H 09/02/17 05:39 Lymph # (Auto) 2.3 X10^3/uL (1.3-2.9) 09/02/17 05:39 [place] # (Auto) 1.0 x10^3/uL (0.3-0.8) H 09/02/17 05:39 Eos # (Auto) 0.2 x10^3/uL (0.0-0.2) 09/02/17 05:39 Baso # (Auto) 0.1 X10^3/uL (0.0-0.1) 09/02/17 05:39 Absolute Nucleated RBC 0.1 /100WBC 09/02/17 05:39 Plt Morphology Comment Normal (NORMAL) 09/02/17 05:39 RBC Morphology Abnormal (NORMAL) 09/02/17 05:39 Hypochromasia 1+ A 09/02/17 05:39 Anisocytosis Slight A 09/02/17 05:39 INR Target Range - 09/01/17 03:39 INR 1.14 (0.8-1.3) 09/01/17 03:39 Sodium 139 mmol/L (136-145) 09/02/17 05:39 Corrected Sodium TNP 09/02/17 05:39 Potassium 4.1 mmol/L (3.5-5.1) 09/02/17 05:39 Chloride 102 mmol/L (98-107) 09/02/17 05:39 Carbon Dioxide 27.5 mmol/L (21-32) 09/02/17 05:39 BUN 20 mg/dL (7-18) H 09/02/17 05:39 Creatinine 1.49 mg/dL (0.70-1.30) H 09/02/17 05:39 Est GFR (MDRD) Af Amer > 60 (>60) 09/02/17 05:39 Est GFR (MDRD) Non-Af 57 (>60) L 09/02/17 05:39 Glucose 75 mg/dL (65-99) 09/02/17 05:39 POC Glucose (mg/dL) 79 mg/dL (65-99) 09/02/17 13:08 Calcium 8.4 mg/dL (8.5-10.1) L 09/02/17 05:39 Corrected Calcium 9.0 mg/dL (8.5-10.1) 09/02/17 05:39 Magnesium 1.8 mg/dL (1.7-2.9) 09/01/17 03:39 Total Bilirubin 1.50 mg/dL (0.2-1.0) H 09/02/17 05:39 AST 31 Units/L (15-37) 09/02/17 05:39 ALT 33 Units/L (12-78) 09/02/17 05:39 Alkaline Phosphatase 148 Units/L (46-116) H 09/02/17 05:39 Creatine Kinase 95 Units/L (39-308) 09/01/17 11:45 CK-MB (CK-2) 4.5 ng/mL (0-4.0) H* 09/01/17 11:45 CK/CKMB % Calc 4.7 % (<4) 09/01/17 11:45 Troponin I 0.06 ng/mL (0-1.5) 09/01/17 11:45 B-Natriuretic Peptide 1880 pg/mL (0-79) H* 09/01/17 03:39 Total Protein 7.3 g/dL (6.4-8.2) 09/02/17 05:39 Albumin 3.2 g/dL (3.4-5.0) L 09/02/17 05:39 Globulin 4.1 g/dL (2.5-4.5) 09/02/17 05:39 Albumin/Globulin Ratio 0.8 Ratio (1.1-2.1) L 09/02/17 05:39 Triglycerides 58 mg/dL (0-150) 09/02/17 05:39 Cholesterol 131 mg/dL (0-200) 09/02/17 05:39 LDL Cholesterol, Calc 71 mg/dL (0-100) 09/02/17 05:39 HDL Cholesterol 48 mg/dL (40-60) 09/02/17 05:39 Cholesterol/HDL Ratio 2.7 (0.0-5.0) 09/02/17 05:39 Specimen Type Random urine 09/01/17 07:10 Urine Color Dark yellow (YELLOW) 09/01/17 07:10 Urine Appearance Hazy (CLEAR) 09/01/17 07:10 Urine pH 6.0 (5.0 - 8.0) 09/01/17 07:10 Ur Specific [place] 1.015 (1.000-1.030) 09/01/17 07:10 Urine Protein 3+ (NEGATIVE) 09/01/17 07:10 Urine Glucose (UA) Negative (NEGATIVE) 09/01/17 07:10 Urine Ketones Negative (NEGATIVE) 09/01/17 07:10 Urine Occult Blood Negative (NEGATIVE) 09/01/17 07:10 Urine Nitrite Negative (NEGATIVE) 09/01/17 07:10 Urine Bilirubin 1+ (NEGATIVE) 09/01/17 07:10 Urine Urobilinogen 2+ (NORMAL) 09/01/17 07:10 Ur Leukocyte Esterase 1+ (NEGATIVE) 09/01/17 07:10 Urine RBC 0-2 /HPF (NONE SEEN) 09/01/17 07:10 Urine WBC 0-2 /HPF (NONE SEEN) 09/01/17 07:10 Ur Squamous Epith Cells Rare /HPF (NEGATIVE) 09/01/17 07:10 Urine Bacteria Trace /HPF (NEGATIVE) 09/01/17 07:10 Hyaline Casts Few /LPF (NEGATIVE) 09/01/17 07:10 Ur Culture Indicated? No/not indicated 09/01/17 07:10 Digoxin < 0.20 ng/mL (0.9-2) L 09/01/17 03:39 Urine Opiates Screen Positive (NEG=<300) 09/01/17 07:10 Urine Methadone Screen Negative (NEG=<300) 09/01/17 07:10 Ur Barbiturates Screen Negative (NEG=<200) 09/01/17 07:10 Ur Phencyclidine Scrn Negative (NEG=<25) 09/01/17 07:10 Ur Amphetamines Screen Positive (NEG=<1000) 09/01/17 07:10 U Benzodiazepines Scrn Negative (NEG=<200) 09/01/17 07:10 Urine Cocaine Screen Negative (NEG=<300) 09/01/17 07:10 U Marijuana (THC) Screen Negative (NEG=<50) 09/01/17 07:10 - Plan (1) CHF (congestive heart failure) Status: Acute Qualifiers: Heart failure type: unspecified Heart failure chronicity: chronic Qualified Code(s): I50.9 - Heart failure, unspecified Plan: lasix 40mg iv bid, supplemental oxygen, continue lanoxin, continue zestril , continue to monitor (2) Chest pain, rule out acute myocardial infarction Status: Acute Plan: obtain serial cardiac enzymes and ekg, telemetry, supplemental oxygen, continue to monitor
[2017-09-03] MEDS: MORPHINE SULFATE INJ 4 MG IVP PRN ×5 (03:55→20:27)
[2017-09-03 06:09] LABS: BASOPHILS # (AUTO) 0.1 X10^3/uL (0.0-0.1); BASOPHILS % (AUTO) 0.7 % (0.2-1.0); EOSINOPHILS # (AUTO) 0.3 x10^3/uL (0.0-0.2); EOSINOPHILS % (AUTO) 3.6 % (0.9-2.9); HEMATOCRIT 39.6 % (42.0-54.0); HEMOGLOBIN 12.4 g/dL (13.5-18.0); LYMPHOCYTES # (AUTO) 2.6 X10^3/uL (1.3-2.9); LYMPHOCYTES % (AUTO) 28.8 % (21.0-51.0); MEAN CORPUSCULAR HEMOGLOBIN 23.7 pg (27.0-34.0); MEAN CORPUSCULAR HGB CONC 31.2 g/dL (33.0-35.0); MEAN CORPUSCULAR VOLUME 75.8 fL (80.0-100.0); MEAN PLATELET VOLUME 7.7 fL (7.4-11.0); MONOCYTES # (AUTO) 0.9 x10^3/uL (0.3-0.8); MONOCYTES % (AUTO) 9.9 % (0.0-13.0); NEUTROPHILS # (AUTO) 5.1 x10^3/uL (2.2-4.8); PLATELET COUNT 325 X10^3/uL (150.0-450.0); RED BLOOD COUNT 5.22 X10^6/uL (4.7-6.0); RED CELL DISTRIBUTION WIDTH 18.8 % (11.6-16.5)
--- NOTE | 2017-09-03 06:10 | RAD ---
Examination: Portable AP chest History: SOB Comparison reference 09/02/2017 Findings: Continued marked enlargement of the cardiac silhouette with essentially clear lungs and ple ural spaces. Impression: Continued cardiac enlargement with no acute pulmonary or pleural lesion noted. Reported By:
[2017-09-03 06:17] LABS: ALANINE AMINOTRANSFERASE 35 Units/L (12-78); ALBUMIN 3.2 g/dL (3.4-5.0); ALKALINE PHOSPHATASE 143 Units/L (46-116); ASPARTATE AMINO TRANSFERASE 30 Units/L (15-37); BLOOD UREA NITROGEN 20 mg/dL (7-18); CALCIUM 8.1 mg/dL (8.5-10.1); CARBON DIOXIDE 27.1 mmol/L (21-32); CHLORIDE 101 mmol/L (98-107); COR CA(FOR HYPOALB) 8.7 mg/dL (8.5-10.1); COR NA(FOR HYPERGLY) 138 mmol/L (136-145); CREATININE 1.38 mg/dL (0.70-1.30); SODIUM 137 mmol/L (136-145); TOTAL PROTEIN 7.2 g/dL (6.4-8.2); eGFR NON BLACK RACES > 60 (>60)
[2017-09-03 06:33] LABS: B-TYPE NATRIURETIC PEPTIDE 1150 pg/mL (0-79)
[2017-09-03 06:39] LABS: HYPOCHROMASIA SLIGHT; PLATELET MORPHOLOGY COMMENT NORMAL (NORMAL)
[2017-09-03] MEDS: LANOXIN PO SCH (08:14)
[2017-09-03] MEDS: PROzac PO SCH (08:15)
[2017-09-03] MEDS: ROBITUSSIN DM PO PRN ×2 (08:15→15:14)
[2017-09-03] MEDS: ZESTRIL TAB 5 MG PO SCH (08:15)
[2017-09-03] MEDS: LOVENOX INJ 40 MG SYR SC SCH (08:15)
[2017-09-03] MEDS: LASIX IVP SCH ×2 (08:15→20:27)
[2017-09-03] MEDS: TUSSIONEX PENNKINETIC SUSP PO PRN ×2 (10:22→22:16)
[2017-09-04] MEDS: MORPHINE SULFATE INJ 4 MG IVP PRN ×6 (00:35→23:33)
[2017-09-04] MEDS: ROBITUSSIN DM PO PRN ×2 (00:45→09:05)
[2017-09-04 05:24] LABS: BASOPHILS # (AUTO) 0.1 X10^3/uL (0.0-0.1); BASOPHILS % (AUTO) 0.8 % (0.2-1.0); EOSINOPHILS # (AUTO) 0.3 x10^3/uL (0.0-0.2); EOSINOPHILS % (AUTO) 2.4 % (0.9-2.9); HEMATOCRIT 39.2 % (42.0-54.0); HEMOGLOBIN 12.6 g/dL (13.5-18.0); LYMPHOCYTES # (AUTO) 2.7 X10^3/uL (1.3-2.9); LYMPHOCYTES % (AUTO) 25.2 % (21.0-51.0); MEAN CORPUSCULAR HEMOGLOBIN 24.2 pg (27.0-34.0); MEAN CORPUSCULAR HGB CONC 32.1 g/dL (33.0-35.0); MEAN CORPUSCULAR VOLUME 75.4 fL (80.0-100.0); MEAN PLATELET VOLUME 7.6 fL (7.4-11.0); MONOCYTES # (AUTO) 1.3 x10^3/uL (0.3-0.8); NEUTROPHILS # (AUTO) 6.4 x10^3/uL (2.2-4.8); NEUTROPHILS % (AUTO) 59.6 % (42.0-75.0); PLATELET COUNT 361 X10^3/uL (150.0-450.0); WHITE BLOOD COUNT 10.7 X10^3/uL (3.6-10.0)
[2017-09-04 05:37] LABS: ALANINE AMINOTRANSFERASE 36 Units/L (12-78); ALBUMIN 3.5 g/dL (3.4-5.0); ALKALINE PHOSPHATASE 151 Units/L (46-116); ASPARTATE AMINO TRANSFERASE 43 Units/L (15-37); BLOOD UREA NITROGEN 19 mg/dL (7-18); CALCIUM 8.4 mg/dL (8.5-10.1); CHLORIDE 100 mmol/L (98-107); COR NA(FOR HYPERGLY) 136 mmol/L (136-145); CREATININE 1.24 mg/dL (0.70-1.30); SODIUM 136 mmol/L (136-145); TOTAL PROTEIN 7.7 g/dL (6.4-8.2); eGFR NON BLACK RACES > 60 (>60)
[2017-09-04 05:53] LABS: PLATELET MORPHOLOGY COMMENT NORMAL (NORMAL)
[2017-09-04 05:54] LABS: HYPOCHROMASIA 1+; OVALOCYTES 1+
[2017-09-04 06:03] LABS: B-TYPE NATRIURETIC PEPTIDE 1370 pg/mL (0-79)
--- NOTE | 2017-09-04 07:25 | RAD ---
Examination: Portable AP chest History: SOB Comparison reference 09/03/2017 Findings: Continued marked cardiac enlargement with no developing pulmonary or pleural abnormality no aron. Impression: Stable cardiac enlargement. No new abnormality demonstrated. Reported By:
[2017-09-04] MEDS: LANOXIN PO SCH (09:05)
[2017-09-04] MEDS: PROzac PO SCH (09:06)
[2017-09-04] MEDS: LASIX IVP SCH ×2 (09:06→21:50)
[2017-09-04] MEDS: LOVENOX INJ 40 MG SYR SC SCH (09:07)
[2017-09-04] MEDS: ZESTRIL TAB 5 MG PO SCH (09:07)
[2017-09-04] MEDS ORDERED: NS 100 ML IV 100 ML IV ONE (10:19)
[2017-09-04] MEDS: LEVAQUIN PREMIX IV 750 MG 750 MG/150 ML BAG IV SCH (10:24)
[2017-09-04] MEDS ORDERED: NS 100 ML IV 100 ML IV PRN (10:30)
--- NOTE | 2017-09-04 14:34 | PCM.PROG ---
Progress Note - Progress Note for Day of Date: 09/03/17 - Subjective Subjective: WAS ADMITTED FOR CHF EXACERBATION WITH CHEST PAIN. TODAY, HE IS ALERT AND ORIENTED, LYING IN BED ON MORNING ROUNDS. HE CONTINUES WITH COMPLAINTS OF SHORTNESS OF BREATH AND COUGH. HE DENIES CHEST PAIN THIS MORNING. ON EXAMINATION, HEART RATE CONTINUES TO BE SLIGHTLY ELEVATED. [employer]WORK SPECIALIST SHOWS SINUS TACHYCARDIA WITH HR 101. BILATERAL LUNGS ARE NOTED WITH DIMINISHED LUNG SOUNDS THROUGHOUT. ABDOMEN IS ROUND, SOFT, AND NON-TENDER WITH NORMAL BOWEL SOUNDS NOTED IN ALL QUADRANTS. HIS VITALS THIS MORNING ARE 97.1-101-15-97% -120/86. LABS WERE OBTAINED. ABNORMAL LAB VALUES INCLUDE THE FOLLOWING: HGB 12.4 , HCT 39.6, BUN 20, CREATININE 1.38, GLUCOSE 121, CALCIUM 8.1, ALK PHOS 143, CONSIGNEE 1150, ALBUMIN 3.2. TODAYS CHEST XRAY REVEALS CONTINUED CARDIAC ENLARGEMENT WITH NO ACUTE PULMONARY OR PLEURAL LESION NOTED. HE IS CURRENTLY RECEIVING LASIX 40MG IV BID, SUPPLEMENTAL OXYGEN, AND HIS HOME MEDICATIONS. WE WILL CONTINUE WITH CURRENT PLAN OF CARE TODAY. OTHERWISE, WE PLAN TO FOLLOW UP WITH AM LABS AND CHEST XRAY AND CONTINUE TO MONITOR PATIENT. - Past Medical Family Social History Past Med/Fam/Surg Hx: No changes since H&P Allergies: Allergies No Known Drug Allergies Allergy (Verified 09/01/17 10:03) - Review of Systems ROS: No change since H&P - Vital Signs and I&O's Vital Signs: Temperature 98.5 F Pulse Rate [Apical] 90 Pulse Rate 96 Respiratory Rate 18 Blood Pressure [Right Arm] 105/57 Blood Pressure [Left Arm] 124/67 Blood Pressure 142/79 O2 Sat by Pulse Oximetry 97 Intake and Output: Intake & Output 09/02/17 09/03/17 09/04/17 09/05/17 11:59 11:59 11:59 11:59 Intake Total 1460 / 1460 2180 / 2180 1850 / 1850 Output Total 900 / 900 Balance 560 / 560 2180 / 2180 1849 - Physical Exam Oriented: Normal Eyes: Normal Ear: Normal Nose: Normal Throat: Normal Respiratory: Generalized, Diminished Cardiovascular: Normal. negative: S3, S4, Murmur : Normal Auscultation: Bowel Sounds: Normal Palpation: Normal Tenderness: Normal Skin: Normal Musculoskeletal: Normal Psychiatric: Normal Mood Description: Calm Affect: Normal Speech Pattern: Clear, Appropriate - Laboratory and Diagnostics Result Diagrams: 09/04/17 04:15 09/04/17 04:15 Labs: Laboratory WBC 10.7 X10^3/uL (3.6-10.0) H 09/04/17 04:15 RBC 5.20 X10^6/uL (4.7-6.0) 09/04/17 04:15 Hgb 12.6 g/dL (13.5-18.0) L 09/04/17 04:15 Hct 39.2 % (42.0-54.0) L 09/04/17 04:15 MCV 75.4 fL (80.0-100.0) L 09/04/17 04:15 MCH 24.2 pg (27.0-34.0) L 09/04/17 04:15 MCHC 32.1 g/dL (33.0-35.0) L 09/04/17 04:15 RDW 19.0 % (11.6-16.5) H 09/04/17 04:15 Plt Count 361 X10^3/uL (150.0-450.0) 09/04/17 04:15 Plt Count Comment Adequate (ADEQUATE) 09/04/17 04:15 MPV 7.6 fL (7.4-11.0) 09/04/17 04:15 Neut % (Auto) 59.6 % (42.0-75.0) 09/04/17 04:15 Lymph % (Auto) 25.2 % (21.0-51.0) 09/04/17 04:15 [place] % (Auto) 12.0 % (0.0-13.0) 09/04/17 04:15 Eos % (Auto) 2.4 % (0.9-2.9) 09/04/17 04:15 Baso % (Auto) 0.8 % (0.2-1.0) 09/04/17 04:15 Neut # (Auto) 6.4 x10^3/uL (2.2-4.8) H 09/04/17 04:15 Lymph # (Auto) 2.7 X10^3/uL (1.3-2.9) 09/04/17 04:15 [place] # (Auto) 1.3 x10^3/uL (0.3-0.8) H 09/04/17 04:15 Eos # (Auto) 0.3 x10^3/uL (0.0-0.2) H 09/04/17 04:15 Baso # (Auto) 0.1 X10^3/uL (0.0-0.1) 09/04/17 04:15 Absolute Nucleated RBC 0.0 /100WBC 09/04/17 04:15 Plt Morphology Comment Normal (NORMAL) 09/04/17 04:15 RBC Morphology Abnormal (NORMAL) 09/04/17 04:15 Hypochromasia 1+ A 09/04/17 04:15 Anisocytosis Slight A 09/02/17 05:39 Macrocytosis Slight A 09/04/17 04:15 Ovalocytes 1+ A 09/04/17 04:15 INR Target Range - 09/01/17 03:39 INR 1.14 (0.8-1.3) 09/01/17 03:39 Sodium 136 mmol/L (136-145) 09/04/17 04:15 Corrected Sodium 136 mmol/L (136-145) 09/04/17 04:15 Potassium 3.6 mmol/L (3.5-5.1) 09/04/17 04:15 Chloride 100 mmol/L (98-107) 09/04/17 04:15 Carbon Dioxide 28.0 mmol/L (21-32) 09/04/17 04:15 BUN 19 mg/dL (7-18) H 09/04/17 04:15 Creatinine 1.24 mg/dL (0.70-1.30) 09/04/17 04:15 Est GFR (MDRD) Af Amer > 60 (>60) 09/04/17 04:15 Est GFR (MDRD) Non-Af > 60 (>60) 09/04/17 04:15 Glucose 113 mg/dL (65-99) H 09/04/17 04:15 POC Glucose (mg/dL) 79 mg/dL (65-99) 09/02/17 13:08 Calcium 8.4 mg/dL (8.5-10.1) L 09/04/17 04:15 Corrected Calcium TNP 09/04/17 04:15 Magnesium 1.8 mg/dL (1.7-2.9) 09/01/17 03:39 Total Bilirubin 1.20 mg/dL (0.2-1.0) H 09/04/17 04:15 AST 43 Units/L (15-37) H 09/04/17 04:15 ALT 36 Units/L (12-78) 09/04/17 04:15 Alkaline Phosphatase 151 Units/L (46-116) H 09/04/17 04:15 Creatine Kinase 95 Units/L (39-308) 09/01/17 11:45 CK-MB (CK-2) 4.5 ng/mL (0-4.0) H* 09/01/17 11:45 CK/CKMB % Calc 4.7 % (<4) 09/01/17 11:45 Troponin I 0.06 ng/mL (0-1.5) 09/01/17 11:45 B-Natriuretic Peptide 1370 pg/mL (0-79) H* 09/04/17 04:15 Total Protein 7.7 g/dL (6.4-8.2) 09/04/17 04:15 Albumin 3.5 g/dL (3.4-5.0) 09/04/17 04:15 Globulin 4.2 g/dL (2.5-4.5) 09/04/17 04:15 Albumin/Globulin Ratio 0.8 Ratio (1.1-2.1) L 09/04/17 04:15 Triglycerides 58 mg/dL (0-150) 09/02/17 05:39 Cholesterol 131 mg/dL (0-200) 09/02/17 05:39 LDL Cholesterol, Calc 71 mg/dL (0-100) 09/02/17 05:39 HDL Cholesterol 48 mg/dL (40-60) 09/02/17 05:39 Cholesterol/HDL Ratio 2.7 (0.0-5.0) 09/02/17 05:39 Specimen Type Random urine 09/01/17 07:10 Urine Color Dark yellow (YELLOW) 09/01/17 07:10 Urine Appearance Hazy (CLEAR) 09/01/17 07:10 Urine pH 6.0 (5.0 - 8.0) 09/01/17 07:10 Ur Specific [place] 1.015 (1.000-1.030) 09/01/17 07:10 Urine Protein 3+ (NEGATIVE) 09/01/17 07:10 Urine Glucose (UA) Negative (NEGATIVE) 09/01/17 07:10 Urine Ketones Negative (NEGATIVE) 09/01/17 07:10 Urine Occult Blood Negative (NEGATIVE) 09/01/17 07:10 Urine Nitrite Negative (NEGATIVE) 09/01/17 07:10 Urine Bilirubin 1+ (NEGATIVE) 09/01/17 07:10 Urine Urobilinogen 2+ (NORMAL) 09/01/17 07:10 Ur Leukocyte Esterase 1+ (NEGATIVE) 09/01/17 07:10 Urine RBC 0-2 /HPF (NONE SEEN) 09/01/17 07:10 Urine WBC 0-2 /HPF (NONE SEEN) 09/01/17 07:10 Ur Squamous Epith Cells Rare /HPF (NEGATIVE) 09/01/17 07:10 Urine Bacteria Trace /HPF (NEGATIVE) 09/01/17 07:10 Hyaline Casts Few /LPF (NEGATIVE) 09/01/17 07:10 Ur Culture Indicated? No/not indicated 09/01/17 07:10 Digoxin 0.38 ng/mL (0.9-2) L 09/04/17 04:15 Urine Opiates Screen Positive (NEG=<300) 09/01/17 07:10 Urine Methadone Screen Negative (NEG=<300) 09/01/17 07:10 Ur Barbiturates Screen Negative (NEG=<200) 09/01/17 07:10 Ur Phencyclidine Scrn Negative (NEG=<25) 09/01/17 07:10 Ur Amphetamines Screen Positive (NEG=<1000) 09/01/17 07:10 U Benzodiazepines Scrn Negative (NEG=<200) 09/01/17 07:10 Urine Cocaine Screen Negative (NEG=<300) 09/01/17 07:10 U Marijuana (THC) Screen Negative (NEG=<50) 09/01/17 07:10 - Plan (1) CHF (congestive heart failure) Status: Acute Qualifiers: Heart failure type: unspecified Heart failure chronicity: chronic Qualified Code(s): I50.9 - Heart failure, unspecified Plan: lasix 40mg iv bid, supplemental oxygen, continue lanoxin, continue zestril , continue to monitor (2) Chest pain, rule out acute myocardial infarction Status: Resolved Plan: telemetry, supplemental oxygen, continue to monitor
[2017-09-04] MEDS: TUSSIONEX PENNKINETIC SUSP PO PRN (22:14)
[2017-09-05] MEDS: MORPHINE SULFATE INJ 4 MG IVP PRN (03:53)
[2017-09-05 06:03] LABS: BASOPHILS # (AUTO) 0.1 X10^3/uL (0.0-0.1); EOSINOPHILS # (AUTO) 0.3 x10^3/uL (0.0-0.2); EOSINOPHILS % (AUTO) 2.7 % (0.9-2.9); HEMOGLOBIN 12.6 g/dL (13.5-18.0); LYMPHOCYTES # (AUTO) 2.3 X10^3/uL (1.3-2.9); LYMPHOCYTES % (AUTO) 23.1 % (21.0-51.0); MEAN CORPUSCULAR HEMOGLOBIN 23.7 pg (27.0-34.0); MEAN CORPUSCULAR HGB CONC 31.4 g/dL (33.0-35.0); MEAN CORPUSCULAR VOLUME 75.5 fL (80.0-100.0); MEAN PLATELET VOLUME 7.2 fL (7.4-11.0); MONOCYTES # (AUTO) 1.3 x10^3/uL (0.3-0.8); NEUTROPHILS % (AUTO) 60.2 % (42.0-75.0); PLATELET COUNT 358 X10^3/uL (150.0-450.0); WHITE BLOOD COUNT 9.9 X10^3/uL (3.6-10.0)
[2017-09-05] MEDS: ROBITUSSIN DM PO PRN (06:04)
[2017-09-05 06:18] LABS: HYPOCHROMASIA 1+; PLATELET MORPHOLOGY COMMENT NORMAL (NORMAL)
[2017-09-05 06:19] LABS: ANISOCYTOSIS SLIGHT
[2017-09-05 06:20] LABS: OVALOCYTES SLIGHT
[2017-09-05 06:23] LABS: ALANINE AMINOTRANSFERASE 37 Units/L (12-78); ALBUMIN 3.3 g/dL (3.4-5.0); ALKALINE PHOSPHATASE 148 Units/L (46-116); ASPARTATE AMINO TRANSFERASE 42 Units/L (15-37); BLOOD UREA NITROGEN 19 mg/dL (7-18); CALCIUM 8.8 mg/dL (8.5-10.1); CARBON DIOXIDE 31.5 mmol/L (21-32); CHLORIDE 99 mmol/L (98-107); COR CA(FOR HYPOALB) 9.4 mg/dL (8.5-10.1); CREATININE 1.21 mg/dL (0.70-1.30); SODIUM 135 mmol/L (136-145); TOTAL PROTEIN 7.6 g/dL (6.4-8.2); eGFR NON BLACK RACES > 60 (>60)
[2017-09-05 06:51] LABS: B-TYPE NATRIURETIC PEPTIDE 1320 pg/mL (0-79)
--- NOTE | 2017-09-05 07:43 | RAD ---
Examination: Right foot, three views History: Pain and swelling Findings: There is no evidence for fracture, dislocation, arthritis or bone destruction. Impression: No acute or significant findings. Reported By:
--- NOTE | 2017-09-05 07:43 | RAD ---
Examination: Portable AP chest History: SOB, CHF, renal disease Comparison reference 09/04/2017 Findings: Continued marked enlargement of the cardiac silhouette with essentially clear lungs and ple ural spaces. Impression: No change. Enlarged cardiac silhouette may represent cardiac dilatation although with the history of renal disease, the possibility of pericardial effusion should be clinically considered. Reported By:
[2017-09-05] MEDS: PROzac PO SCH (10:20)
[2017-09-05] MEDS: ZESTRIL TAB 5 MG PO SCH (10:20)
[2017-09-05] MEDS: LOVENOX INJ 40 MG SYR SC SCH (10:20)
[2017-09-05] MEDS: LANOXIN PO SCH (10:20)
[2017-09-05] MEDS: LEVAQUIN PREMIX IV 750 MG 750 MG/150 ML BAG IV SCH (10:20)
[2017-09-05] MEDS: LASIX IVP SCH (10:20)
[2017-09-05 10:26] VITALS: BP 156/88
--- NOTE | 2017-09-05 17:15 | PCM.PROG ---
Progress Note - Progress Note for Day of Date: 09/04/17 - Subjective Subjective: WAS ADMITTED FOR CHF EXACERBATION WITH CHEST PAIN. TODAY, HE IS ALERT AND ORIENTED, LYING IN BED ON MORNING ROUNDS. HE CONTINUES WITH COMPLAINTS OF SHORTNESS OF BREATH AND COUGH. HE DENIES CHEST PAIN THIS MORNING. ON EXAMINATION, HEART RATE IS REGULAR IN RATE AND RHYTHM. BILATERAL LUNGS ARE NOTED WITH DIMINISHED LUNG SOUNDS THROUGHOUT. ABDOMEN IS ROUND, SOFT, AND NON- TENDER WITH NORMAL BOWEL SOUNDS NOTED IN ALL QUADRANTS. HIS VITALS THIS MORNING ARE 97.6-95-20-98%-122/80. LABS WERE OBTAINED. ABNORMAL LAB VALUES INCLUDE THE FOLLOWING: WBC 10.7, HGB 12.6, HCT 39.2, BUN 19, GLUCOSE 113, CALCIUM 8.4, TOTAL BILIRUBIN 1.20, AST 43, ALK PHOS 151, BNP 1370. TODAYS CHEST XRAY REVEALS CONTINUED CARDIAC ENLARGEMENT WITH NO NEW ABNORMALITY DEMONSTRATED. HE IS CURRENTLY RECEIVING LASIX 40MG IV BID, SUPPLEMENTAL OXYGEN, AND HIS HOME MEDICATIONS. WE WILL CONTINUE WITH CURRENT PLAN OF CARE TODAY AND START LEVAQUIN IV DAILY. OTHERWISE, WE PLAN TO FOLLOW UP WITH AM LABS AND CHEST XRAY AND CONTINUE TO MONITOR PATIENT. - Past Medical Family Social History Past Med/Fam/Surg Hx: No changes since H&P Allergies: Allergies No Known Drug Allergies Allergy (Verified 09/01/17 10:03) - Review of Systems ROS: No change since H&P - Vital Signs and I&O's Vital Signs: Temperature 98.5 F Pulse Rate [Apical] 100 Pulse Rate 100 Respiratory Rate 20 Blood Pressure [Right Arm] 156/88 Blood Pressure [Left Arm] 124/67 Blood Pressure 142/79 O2 Sat by Pulse Oximetry 100 Intake and Output: Intake & Output 09/03/17 09/04/17 09/05/17 09/06/17 11:59 11:59 11:59 11:59 Intake Total 2179 / 2180 1849 / 1849 Balance 2179 / 2179 1849 / 1849 - Physical Exam Oriented: Normal Eyes: Normal Ear: Normal Nose: Normal Throat: Normal Respiratory: Generalized, Diminished Cardiovascular: Normal. negative: S3, S4, Murmur : Normal Auscultation: Bowel Sounds: Normal Palpation: Normal Tenderness: Normal Skin: Normal Musculoskeletal: Normal Psychiatric: Normal Mood Description: Calm Affect: Normal Speech Pattern: Clear, Appropriate - Laboratory and Diagnostics Result Diagrams: 09/05/17 05:42 09/05/17 05:42 Labs: Laboratory WBC 9.9 X10^3/uL (3.6-10.0) 09/05/17 05:42 RBC 5.30 X10^6/uL (4.7-6.0) 09/05/17 05:42 Hgb 12.6 g/dL (13.5-18.0) L 09/05/17 05:42 Hct 40.0 % (42.0-54.0) L 09/05/17 05:42 MCV 75.5 fL (80.0-100.0) L 09/05/17 05:42 MCH 23.7 pg (27.0-34.0) L 09/05/17 05:42 MCHC 31.4 g/dL (33.0-35.0) L 09/05/17 05:42 RDW 19.0 % (11.6-16.5) H 09/05/17 05:42 Plt Count 358 X10^3/uL (150.0-450.0) 09/05/17 05:42 Plt Count Comment Adequate (ADEQUATE) 09/05/17 05:42 MPV 7.2 fL (7.4-11.0) L 09/05/17 05:42 Neut % (Auto) 60.2 % (42.0-75.0) 09/05/17 05:42 Lymph % (Auto) 23.1 % (21.0-51.0) 09/05/17 05:42 [place] % (Auto) 13.0 % (0.0-13.0) 09/05/17 05:42 Eos % (Auto) 2.7 % (0.9-2.9) 09/05/17 05:42 Baso % (Auto) 1.0 % (0.2-1.0) 09/05/17 05:42 Neut # (Auto) 6.0 x10^3/uL (2.2-4.8) H 09/05/17 05:42 Lymph # (Auto) 2.3 X10^3/uL (1.3-2.9) 09/05/17 05:42 [place] # (Auto) 1.3 x10^3/uL (0.3-0.8) H 09/05/17 05:42 Eos # (Auto) 0.3 x10^3/uL (0.0-0.2) H 09/05/17 05:42 Baso # (Auto) 0.1 X10^3/uL (0.0-0.1) 09/05/17 05:42 Absolute Nucleated RBC 0.0 /100WBC 09/05/17 05:42 Plt Morphology Comment Normal (NORMAL) 09/05/17 05:42 RBC Morphology Abnormal (NORMAL) 09/05/17 05:42 Hypochromasia 1+ A 09/05/17 05:42 Anisocytosis Slight A 09/05/17 05:42 Macrocytosis Slight A 09/04/17 04:15 Ovalocytes Slight A 09/05/17 05:42 INR Target Range - 09/01/17 03:39 INR 1.14 (0.8-1.3) 09/01/17 03:39 Sodium 135 mmol/L (136-145) L 09/05/17 05:42 Corrected Sodium TNP 09/05/17 05:42 Potassium 4.3 mmol/L (3.5-5.1) 09/05/17 05:42 Chloride 99 mmol/L (98-107) 09/05/17 05:42 Carbon Dioxide 31.5 mmol/L (21-32) 09/05/17 05:42 BUN 19 mg/dL (7-18) H 09/05/17 05:42 Creatinine 1.21 mg/dL (0.70-1.30) 09/05/17 05:42 Est GFR (MDRD) Af Amer > 60 (>60) 09/05/17 05:42 Est GFR (MDRD) Non-Af > 60 (>60) 09/05/17 05:42 Glucose 91 mg/dL (65-99) 09/05/17 05:42 POC Glucose (mg/dL) 79 mg/dL (65-99) 09/02/17 13:08 Calcium 8.8 mg/dL (8.5-10.1) 09/05/17 05:42 Corrected Calcium 9.4 mg/dL (8.5-10.1) 09/05/17 05:42 Magnesium 1.8 mg/dL (1.7-2.9) 09/01/17 03:39 Total Bilirubin 0.90 mg/dL (0.2-1.0) 09/05/17 05:42 AST 42 Units/L (15-37) H 09/05/17 05:42 ALT 37 Units/L (12-78) 09/05/17 05:42 Alkaline Phosphatase 148 Units/L (46-116) H 09/05/17 05:42 Creatine Kinase 95 Units/L (39-308) 09/01/17 11:45 CK-MB (CK-2) 4.5 ng/mL (0-4.0) H* 09/01/17 11:45 CK/CKMB % Calc 4.7 % (<4) 09/01/17 11:45 Troponin I 0.06 ng/mL (0-1.5) 09/01/17 11:45 B-Natriuretic Peptide 1320 pg/mL (0-79) H* 09/05/17 05:42 Total Protein 7.6 g/dL (6.4-8.2) 09/05/17 05:42 Albumin 3.3 g/dL (3.4-5.0) L 09/05/17 05:42 Globulin 4.3 g/dL (2.5-4.5) 09/05/17 05:42 Albumin/Globulin Ratio 0.8 Ratio (1.1-2.1) L 09/05/17 05:42 Triglycerides 58 mg/dL (0-150) 09/02/17 05:39 Cholesterol 131 mg/dL (0-200) 09/02/17 05:39 LDL Cholesterol, Calc 71 mg/dL (0-100) 09/02/17 05:39 HDL Cholesterol 48 mg/dL (40-60) 09/02/17 05:39 Cholesterol/HDL Ratio 2.7 (0.0-5.0) 09/02/17 05:39 Specimen Type Random urine 09/01/17 07:10 Urine Color Dark yellow (YELLOW) 09/01/17 07:10 Urine Appearance Hazy (CLEAR) 09/01/17 07:10 Urine pH 6.0 (5.0 - 8.0) 09/01/17 07:10 Ur Specific [place] 1.015 (1.000-1.030) 09/01/17 07:10 Urine Protein 3+ (NEGATIVE) 09/01/17 07:10 Urine Glucose (UA) Negative (NEGATIVE) 09/01/17 07:10 Urine Ketones Negative (NEGATIVE) 09/01/17 07:10 Urine Occult Blood Negative (NEGATIVE) 09/01/17 07:10 Urine Nitrite Negative (NEGATIVE) 09/01/17 07:10 Urine Bilirubin 1+ (NEGATIVE) 09/01/17 07:10 Urine Urobilinogen 2+ (NORMAL) 09/01/17 07:10 Ur Leukocyte Esterase 1+ (NEGATIVE) 09/01/17 07:10 Urine RBC 0-2 /HPF (NONE SEEN) 09/01/17 07:10 Urine WBC 0-2 /HPF (NONE SEEN) 09/01/17 07:10 Ur Squamous Epith Cells Rare /HPF (NEGATIVE) 09/01/17 07:10 Urine Bacteria Trace /HPF (NEGATIVE) 09/01/17 07:10 Hyaline Casts Few /LPF (NEGATIVE) 09/01/17 07:10 Ur Culture Indicated? No/not indicated 09/01/17 07:10 Digoxin 0.38 ng/mL (0.9-2) L 09/04/17 04:15 Urine Opiates Screen Positive (NEG=<300) 09/01/17 07:10 Urine Methadone Screen Negative (NEG=<300) 09/01/17 07:10 Ur Barbiturates Screen Negative (NEG=<200) 09/01/17 07:10 Ur Phencyclidine Scrn Negative (NEG=<25) 09/01/17 07:10 Ur Amphetamines Screen Positive (NEG=<1000) 09/01/17 07:10 U Benzodiazepines Scrn Negative (NEG=<200) 09/01/17 07:10 Urine Cocaine Screen Negative (NEG=<300) 09/01/17 07:10 U Marijuana (THC) Screen Negative (NEG=<50) 09/01/17 07:10 - Plan (1) CHF (congestive heart failure) Status: Acute Qualifiers: Heart failure type: unspecified Heart failure chronicity: chronic Qualified Code(s): I50.9 - Heart failure, unspecified Plan: lasix 40mg iv bid, supplemental oxygen, continue lanoxin, continue zestril , continue to monitor
--- NOTE | 2017-09-24 03:28 | DR.CARTERD ---
- Discharge Summary for: Discharge Summary for Date of:: 09/05/17 - Admission Date Date of Admission: 09/01/17 - Admission Diagnoses Admission Diagnosis: (1) Chest pain, rule out acute myocardial infarction (2) CHF - Discharge Date Discharge Date: 09/05/17 - Discharge Diagnoses Discharge Diagnosis: (1) Chest pain, rule out acute myocardial infarction (2) CHF - Hospital Course Hospital Course: Mr. Zacarias is a 36 year old patient of ours who presented to the emergency room via EMS with complaints of chest pain. Patient has a history of cardiomyopathy with low ejection fraction. Patient stated that he had been out of his heart medication for couple of days. Patient rated pain as a 10/10. On arrival, vitals were 121, 16, 100% 2L NC, 142/79. Labs were obtained. Abnormal Lab values included the following: WBC 10.1, Hgb 12.3, Hct 39.7, MCV 76.4, MCH 23.6 , MCHC 30.9, RDW 19.0, Potassium 3.2, Carbon Dioxide 20.9, Creatinine 1.46, GFR non 58, Glucose 203, Calcium 8.1, Alk Phos 137, BNP 1880, Albumin 3.1, A/G Ratio 0.8. Urinalysis revealed: Protein 3+, Bilirubin 1+, Urobilinogen 2+, Leuk Est 1+, RBC 0-2, WBC 0-2, Bacteria Trace, Hyaline Casts Few. Toxicology: Opiates Screen Positive, Amphetamines Screen Positive. Chest X-Ray revealed: Stable cardiomegaly and mild interstitial edema, suggestive for CHF. EKG revealed: Sinus Tachycardia, brfd=[id number]. He was given morphine, potassium, and Lasix iv in the ER with no improvement in symptoms. Patient admitted to the hospital as observation for further treatment and evaluation. We obtained serial cardiac enzymes and EKGs. Day two, patient continued with shortness of breath. He denied chest pain. Heart rate was elevated at 114 bpm. Chest xray revelaed moderate cardiomegaly with pulmonary venous congestion. We continued Lasix 40mg IV bid. On day three, he continued with shortness of breath but denied chest pain. Heart rate 101. Chest xray reported continued cardiac enlargement with no acute pulmonary or pleural lesion noted. We continued IV Lasix and supplemental oxygen. On day four, patient reported shortness of breath that was improving. Lungs were diminished upon auscultation. Heart rate was regular, 95 bpm. We continued Lasix IV. On day five, no acute distress was noted. Patient reported he felt better. He denied shortness of breath or chest pain. Lungs were clear to auscultation. Vital signs stable. Labs wnl. Cardiac enzymes and ekg's wnl. We planned for discharge. Instructions for medications and follow up were discussed with patient and family, both voiced understanding. Patient discharged home in stable condition with family. - Discharge Medications Discharge Medications: Home Medication List hydrocodone-acetaminophen [Waller] 1 tab PO Q6H PRN #12 tab 09/05/17 [Rx] spironolactone [Aldactone] 25 mg PO DAILY #30 tab 09/05/17 [Rx] Prescriptions: hydrocodone-acetaminophen [Waller] Luis Nicholas spironolactone [Aldactone] Luis Nicholas lisinopril 5 mg PO DAILY #30 tab 12/30/16 digoxin 0.125 mg PO DAILY #30 tab 02/19/17 fluoxetine [Prozac] 40 mg PO DAILY #30 cap 02/19/17 furosemide 40 mg PO BID #60 tab 02/19/17 - Discharge Disposition Discharge Disposition: Patient is to follow up in our office in one week.
== END 2017-09-05 11:45 | disposition home or self-care (01) ==
LOC: ER 03:22 → ICU 03:22 → MED/SURG 09-03 13:07
PROVIDERS: ADMIT Internal Medicine; ATTEND Internal Medicine
DX: S00.83XA Contusion of other part of head, initial encounter; I50.9 Heart failure, unspecified; R94.31 Abnormal electrocardiogram [ECG] [EKG]; S80.12XA Contusion of left lower leg, initial encounter; Y92.230 Patient room in hospital as the place of occurrence of the external cause; R52 Pain, unspecified; R82.99 Other abnormal findings in urine; W19.XXXA Unspecified fall, initial encounter; Z79.899 Other long term (current) drug therapy; R06.00 Dyspnea, unspecified; M79.89 Other specified soft tissue disorders; S90.32XA Contusion of left foot, initial encounter; R07.89 Other chest pain
CPT/HCPCS: 36415; 71010; 71045; 73630; 80053; 80061; 80162; 80307; 81001; 82550; 82553; 83735; 83880; 84132; 84484; 85025; 85610; 93005; 96365; 96374; 96375; 99284; A4222; G0378; G0434; J1650; J1940; J1956; J2270; J7030; J7050; J8499

== ENCOUNTER 2017-09-15 07:20 | Observation (INO) ==
[2017-09-15 07:31] VITALS: BMI 29.8
--- NOTE | 2017-09-15 07:49 | RAD ---
HISTORY: Cough, chest pain Study: Chest AP portable Comparison: 09/05/2017 Findings: The heart is enlarged. No definite congestive heart failure is noted. No definite acute alveolar infi ltrates or pleural effusions are identified. The bony thorax is unremarkable. IMPRESSION: Marked cardiomegaly without definite congestive heart failure No definite acute infiltrates Reported By:
[2017-09-15 08:01] LABS: BASOPHILS # (AUTO) 0.2 X10^3/uL (0.0-0.1); BASOPHILS % (AUTO) 1.6 % (0.2-1.0); EOSINOPHILS # (AUTO) 0.3 x10^3/uL (0.0-0.2); EOSINOPHILS % (AUTO) 2.7 % (0.9-2.9); HEMATOCRIT 40.3 % (42.0-54.0); HEMOGLOBIN 12.6 g/dL (13.5-18.0); LYMPHOCYTES # (AUTO) 2.4 X10^3/uL (1.3-2.9); LYMPHOCYTES % (AUTO) 24.5 % (21.0-51.0); MEAN CORPUSCULAR HGB CONC 31.3 g/dL (33.0-35.0); MEAN CORPUSCULAR VOLUME 76.8 fL (80.0-100.0); MEAN PLATELET VOLUME 7.4 fL (7.4-11.0); MONOCYTES # (AUTO) 1.1 x10^3/uL (0.3-0.8); MONOCYTES % (AUTO) 11.1 % (0.0-13.0); NEUTROPHILS # (AUTO) 5.9 x10^3/uL (2.2-4.8); NEUTROPHILS % (AUTO) 60.1 % (42.0-75.0); PLATELET COUNT 358 X10^3/uL (150.0-450.0); RED BLOOD COUNT 5.24 X10^6/uL (4.7-6.0); RED CELL DISTRIBUTION WIDTH 19.6 % (11.6-16.5); WHITE BLOOD COUNT 9.9 X10^3/uL (3.6-10.0)
[2017-09-15 08:08] LABS: PLATELET MORPHOLOGY COMMENT NORMAL (NORMAL)
[2017-09-15 08:16] LABS: BLOOD UREA NITROGEN 18 mg/dL (7-18); CALCIUM 8.5 mg/dL (8.5-10.1); CARBON DIOXIDE 26.4 mmol/L (21-32); CHLORIDE 102 mmol/L (98-107); SODIUM 136 mmol/L (136-145); TROPONIN I 0.07 ng/mL (0-1.5); eGFR NON BLACK RACES > 60 (>60)
--- NOTE | 2017-09-15 08:16 | DR.CP ---
HPI - Time Seen Time seen: 08:05 - PCP Primary Care Physician: PRASHANT ASCENCIO - Complaint Chief Complaint Doctor Comments: Patient presents with complaint of coughing a lot and chest pain. He has a history CHF with cardiomyopathy with marked decreased ejection fraction. He has been prescribed a life vest but he has not gotting it yet. Chief Complaint:: .. PT LUNGS ARE CLEAR NO DISTRESS NOTED,PT C/O CHEST PAIN, COUGH , AND HE STATES TO EMS THAT HE IS OUT OF HIS HEART MEDS,,BR Self Treatment fo Chief Complaint: PT 02 STAT WAS 91 ON RA AND PT PLACED ON 02 A 4LPM PER EMS AND SATS > 100% - Source History Provided: Patient - Mode of Arrival Mode of Arrival: Stretcher - Timing Onset of Chief Complaint: 09/15/17 - Location Chest Pain Radiation Location: None - Associated Signs and Symptoms Associated Signs and Symptoms: Shortness of Breath PMH - PMH Past Medical History: Yes Past Medical History: Anxiety, CHF, Hypertension Past Surgical History: Yes Surgical History: Tonsillectomy - Family History History of Family Medical Conditions: Yes Family Medical History: Diabetes Mellitus, Cancer, [place], Coronary Artery Disease, Heart Failure, Hypertension - Social History Does patient currently use any type of tobacco product: Yes Have you used tobacco products in the last 12 months: Yes Type of Tobacco Use: Cigarettes How many years tobacco product used: 10 Does any household member use tobacco: No Alcohol Use: None Do you use any recreational Drugs:: No (METH) Lives With: Family Lives Where: Home - infectious screening In the last 2 months have you had wt loss of >10#?: NO Have you had fever, night sweats or hemotysis?: No Have you traveled outside the country in the last 6 months?: No Isolation: Standard ROS - Review of Systems Eyes: No Symptoms Reported ENTM: No Symptoms Reported Respiratoy: No Symptoms Reported Cardiovascular: See HPI, Chest Pain, Edema Gastrointestinal/Abdominal: No Symptoms Reported Genitourinary: No Symptoms Reported Neurological: No Symptoms Reported Musculoskeletal: No Symptoms Reported Integumentary: Change in Color (lower extremities) Hematologic/Lymphatic: No Symptoms Reported Endocrine: No Symptoms Reported Psychiatric: No Symptoms Reported All Other Systems: Reviewed and Negative PE - General Limitations: No Limitations General Appearance: Alert, In No Apparent Distress - Head Head Exam: Normal Inspection, Atraumatic - Eyes Eye exam: Normal Appearance, PERRL, EOMI - ENT ENT Exam: Normal Exam - Chest Chest Inspection: Normal Inspection, Symmetric Chest Wall Rise - Respiratory Respiratory Exam: Normal Lung Sounds Bilat Respiratory Exam: Bilateral Clear to Auscultation - Cardiovascular Cardiovascular Exam: Regular Rate, Normal Rhythm Pulse: Normal, Radial Edema: Normal - Abdominal Exam Abdominal Exam: Normal Inspection, Distention Abdominal Tenderness: negative: RUQ, RLQ, LUQ, LLQ, Epigastrium, Suprapubic, Diffuse, Mild, Moderate, Severe, Other - Extremities Extremities Exam: Normal Inspection, Full ROM - Back Back Exam: Normal Inspection, Full ROM - Neurologic Neurological Exam: Alert, Oriented X3, CN II-XII Intact - Psychiatric Psychiatric Exam: Normal Affect, Normal Mood - Skin Skin Exam: Warm, Dry, Cyanosis (lower extremities) - Vitals Vitals: Temperature 98.4 F Pulse Rate 125 Respiratory Rate 20 Blood Pressure [Right Arm] 156/88 Blood Pressure [Left Arm] 124/67 Blood Pressure 133/93 O2 Sat by Pulse Oximetry 100 Course - Consultation Called: 08:55 (Dr Good agreed to admit for chest pain r/o) ROR - Labs Reviewed Result Diagrams: 09/15/17 07:49 09/15/17 07:49 - XRAY XRAY Interpreted by: Radiologist (Chest: marked cardiomegaly w/o CHF; no infiltrate) - Labs Reviewed Laboratory: WBC 9.9 X10^3/uL (3.6-10.0) 09/15/17 07:49 RBC 5.24 X10^6/uL (4.7-6.0) 09/15/17 07:49 Hgb 12.6 g/dL (13.5-18.0) L 09/15/17 07:49 Hct 40.3 % (42.0-54.0) L 09/15/17 07:49 MCV 76.8 fL (80.0-100.0) L 09/15/17 07:49 MCH 24.0 pg (27.0-34.0) L 09/15/17 07:49 MCHC 31.3 g/dL (33.0-35.0) L 09/15/17 07:49 RDW 19.6 % (11.6-16.5) H 09/15/17 07:49 Plt Count 358 X10^3/uL (150.0-450.0) 09/15/17 07:49 Plt Count Comment Adequate (ADEQUATE) 09/15/17 07:49 MPV 7.4 fL (7.4-11.0) 09/15/17 07:49 Neut % (Auto) 60.1 % (42.0-75.0) 09/15/17 07:49 Lymph % (Auto) 24.5 % (21.0-51.0) 09/15/17 07:49 [place] % (Auto) 11.1 % (0.0-13.0) 09/15/17 07:49 Eos % (Auto) 2.7 % (0.9-2.9) 09/15/17 07:49 Baso % (Auto) 1.6 % (0.2-1.0) H 09/15/17 07:49 Neut # (Auto) 5.9 x10^3/uL (2.2-4.8) H 09/15/17 07:49 Lymph # (Auto) 2.4 X10^3/uL (1.3-2.9) 09/15/17 07:49 [place] # (Auto) 1.1 x10^3/uL (0.3-0.8) H 09/15/17 07:49 Eos # (Auto) 0.3 x10^3/uL (0.0-0.2) H 09/15/17 07:49 Baso # (Auto) 0.2 X10^3/uL (0.0-0.1) H 09/15/17 07:49 Absolute Nucleated RBC 0.2 /100WBC 09/15/17 07:49 Plt Morphology Comment Normal (NORMAL) 09/15/17 07:49 RBC Morphology Normal (NORMAL) 09/15/17 07:49 INR Target Range - 09/15/17 07:49 INR 1.05 (0.8-1.3) 09/15/17 07:49 APTT 27.6 SECONDS (22.9-36.5) 09/15/17 07:49 PTT Comment - 09/15/17 07:49 - Diagnosis Discharge Problem: Cardiomegaly Chest pain Qualifiers: Chest pain type: unspecified Qualified Code(s): R07.9 - Chest pain, unspecified Cardiomyopathy Qualifiers: Cardiomyopathy type: unspecified Qualified Code(s): I42.9 - Cardiomyopathy, unspecified - Discharge Plan Disposition: 09 ADMITTED INPATIENT Condition: Stable - Follow ups/Referrals Follow ups/Referrals: Luis Nicholas [Primary Care Provider] - 3 days - Instructions
[2017-09-15] MEDS ORDERED: LASIX IVP ONE ×2 (08:19→08:20)
[2017-09-15] MEDS ORDERED: ROBITUSSIN DM PO ONE (08:28)
[2017-09-15] MEDS ORDERED: ROBITUSSIN DM ONE (08:35)
[2017-09-15 08:38] LABS: BILIRUBIN,URINE NEGATIVE (NEGATIVE); BLOOD/HEMOGLOBIN,URINE 1+ (NEGATIVE); GLUCOSE, URINE NEGATIVE (NEGATIVE); KETONES,URINE NEGATIVE (NEGATIVE); LEUKOCYTE ESTERASE ,URINE 2+ (NEGATIVE); NITRITES,URINE NEGATIVE (NEGATIVE); PROTEIN,URINE 3+ (NEGATIVE); UROBILINOGEN,URINE 1+ (NORMAL)
[2017-09-15 08:39] LABS: ALANINE AMINOTRANSFERASE 159 Units/L (12-78); ALBUMIN 3.2 g/dL (3.4-5.0); ALKALINE PHOSPHATASE 148 Units/L (46-116); ASPARTATE AMINO TRANSFERASE 115 Units/L (15-37); CKMB % 0.7 % (<4); COR CA(FOR HYPOALB) 9.1 mg/dL (8.5-10.1); CREATINE KINASE 741 Units/L (39-308); DIGOXIN < 0.20 ng/mL (0.9-2); MAGNESIUM 1.8 mg/dL (1.7-2.9); TOTAL PROTEIN 7.4 g/dL (6.4-8.2)
[2017-09-15 08:40] LABS: CREATINE KINASE MB 5.4 ng/mL (0-4.0)
[2017-09-15 08:57] LABS: APPEARANCE,URINE CLEAR (CLEAR); BACTERIA,URINE TRACE /HPF (NEGATIVE); COLOR,URINE YELLOW (YELLOW); SQUAMOUS EPITHELIAL CELL,UR FEW /HPF (NEGATIVE)
[2017-09-15] MEDS ORDERED: MORPHINE SULFATE INJ 4 MG ONE (09:49)
[2017-09-15] MEDS: MORPHINE SULFATE INJ 4 MG IVP PRN ×2 (09:51→20:43)
[2017-09-15] MEDS ORDERED: TORADOL 60 MG VIAL ONE (09:51)
[2017-09-15] MEDS: PROzac PO SCH (12:25)
[2017-09-15 14:28] LABS: CKMB % 0.8 % (<4); TROPONIN I 0.05 ng/mL (0-1.5)
[2017-09-15 14:41] LABS: CREATINE KINASE MB 5.5 ng/mL (0-4.0)
[2017-09-15] MEDS: NORCO 5/325 MG TAB PO PRN (15:10)
[2017-09-15] MEDS: ROBITUSSIN DM PO PRN (15:11)
[2017-09-15 20:15] LABS: CKMB % 0.9 % (<4); TROPONIN I 0.05 ng/mL (0-1.5)
[2017-09-15 20:19] LABS: CREATINE KINASE MB 5.4 ng/mL (0-4.0)
[2017-09-15] MEDS: LASIX IVP SCH (20:42)
[2017-09-16] MEDS: MORPHINE SULFATE INJ 4 MG IVP PRN ×4 (04:56→23:30)
[2017-09-16 05:19] LABS: BASOPHILS # (AUTO) 0.1 X10^3/uL (0.0-0.1); BASOPHILS % (AUTO) 0.9 % (0.2-1.0); EOSINOPHILS # (AUTO) 0.3 x10^3/uL (0.0-0.2); EOSINOPHILS % (AUTO) 2.6 % (0.9-2.9); HEMATOCRIT 39.5 % (42.0-54.0); HEMOGLOBIN 12.7 g/dL (13.5-18.0); LYMPHOCYTES % (AUTO) 19.9 % (21.0-51.0); MEAN CORPUSCULAR HEMOGLOBIN 24.4 pg (27.0-34.0); MEAN CORPUSCULAR HGB CONC 32.1 g/dL (33.0-35.0); MEAN PLATELET VOLUME 7.7 fL (7.4-11.0); MONOCYTES # (AUTO) 1.1 x10^3/uL (0.3-0.8); MONOCYTES % (AUTO) 10.5 % (0.0-13.0); NEUTROPHILS # (AUTO) 6.6 x10^3/uL (2.2-4.8); NEUTROPHILS % (AUTO) 66.1 % (42.0-75.0); PLATELET COUNT 359 X10^3/uL (150.0-450.0); RED CELL DISTRIBUTION WIDTH 20.2 % (11.6-16.5)
[2017-09-16 05:27] LABS: ALANINE AMINOTRANSFERASE 141 Units/L (12-78); ALBUMIN 3.4 g/dL (3.4-5.0); ALKALINE PHOSPHATASE 162 Units/L (46-116); ASPARTATE AMINO TRANSFERASE 99 Units/L (15-37); BLOOD UREA NITROGEN 22 mg/dL (7-18); CALCIUM 8.6 mg/dL (8.5-10.1); CARBON DIOXIDE 26.2 mmol/L (21-32); CHLORIDE 102 mmol/L (98-107); CHOL/HDL RATIO 3.7 (0.0-5.0); CHOLESTEROL 132 mg/dL (0-200); CREATININE 1.52 mg/dL (0.70-1.30); HDL CHOLESTEROL 36 mg/dL (40-60); SODIUM 138 mmol/L (136-145); TOTAL PROTEIN 7.6 g/dL (6.4-8.2); TRIGLYCERIDES 107 mg/dL (0-150); eGFR NON BLACK RACES 55 (>60)
[2017-09-16 05:45] LABS: ANISOCYTOSIS 1+; HYPOCHROMASIA 1+; PLATELET MORPHOLOGY COMMENT NORMAL (NORMAL); POIKILOCYTOSIS SLIGHT
[2017-09-16 05:46] LABS: BURR CELLS SLIGHT; OVALOCYTES SLIGHT
[2017-09-16] MEDS: NORCO 5/325 MG TAB PO PRN ×2 (07:15→14:02)
[2017-09-16] MEDS: ROBITUSSIN DM PO PRN ×3 (07:15→22:00)
[2017-09-16] MEDS: ALDACTONE TAB 25 MG PO SCH (08:48)
[2017-09-16] MEDS: LANOXIN PO SCH (08:48)
[2017-09-16] MEDS: LASIX IVP SCH ×2 (08:49→20:38)
[2017-09-16] MEDS: ZESTRIL TAB 5 MG PO SCH (08:49)
[2017-09-16] MEDS: PROzac PO SCH (08:50)
[2017-09-16] MEDS ORDERED: FLUOXETINE 40 MG PO SCH (09:00)
--- NOTE | 2017-09-16 12:14 | DR.H&P ---
H&P - History & Physical for Day of: H&P Date: 09/15/17 - Chief Complaint Chief Complaint: CHEST PAIN, COUGH - History of Present Illness History of Present Illness: IS A 36 YEAR OLD PATIENT OF OURS WHO PRESENTED TO THE EMERGENCY ROOM WITH COMPLAINTS OF COUGH AND CHEST PAIN THAT BEGAN TODAY. PATIENT HAS A KNOWN HISTORY OF CONGESTIVE HEART FAILURE WITH CARDIOMYOPATHY WITH MARKED DECREASED EJECTION FRACTION. EMS REPORTS THAT ON ARRIVAL TO HIS HOME, SATURATIONS WERE 91%. HE WAS PLACED ON NASAL CANNULA AT 4L/ MIN AND OXYGEN SATURATIONS INCREASED TO 100%. ON ARRIVAL, VITALS WERE 98.4-125- 20-100% NC, 133/93. LABS WERE OBTAINED. ABNORMAL LAB VALUES INCLUDE THE FOLLOWING: HGB 12.6, HCT 40.3, CREATININE 1.40, AST 115, ALT 159, ALK PHOS 148, CREATINE KINASE 741, CK-MB 5.4, BNP 2430, ALBUMIN 3.2. TOXICOLOGY REVEALED THAT PATIENT IS POSITIVE FOR AMPHETAMINES. A CHEST XRAY WAS OBTAINED AND REEALED MARKED CARDIOMEGALY WITHOUT DEFINITE CONGESTIVE HEART FAILURE. EKG REVEALED SINUS TACHYCARDIA WITH PROBABLE LEFT ATRIAL ENLARGEMENT. HR 125. HE WAS GIVEN LASIX 40MG IV X 1 DOSE AND ROBITUSSIN DM 10ML PO X 1 DOSE IN THE ER WITH NO IMPROVEMENT IN SYMPTOMS. HE WAS ADMITTED FOR FURTHER EVALUATION AND TREATMENT OF CHEST PAIN. WE PLAN TO OBTAIN SERIAL CARDIAC ENZYMES AND EKGS. HE WILL BE STARTED ON LASIX 40MG IV BID, MORPHINE 4MG IV Q6H PRN PAIN, AND WE WILL RESUME HOME MEDICATIONS. OTHERWISE, WE WILL FOLLOW UP WITH AM LABS AND CONTINUE TO MONITOR PATIENT. - Past Medical History Past Medical History: Anxiety, CHF, Hypertension Additional Medical History: Enlarged Tonsils - Past Surgical History Surgical History: Tonsillectomy - Family History Family Medical History: Diabetes Mellitus, Cancer, [place], Coronary Artery Disease, Heart Failure, Hypertension - Social History Does patient currently use any type of tobacco product: Yes Have you used tobacco products in the last 12 months: Yes Type of Tobacco Use: Cigarettes How many years tobacco product used: 10 Does any household member use tobacco: Yes Alcohol Use: None Drug Use: Methamphetamine - Medications Home Medications: No Known Drug Allergies Allergy (Verified 09/15/17 07:31) - Review of Systems Constitutional: No Symptoms Reported Eyes: No Symptoms Reported ENT: No Symptoms Reported Respiratory: Cough, Shortness of Breath Cardiovascular: Chest Pain Gastrointestinal: No Symptoms Reported Genitourinary: No Symptoms Reported Musculoskeletal: No Symptoms Reported Skin: No Symptoms Reported Neurological: No Symptoms Reported - Physical Exam Vital Signs: Temperature 97.6 F Pulse Rate [Left Brachial] 119 Pulse Rate 114 Respiratory Rate 22 Blood Pressure [Right Arm] 190/74 Blood Pressure [Left Arm] 123/80 Blood Pressure 133/93 O2 Sat by Pulse Oximetry 100 Oriented: Normal Eyes: Normal Ear: Normal Nose: Normal Throat: Normal Respiratory: Diminished Throughout Cardiovascular: Tachycardia. negative: S3, S4, Murmur : Normal Auscultation: Bowel Sounds: Normal Palpation: Normal Tenderness: Normal Skin: Normal Musculoskeletal: Normal Psychiatric: Normal Mood Description: Calm Affect: Normal Speech Pattern: Clear - Assessment/Plan (1) Chest pain, rule out acute myocardial infarction Status: Acute Plan: ADMIT, TELEMETRY, SUPPLEMENTAL OXYGEN, OBTAIN SERIAL CARDIAC ENZYMES AND EKG, CONTINUE TO MONITOR (2) CHF (congestive heart failure) Qualifiers: Heart failure type: unspecified Heart failure chronicity: acute on chronic Qualified Code(s): I50.9 - Heart failure, unspecified Status: Chronic Plan: LASIX 40MG IV BID, CONTINUE HOME MEDICATIONS, CONTINUE TO MONITOR - Allergies Allergies/Adverse Reactions: Allergies Allergy/AdvReac Type Severity Reaction Status Date / Time No Known Drug Allergies Allergy Verified 09/15/17 07:31
[2017-09-16] MEDS ORDERED: PROVENTIL NEB TX 0.083% 2.5MG/ 3ML NEB PRN (15:56)
--- NOTE | 2017-09-16 16:28 | RAD ---
History: Bilateral rib pain, cough, shortness of breath Study: Rib series Findings: PA view of the chest and multiple views of the ribs are obtained and comparison made to the previous day's chest radiograph. Moderate left-sided cardiomegaly is again noted. Interval resolutio n of right-sided pulmonary edema is noted. There is a tiny right pleural effusion. No fracture, bony destructive process or deformity of the ribs is noted. Impression: Improvement in mild CHF. Normal ribs. Reported By:
[2017-09-17] MEDS: ROBITUSSIN DM PO PRN (02:47)
[2017-09-17] MEDS: MORPHINE SULFATE INJ 4 MG IVP PRN ×2 (04:33→11:02)
[2017-09-17 06:15] LABS: BASOPHILS # (AUTO) 0.1 X10^3/uL (0.0-0.1); BASOPHILS % (AUTO) 0.9 % (0.2-1.0); EOSINOPHILS # (AUTO) 0.3 x10^3/uL (0.0-0.2); EOSINOPHILS % (AUTO) 3.7 % (0.9-2.9); HEMATOCRIT 39.6 % (42.0-54.0); HEMOGLOBIN 12.7 g/dL (13.5-18.0); LYMPHOCYTES # (AUTO) 2.4 X10^3/uL (1.3-2.9); LYMPHOCYTES % (AUTO) 28.9 % (21.0-51.0); MEAN CORPUSCULAR HGB CONC 32.1 g/dL (33.0-35.0); MEAN CORPUSCULAR VOLUME 74.8 fL (80.0-100.0); MEAN PLATELET VOLUME 7.6 fL (7.4-11.0); MONOCYTES # (AUTO) 0.9 x10^3/uL (0.3-0.8); MONOCYTES % (AUTO) 11.3 % (0.0-13.0); NEUTROPHILS # (AUTO) 4.5 x10^3/uL (2.2-4.8); NEUTROPHILS % (AUTO) 55.2 % (42.0-75.0); PLATELET COUNT 382 X10^3/uL (150.0-450.0); RED CELL DISTRIBUTION WIDTH 19.7 % (11.6-16.5); WHITE BLOOD COUNT 8.2 X10^3/uL (3.6-10.0)
[2017-09-17 06:26] LABS: PLATELET MORPHOLOGY COMMENT NORMAL (NORMAL)
[2017-09-17 06:59] LABS: ALANINE AMINOTRANSFERASE 128 Units/L (12-78); ALBUMIN 3.5 g/dL (3.4-5.0); ALKALINE PHOSPHATASE 163 Units/L (46-116); ASPARTATE AMINO TRANSFERASE 89 Units/L (15-37); BLOOD UREA NITROGEN 28 mg/dL (7-18); CALCIUM 8.5 mg/dL (8.5-10.1); CARBON DIOXIDE 26.7 mmol/L (21-32); CHLORIDE 102 mmol/L (98-107); CKMB % 1.9 % (<4); CREATINE KINASE 332 Units/L (39-308); CREATININE 1.51 mg/dL (0.70-1.30); SODIUM 137 mmol/L (136-145); TOTAL PROTEIN 7.7 g/dL (6.4-8.2); TROPONIN I 0.05 ng/mL (0-1.5); eGFR NON BLACK RACES 56 (>60)
[2017-09-17 07:04] LABS: CREATINE KINASE MB 6.2 ng/mL (0-4.0)
[2017-09-17] MEDS: LANOXIN PO SCH (08:33)
[2017-09-17] MEDS: LASIX IVP SCH (08:33)
[2017-09-17] MEDS: ALDACTONE TAB 25 MG PO SCH (08:33)
[2017-09-17] MEDS: PROzac PO SCH (08:34)
[2017-09-17] MEDS: NORCO 5/325 MG TAB PO PRN (08:34)
[2017-09-17] MEDS: ZESTRIL TAB 5 MG PO SCH (08:34)
[2017-09-17 12:38] VITALS: BP 110/69
--- NOTE | 2017-09-19 16:42 | PCM.PROG ---
Progress Note - Progress Note for Day of Date of Exam: 09/16/17 - Subjective Subjective: WAS ADMITTED FOR CHEST PAIN AND CONGESTIVE HEART FAILURE. TODAY, HE IS ALERT AND ORIENTED, SITTING UP IN BED ON MORNING ROUNDS. HE IS NOTED WITH COMPLAINTS OF A NON-PRODUCTIVE COUGH AND SHORTNESS OF BREATH. HE DENIES CHEST PAIN THIS MORNING. ON EXAMINATION, DIMINISHED LUNG SOUNDS ARE NOTED THROUGHOUT. HE IS NOTED TO BE TACHYCARDIC WITH HR IN THE 110-120S. ABNORMAL LABS THIS MORNING INCLUDE THE FOLLOWING: HGB 12.7, HCT 39.5, BUN 22, CREATININE 1.52, GFR 55, TOTAL BILI 1.60, AST 99, ALT 141, ALK PHOS 162. CREATINE KINASE HAS DECREASED TO 573, CK-MB 5.4. TODAY, WE PLAN TO OBTAIN AN ECHOCARDIOGRAM. OTHERWISE, WE WILL CONTINUE WITH HOME MEDICATIONS, IV LASIX, AND CURRENT PLAN OF CARE TODAY. OTHERWISE, WE WILL FOLLOW UP WITH AM LABS AND CONTINUE TO MONITOR. - Past Medical Family Social History Past Med/Fam/Surg Hx: No changes since H&P Allergies: Allergies No Known Drug Allergies Allergy (Verified 09/15/17 07:31) - Review of Systems ROS: No change since H&P - Vital Signs and I&O's Vital Signs: Temperature 97.6 F Pulse Rate [Left Brachial] 105 Pulse Rate 101 Respiratory Rate 20 Blood Pressure [Right Arm] 102/67 Blood Pressure [Left Arm] 110/69 Blood Pressure 133/93 O2 Sat by Pulse Oximetry 99 Intake and Output: Intake & Output 09/17/17 09/18/17 09/19/17 09/20/17 11:59 11:59 11:59 11:59 Intake Total 1440 / 1440 Balance 1440 / 1440 - Physical Exam Oriented: Normal Eyes: Normal Ear: Normal Nose: Normal Throat: Normal Respiratory: Generalized, Diminished Cardiovascular: Tachycardia. negative: S3, S4, Murmur : Normal Auscultation: Bowel Sounds: Normal Palpation: Normal Tenderness: Normal Skin: Normal Musculoskeletal: Normal Psychiatric: Normal Mood Description: Calm Affect: Normal Speech Pattern: Clear, Appropriate - Laboratory and Diagnostics Result Diagrams: 09/17/17 05:21 09/17/17 05:21 Labs: Laboratory WBC 8.2 X10^3/uL (3.6-10.0) 09/17/17 05:21 RBC 5.30 X10^6/uL (4.7-6.0) 09/17/17 05:21 Hgb 12.7 g/dL (13.5-18.0) L 09/17/17 05:21 Hct 39.6 % (42.0-54.0) L 09/17/17 05:21 MCV 74.8 fL (80.0-100.0) L 09/17/17 05:21 MCH 24.0 pg (27.0-34.0) L 09/17/17 05:21 MCHC 32.1 g/dL (33.0-35.0) L 09/17/17 05:21 RDW 19.7 % (11.6-16.5) H 09/17/17 05:21 Plt Count 382 X10^3/uL (150.0-450.0) 09/17/17 05:21 Plt Count Comment Adequate (ADEQUATE) 09/17/17 05:21 MPV 7.6 fL (7.4-11.0) 09/17/17 05:21 Neut % (Auto) 55.2 % (42.0-75.0) 09/17/17 05:21 Lymph % (Auto) 28.9 % (21.0-51.0) 09/17/17 05:21 Cottle % (Auto) 11.3 % (0.0-13.0) 09/17/17 05:21 Eos % (Auto) 3.7 % (0.9-2.9) H 09/17/17 05:21 Baso % (Auto) 0.9 % (0.2-1.0) 09/17/17 05:21 Neut # (Auto) 4.5 x10^3/uL (2.2-4.8) 09/17/17 05:21 Lymph # (Auto) 2.4 X10^3/uL (1.3-2.9) 09/17/17 05:21 Cottle # (Auto) 0.9 x10^3/uL (0.3-0.8) H 09/17/17 05:21 Eos # (Auto) 0.3 x10^3/uL (0.0-0.2) H 09/17/17 05:21 Baso # (Auto) 0.1 X10^3/uL (0.0-0.1) 09/17/17 05:21 Absolute Nucleated RBC 0.1 /100WBC 09/17/17 05:21 Plt Morphology Comment Normal (NORMAL) 09/17/17 05:21 RBC Morphology Normal (NORMAL) 09/17/17 05:21 Hypochromasia 1+ A 09/16/17 04:26 Poikilocytosis Slight A 09/16/17 04:26 Anisocytosis 1+ A 09/16/17 04:26 Ovalocytes Slight A 09/16/17 04:26 Loco Cells Slight A 09/16/17 04:26 INR Target Range - 09/15/17 07:49 INR 1.05 (0.8-1.3) 09/15/17 07:49 APTT 27.6 SECONDS (22.9-36.5) 09/15/17 07:49 PTT Comment - 09/15/17 07:49 D-Dimer 353 ng/mL (0-400) 09/15/17 07:49 Sodium 137 mmol/L (136-145) 09/17/17 05:21 Corrected Sodium TNP 09/17/17 05:21 Potassium 4.0 mmol/L (3.5-5.1) 09/17/17 05:21 Chloride 102 mmol/L (98-107) 09/17/17 05:21 Carbon Dioxide 26.7 mmol/L (21-32) 09/17/17 05:21 BUN 28 mg/dL (7-18) H 09/17/17 05:21 Creatinine 1.51 mg/dL (0.70-1.30) H 09/17/17 05:21 Est GFR (MDRD) Af Amer > 60 (>60) 09/17/17 05:21 Est GFR (MDRD) Non-Af 56 (>60) L 09/17/17 05:21 Glucose 83 mg/dL (65-99) 09/17/17 05:21 Calcium 8.5 mg/dL (8.5-10.1) 09/17/17 05:21 Corrected Calcium TNP 09/17/17 05:21 Magnesium 1.8 mg/dL (1.7-2.9) 09/15/17 07:49 Total Bilirubin 1.40 mg/dL (0.2-1.0) H 09/17/17 05:21 AST 89 Units/L (15-37) H 09/17/17 05:21 ALT 128 Units/L (12-78) H 09/17/17 05:21 Alkaline Phosphatase 163 Units/L (46-116) H 09/17/17 05:21 Creatine Kinase 332 Units/L (39-308) H 09/17/17 05:21 CK-MB (CK-2) 6.2 ng/mL (0-4.0) H* 09/17/17 05:21 CK/CKMB % Calc 1.9 % (<4) 09/17/17 05:21 Troponin I 0.05 ng/mL (0-1.5) 09/17/17 05:21 B-Natriuretic Peptide 2430 pg/mL (0-79) H* 09/15/17 07:49 Total Protein 7.7 g/dL (6.4-8.2) 09/17/17 05:21 Albumin 3.5 g/dL (3.4-5.0) 09/17/17 05:21 Globulin 4.2 g/dL (2.5-4.5) 09/17/17 05:21 Albumin/Globulin Ratio 0.8 Ratio (1.1-2.1) L 09/17/17 05:21 Triglycerides 107 mg/dL (0-150) 09/16/17 04:26 Cholesterol 132 mg/dL (0-200) 09/16/17 04:26 LDL Cholesterol, Calc 75 mg/dL (0-100) 09/16/17 04:26 HDL Cholesterol 36 mg/dL (40-60) L 09/16/17 04:26 Cholesterol/HDL Ratio 3.7 (0.0-5.0) 09/16/17 04:26 Specimen Type Random urine 09/15/17 08:30 Urine Color Yellow (YELLOW) 09/15/17 08:30 Urine Appearance Clear (CLEAR) 09/15/17 08:30 Urine pH 7.0 (5.0 - 8.0) 09/15/17 08:30 Ur Specific [place] 1.010 (1.000-1.030) 09/15/17 08:30 Urine Protein 3+ (NEGATIVE) 09/15/17 08:30 Urine Glucose (UA) Negative (NEGATIVE) 09/15/17 08:30 Urine Ketones Negative (NEGATIVE) 09/15/17 08:30 Urine Occult Blood 1+ (NEGATIVE) 09/15/17 08:30 Urine Nitrite Negative (NEGATIVE) 09/15/17 08:30 Urine Bilirubin Negative (NEGATIVE) 09/15/17 08:30 Urine Urobilinogen 1+ (NORMAL) 09/15/17 08:30 Ur Leukocyte Esterase 2+ (NEGATIVE) 09/15/17 08:30 Urine RBC 3-5 /HPF (NONE SEEN) 09/15/17 08:30 Urine WBC 3-5 /HPF (NONE SEEN) 09/15/17 08:30 Ur Squamous Epith Cells Few /HPF (NEGATIVE) 09/15/17 08:30 Urine Bacteria Trace /HPF (NEGATIVE) 09/15/17 08:30 Ur Culture Indicated? No/not indicated 09/15/17 08:30 Digoxin < 0.20 ng/mL (0.9-2) L 09/15/17 07:49 Urine Opiates Screen Negative (NEG=<300) 09/15/17 08:30 Urine Methadone Screen Negative (NEG=<300) 09/15/17 08:30 Ur Barbiturates Screen Negative (NEG=<200) 09/15/17 08:30 Ur Phencyclidine Scrn Negative (NEG=<25) 09/15/17 08:30 Ur Amphetamines Screen Positive (NEG=<1000) 09/15/17 08:30 U Benzodiazepines Scrn Negative (NEG=<200) 09/15/17 08:30 Urine Cocaine Screen Negative (NEG=<300) 09/15/17 08:30 U Marijuana (THC) Screen Negative (NEG=<50) 09/15/17 08:30 - Plan (1) Chest pain, rule out acute myocardial infarction Status: Acute Plan: ADMIT, TELEMETRY, SUPPLEMENTAL OXYGEN, OBTAIN SERIAL CARDIAC ENZYMES AND EKG, CONTINUE TO MONITOR (2) CHF (congestive heart failure) Status: Chronic Qualifiers: Heart failure type: unspecified Heart failure chronicity: acute on chronic Qualified Code(s): I50.9 - Heart failure, unspecified Plan: OBTAIN ECHO, LASIX 40MG IV BID, CONTINUE HOME MEDICATIONS, CONTINUE TO MONITOR
--- NOTE | 2017-10-05 19:47 | DR.CARTERD ---
- Discharge Summary for: Discharge Summary for Date of:: 09/17/17 - Admission Date Date of Admission: 09/15/17 - Admission Diagnoses Admission Diagnosis: (1) Chest pain, rule out acute myocardial infarction (2) CHF (congestive heart failure) - Discharge Date Discharge Date: 09/17/17 - Discharge Diagnoses Discharge Diagnosis: (1) Chest pain, rule out acute myocardial infarction (2) CHF (congestive heart failure) - Hospital Course Hospital Course: DAY ONE, MR. GERMAN IS A 36 YEAR OLD PATIENT OF OURS WHO PRESENTED TO THE EMERGENCY ROOM WITH COMPLAINTS OF COUGH AND CHEST PAIN THAT BEGAN PRIOR TO ARRIVAL. PATIENT HAD A KNOWN HISTORY OF CONGESTIVE HEART FAILURE WITH CARDIOMYOPATHY WITH MARKED DECREASED EJECTION FRACTION. EMS REPORTED THAT ON ARRIVAL TO HIS HOME, SATURATIONS WERE 91%. HE WAS PLACED ON NASAL CANNULA AT 4L/ MIN AND OXYGEN SATURATIONS INCREASED TO 100%. ON ARRIVAL, VITALS WERE 98.4-125- 20-100% NC, 133/93. LABS WERE OBTAINED. ABNORMAL LAB VALUES INCLUDED THE FOLLOWING: HGB 12.6, HCT 40.3, CREATININE 1.40, AST 115, ALT 159, ALK PHOS 148, CREATINE KINASE 741, CK-MB 5.4, BNP 2430, ALBUMIN 3.2. TOXICOLOGY REVEALED THAT PATIENT WAS POSITIVE FOR AMPHETAMINES. A CHEST XRAY WAS OBTAINED AND REVEALED MARKED CARDIOMEGALY WITHOUT DEFINITE CONGESTIVE HEART FAILURE. EKG REVEALED SINUS TACHYCARDIA WITH PROBABLE LEFT ATRIAL ENLARGEMENT, HR 125. HE WAS GIVEN LASIX 40MG IV X 1 DOSE AND ROBITUSSIN DM 10ML PO X 1 DOSE IN THE ER WITH NO IMPROVEMENT IN SYMPTOMS. HE WAS ADMITTED FOR FURTHER EVALUATION AND TREATMENT OF CHEST PAIN. WE OBTAINED SERIAL CARDIAC ENZYMES AND EKGS. HE WAS STARTED ON LASIX 40MG IV BID, MORPHINE 4MG IV Q6H PRN PAIN, AND WE RESUMED HOME MEDICATIONS. DAY TWO, MR. GERMAN WAS ADMITTED FOR CHEST PAIN AND CONGESTIVE HEART FAILURE. HE WAS ALERT AND ORIENTED, SITTING UP IN BED ON MORNING ROUNDS. HE WAS NOTED WITH COMPLAINTS OF A NON-PRODUCTIVE COUGH AND SHORTNESS OF BREATH. HE DENIED CHEST PAIN. ON EXAMINATION, DIMINISHED LUNG SOUNDS WERE NOTED THROUGHOUT. HE WAS NOTED TO BE TACHYCARDIC WITH HR IN THE 110-120S. ABNORMAL LABS INCLUDED THE FOLLOWING: HGB 12.7, HCT 39.5, BUN 22, CREATININE 1.52, GFR 55, TOTAL BILI 1.60 , AST 99, ALT 141, ALK PHOS 162. CREATINE KINASE HAD DECREASED TO 573, CK-MB 5.4. WE CONTINUED WITH HOME MEDICATIONS AND IV LASIX. DAY THREE, AN ECHO WAS OBTAINED AND REPORTED AN EJECTION FRACTION OF 20%. PATIENT REPORTED HE WAS FEELING BETTER AFTER RECEIVING SEVERAL DOSES OF LASIX IV. PATIENT DENIED SHORTNESS OF BREATH OR CHEST PAIN. VITALS STABLE. LABS WNL. WE PLANNED FOR DISCHARGE. INSTRUCTIONS FOR MEDICATIONS AND FOLLOW UP WERE DISCUSSED WITH PATIENT AND FAMILY, BOTH VOICED UNDERSTANDING. PATIENT DISCHARGED HOME IN STABLE CONDITION WITH FAMILY. - Discharge Medications Discharge Medications: Prescriptions: Home medications furosemide 40 mg PO BID #60 tab 02/19/17 hydrocodone-acetaminophen [Perry] 1 tab PO Q6H PRN #12 tab 09/05/17 spironolactone [Aldactone] 25 mg PO DAILY #30 tab 09/05/17 carvedilol [Coreg] 3.125 mg PO BID PRN #60 tab 09/25/17 ranitidine HCl [Zantac] 150 mg PO BID #60 tab 09/25/17 - Discharge Disposition Discharge Disposition: PATIENT IS TO FOLLOW UP IN OUR OFFICE IN ONE WEEK.
--- NOTE | 2017-10-18 06:07 | DR.ARRHYTH ---
HPI Time Seen Time seen: 12:30 PCP Primary Care Physician: PRASHANT Complaint Chief Complaint Doctor Comments: Patient is well known to the department, he is a patient with severe cardiac disease with ejection fraction <25%. He has been given the choice of a life vest but he declined. He is seen frequently because chest pain with dyspnea. Chief Complaint:: .. PT LUNGS ARE CLEAR NO DISTRESS NOTED,PT C/O CHEST PAIN, COUGH , AND HE STATES TO EMS THAT HE IS OUT OF HIS HEART MEDS,,BR Self Treatment fo Chief Complaint: PT 02 STAT WAS 91 ON RA AND PT PLACED ON 02 A 4LPM PER EMS AND SATS > 100% Reviewed Nursing Notes Reviewed: Yes Source History Provided: Patient Mode of Arrival Mode of Arrival: Stretcher Timing Onset of Chief Complaint: 09/15/17 Duration Duration: Constant (worse today (more frequent)) Duration: Hours Context Onset: At Rest Modifying Factors Modifying Factors: Worsens: Nothing and Exertion Associated Signs and Symptoms Associated Signs and Symptoms: Chest Pain and Dyspnea; denies Diaphoresis If Chest Pain Quality: Sharp and Pressure-like Location: Chest (left) and Back Duration since onset: Days PMH PMH Past Medical History: Yes Past Medical History: Anxiety, CHF and Hypertension Past Surgical History: Yes Surgical History: Tonsillectomy Family History History of Family Medical Conditions: Yes Family Medical History: Diabetes Mellitus, Cancer, [place], Coronary Artery Disease, Heart Failure and Hypertension Social History Does patient currently use any type of tobacco product: Yes Have you used tobacco products in the last 12 months: Yes Type of Tobacco Use: Cigarettes How many years tobacco product used: 10 Does any household member use tobacco: Yes Alcohol Use: None Do you use any recreational Drugs:: No (METH) Lives With: Family Lives Where: Home infectious screening In the last 2 months have you had wt loss of >10#?: NO Have you had fever, night sweats or hemotysis?: No Have you traveled outside the country in the last 6 months?: No Isolation: Standard PE Vitals Vital Signs: Temp Pulse Pulse Resp BP BP BP 09/17/17 12:00 97.6 F 105 H 20 110/69 09/17/17 09:08 101 H 09/17/17 08:33 107 H 09/17/17 07:58 97.5 F L 107 H 20 92/52 09/17/17 04:00 98 F 102 H 20 116/67 09/17/17 00:00 97.8 F 109 H 18 123/73 09/16/17 20:00 97.5 F L 105 H 20 122/75 09/16/17 16:14 104 H 09/16/17 16:00 97.7 F 128 H 20 102/67 09/16/17 15:55 97.5 F L 104 H 24 09/16/17 12:00 97.5 F L 113 H 24 115/75 09/16/17 08:48 114 H 09/16/17 08:00 97.6 F 119 H 22 190/74 09/16/17 04:00 98 F 123 H 20 123/80 09/16/17 00:00 97.6 F 117 H 20 120/81 09/15/17 20:00 97.6 F 98 H 20 132/79 09/15/17 16:00 98.0 F 110 H 20 142/86 09/15/17 12:00 98.1 F 108 H 20 121/80 09/15/17 10:06 128 H 20 133/93 09/15/17 10:00 97.8 F 123 H 20 122/83 09/15/17 07:24 98.4 F 125 H 20 133/93 09/05/17 08:00 156/88 156/88 09/03/17 16:00 124/67 Pulse Ox 09/17/17 12:00 99 09/17/17 09:08 99 09/17/17 08:33 09/17/17 07:58 97 09/17/17 04:00 93 L 09/17/17 00:00 97 09/16/17 20:00 95 09/16/17 16:14 98 09/16/17 16:00 09/16/17 15:55 98 09/16/17 12:00 09/16/17 08:48 09/16/17 08:00 09/16/17 04:00 100 09/16/17 00:00 100 09/15/17 20:00 96 09/15/17 16:00 100 09/15/17 12:00 100 09/15/17 10:06 98 09/15/17 10:00 09/15/17 07:24 100 09/05/17 08:00 09/03/17 16:00 General Limitations: No Limitations General Appearance: Alert and Anxious Head Head Exam: Normal Inspection, Atraumatic and Normocephalic Eyes Eyes: Normal Eye exam: Normal Appearance, PERRL and EOMI; negative Scleral Icterus, Conjunctival Injection, Nystagmus, Miosis, Mydrasis, Periorbital Swelling and Periorbital Tenderness ENT ENT Exam: Normal Exam, Normal Oropharynx, Normal External Ear Exam, Mucous Membranes Moist and TM's Normal Bilaterally Neck Neck Exam: Normal Inspection and Full ROM; negative Tenderness and Thyromegaly Chest Chest Inspection: Normal Inspection and Symmetric Chest Wall Rise; negative Tenderness and Rash Respiratory Respiratory Exam: Normal Lung Sounds Bilat; negative Accessory Muscle Use Respiratory Exam: Bilateral: Clear to Auscultation Cardiovascular Cardiovascular Exam: Regular Rate and Diastolic Murmur Location of Murmur: LUSB Intensity of Murmur: 3/6 Peripheral Pulse: Carotid (R): 1+ Abdominal Exam Abdominal Exam: Hypoactive Bowel Sounds; negative Organomegaly Abdominal Tenderness: negative RUQ, RLQ and LUQ Rectal Rectal Exam: Deferred Extremities Extremities Exam: Normal Inspection and Normal Capillary Refill; negative Calf Tenderness Back Back Exam: Normal Inspection; negative Paraspinal Tenderness and (R) Sciatic Notch Tenderness Neurologic Neurological Exam: Alert, Oriented X3, CN II-XII Intact and Normal Gait Psychiatric Psychiatric Exam: Agitated Skin Skin Exam: Warm and Normal Color; negative Diaphoresis COURSE Reevaluation 1st: Unchanged ROR Labs Reviewed Result Diagrams: 09/17/17 05:21 09/17/17 05:21 Laboratory: WBC 8.2 X10^3/uL (3.6-10.0) 09/17/17 05:21 RBC 5.30 X10^6/uL (4.7-6.0) 09/17/17 05:21 Hgb 12.7 g/dL (13.5-18.0) L 09/17/17 05:21 Hct 39.6 % (42.0-54.0) L 09/17/17 05:21 MCV 74.8 fL (80.0-100.0) L 09/17/17 05:21 MCH 24.0 pg (27.0-34.0) L 09/17/17 05:21 MCHC 32.1 g/dL (33.0-35.0) L 09/17/17 05:21 RDW 19.7 % (11.6-16.5) H 09/17/17 05:21 Plt Count 382 X10^3/uL (150.0-450.0) 09/17/17 05:21 Plt Count Comment Adequate (ADEQUATE) 09/17/17 05:21 MPV 7.6 fL (7.4-11.0) 09/17/17 05:21 Neut % (Auto) 55.2 % (42.0-75.0) 09/17/17 05:21 Lymph % (Auto) 28.9 % (21.0-51.0) 09/17/17 05:21 [place] % (Auto) 11.3 % (0.0-13.0) 09/17/17 05:21 Eos % (Auto) 3.7 % (0.9-2.9) H 09/17/17 05:21 Baso % (Auto) 0.9 % (0.2-1.0) 09/17/17 05:21 Neut # (Auto) 4.5 x10^3/uL (2.2-4.8) 09/17/17 05:21 Lymph # (Auto) 2.4 X10^3/uL (1.3-2.9) 09/17/17 05:21 [place] # (Auto) 0.9 x10^3/uL (0.3-0.8) H 09/17/17 05:21 Eos # (Auto) 0.3 x10^3/uL (0.0-0.2) H 09/17/17 05:21 Baso # (Auto) 0.1 X10^3/uL (0.0-0.1) 09/17/17 05:21 Absolute Nucleated RBC 0.1 /100WBC 09/17/17 05:21 Plt Morphology Comment Normal (NORMAL) 09/17/17 05:21 RBC Morphology Normal (NORMAL) 09/17/17 05:21 Hypochromasia 1+ A 09/16/17 04:26 Poikilocytosis Slight A 09/16/17 04:26 Anisocytosis 1+ A 09/16/17 04:26 Ovalocytes Slight A 09/16/17 04:26 [place] Cells Slight A 09/16/17 04:26 INR Target Range - 09/15/17 07:49 INR 1.05 (0.8-1.3) 09/15/17 07:49 APTT 27.6 SECONDS (22.9-36.5) 09/15/17 07:49 PTT Comment - 09/15/17 07:49 D-Dimer 353 ng/mL (0-400) 09/15/17 07:49 Sodium 137 mmol/L (136-145) 09/17/17 05:21 Corrected Sodium TNP 09/17/17 05:21 Potassium 4.0 mmol/L (3.5-5.1) 09/17/17 05:21 Chloride 102 mmol/L (98-107) 09/17/17 05:21 Carbon Dioxide 26.7 mmol/L (21-32) 09/17/17 05:21 BUN 28 mg/dL (7-18) H 09/17/17 05:21 Creatinine 1.51 mg/dL (0.70-1.30) H 09/17/17 05:21 Est GFR (MDRD) Af Amer > 60 (>60) 09/17/17 05:21 Est GFR (MDRD) Non-Af 56 (>60) L 09/17/17 05:21 Glucose 83 mg/dL (65-99) 09/17/17 05:21 Calcium 8.5 mg/dL (8.5-10.1) 09/17/17 05:21 Corrected Calcium TNP 09/17/17 05:21 Magnesium 1.8 mg/dL (1.7-2.9) 09/15/17 07:49 Total Bilirubin 1.40 mg/dL (0.2-1.0) H 09/17/17 05:21 AST 89 Units/L (15-37) H 09/17/17 05:21 ALT 128 Units/L (12-78) H 09/17/17 05:21 Alkaline Phosphatase 163 Units/L (46-116) H 09/17/17 05:21 Creatine Kinase 332 Units/L (39-308) H 09/17/17 05:21 CK-MB (CK-2) 6.2 ng/mL (0-4.0) H* 09/17/17 05:21 CK/CKMB % Calc 1.9 % (<4) 09/17/17 05:21 Troponin I 0.05 ng/mL (0-1.5) 09/17/17 05:21 B-Natriuretic Peptide 2430 pg/mL (0-79) H* 09/15/17 07:49 Total Protein 7.7 g/dL (6.4-8.2) 09/17/17 05:21 Albumin 3.5 g/dL (3.4-5.0) 09/17/17 05:21 Globulin 4.2 g/dL (2.5-4.5) 09/17/17 05:21 Albumin/Globulin Ratio 0.8 Ratio (1.1-2.1) L 09/17/17 05:21 Triglycerides 107 mg/dL (0-150) 09/16/17 04:26 Cholesterol 132 mg/dL (0-200) 09/16/17 04:26 LDL Cholesterol, Calc 75 mg/dL (0-100) 09/16/17 04:26 HDL Cholesterol 36 mg/dL (40-60) L 09/16/17 04:26 Cholesterol/HDL Ratio 3.7 (0.0-5.0) 09/16/17 04:26 Specimen Type Random urine 09/15/17 08:30 Urine Color Yellow (YELLOW) 09/15/17 08:30 Urine Appearance Clear (CLEAR) 09/15/17 08:30 Urine pH 7.0 (5.0 - 8.0) 09/15/17 08:30 Ur Specific [place] 1.010 (1.000-1.030) 09/15/17 08:30 Urine Protein 3+ (NEGATIVE) 09/15/17 08:30 Urine Glucose (UA) Negative (NEGATIVE) 09/15/17 08:30 Urine Ketones Negative (NEGATIVE) 09/15/17 08:30 Urine Occult Blood 1+ (NEGATIVE) 09/15/17 08:30 Urine Nitrite Negative (NEGATIVE) 09/15/17 08:30 Urine Bilirubin Negative (NEGATIVE) 09/15/17 08:30 Urine Urobilinogen 1+ (NORMAL) 09/15/17 08:30 Ur Leukocyte Esterase 2+ (NEGATIVE) 09/15/17 08:30 Urine RBC 3-5 /HPF (NONE SEEN) 09/15/17 08:30 Urine WBC 3-5 /HPF (NONE SEEN) 09/15/17 08:30 Ur Squamous Epith Cells Few /HPF (NEGATIVE) 09/15/17 08:30 Urine Bacteria Trace /HPF (NEGATIVE) 09/15/17 08:30 Ur Culture Indicated? No/not indicated 09/15/17 08:30 Digoxin < 0.20 ng/mL (0.9-2) L 09/15/17 07:49 Urine Opiates Screen Negative (NEG=<300) 09/15/17 08:30 Urine Methadone Screen Negative (NEG=<300) 09/15/17 08:30 Ur Barbiturates Screen Negative (NEG=<200) 09/15/17 08:30 Ur Phencyclidine Scrn Negative (NEG=<25) 09/15/17 08:30 Ur Amphetamines Screen Positive (NEG=<1000) 09/15/17 08:30 U Benzodiazepines Scrn Negative (NEG=<200) 09/15/17 08:30 Urine Cocaine Screen Negative (NEG=<300) 09/15/17 08:30 U Marijuana (THC) Screen Negative (NEG=<50) 09/15/17 08:30 Other Results Comments: Chest: Marked cardiomegaly without CHF Diagnosis Discharge Problem: Chest pain, Cardiomegaly, Cardiomyopathy Instructions Instructions: Coronary Artery Disease, Male Steps to Quit Smoking, [id number] Smoking Tobacco Information Hypertension, [id number] Heart Failure, [id number] Forms: Patient Portal
== END 2017-09-17 12:30 | disposition home or self-care (01) ==
LOC: ER 07:23 → MED/SURG 07:23
PROVIDERS: ADMIT Internal Medicine; ATTEND Internal Medicine
DX: R05 Cough; R07.89 Other chest pain; I42.9 Cardiomyopathy, unspecified; I10 Essential (primary) hypertension; I50.9 Heart failure, unspecified; R00.0 Tachycardia, unspecified; R06.02 Shortness of breath; R07.81 Pleurodynia
CPT/HCPCS: 36415; 71010; 71045; 71111; 80053; 80061; 80162; 80307; 81001; 82550; 82553; 83735; 83880; 84484; 85025; 85378; 85610; 85730; 93005; 93306; 94640; 94760; 96375; 99284; G0378; G0434; J1885; J1940; J2270; J7613

== ENCOUNTER 2017-10-15 19:56 | Observation (INO) ==
[2017-10-15] MEDS ORDERED: DUONEB 0.5 MG/3 MG NEB ONE (21:07)
[2017-10-15] MEDS ORDERED: SOLU-Medrol 125 MG VIAL IVP ONE (21:07)
--- NOTE | 2017-10-15 21:14 | DR.SOBA ---
HPI - Time Seen Time seen: 21:08 - Primary Care Physician Primary Care Physician: PRASHANT - Complaints Chief Complaint Doctors Comments: Patient is complaining of SOB, wheezing with xiphoid chest pain for the past 2-3 days with swelling of his legs and feet. States he was in the emergency room earlier today with chest pain and SOB and the pain continues and he continues to wheeze. He denies cold, cough, fever or chills. States he is a patient of Dr. Nicholas and he is taking medicine for his heart but he is not taking anything for the wheezing. States he does not remember what he took before for the wheezing because it has been a while since he took anything. States he smokes one pack cigarette week. He denies alcohol usage. States the xiphoid pain is sharp at times and times feels like pressure. states the pain is 9 of 10. He denies nausea, vomiting, hematuria or nocturia. State she has AVILES and can only walk a short distance without having to stop to rest and catch his breath. States they gave him some lasix on previous visit and he has been going to the bath room but continues with the SOB. Chief Complaint:: SHORT OF BREATH, WHEEZING - Reviewed Nurses Notes Reviewed: Yes - Source History Provided: Patient - Mode of Arrival Mode of Arrival: Ambulatory - Timing Onset of Chief Complaint: 10/15/17 - Duration Duration: Days (2-3) - Context Onset:: At Rest, With Light Exertion PE Risk Factors:: None History of:: COPD, CHF Currently on:: Neither Prehospital Care:: Furosemide - Modifying Factors Worsens:: Exertion Improves:: Nothing - Associated Signs and Symptoms Associated Signs and Symptoms: Wheeze, Chest Pain, Leg Swelling - If Chest Pain Quality: Sharp, Pressure like, Heavy Location: Substernal - If Cough Cough: None PMH - PMH Past Medical History: Yes Past Medical History: Angina, CHF, Coronary Artery Disease, Hypertension Past Surgical History: Yes Surgical History: Tonsillectomy - Family History History of Family Medical Conditions: Yes Family Medical History: Diabetes Mellitus, Cancer, [place], Coronary Artery Disease, Heart Failure, Hypertension - Social History Do you use any recreational Drugs:: Yes Lives With: Other Lives Where: Homeless - infectious screening In the last 2 months have you had wt loss of >10#?: YES Have you had fever, night sweats or hemotysis?: No Have you traveled outside the country in the last 6 months?: No Isolation: Standard ROS - Review of Systems Constitutional: No Symptoms Reported, Weakness Eyes: No Symptoms Reported. negative: See HPI, Eye Pain, Blurred Vision, Tearing, Discharge, Photophobia, Diplopia, Other ENTM: No Symptoms Reported Respiratoy: No Symptoms Reported, Short of Breath, Wheezing. negative: See HPI , Productive Cough, Non-Productive Cough, Moist Cough, Dry Cough, Hacking Cough , Barking Cough, Brassy Cough, Orthopnea, Stridor, Hemoptysis, Other Cardiovascular: No Symptoms Reported, Chest Pain, Edema. negative: See HPI, Palpitations, Syncope, Cyanosis, Skin Mottling, Other Gastrointestinal/Abdominal: No Symptoms Reported. negative: See HPI, Abdominal Pain, Constipation, Diarrhea, Nausea, Vomiting, Food Intolerance, Other Genitourinary: No Symptoms Reported. negative: See HPI, Discharge, Dysuria, Frequency, Hematuria, Pain, Bleeding, Other Neurological: No Symptoms Reported, Weakness. negative: See HPI, Anxiety, Depressed, Emotional Problems, Headache, Numbness, Paresthesia, Pre-existing Deficit, Seizure, Tingling, Tremors, Dizziness, Problems Walking, Speech Problem , Other Musculoskeletal: No Symptoms Reported Integumentary: No Symptoms Reported. negative: See HPI, Change in Color, Change in Hair/Nails, Dryness, Lesions, Lumps, Rash, Itching, Wound, Bruises, Juandice, Other Hematologic/Lymphatic: No Symptoms Reported. negative: See HPI, Anemia, Blood Clots, Easy Bleeding, Easy Bruising, Swollen Glands, Lymphadenopathy, Other Endocrine: No Symptoms Reported Psychiatric: No Symptoms Reported. negative: See HPI, Anxiety, Depression, Hallucinations, Excessive crying, Suicidal, Other PE - General Limitations: No Limitations General Appearance: Alert, In Distress (slight) - Head Head Exam: Normal Inspection, Atraumatic, Normocephalic - Eyes Eye exam: Normal Appearance, PERRL, EOMI. negative: Scleral Icterus, Conjunctival Injection, Nystagmus, Miosis, Mydrasis, Periorbital Swelling, Periorbital Tenderness, Other - ENT ENT Exam: Normal Exam, Normal Oropharynx, Normal External Ear Exam, Mucous Membranes Moist, TM's Normal Bilaterally - Neck Neck Exam: Normal Inspection, Full ROM, Trachea Midline - Chest Chest Inspection: Normal Inspection, Symmetric Chest Wall Rise. negative: Tenderness, Rash, Abscess, Other - Respiratory Respiratory Exam: Normal Lung Sounds Bilat, Accessory Muscle Use, Prolonged Expiratory Phase Respiratory Exam: Bilateral Wheezing, Bilateral Decreased Breath Sounds - Cardiovascular Cardiovascular Exam: Regular Rate, Normal Rhythm, Normal Heart Sounds, Systolic Murmur - Abdominal Exam Abdominal Exam: Normal Inspection, Normal Bowel Sounds, Soft. negative: Distention, Tenderness, Guarding, Rebound, Rigidity, Dimnished Bowel Sounds, Hyperactive Bowel Sounds, Hypoactive Bowel Sounds, Organomegaly, Trauma, Incision, Ascites, Mass, Bruit, Pulsatile Mass, Hernia, Other Abdominal Tenderness: negative: RUQ, RLQ, LUQ, LLQ, Epigastrium, Suprapubic, Diffuse, Mild, Moderate, Severe, Other - Extremities Extremities Exam: Normal Inspection, Full ROM, Normal Capillary Refill, Edema (2 +pretibia edema). negative: Tenderness, Joint Swelling, Calf Tenderness, Other - Back Back Exam: Normal Inspection, Full ROM. negative: Tenderness, (R) CVA Tenderness, (L) CVA Tenderness, Muscle Spasm, Paraspinal Tenderness, Vertebral Tenderness, Rashes, (R) Sciatic Notch Tenderness, (L) Sciatic Notch Tendern, (R ) Straight Leg Raise, (L) Straight Leg Raise, Other - Neurologic Neurological Exam: Alert, Oriented X3, CN II-XII Intact, Normal Gait, Reflexes Normal - Psychiatric Psychiatric Exam: Normal Affect, Normal Mood. negative: Depressed, Agitated, Anxious, Flat Affect, Manic, Homicidal Ideation, Suicidal Ideation, Other - Skin Skin Exam: Warm, Dry, Intact, Normal Color - Vital Signs Vitals: Temperature 98.2 F Pulse Rate 113 Respiratory Rate 22 Blood Pressure [Right Arm] 133/89 Blood Pressure [Left Arm] 113/75 Blood Pressure 136/96 O2 Sat by Pulse Oximetry 100 Course - Reevaluation 1st: - Consultation Called: 00:11 Call Returned: 00:11 (Dr. Nicholas to admit) - Education/Counseling Education/Counseling: Patient, Family Educated On: Treatment, Diagnosis, Needs for Follow Up ROR - Labs Reviewed Laboratory Results Reviewed?: Yes (All labs and x-rays results reviewed and discussed with patient) Result Diagrams: 10/15/17 21:25 10/15/17 21:25 - XRAY XRAY Interpreted by: Radiologist (CXR: Severe cardiomegaly with chronic entral vascular congestion without aveolar edema) - EKG Rate: 101 Rhythm: NSR Block: None Hypertrophy: LAE ST: Old, Lat, Infarct - Labs Reviewed Laboratory: WBC 8.9 X10^3/uL (3.6-10.0) 10/15/17 21:25 RBC 5.05 X10^6/uL (4.7-6.0) 10/15/17 21:25 Hgb 12.2 g/dL (13.5-18.0) L 10/15/17 21: Hct 38.4 % (42.0-54.0) L 10/15/17 21: MCV 76.1 fL (80.0-100.0) L 10/15/17 21: MCH 24.2 pg (27.0-34.0) L 10/15/17 21: MCHC 31.8 g/dL (33.0-35.0) L 10/15/17 21: RDW 21.0 % (11.6-16.5) H 10/15/17 21: Plt Count 288 X10^3/uL (150.0-450.0) 10/15/17 21: Plt Count Comment Adequate (ADEQUATE) 10/15/17 21: MPV 7.6 fL (7.4-11.0) 10/15/17 21:25 Neut % (Auto) 60.2 % (42.0-75.0) 10/15/17 21: Lymph % (Auto) 28.8 % (21.0-51.0) 10/15/17 21: [place] % (Auto) 8.7 % (0.0-13.0) 10/15/17 21:25 Eos % (Auto) 2.1 % (0.9-2.9) 10/15/17 21: Baso % (Auto) 0.2 % (0.2-1.0) 10/15/17 21: Neut # (Auto) 5.4 x10^3/uL (2.2-4.8) H 10/15/17 21:25 Lymph # (Auto) 2.6 X10^3/uL (1.3-2.9) 08/03/18 21:25 [place] # (Auto) 0.8 x10^3/uL (0.3-0.8) 10/15/17 21:25 Eos # (Auto) 0.2 x10^3/uL (0.0-0.2) 10/15/17 21:25 Baso # (Auto) 0.0 X10^3/uL (0.0-0.1) 10/15/17 21:25 Absolute Nucleated RBC 0.1 /100WBC 10/15/17 21:25 Plt Morphology Comment Normal (NORMAL) 10/15/17 21:25 RBC Morphology Abnormal (NORMAL) 10/15/17 21:25 Anisocytosis 1+ A 10/15/17 21:25 Ovalocytes Present 10/15/17 21:25 INR Target Range - 10/15/17 21: INR 1.08 (0.8-1.3) 10/15/17 21:25 APTT 31.8 SECONDS (22.9-36.5) 10/15/17 21:25 PTT Comment - 10/15/17 21:25 D-Dimer 237 ng/mL (0-400) 10/15/17 21:25 Sodium 140 mmol/L (136-145) 10/15/17 21:25 Corrected Sodium 141 mmol/L (136-145) 10/15/17 21:25 Potassium 4.0 mmol/L (3.5-5.1) 10/15/17 21:25 Chloride 105 mmol/L (98-107) 10/15/17 21:25 Carbon Dioxide 29.9 mmol/L (21-32) 10/15/17 21:25 BUN 25 mg/dL (7-18) H 10/15/17 21:25 Creatinine 1.65 mg/dL (0.70-1.30) H 10/15/17 21:25 Est GFR (MDRD) Af Amer > 60 (>60) 10/15/17 21:25 Est GFR (MDRD) Non-Af 50 (>60) L 10/15/17 21:25 Glucose 128 mg/dL (65-99) H 10/15/17 21:25 Calcium 8.3 mg/dL (8.5-10.1) L 10/15/17 21:25 Corrected Calcium 9.2 mg/dL (8.5-10.1) 10/15/17 21:25 Magnesium 2.0 mg/dL (1.7-2.9) 10/15/17 21:25 Total Bilirubin 1.10 mg/dL (0.2-1.0) H 10/15/17 21:25 AST 44 Units/L (15-37) H 10/15/17 21:25 ALT 52 Units/L (12-78) 10/15/17 21:25 Alkaline Phosphatase 143 Units/L (46-116) H 10/15/17 21:25 Creatine Kinase 72 Units/L (39-308) 10/15/17 21:25 CK-MB (CK-2) 3.9 ng/mL (0-4.0) 10/15/17 21:25 CK/CKMB % Calc 5.4 % (<4) 10/15/17 21:25 Troponin I 0.02 ng/mL (0-1.5) 10/15/17 21:25 B-Natriuretic Peptide 2700 pg/mL (0-79) H* 10/15/17 21:25 Total Protein 6.5 g/dL (6.4-8.2) 10/15/17 21:25 Albumin 2.9 g/dL (3.4-5.0) L 10/15/17 21:25 Globulin 3.6 g/dL (2.5-4.5) 10/15/17 21:25 Albumin/Globulin Ratio 0.8 Ratio (1.1-2.1) L 10/15/17 21:25 - Diagnosis Discharge Problem: CHF (congestive heart failure), Dyspnea due to congestive heart failure, Hyperglycemia Chest pain Qualifiers: Chest pain type: other chest pain Qualified Code(s): R07.89 - Other chest pain ; R07.8 - Other chest pain - Discharge Plan Disposition: ADMITTED INPATIENT Condition: Stable - Follow ups/Referrals Follow ups/Referrals: Luis Nicholas [Primary Care Provider] - 3 days - Instructions
[2017-10-15] MEDS ORDERED: SOLU-Medrol 125 MG VIAL ONE (21:17)
[2017-10-15] MEDS ORDERED: DUONEB 0.5 MG/3 MG ONE (21:22)
--- NOTE | 2017-10-15 21:34 | RAD ---
HISTORY: Chest pain, shortness of breath Study: Single view chest Comparison:None Findings: Single view is submitted. Lung volumes are reduced. There is severe cardiomegaly with chronic central pulmonary vascular congestion without alveolar edema. No effusion or pneumothorax identified. The s oft tissues are unremarkable. IMPRESSION: 1. Severe cardiomegaly with chronic central vascular congestion without alveolar edema. Reported By:
[2017-10-15 21:36] LABS: BASOPHILS % (AUTO) 0.2 % (0.2-1.0); EOSINOPHILS # (AUTO) 0.2 x10^3/uL (0.0-0.2); EOSINOPHILS % (AUTO) 2.1 % (0.9-2.9); HEMATOCRIT 38.4 % (42.0-54.0); HEMOGLOBIN 12.2 g/dL (13.5-18.0); LYMPHOCYTES # (AUTO) 2.6 X10^3/uL (1.3-2.9); LYMPHOCYTES % (AUTO) 28.8 % (21.0-51.0); MEAN CORPUSCULAR HEMOGLOBIN 24.2 pg (27.0-34.0); MEAN CORPUSCULAR HGB CONC 31.8 g/dL (33.0-35.0); MEAN CORPUSCULAR VOLUME 76.1 fL (80.0-100.0); MEAN PLATELET VOLUME 7.6 fL (7.4-11.0); MONOCYTES # (AUTO) 0.8 x10^3/uL (0.3-0.8); MONOCYTES % (AUTO) 8.7 % (0.0-13.0); NEUTROPHILS # (AUTO) 5.4 x10^3/uL (2.2-4.8); NEUTROPHILS % (AUTO) 60.2 % (42.0-75.0); PLATELET COUNT 288 X10^3/uL (150.0-450.0); RED BLOOD COUNT 5.05 X10^6/uL (4.7-6.0); WHITE BLOOD COUNT 8.9 X10^3/uL (3.6-10.0)
[2017-10-15 21:54] LABS: BLOOD UREA NITROGEN 25 mg/dL (7-18); CALCIUM 8.3 mg/dL (8.5-10.1); CARBON DIOXIDE 29.9 mmol/L (21-32); CHLORIDE 105 mmol/L (98-107); COR NA(FOR HYPERGLY) 141 mmol/L (136-145); CREATININE 1.65 mg/dL (0.70-1.30); SODIUM 140 mmol/L (136-145); TROPONIN I 0.02 ng/mL (0-1.5); eGFR NON BLACK RACES 50 (>60)
[2017-10-15 21:58] LABS: ALANINE AMINOTRANSFERASE 52 Units/L (12-78); ALBUMIN 2.9 g/dL (3.4-5.0); ALKALINE PHOSPHATASE 143 Units/L (46-116); ASPARTATE AMINO TRANSFERASE 44 Units/L (15-37); CKMB % 5.4 % (<4); COR CA(FOR HYPOALB) 9.2 mg/dL (8.5-10.1); CREATINE KINASE 72 Units/L (39-308); CREATINE KINASE MB 3.9 ng/mL (0-4.0); TOTAL PROTEIN 6.5 g/dL (6.4-8.2)
[2017-10-15 22:07] LABS: ANISOCYTOSIS 1+; OVALOCYTES PRESENT; PLATELET MORPHOLOGY COMMENT NORMAL (NORMAL)
[2017-10-15 22:16] LABS: B-TYPE NATRIURETIC PEPTIDE 2700 pg/mL (0-79)
[2017-10-15] MEDS ORDERED: LASIX IVP ONE ×2 (22:23→22:24)
[2017-10-16] MEDS ORDERED: COREG TAB 3.125 MG PO PRN (00:17)
[2017-10-16 01:40] LABS: CKMB % 5.5 % (<4); CREATINE KINASE 78 Units/L (39-308); TROPONIN I < 0.02 ng/mL (0-1.5)
[2017-10-16] MEDS: MORPHINE SULFATE INJ 2 MG INJ IVP PRN ×6 (01:42→22:35)
[2017-10-16 01:49] LABS: CREATINE KINASE MB 4.3 ng/mL (0-4.0)
[2017-10-16 02:01] LABS: CHOL/HDL RATIO 3.1 (0.0-5.0)
[2017-10-16 02:28] VITALS: BMI 26.4
[2017-10-16 07:22] LABS: CKMB % 5.9 % (<4); CREATINE KINASE 66 Units/L (39-308); CREATINE KINASE MB 3.9 ng/mL (0-4.0); TROPONIN I < 0.02 ng/mL (0-1.5)
--- NOTE | 2017-10-16 08:16 | DR.H&P ---
H&P - History & Physical for Day of: H&P Date: 10/16/17 - Chief Complaint Chief Complaint: SHORT OF BREATH, CHEST PAIN, WHEEZING - History of Present Illness History of Present Illness: IS A 36 YEAR OLD WHITE MALE WHO PRESENTED TO THE EMERGENCY ROOM WITH COMPLAINTS OF SHORTNESS OF BREATH, CHEST PAIN, AND WHEEZING. HE REPORTS THAT SYMPTOMS STARTED TWO DAYS AGO AND HAVE PROGRESSIVELY GOTTEN WORSE. HE IS NOTED WITH BILATERAL LOWER EXTREMITY SWELLING. AUSCULTATION OF LUNG DOYLE REVEAL SCATTERED WHEEZING. PATIENT HAS A HISTORY SIGNIFICANT OF CONGESTIVE HEART FAILURE. HIS LAST ECHOCARDIOGRAM REVEALED AN EJECTION FRACTION OF 20%. HE DENIES NAUSEA, VOMITING, COUGH, COLD, OR FEVER. HE REPORTS THAT SHORTNESS OF BREATH IS WORSE ON EXERTION. ON ARRIVAL, VITALS WERE 98.2-113-20- 100%RA-136/96. LABS WERE OBTAINED. ABNORMAL LAB VALUES INCLUDE THE FOLLOWING: HGB 12.2, HCT 38.4, BUN 25, CREATININE 1.65, GLUCOSE 128, CALCIUM 8.3, TOTAL BILI 1.10, AST 44, ALK PHOS 143, BNP 2700, ALBUMIN 2.9. CHEST XRAY REVEALED SEVERE CARDIOMEGALY WITH CHRONIC CENTRAL VASCULAR CONGESTION WITHOUT ALVEOLAR EDEMA. EKG REVEALED: SINUS TACHYCARDIA, PROBABLE LEFT ATRIAL ENLARGEMENT. HR 101. HE WAS GIVEN SOLU-MEDROL 125MG IV X 1 DOSE WELL LASIX 40MG X 1 DOSE IN THE ER WITH ONLY MILD IMPROVEMENT IN SYMPTOMS. HE WAS ADMITTED FOR FURTHER EVALUATION AND TREATMENT OF CHF EXACERBATION. WE WILL START LASIX 40MG BID, LOVENOX 40MG SC DAILY FOR DVT PROPHYLAXIS, PROTONIX 40MG IV DAILY, AND WILL RESUME HOME MEDICATIONS. OTHERWISE, WE WILL FOLLOW UP WITH AM LABS AND CHEST XRAY AND CONTINUE TO MONITOR. - Past Medical History Past Medical History: Angina, CHF, Coronary Artery Disease, Hypertension Additional Medical History: Enlarged Tonsils - Past Surgical History Surgical History: Tonsillectomy - Family History Family Medical History: Diabetes Mellitus, Cancer, [place], Coronary Artery Disease, Heart Failure, Hypertension - Social History Does patient currently use any type of tobacco product: Yes Type of Tobacco Use: Cigarettes Alcohol Use: None Drug Use: None - Medications Home Medications: No Known Drug Allergies Allergy (Verified 09/25/17 10:08) - Review of Systems Constitutional: Weakness Eyes: No Symptoms Reported ENT: No Symptoms Reported Respiratory: Shortness of Breath, SOB with Excertion, Wheezing. denies: Cough Cardiovascular: Chest Pain, Edema (BILATERAL LOWER EXTREMITIES ) Gastrointestinal: No Symptoms Reported Genitourinary: No Symptoms Reported Musculoskeletal: No Symptoms Reported Skin: No Symptoms Reported Neurological: Weakness - Physical Exam Vital Signs: Temperature 97.6 F Pulse Rate [Left] 113 Pulse Rate 113 Respiratory Rate 22 Blood Pressure [Right Arm] 133/89 Blood Pressure [Left Arm] 129/91 Blood Pressure 136/96 O2 Sat by Pulse Oximetry 99 Oriented: Normal Eyes: Normal Ear: Normal Nose: Normal Throat: Normal Respiratory: Wheezes Throughout Cardiovascular: Tachycardia, Edema (BILATERAL LOWER EXTREMITIES ). negative: S3 , S4, Murmur : Normal Auscultation: Bowel Sounds: Normal Palpation: Normal Tenderness: Normal Skin: Normal Musculoskeletal: Normal Psychiatric: Normal Mood Description: Calm Affect: Normal Speech Pattern: Clear - Assessment/Plan (1) CHF exacerbation Qualifiers: Heart failure type: unspecified Qualified Code(s): I50.9 - Heart failure, unspecified Status: Acute Plan: ADMIT, LASIX 40MG BID, LOVENOX 40MG SC DAILY, DUONEBS, SUPPLEMENTAL OXYGEN , CONTINUE TO MONITOR. - Allergies Allergies/Adverse Reactions: Allergies Allergy/AdvReac Type Severity Reaction Status Date / Time No Known Drug Allergies Allergy Verified 09/25/17 10:08
[2017-10-16] MEDS: ALDACTONE TAB 25 MG PO SCH (09:39)
[2017-10-16] MEDS: PROTONIX INJ 40 MG VIAL IVP SCH (09:39)
[2017-10-16] MEDS: LASIX PO SCH ×2 (09:39→20:39)
[2017-10-16] MEDS: LOVENOX INJ 40 MG SYR SC SCH (09:39)
[2017-10-16 12:58] LABS: CKMB % 5.8 % (<4); CREATINE KINASE 74 Units/L (39-308); TROPONIN I < 0.02 ng/mL (0-1.5)
[2017-10-16 13:02] LABS: CREATINE KINASE MB 4.3 ng/mL (0-4.0)
[2017-10-17] MEDS: MORPHINE SULFATE INJ 2 MG INJ IVP PRN ×5 (03:56→22:05)
[2017-10-17 06:11] LABS: BASOPHILS # (AUTO) 0.1 X10^3/uL (0.0-0.1); BASOPHILS % (AUTO) 0.6 % (0.2-1.0); EOSINOPHILS % (AUTO) 0.2 % (0.9-2.9); HEMATOCRIT 39.6 % (42.0-54.0); HEMOGLOBIN 12.5 g/dL (13.5-18.0); LYMPHOCYTES # (AUTO) 1.7 X10^3/uL (1.3-2.9); LYMPHOCYTES % (AUTO) 10.8 % (21.0-51.0); MEAN CORPUSCULAR HEMOGLOBIN 23.8 pg (27.0-34.0); MEAN CORPUSCULAR HGB CONC 31.5 g/dL (33.0-35.0); MEAN CORPUSCULAR VOLUME 75.8 fL (80.0-100.0); MEAN PLATELET VOLUME 7.5 fL (7.4-11.0); MONOCYTES # (AUTO) 1.5 x10^3/uL (0.3-0.8); MONOCYTES % (AUTO) 9.2 % (0.0-13.0); NEUTROPHILS # (AUTO) 12.6 x10^3/uL (2.2-4.8); NEUTROPHILS % (AUTO) 79.2 % (42.0-75.0); PLATELET COUNT 395 X10^3/uL (150.0-450.0); RED BLOOD COUNT 5.23 X10^6/uL (4.7-6.0); RED CELL DISTRIBUTION WIDTH 21.3 % (11.6-16.5); WHITE BLOOD COUNT 15.9 X10^3/uL (3.6-10.0)
[2017-10-17 06:35] LABS: PLATELET MORPHOLOGY COMMENT NORMAL (NORMAL)
[2017-10-17 06:36] LABS: ANISOCYTOSIS 1+; HYPOCHROMASIA 1+
[2017-10-17 06:37] LABS: OVALOCYTES SLIGHT
--- NOTE | 2017-10-17 06:37 | RAD ---
Examination: Portable AP chest History: SOB Comparison reference 10/15/2017 Findings: Continued cardiac enlargement. Slight improvement in pulmonary congestion. No evidence for localized consolidation, trevor pulmonary edema, pneumothorax or large pleural effusion. Impression: Slight improvement in pulmonary aeration; continued marked cardiac enlargement. Reported By:
[2017-10-17 06:38] LABS: ALANINE AMINOTRANSFERASE 47 Units/L (12-78); ALBUMIN 3.2 g/dL (3.4-5.0); ALKALINE PHOSPHATASE 140 Units/L (46-116); ASPARTATE AMINO TRANSFERASE 35 Units/L (15-37); BLOOD UREA NITROGEN 21 mg/dL (7-18); CALCIUM 8.8 mg/dL (8.5-10.1); CARBON DIOXIDE 28.5 mmol/L (21-32); CHLORIDE 103 mmol/L (98-107); COR CA(FOR HYPOALB) 9.4 mg/dL (8.5-10.1); CREATININE 1.39 mg/dL (0.70-1.30); SODIUM 140 mmol/L (136-145); TOTAL PROTEIN 6.8 g/dL (6.4-8.2); eGFR NON BLACK RACES > 60 (>60)
[2017-10-17] MEDS: LASIX PO SCH (09:20)
[2017-10-17] MEDS: LOVENOX INJ 40 MG SYR SC SCH (09:20)
[2017-10-17] MEDS: ALDACTONE TAB 25 MG PO SCH (09:20)
[2017-10-17] MEDS: PROTONIX INJ 40 MG VIAL IVP SCH (09:21)
[2017-10-17] MEDS ORDERED: NS 100 ML IV 100 ML IV ONE ×2 (10:01→20:27)
[2017-10-17] MEDS: FORTAZ or TAZICEF VIAL INJ 1 G in NS 100 ML IV + SPIKE MINIBAG* 100 ML IV SCH ×3 (10:20→21:35)
[2017-10-17] MEDS: LEVAQUIN PREMIX IV 500 MG 500 MG/100 ML BAG IV SCH (10:20)
--- NOTE | 2017-10-17 15:36 | PCM.PROG ---
Progress Note - Progress Note for Day of Date of Exam: 10/17/17 - Subjective Subjective: WAS ADMITTED FOR CHEST PAIN, CONGESTIVE HEART FAILURE EXACERBATION, AND SHORTNESS OF BREATH. TODAY, HE IS ALERT AND ORIENTED, SITTING UP IN BED ON MORNING ROUNDS. HE CONTINUES WITH COMPLAINTS OF A NON-PRODUCTIVE COUGH AND SHORTNESS OF BREATH. HE DENIES CHEST PAIN THIS MORNING. ON EXAMINATION , BILATERAL LUNGS ARE NOTED WITH SCATTERED WHEEZING THROUGHOUT. HE IS NOTED TO BE TACHYCARDIC WITH HR IN THE 110-120S. VITALS THIS MORNING ARE 98.0-118-18-98%- 126/83. ABNORMAL LABS THIS MORNING INCLUDE THE FOLLOWING: WBC INCREASED FROM 8.9 TO 15.9, HGB 12.5, HCT 39.6, BUN 21, CREATININE 1.39, GLUCOSE 107, TOTAL BILI 1.20, ALK PHOS 140, ALBUMIN 3.2. TODAYS CHEST XRAY REVEALS SLIGHT IMPROVEMENT IN PULMONARY AERATION, CONTINUED MARKED CARDIAC ENLARGEMENT. TODAY, WE WILL START FORTAZ IV AND LEVAQUIN IV FOR ACUTE BRONCHITIS. OTHERWISE, WE WILL CONTINUE WITH HOME MEDICATIONS, LASIX, AND CURRENT PLAN OF CARE TODAY. WE WILL FOLLOW UP WITH AM LABS AND CONTINUE TO MONITOR. - Past Medical Family Social History Past Med/Fam/Surg Hx: No changes since H&P Allergies: Allergies No Known Drug Allergies Allergy (Verified 09/25/17 10:08) - Review of Systems ROS: No change since H&P - Vital Signs and I&O's Vital Signs: Temperature 98.0 F Pulse Rate [Left] 108 Pulse Rate 113 Respiratory Rate 18 Blood Pressure [Right Arm] 133/89 Blood Pressure [Left Arm] 126/83 Blood Pressure 136/96 O2 Sat by Pulse Oximetry 97 Intake and Output: Intake & Output 10/15/17 10/16/17 10/17/17 10/18/17 11:59 11:59 11:59 11:59 Intake Total 320 / 320 1250 / 1250 Balance 320 / 320 1250 / 1250 - Physical Exam Oriented: Normal Eyes: Normal Ear: Normal Nose: Normal Throat: Normal Respiratory: Generalized, Wheezes Cardiovascular: Tachycardia, Edema (BILATERAL LOWER EXTREMITIES ). negative: S3 , S4, Murmur : Normal Auscultation: Bowel Sounds: Normal Palpation: Normal Tenderness: Normal Skin: Normal Musculoskeletal: Normal Psychiatric: Normal Mood Description: Calm Affect: Normal Speech Pattern: Clear, Appropriate - Laboratory and Diagnostics Result Diagrams: 10/17/17 05:15 10/17/17 05:15 Labs: Laboratory WBC 15.9 X10^3/uL (3.6-10.0) H 10/17/17 05:15 RBC 5.23 X10^6/uL (4.7-6.0) 10/17/17 05:15 Hgb 12.5 g/dL (13.5-18.0) L 10/17/17 05:15 Hct 39.6 % (42.0-54.0) L 10/17/17 05:15 MCV 75.8 fL (80.0-100.0) L 10/17/17 05:15 MCH 23.8 pg (27.0-34.0) L 10/17/17 05:15 MCHC 31.5 g/dL (33.0-35.0) L 10/17/17 05:15 RDW 21.3 % (11.6-16.5) H 10/17/17 05:15 Plt Count 395 X10^3/uL (150.0-450.0) 10/17/17 05:15 Plt Count Comment Adequate (ADEQUATE) 10/17/17 05:15 MPV 7.5 fL (7.4-11.0) 10/17/17 05:15 Neut % (Auto) 79.2 % (42.0-75.0) H 10/17/17 05:15 Lymph % (Auto) 10.8 % (21.0-51.0) L 10/17/17 05:15 [place] % (Auto) 9.2 % (0.0-13.0) 10/17/17 05:15 Eos % (Auto) 0.2 % (0.9-2.9) L 10/17/17 05:15 Baso % (Auto) 0.6 % (0.2-1.0) 10/17/17 05:15 Neut # (Auto) 12.6 x10^3/uL (2.2-4.8) H 10/17/17 05:15 Lymph # (Auto) 1.7 X10^3/uL (1.3-2.9) 10/17/17 05:15 [place] # (Auto) 1.5 x10^3/uL (0.3-0.8) H 10/17/17 05:15 Eos # (Auto) 0.0 x10^3/uL (0.0-0.2) 10/17/17 05:15 Baso # (Auto) 0.1 X10^3/uL (0.0-0.1) 10/17/17 05:15 Absolute Nucleated RBC 0.1 /100WBC 10/17/17 05:15 Plt Morphology Comment Normal (NORMAL) 10/17/17 05:15 RBC Morphology Abnormal (NORMAL) 10/17/17 05:15 Hypochromasia 1+ A 10/17/17 05:15 Anisocytosis 1+ A 10/17/17 05:15 Ovalocytes Slight A 10/17/17 05:15 INR Target Range - 10/15/17 21:25 INR 1.08 (0.8-1.3) 10/15/17 21:25 APTT 31.8 SECONDS (22.9-36.5) 10/15/17 21:25 PTT Comment - 10/15/17 21:25 D-Dimer 237 ng/mL (0-400) 10/15/17 21:25 Sodium 140 mmol/L (136-145) 10/17/17 05:15 Corrected Sodium TNP 10/17/17 05:15 Potassium 4.3 mmol/L (3.5-5.1) 10/17/17 05:15 Chloride 103 mmol/L (98-107) 10/17/17 05:15 Carbon Dioxide 28.5 mmol/L (21-32) 10/17/17 05:15 BUN 21 mg/dL (7-18) H 10/17/17 05:15 Creatinine 1.39 mg/dL (0.70-1.30) H 10/17/17 05:15 Est GFR (MDRD) Af Amer > 60 (>60) 10/17/17 05:15 Est GFR (MDRD) Non-Af > 60 (>60) 10/17/17 05:15 Glucose 107 mg/dL (65-99) H 10/17/17 05:15 Calcium 8.8 mg/dL (8.5-10.1) 10/17/17 05:15 Corrected Calcium 9.4 mg/dL (8.5-10.1) 10/17/17 05:15 Magnesium 2.0 mg/dL (1.7-2.9) 10/15/17 21:25 Total Bilirubin 1.20 mg/dL (0.2-1.0) H 10/17/17 05:15 AST 35 Units/L (15-37) 10/17/17 05:15 ALT 47 Units/L (12-78) 10/17/17 05:15 Alkaline Phosphatase 140 Units/L (46-116) H 10/17/17 05:15 Creatine Kinase 74 Units/L (39-308) 10/16/17 12:10 CK-MB (CK-2) 4.3 ng/mL (0-4.0) H* 10/16/17 12:10 CK/CKMB % Calc 5.8 % (<4) 10/16/17 12:10 Troponin I < 0.02 ng/mL (0-1.5) 10/16/17 12:10 B-Natriuretic Peptide 2700 pg/mL (0-79) H* 10/15/17 21:25 Total Protein 6.8 g/dL (6.4-8.2) 10/17/17 05:15 Albumin 3.2 g/dL (3.4-5.0) L 10/17/17 05:15 Globulin 3.6 g/dL (2.5-4.5) 10/17/17 05:15 Albumin/Globulin Ratio 0.9 Ratio (1.1-2.1) L 10/17/17 05:15 Triglycerides 108 mg/dL (0-150) 10/16/17 00:48 Cholesterol 119 mg/dL (0-200) 10/16/17 00:48 LDL Cholesterol, Calc 59 mg/dL (0-100) 10/16/17 00:48 HDL Cholesterol 38 mg/dL (40-60) L 10/16/17 00:48 Cholesterol/HDL Ratio 3.1 (0.0-5.0) 10/16/17 00:48 - Plan (1) CHF exacerbation Status: Acute Qualifiers: Heart failure type: unspecified Qualified Code(s): I50.9 - Heart failure, unspecified Plan: ADMIT, LASIX 40MG BID, LOVENOX 40MG SC DAILY, DUONEBS, SUPPLEMENTAL OXYGEN , CONTINUE TO MONITOR. (2) Acute bronchitis Status: Acute Qualifiers: Bronchitis organism: unspecified organism Qualified Code(s): J20.9 - Acute bronchitis, unspecified Plan: FORTAZ IV, LEVAQUIN IV, SUPPLEMENTAL OXYGEN, CONTINUE TO MONITOR
[2017-10-17] MEDS: DUONEB 0.5 MG/3 MG NEB SCH ×2 (16:50→20:55)
[2017-10-17] MEDS: LASIX IVP SCH (20:44)
[2017-10-18 01:42] LABS: CKMB % 8.3 % (<4); TROPONIN I 0.04 ng/mL (0-1.5)
[2017-10-18 01:53] LABS: CREATINE KINASE MB 4.4 ng/mL (0-4.0)
[2017-10-18] MEDS: MORPHINE SULFATE INJ 2 MG INJ IVP PRN ×4 (03:02→16:31)
[2017-10-18] MEDS: FORTAZ or TAZICEF VIAL INJ 1 G in NS 100 ML IV + SPIKE MINIBAG* 100 ML IV SCH ×2 (06:06→13:49)
[2017-10-18 06:23] LABS: BASOPHILS # (AUTO) 0.1 X10^3/uL (0.0-0.1); BASOPHILS % (AUTO) 0.7 % (0.2-1.0); EOSINOPHILS # (AUTO) 0.3 x10^3/uL (0.0-0.2); EOSINOPHILS % (AUTO) 2.9 % (0.9-2.9); HEMATOCRIT 39.6 % (42.0-54.0); HEMOGLOBIN 12.4 g/dL (13.5-18.0); LYMPHOCYTES # (AUTO) 3.2 X10^3/uL (1.3-2.9); LYMPHOCYTES % (AUTO) 27.6 % (21.0-51.0); MEAN CORPUSCULAR HEMOGLOBIN 23.3 pg (27.0-34.0); MEAN CORPUSCULAR HGB CONC 31.4 g/dL (33.0-35.0); MEAN CORPUSCULAR VOLUME 74.4 fL (80.0-100.0); MEAN PLATELET VOLUME 7.1 fL (7.4-11.0); MONOCYTES # (AUTO) 1.2 x10^3/uL (0.3-0.8); MONOCYTES % (AUTO) 10.6 % (0.0-13.0); NEUTROPHILS # (AUTO) 6.7 x10^3/uL (2.2-4.8); NEUTROPHILS % (AUTO) 58.2 % (42.0-75.0); PLATELET COUNT 442 X10^3/uL (150.0-450.0); RED BLOOD COUNT 5.32 X10^6/uL (4.7-6.0); RED CELL DISTRIBUTION WIDTH 20.8 % (11.6-16.5); WHITE BLOOD COUNT 11.4 X10^3/uL (3.6-10.0)
[2017-10-18 06:26] LABS: ALANINE AMINOTRANSFERASE 47 Units/L (12-78); ALBUMIN 2.8 g/dL (3.4-5.0); ALKALINE PHOSPHATASE 130 Units/L (46-116); ASPARTATE AMINO TRANSFERASE 42 Units/L (15-37); BLOOD UREA NITROGEN 18 mg/dL (7-18); CALCIUM 8.4 mg/dL (8.5-10.1); CARBON DIOXIDE 31.4 mmol/L (21-32); CHLORIDE 101 mmol/L (98-107); COR CA(FOR HYPOALB) 9.4 mg/dL (8.5-10.1); CREATININE 1.29 mg/dL (0.70-1.30); SODIUM 140 mmol/L (136-145); TOTAL PROTEIN 6.4 g/dL (6.4-8.2); eGFR NON BLACK RACES > 60 (>60)
--- NOTE | 2017-10-18 06:43 | RAD ---
Chest single view. Indication: Shortness of breath Comparison October 17, 2017 Findings: The heart remains enlarged. There is no focal infiltrate effusion or pneumothorax present. The skeleton remains negative for acute changes. Impression: 1. Stable cardiac enlargement Reported By:
[2017-10-18 06:56] LABS: ANISOCYTOSIS 1+; HYPOCHROMASIA 1+; PLATELET MORPHOLOGY COMMENT NORMAL (NORMAL)
[2017-10-18] MEDS: LOVENOX INJ 40 MG SYR SC SCH (09:18)
[2017-10-18] MEDS: ALDACTONE TAB 25 MG PO SCH (09:18)
[2017-10-18] MEDS: LASIX IVP SCH (09:18)
[2017-10-18] MEDS: LEVAQUIN PREMIX IV 500 MG 500 MG/100 ML BAG IV SCH (09:18)
[2017-10-18] MEDS: PROTONIX INJ 40 MG VIAL IVP SCH (09:18)
[2017-10-18] MEDS: DUONEB 0.5 MG/3 MG NEB SCH ×2 (09:23→13:00)
[2017-10-18 16:19] VITALS: BP 125/58
--- NOTE | 2017-11-19 22:33 | DR.CARTERD ---
- Discharge Summary for: Discharge Summary for Date of:: 10/18/17 - Admission Date Date of Admission: 10/16/17 - Admission Diagnoses Admission Diagnosis: (1) CHF exacerbation - Discharge Date Discharge Date: 10/18/17 - Discharge Diagnoses Discharge Diagnosis: (1) CHF exacerbation (2) Acute bronchitis - Hospital Course Hospital Course: DAY ONE, MR. GERMAN IS A 36 YEAR OLD WHITE MALE WHO PRESENTED TO THE EMERGENCY ROOM WITH COMPLAINTS OF SHORTNESS OF BREATH, CHEST PAIN, AND WHEEZING. HE REPORTED THAT SYMPTOMS STARTED TWO DAYS PRIOR AND HAD PROGRESSIVELY WORSENED. HE WAS NOTED WITH BILATERAL LOWER EXTREMITY SWELLING. AUSCULTATION OF LUNG DOYLE REVEALED SCATTERED WHEEZING. PATIENT HAS A HISTORY SIGNIFICANT OF CONGESTIVE HEART FAILURE. HIS LAST ECHOCARDIOGRAM REVEALED AN EJECTION FRACTION OF 20%. HE DENIED NAUSEA, VOMITING, COUGH, COLD, OR FEVER. HE REPORTED THAT SHORTNESS OF BREATH WAS WORSE ON EXERTION. ON ARRIVAL, VITALS WERE 98.2-113-20- 100%RA-136/96. LABS WERE OBTAINED. ABNORMAL LAB VALUES INCLUDED THE FOLLOWING: HGB 12.2, HCT 38.4, BUN 25, CREATININE 1.65, GLUCOSE 128, CALCIUM 8.3, TOTAL BILI 1.10, AST 44, ALK PHOS 143, BNP 2700, ALBUMIN 2.9. CHEST XRAY REVEALED SEVERE CARDIOMEGALY WITH CHRONIC CENTRAL VASCULAR CONGESTION WITHOUT ALVEOLAR EDEMA. EKG REVEALED: SINUS TACHYCARDIA, PROBABLE LEFT ATRIAL ENLARGEMENT. HR 101. HE WAS GIVEN SOLU-MEDROL 125MG IV X 1 DOSE WELL LASIX 40MG X 1 DOSE IN THE ER WITH ONLY MILD IMPROVEMENT IN SYMPTOMS. HE WAS ADMITTED FOR FURTHER EVALUATION AND TREATMENT OF CHF EXACERBATION. WE STARTED LASIX 40MG BID, LOVENOX 40MG SC DAILY FOR DVT PROPHYLAXIS, PROTONIX 40MG IV DAILY, AND RESUMED HOME MEDICATIONS. DAY TWO, WAS ADMITTED FOR CHEST PAIN, CONGESTIVE HEART FAILURE EXACERBATION, AND SHORTNESS OF BREATH. HE WAS ALERT AND ORIENTED, SITTING UP IN BED ON MORNING ROUNDS. HE CONTINUED WITH COMPLAINTS OF A NON-PRODUCTIVE COUGH AND SHORTNESS OF BREATH. HE DENIED CHEST PAIN. ON EXAMINATION, BILATERAL LUNGS WERE NOTED WITH SCATTERED WHEEZING THROUGHOUT. HE WAS NOTED TO BE TACHYCARDIC WITH HR IN THE 110-120S. VITALS WERE 98.0-118-18-98%-126/83. ABNORMAL LABS INCLUDED THE FOLLOWING: WBC INCREASED FROM 8.9 TO 15.9, HGB 12.5, HCT 39.6, BUN 21, CREATININE 1.39, GLUCOSE 107, TOTAL BILI 1.20, ALK PHOS 140, ALBUMIN 3.2. CHEST XRAY REVEALED SLIGHT IMPROVEMENT IN PULMONARY AERATION, CONTINUED MARKED CARDIAC ENLARGEMENT. WE STARTED FORTAZ IV AND LEVAQUIN IV FOR ACUTE BRONCHITIS. DAY THREE, MR. GERMAN REPORTED THAT HE FELT BETTER. HE DENIED CHEST PAIN OR SHORTNESS OF BREATH. CARDIAC ENZYMES AND EKG'S NORMAL. VITAL SIGNS STABLE. LABS WNL. WE PLANNED FOR DISCHARGE. INSTRUCTIONS FOR MEDICATIONS AND FOLLOW UP WERE DISCUSSED WITH PATIENT AND FAMILY, BOTH VOICED UNDERSTANDING. PATIENT DISCHARGED HOME IN STABLE CONDITION WITH FAMILY. - Discharge Medications Discharge Medications: Home Medication List carvedilol 2 tab PO BID 10/18/17 [History] losartan 1 tab PO DAILY 10/18/17 [History] Prescriptions: Ambulatory Orders furosemide 40 mg PO BID #60 tab 02/19/17 spironolactone [Aldactone] 25 mg PO DAILY #30 tab 09/05/17 - Discharge Disposition Discharge Disposition: PATIENT IS TO FOLLOW UP IN OUR OFFICE IN ONE WEEK.
== END 2017-10-18 18:05 | disposition home or self-care (01) ==
LOC: MED/SURG 19:58 → ER 19:58 → MED/SURG 10-16 00:32
PROVIDERS: ADMIT Internal Medicine; ATTEND Internal Medicine
DX: R07.89 Other chest pain; I50.9 Heart failure, unspecified; I51.7 Cardiomegaly; J44.9 Chronic obstructive pulmonary disease, unspecified; R94.31 Abnormal electrocardiogram [ECG] [EKG]; R94.4 Abnormal results of kidney function studies; J20.8 Acute bronchitis due to other specified organisms; I10 Essential (primary) hypertension; I25.10 Atherosclerotic heart disease of native coronary artery without angina pectoris; R60.0 Localized edema; R06.02 Shortness of breath
CPT/HCPCS: 36415; 71010; 71045; 80053; 80061; 82550; 82553; 83735; 83880; 84484; 85025; 85378; 85610; 85730; 93005; 93010; 94640; 94760; 96365; 96374; 96375; 97161; 97167; 99284; A4216; A4222; C9113; G0378; J0713; J1650; J1940; J1956; J2270; J2930; J7050; J7620

== ENCOUNTER 2017-11-01 10:30 | Observation (INO) ==
--- NOTE | 2017-11-01 11:08 | DR.CP ---
HPI Time Seen Time seen: 10:59 PCP Primary Care Physician: IVAN HPI Comment HPI Comment: PATIENT WITH LOW EF AND CHF. HIST SUBSTANCE DEPENDENCY AND NON COMPLINCE TO MEDICATION. SEE IN [facility] RECENTLY. MEDICATIONS GIVEN AND ENCOURAGE TO STOP USING ILLICIT DRUGS. HE SAID HE STILL USES ILLICIT DRUGS. TODAY INTERMITTENT CHEST PAIN HE USUALLY HAVE IS MORE PERSISTENT. SOB WAS WORSE WITH PAIN. Complaint Chief Complaint Doctor Comments: CHEST PAIN, SOB SINCE 08:00 AM. Chief Complaint:: PT C/O HAVING C/P AND SOB THAT STARTED AT 0800 THIS AM , PTS STATES HIS PAIN IS SHARP AND IT COMES AND GOES , PTS PAIN IS MID-STERNUM,,BR Reviewed Nurses Notes Review: Yes Source History Provided: Patient Mode of Arrival Mode of Arrival: Ambulatory Timing Onset of Chief Complaint: 11/01/17 Came on: Suddenly Pain: Present Now Duration Duration: Constant Duration: Hours Location Location of Chest Pain: Left and Chest Chest Pain Radiation Location: Left Jaw Context Onset: At rest and With light exertion Cardiac Risk Factors: Smoker, Family History, HTN and Other (ILLICIT DRUG USE.) PE Risk Factors: None History of: Similar pain in the past Prehospital Care: None Quality Quality: Pressure like and Heavy Modifying Factors Worsens: Exertion Impoves: Nothing Associated Signs and Symptoms Associated Signs and Symptoms: Shortness of Breath PMH PMH Past Medical History: Yes Past Medical History: Angina, CHF, Coronary Artery Disease and Hypertension Past Surgical History: Yes Surgical History: Tonsillectomy Family History History of Family Medical Conditions: Yes Family Medical History: Diabetes Mellitus, Cancer, [place], Coronary Artery Disease, Heart Failure and Hypertension Social History Does patient currently use any type of tobacco product: Yes Have you used tobacco products in the last 12 months: Yes Type of Tobacco Use: Cigarettes How many years tobacco product used: 10 Does any household member use tobacco: Yes Alcohol Use: None Do you use any recreational Drugs:: No Lives With: Alone Lives Where: Homeless infectious screening In the last 2 months have you had wt loss of >10#?: NO Have you had fever, night sweats or hemotysis?: No Have you traveled outside the country in the last 6 months?: No Isolation: Standard ROS Review of Systems Constitutional: Weakness and Fatigue; negative Chills and Fever Eyes: No Symptoms Reported ENTM: No Symptoms Reported Respiratoy: Non-Productive Cough and Short of Breath Cardiovascular: Chest Pain, Edema and Palpitations Gastrointestinal/Abdominal: No Symptoms Reported Genitourinary: No Symptoms Reported Neurological: Weakness Musculoskeletal: No Symptoms Reported Integumentary: No Symptoms Reported Hematologic/Lymphatic: No Symptoms Reported Endocrine: No Symptoms Reported Psychiatric: No Symptoms Reported All Other Systems: Reviewed and Negative PE Vitals Vitals: Temperature 98.3 F Pulse Rate [Left Brachial] 117 Pulse Rate 126 Respiratory Rate 18 Blood Pressure [Right Arm] 133/89 Blood Pressure [Left Arm] 143/91 Blood Pressure 132/90 O2 Sat by Pulse Oximetry 95 General Limitations: No Limitations General Appearance: Alert and In Distress (MILD DISTRESS AT REST.) Head Head Exam: Normal Inspection Eyes Eye exam: Normal Appearance ENT ENT Exam: Normal Exam, Normal Oropharynx, Normal External Ear Exam, Mucous Membranes Moist and TM's Normal Bilaterally Chest Chest Inspection: Normal Inspection and Symmetric Chest Wall Rise Respiratory Respiratory Exam: Normal Lung Sounds Bilat Respiratory Exam: Bilateral: Rhonchi and Lower: Rhonchi Cardiovascular Cardiovascular Exam: Tachycardia Pulse: Radial and Femoral Edema: 1 Abdominal Exam Abdominal Exam: Normal Bowel Sounds and Soft; negative Tenderness Extremities Extremities Exam: Edema Back Back Exam: Normal Inspection Neurologic Neurological Exam: Alert, Oriented X3 and CN II-XII Intact; negative Motor Sensory Deficit Psychiatric Psychiatric Exam: Anxious Skin Skin Exam: Warm, Dry, Intact and Normal Color MDM Differential Diagnosis Differential Diagnosis: CHF, Esophageal Reflux/Spasm, Myocardial Infarction, Pericarditis, Pneumonia, Pneumothorax and Pulmonary Embolus COURSE Treatment Treatment: SEE ORDERS. CARDIAC ENZYMES Q4HRS TIMES 2 IN ED. TROPONIN SLIGHTLY ELEVATED. CP STILL PRESENT. HE WILL BE ADMITTED TO RULE OUT OR. Consultation Consultation Comments: DISCUSS PATIENT WITH DR. CERDA. HE WILL ADMIT PATIENT. Education/Counseling Education/Counseling: Patient and Education Educated On: Diagnosis and Needs for Follow Up ROR Labs Reviewed Laboratory Results Reviewed?: Yes Result Diagrams: 11/01/17 11:08 11/01/17 11:08 Laboratory: WBC 8.4 X10^3/uL (3.6-10.0) 11/01/17 11:08 RBC 4.95 X10^6/uL (4.7-6.0) 11/01/17 11:08 Hgb 12.1 g/dL (13.5-18.0) L 11/01/17 11:08 Hct 38.0 % (42.0-54.0) L 11/01/17 11:08 MCV 76.8 fL (80.0-100.0) L 11/01/17 11:08 MCH 24.5 pg (27.0-34.0) L 11/01/17 11:08 MCHC 31.8 g/dL (33.0-35.0) L 11/01/17 11:08 RDW 23.7 % (11.6-16.5) H 11/01/17 11:08 Plt Count 301 X10^3/uL (150.0-450.0) 11/01/17 11:08 Plt Count Comment Adequate (ADEQUATE) 11/01/17 11:08 MPV 7.5 fL (7.4-11.0) 11/01/17 11:08 Neut % (Auto) 70.7 % (42.0-75.0) 11/01/17 11:08 Lymph % (Auto) 19.1 % (21.0-51.0) L 11/01/17 11:08 [place] % (Auto) 8.1 % (0.0-13.0) 11/01/17 11:08 Eos % (Auto) 1.4 % (0.9-2.9) 11/01/17 11:08 Baso % (Auto) 0.7 % (0.2-1.0) 11/01/17 11:08 Neut # (Auto) 6.0 x10^3/uL (2.2-4.8) H 11/01/17 11:08 Lymph # (Auto) 1.6 X10^3/uL (1.3-2.9) 11/01/17 11:08 [place] # (Auto) 0.7 x10^3/uL (0.3-0.8) 11/01/17 11:08 Eos # (Auto) 0.1 x10^3/uL (0.0-0.2) 11/01/17 11:08 Baso # (Auto) 0.1 X10^3/uL (0.0-0.1) 11/01/17 11:08 Absolute Nucleated RBC 0.1 /100WBC 11/01/17 11:08 Plt Morphology Comment Normal (NORMAL) 11/01/17 11:08 RBC Morphology Abnormal (NORMAL) 11/01/17 11:08 Anisocytosis 2+ A 11/01/17 11:08 INR Target Range - 11/01/17 11:08 INR 1.13 (0.8-1.3) 11/01/17 11:08 APTT 30.0 SECONDS (22.9-36.5) 11/01/17 11:08 PTT Comment - 11/01/17 11:08 D-Dimer < 100 ng/mL (0-400) 11/01/17 11:08 Sodium 137 mmol/L (136-145) 11/01/17 11:08 Corrected Sodium 138 mmol/L (136-145) 11/01/17 11:08 Potassium 3.4 mmol/L (3.5-5.1) L 11/01/17 11:08 Chloride 104 mmol/L (98-107) 11/01/17 11:08 Carbon Dioxide 22.8 mmol/L (21-32) 11/01/17 11:08 BUN 11 mg/dL (7-18) 11/01/17 11:08 Creatinine 1.27 mg/dL (0.70-1.30) 11/01/17 11:08 Est GFR (MDRD) Af Amer > 60 (>60) 11/01/17 11:08 Est GFR (MDRD) Non-Af > 60 (>60) 11/01/17 11:08 Glucose 149 mg/dL (65-99) H 11/01/17 11:08 Calcium 8.1 mg/dL (8.5-10.1) L 11/01/17 11:08 Corrected Calcium 8.9 mg/dL (8.5-10.1) 11/01/17 11:08 Magnesium 1.7 mg/dL (1.7-2.9) 11/01/17 11:08 Total Bilirubin 0.90 mg/dL (0.2-1.0) 11/01/17 11:08 AST 35 Units/L (15-37) 11/01/17 11:08 ALT 36 Units/L (12-78) 11/01/17 11:08 Alkaline Phosphatase 117 Units/L (46-116) H 11/01/17 11:08 Creatine Kinase 64 Units/L (39-308) 11/01/17 14:50 CK-MB (CK-2) 4.0 ng/mL (0-4.0) 11/01/17 14:50 CK/CKMB % Calc 6.3 % (<4) 11/01/17 14:50 Troponin I 0.05 ng/mL (0-1.5) 11/01/17 14:50 B-Natriuretic Peptide 2520 pg/mL (0-79) H* 11/01/17 11:08 Total Protein 6.3 g/dL (6.4-8.2) L 11/01/17 11:08 Albumin 3.0 g/dL (3.4-5.0) L 11/01/17 11:08 Globulin 3.3 g/dL (2.5-4.5) 11/01/17 11:08 Albumin/Globulin Ratio 0.9 Ratio (1.1-2.1) L 11/01/17 11:08 Specimen Type Random urine 11/01/17 12:18 Urine Color Yellow (YELLOW) 11/01/17 12:18 Urine Appearance Hazy (CLEAR) 11/01/17 12:18 Urine pH 6.0 (5.0 - 8.0) 11/01/17 12:18 Ur Specific [place] 1.015 (1.000-1.030) 11/01/17 12:18 Urine Protein 4+ (NEGATIVE) 11/01/17 12:18 Urine Glucose (UA) Negative (NEGATIVE) 11/01/17 12:18 Urine Ketones Negative (NEGATIVE) 11/01/17 12:18 Urine Occult Blood 1+ (NEGATIVE) 11/01/17 12:18 Urine Nitrite Negative (NEGATIVE) 11/01/17 12:18 Urine Bilirubin Negative (NEGATIVE) 11/01/17 12:18 Urine Urobilinogen 2+ (NORMAL) 11/01/17 12:18 Ur Leukocyte Esterase 1+ (NEGATIVE) 11/01/17 12:18 Urine RBC 0-2 /HPF (NONE SEEN) 11/01/17 12:18 Urine WBC 3-5 /HPF (NONE SEEN) 11/01/17 12:18 Ur Squamous Epith Cells Negative /HPF (NEGATIVE) 11/01/17 12:18 Urine Bacteria Negative /HPF (NEGATIVE) 11/01/17 12:18 Urine Mucus Few /HPF (NEGATIVE) 11/01/17 12:18 Ur Culture Indicated? No/not indicated 11/01/17 12:18 Urine Opiates Screen Negative (NEG=<300) 11/01/17 12:18 Urine Methadone Screen Negative (NEG=<300) 11/01/17 12:18 Ur Barbiturates Screen Negative (NEG=<200) 11/01/17 12:18 Ur Phencyclidine Scrn Negative (NEG=<25) 11/01/17 12:18 Ur Amphetamines Screen Positive (NEG=<1000) 11/01/17 12:18 U Benzodiazepines Scrn Negative (NEG=<200) 11/01/17 12:18 Urine Cocaine Screen Negative (NEG=<300) 11/01/17 12:18 U Marijuana (THC) Screen Positive (NEG=<50) A 11/01/17 12:18 XRAY XRAY Interpreted by: Radiologist XRAY Findings: REPORT DISCUSS WITH PATIENT. EKG Rate: 116 Rhythm: ST Block: AVB Hypertrophy: None ST: Old, Lat and Infarct Diagnosis Discharge Problem: Chest pain, rule out acute myocardial infarction, CHF (congestive heart failure ), Tachycardia, Multiple substance abuse
[2017-11-01 11:32] LABS: BASOPHILS # (AUTO) 0.1 X10^3/uL (0.0-0.1); BASOPHILS % (AUTO) 0.7 % (0.2-1.0); EOSINOPHILS # (AUTO) 0.1 x10^3/uL (0.0-0.2); EOSINOPHILS % (AUTO) 1.4 % (0.9-2.9); HEMOGLOBIN 12.1 g/dL (13.5-18.0); LYMPHOCYTES # (AUTO) 1.6 X10^3/uL (1.3-2.9); LYMPHOCYTES % (AUTO) 19.1 % (21.0-51.0); MEAN CORPUSCULAR HEMOGLOBIN 24.5 pg (27.0-34.0); MEAN CORPUSCULAR HGB CONC 31.8 g/dL (33.0-35.0); MEAN CORPUSCULAR VOLUME 76.8 fL (80.0-100.0); MEAN PLATELET VOLUME 7.5 fL (7.4-11.0); MONOCYTES # (AUTO) 0.7 x10^3/uL (0.3-0.8); MONOCYTES % (AUTO) 8.1 % (0.0-13.0); NEUTROPHILS % (AUTO) 70.7 % (42.0-75.0); PLATELET COUNT 301 X10^3/uL (150.0-450.0); RED BLOOD COUNT 4.95 X10^6/uL (4.7-6.0); RED CELL DISTRIBUTION WIDTH 23.7 % (11.6-16.5); WHITE BLOOD COUNT 8.4 X10^3/uL (3.6-10.0)
[2017-11-01 11:41] LABS: BLOOD UREA NITROGEN 11 mg/dL (7-18); CALCIUM 8.1 mg/dL (8.5-10.1); CARBON DIOXIDE 22.8 mmol/L (21-32); CHLORIDE 104 mmol/L (98-107); COR NA(FOR HYPERGLY) 138 mmol/L (136-145); CREATININE 1.27 mg/dL (0.70-1.30); SODIUM 137 mmol/L (136-145); TROPONIN I < 0.02 ng/mL (0-1.5); eGFR NON BLACK RACES > 60 (>60)
--- NOTE | 2017-11-01 11:41 | RAD ---
Exam: Portable chest History: 36-year-old male with chest pain and shortness of breath Comparison: Previous chest radiograph from 10/18/2017 Findings: Generalized cardiomegaly is again seen. No significant vascular congestion however. Lungs are clear w ith no infiltrate or significant effusion on either side. Impression: Generalized cardiomegaly. However no acute superimposed abnormality is seen on this exam. Reported By:
[2017-11-01 11:45] LABS: ALANINE AMINOTRANSFERASE 36 Units/L (12-78); ALKALINE PHOSPHATASE 117 Units/L (46-116); ASPARTATE AMINO TRANSFERASE 35 Units/L (15-37); CKMB % 4.8 % (<4); COR CA(FOR HYPOALB) 8.9 mg/dL (8.5-10.1); CREATINE KINASE 63 Units/L (39-308); MAGNESIUM 1.7 mg/dL (1.7-2.9); TOTAL PROTEIN 6.3 g/dL (6.4-8.2)
[2017-11-01 11:49] LABS: ANISOCYTOSIS 2+; PLATELET MORPHOLOGY COMMENT NORMAL (NORMAL)
[2017-11-01 12:26] LABS: BILIRUBIN,URINE NEGATIVE (NEGATIVE); BLOOD/HEMOGLOBIN,URINE 1+ (NEGATIVE); GLUCOSE, URINE NEGATIVE (NEGATIVE); KETONES,URINE NEGATIVE (NEGATIVE); LEUKOCYTE ESTERASE ,URINE 1+ (NEGATIVE); NITRITES,URINE NEGATIVE (NEGATIVE); PROTEIN,URINE 4+ (NEGATIVE); UROBILINOGEN,URINE 2+ (NORMAL)
[2017-11-01 12:31] LABS: APPEARANCE,URINE HAZY (CLEAR); BACTERIA,URINE NEGATIVE /HPF (NEGATIVE); COLOR,URINE YELLOW (YELLOW); MUCUS,URINE FEW /HPF (NEGATIVE); RBC,URINE 0-2 /HPF (NONE SEEN); SQUAMOUS EPITHELIAL CELL,UR NEGATIVE /HPF (NEGATIVE)
[2017-11-01] MEDS: TORADOL 30 MG VIAL IVP ONE ×2 (12:46→12:55)
[2017-11-01] MEDS ORDERED: TORADOL 30 MG VIAL ONE ×2 (12:47→12:50)
[2017-11-01] MEDS ORDERED: TORADOL 60 MG VIAL IM ONE (12:56)
[2017-11-01 16:01] LABS: CKMB % 6.3 % (<4); TROPONIN I 0.05 ng/mL (0-1.5)
[2017-11-01 20:20] VITALS: BMI 27.1
[2017-11-01] MEDS ORDERED: ULTRAM PO PRN (20:28)
[2017-11-01] MEDS: COREG TAB 6.25 MG PO SCH (20:42)
[2017-11-01] MEDS: LASIX PO SCH (20:42)
[2017-11-01 21:52] LABS: CKMB % 2.8 % (<4); CREATINE KINASE 36 Units/L (39-308); CREATINE KINASE MB < 1.0 ng/mL (0-4.0); TROPONIN I < 0.02 ng/mL (0-1.5)
[2017-11-02 03:19] LABS: BASOPHILS % (AUTO) 0.6 % (0.2-1.0); EOSINOPHILS # (AUTO) 0.2 x10^3/uL (0.0-0.2); EOSINOPHILS % (AUTO) 1.7 % (0.9-2.9); HEMATOCRIT 38.4 % (42.0-54.0); HEMOGLOBIN 12.2 g/dL (13.5-18.0); LYMPHOCYTES # (AUTO) 1.3 X10^3/uL (1.3-2.9); LYMPHOCYTES % (AUTO) 15.2 % (21.0-51.0); MEAN CORPUSCULAR HEMOGLOBIN 24.3 pg (27.0-34.0); MEAN CORPUSCULAR HGB CONC 31.6 g/dL (33.0-35.0); MEAN CORPUSCULAR VOLUME 76.9 fL (80.0-100.0); MEAN PLATELET VOLUME 7.5 fL (7.4-11.0); MONOCYTES # (AUTO) 0.9 x10^3/uL (0.3-0.8); MONOCYTES % (AUTO) 10.5 % (0.0-13.0); NEUTROPHILS # (AUTO) 6.3 x10^3/uL (2.2-4.8); PLATELET COUNT 282 X10^3/uL (150.0-450.0); RED CELL DISTRIBUTION WIDTH 22.6 % (11.6-16.5); WHITE BLOOD COUNT 8.8 X10^3/uL (3.6-10.0)
[2017-11-02 03:35] LABS: ALANINE AMINOTRANSFERASE 33 Units/L (12-78); ALBUMIN 2.8 g/dL (3.4-5.0); ALKALINE PHOSPHATASE 116 Units/L (46-116); ASPARTATE AMINO TRANSFERASE 36 Units/L (15-37); BLOOD UREA NITROGEN 16 mg/dL (7-18); CALCIUM 8.1 mg/dL (8.5-10.1); CARBON DIOXIDE 21.8 mmol/L (21-32); CHLORIDE 105 mmol/L (98-107); CHOL/HDL RATIO 2.4 (0.0-5.0); CHOLESTEROL 120 mg/dL (0-200); COR CA(FOR HYPOALB) 9.1 mg/dL (8.5-10.1); COR NA(FOR HYPERGLY) 138 mmol/L (136-145); HDL CHOLESTEROL 50 mg/dL (40-60); SODIUM 137 mmol/L (136-145); TOTAL PROTEIN 6.1 g/dL (6.4-8.2); TRIGLYCERIDES 59 mg/dL (0-150); eGFR NON BLACK RACES > 60 (>60)
[2017-11-02 03:57] LABS: B-TYPE NATRIURETIC PEPTIDE 3190 pg/mL (0-79)
[2017-11-02 03:59] LABS: ANISOCYTOSIS 2+; OVALOCYTES PRESENT; PLATELET MORPHOLOGY COMMENT NORMAL (NORMAL)
[2017-11-02 04:03] LABS: CKMB % 6.4 % (<4); CREATINE KINASE MB 3.6 ng/mL (0-4.0); TROPONIN I 0.03 ng/mL (0-1.5)
--- NOTE | 2017-11-02 07:09 | RAD ---
HISTORY: Chest pain, shortness of breath Study: Chest AP portable Comparison: 11/01/2017 Findings: The heart is enlarged. No congestive heart failure is noted. No acute alveolar infiltrates or pleural effusions are identified. The bony thorax is unremarkable. IMPRESSION: Generalized cardiomegaly without congestive heart failure No infiltrates Reported By:
--- NOTE | 2017-11-02 08:01 | DR.H&P ---
H&P - History & Physical for Day of: H&P Date: 11/01/17 - Chief Complaint Chief Complaint: CHEST PAIN, SOB - History of Present Illness History of Present Illness: IS A 36 YEAR OLD WHITE MALE WHO PRESENTED TO THE EMERGENCY ROOM WITH COMPLAINTS OF SHORTNESS OF BREATH, CHEST PAIN, AND WHEEZING. HE REPORTS THAT SYMPTOMS STARTED THIS MORNING AND HAVE PROGRESSIVELY GOTTEN WORSE. HE REPORTS THAT PAIN IS MIDSTERNAL, SHARP, AND COMES AND GOES. HE HAS A MEDICAL HISTORY SIGNIFICANT FOR CHF WITH AN EJECTION FRACTION OF 20% AND SUBSTANCE ABUSE. HE IS NOTED WITH BILATERAL LOWER EXTREMITY SWELLING. AUSCULTATION OF LUNG DOYLE REVEAL SCATTERED WHEEZING. ON ARRIVAL, VITALS WERE 98.19-146-12-100%-132/90. LABS WERE OBTAINED. ABNORMAL LAB VALUES INCLUDE THE FOLLOWING: HGB 12.1, HCT 38.0, POTASSIUM 3.4, GLUCOSE 149, CALCIUM 8.1, ALK PHOS 117, BNP 2520, TOTAL PROTEIN 6.3, ALBUMIN 3.0. TOXICOLOGY POSITIVE FOR AMPHETAMINES AND MARIJUANA. CHEST XRAY REVEALED: Generalized cardiomegaly is again seen. No significant vascular congestion however. Lungs are clear with no infiltrate or significant effusion on either side. EKG REVEALED: SINUS TACHYCARDIA, WITH HR 118. HE WAS GIVEN TORADOL 60MG IM X 1 DOSE WITH ONLY MILD IMPROVEMENT OF SYMPTOMS. HE WAS ADMITTED FOR FURTHER EVALUATION AND TREATMENT OF CHF EXACERBATION AND CHEST PAIN R/O ACUTE SC. WE WILL RESUME HIS HOME MEDICATIONS AND REPEAT SERIAL CARDIAC ENZYMES AND EKGs. OTHERWISE, WE WILL FOLLOW UP WITH AM LABS AND CHEST XRAY AND CONTINUE TO MONITOR. - Past Medical History Past Medical History: Angina, Coronary Artery Disease, Hypertension, CHF Additional Medical History: Enlarged Tonsils - Past Surgical History Surgical History: Tonsillectomy - Family History Family Medical History: Diabetes Mellitus, Cancer, [place], Coronary Artery Disease, Heart Failure, Hypertension - Social History Does patient currently use any type of tobacco product: Yes Have you used tobacco products in the last 12 months: Yes Type of Tobacco Use: Cigarettes How many years tobacco product used: 10 Does any household member use tobacco: Yes Alcohol Use: None Drug Use: None - Medications Home Medications: No Known Drug Allergies Allergy (Verified 11/01/17 10:31) - Review of Systems Constitutional: No Symptoms Reported Eyes: No Symptoms Reported ENT: No Symptoms Reported Respiratory: Shortness of Breath Cardiovascular: Chest Pain, Edema Gastrointestinal: No Symptoms Reported Genitourinary: No Symptoms Reported Musculoskeletal: No Symptoms Reported Skin: No Symptoms Reported Neurological: No Symptoms Reported - Physical Exam Vital Signs: Temperature 97.7 F Pulse Rate [Left Brachial] 140 Pulse Rate 126 Respiratory Rate 18 Blood Pressure [Right Arm] 133/89 Blood Pressure [Left Arm] 101/60 Blood Pressure 132/90 O2 Sat by Pulse Oximetry 98 Oriented: Normal Eyes: Normal Ear: Normal Nose: Normal Throat: Normal Respiratory: Diminished Throughout Cardiovascular: Normal : Normal Auscultation: Bowel Sounds: Normal Palpation: Normal Tenderness: Normal Skin: Normal Musculoskeletal: Normal Psychiatric: Normal Mood Description: Calm Affect: Normal Speech Pattern: Clear - Assessment/Plan (1) CHF (congestive heart failure) Qualifiers: Heart failure type: combined systolic and diastolic Heart failure chronicity: chronic Qualified Code(s): I50.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
[2017-11-02 08:36] VITALS: BP 117/76
[2017-11-02] MEDS: COREG TAB 6.25 MG PO SCH (08:41)
[2017-11-02] MEDS: LASIX PO SCH (08:41)
[2017-11-02] MEDS ORDERED: COZAAR PO SCH (09:00)
[2017-11-02] MEDS ORDERED: ALDACTONE TAB 25 MG PO SCH (09:00)
--- NOTE | 2017-12-31 21:34 | DR.CARTERD ---
- Discharge Summary for: Discharge Summary for Date of:: 11/02/17 - Admission Date Date of Admission: 11/01/17 - Admission Diagnoses Admission Diagnosis: (1) CHF (congestive heart failure) (2) Chest pain, rule out acute myocardial infarction (3) Shortness of breath - Discharge Date Discharge Date: 11/02/17 - Discharge Diagnoses Discharge Diagnosis: (1) CHF (congestive heart failure) (2) Chest pain, rule out acute myocardial infarction (3) Shortness of breath - Hospital Course Hospital Course: DAY ONE, IS A 36 YEAR OLD WHITE MALE WHO PRESENTED TO THE EMERGENCY ROOM WITH COMPLAINTS OF SHORTNESS OF BREATH, CHEST PAIN, AND WHEEZING. HE REPORTED THAT SYMPTOMS STARTED THIS DAY AND HAD PROGRESSIVELY GOTTEN WORSE. HE REPORTED THAT PAIN WAS MIDSTERNAL, SHARP, AND WAS INTERMITTENT. HE HAD A MEDICAL HISTORY SIGNIFICANT FOR CHF WITH AN EJECTION FRACTION OF 20% AND SUBSTANCE ABUSE. HE WAS NOTED WITH BILATERAL LOWER EXTREMITY SWELLING. AUSCULTATION OF LUNG DOYLE REVEALED SCATTERED WHEEZING. ON ARRIVAL, VITALS WERE 98.95-714-91-100%-132/90. LABS WERE OBTAINED. ABNORMAL LAB VALUES INCLUDED THE FOLLOWING: HGB 12.1, HCT 38.0, POTASSIUM 3.4, GLUCOSE 149, CALCIUM 8.1, ALK PHOS 117, BNP 2520, TOTAL PROTEIN 6.3, ALBUMIN 3.0. TOXICOLOGY POSITIVE FOR AMPHETAMINES AND MARIJUANA. CHEST XRAY REVEALED: Generalized cardiomegaly is again seen. No significant vascular congestion however. Lungs are clear with no infiltrate or significant effusion on either side. EKG REVEALED: SINUS TACHYCARD IA, WITH HR 118. HE WAS GIVEN TORADOL 60MG IM X 1 DOSE WITH ONLY MILD IMPROVEMENT OF SYMPTOMS. HE WAS ADMITTED FOR FURTHER EVALUATION AND TREATMENT OF CHF EXACERBATION AND CHEST PAIN R/O ACUTE ID. WE RESUMED HIS HOME MEDICATIONS AND MONITORED SERIAL CARDIAC ENZYMES AND EKGs. DAY TWO, PATIENT REPORTED SYMPTOMS HAD IMPROVED. NO ACUTE DISTRESS WAS NOTED. PATIENT DENIED SHORTNESS OF BREATH OR CHEST PAIN. ON AUSCULTATION, LUNGS WERE CLEAR. VITAL SIGNS STABLE. LABS WNL. WE PLANNED FOR DISCHARGED. INSTRUCTIONS FOR MEDICATIONS AND FOLLOW UP WERE GIVEN TO PATIENT AND FAMILY, BOTH VOICED UNDERSTANDING. PATIENT DISCHARGED HOME IN STABLE CONDITION WITH FAMILY. - Discharge Medications Discharge Medications: Prescriptions: Ambulatory Orders furosemide 40 mg PO BID #60 tab 02/19/17 spironolactone [Aldactone] 25 mg PO DAILY #30 tab 09/05/17 carvedilol 2 tab PO BID 10/18/17 losartan 1 tab PO DAILY 10/18/17 - Discharge Disposition Discharge Disposition: PATIENT IS TO FOLLOW UP IN OUR OFFICE IN ONE WEEK.
== END 2017-11-02 11:20 | disposition home or self-care (01) ==
LOC: MED/SURG 10:30 → ER 10:30 → MED/SURG 19:29
PROVIDERS: ADMIT Internal Medicine; ATTEND Internal Medicine
DX: I50.42 Chronic combined systolic (congestive) and diastolic (congestive) heart failure; R60.0 Localized edema; F15.10 Other stimulant abuse, uncomplicated; R06.02 Shortness of breath; F12.10 Cannabis abuse, uncomplicated; R07.89 Other chest pain; I51.7 Cardiomegaly; R94.31 Abnormal electrocardiogram [ECG] [EKG]; R00.0 Tachycardia, unspecified; R73.09 Other abnormal glucose
CPT/HCPCS: 36415; 71010; 71045; 80053; 80061; 80307; 81001; 82550; 82553; 83735; 83880; 84484; 85025; 85378; 85610; 85730; 93005; 94760; 96365; 96374; 99284; A4216; A4222; G0378; G0434; J1885

== ENCOUNTER 2018-12-27 23:32 | Inpatient (IN) ==
[2018-12-27] MEDS ORDERED: D50W ABBOJECT SYR IV ONE (23:57)
[2018-12-27] MEDS ORDERED: D50W ABBOJECT SYR ONE (23:57)
--- NOTE | 2018-12-28 00:09 | DR.SOBA ---
HPI Time Seen Time Seen by Provider: 12/28/18 00:08 Primary Care Physician Primary Care Physician: PRASHANT HPI Comment HPI Comment: PATIENT IS 38YR OLD WHITE MALE HERE IN EMERGENCY ROOM WITH SOB, CHEST PAIN AND GENERALIZED WEAKNESS TIMES 2 DAYS. SYMTOMS WORSE TODAY. NO FEVER OR DYSURIA. SLIGHTLY PRODUCTIVE COUGH, YELLOW SPUTUM.PAIN 8/10 IN LEFT CHEST, SHARP AND PRESSURE RADIATING TO THE BACK. SIMILAR PAIN IN THE PAST BUT WORSE TODAY. Complaints Chief Complaint Doctors Comments: GENERALIZED WEAKNESS, CHEST PAIN AND SOB TIMES 2 DAYS. Chief Complaint:: PT STATES" I BEEN FEELING WEAK FOR 2 DAYS MY CHEST HURTS AND I NEED A COKE TO HELP WITH MY WEAKNESS" Reviewed Nurses Notes Reviewed: Yes Source History Provided: Patient Mode of Arrival Mode of Arrival: EMS Timing Onset of Chief Complaint: 12/25/18 Context Onset:: With Light Exertion PE Risk Factors:: None History of:: CHF Currently on:: Inhaled Bronchodilators Prehospital Care:: None Modifying Factors Worsens:: Exertion Improves:: Rest Associated Signs and Symptoms Associated Signs and Symptoms: Wheeze, Chest Pain and Leg Swelling If Chest Pain Quality: Sharp and Pressure like Location: Left Upper Chest If Cough Cough: Productive and Yellow Other History Other History: CHF PMH PMH Past Medical History: Yes Past Medical History: Anxiety, CHF, Coronary Artery Disease, Depression, Hypertension and Renal Disease Past Surgical History: Yes Surgical History: Other Past Surgical History Comment: HOLLY PERALTA Family History History of Family Medical Conditions: Yes Family Medical History: Diabetes Mellitus, [place], Coronary Artery Disease, Heart Failure and Hypertension Social History Does patient currently use any type of tobacco product: Yes Have you used tobacco products in the last 12 months: Yes Type of Tobacco Use: Cigarettes Does any household member use tobacco: Yes Alcohol Use: None Do you use any recreational Drugs:: No Lives With: Alone Lives Where: Home infectious screening In the last 2 months have you had wt loss of >10#?: NO Have you had fever, night sweats or hemotysis?: No Have you traveled outside the country in the last 6 months?: No Isolation: Standard ROS Review of Systems Constitutional: See HPI, Weakness and Fatigue; negative Fever and Loss of Appetite Eyes: No Symptoms Reported and See HPI ENTM: See HPI and Nose Congestion; negative Ear Pain, Nose Discharge and Throat Pain Respiratoy: See HPI, Moist Cough and Short of Breath Cardiovascular: See HPI, Chest Pain, Edema and Palpitations Gastrointestinal/Abdominal: No Symptoms Reported and See HPI; negative Abdominal Pain, Constipation, Diarrhea, Nausea and Vomiting Genitourinary: No Symptoms Reported and See HPI; negative Dysuria, Frequency and Hematuria Neurological: See HPI and Weakness; negative Headache and Dizziness Musculoskeletal: See HPI and Back Pain Integumentary: No Symptoms Reported and See HPI; negative Change in Color, Rash and Juandice Hematologic/Lymphatic: No Symptoms Reported and See HPI; negative Easy Bruising and Swollen Glands Endocrine: No Symptoms Reported and See HPI; negative Increased Thirst, Increased Urine and Decreased Appetite Psychiatric: No Symptoms Reported and See HPI All Other Systems: Reviewed and Negative PE Vital Signs Vitals: Temperature 97.2 F Pulse Rate [Apical] 77 Pulse Rate 72 Respiratory Rate 18 Blood Pressure [Right Arm] 133/89 Blood Pressure [Left Arm] 102/68 Blood Pressure 92/53 O2 Sat by Pulse Oximetry 99 General Limitations: No Limitations General Appearance: Alert and In No Apparent Distress Head Head Exam: Normal Inspection and Atraumatic Eyes Eye exam: Normal Appearance and PERRL; negative Scleral Icterus and Conjunctival Injection ENT ENT Exam: Normal Exam, Normal Oropharynx, Normal External Ear Exam and TM's Normal Bilaterally Neck Neck Exam: Normal Inspection and Trachea Midline; negative Tenderness and Lymphadenopathy Chest Chest Inspection: Normal Inspection and Symmetric Chest Wall Rise; negative Tenderness Respiratory Respiratory Exam: Normal Lung Sounds Bilat and Respiratory Distress; negative Accessory Muscle Use and Chest Wall Tenderness Respiratory Exam: Bilateral: Wheezing and Bilateral: Rhonchi and Lower: Rhonchi Cardiovascular Cardiovascular Exam: Regular Rate and Normal Rhythm; negative Systolic Murmur and Diastolic Murmur Abdominal Exam Abdominal Exam: Normal Inspection, Normal Bowel Sounds and Soft; negative Tenderness Extremities Extremities Exam: Normal Inspection, Normal Capillary Refill and Edema; negative Tenderness and Calf Tenderness Back Back Exam: Normal Inspection; negative Tenderness, (R) CVA Tenderness and (L) CVA Tenderness Neurologic Neurological Exam: Alert, Oriented X3 and CN II-XII Intact; negative Motor Sensory Deficit Psychiatric Psychiatric Exam: Normal Affect and Normal Mood Skin Skin Exam: Warm, Dry, Intact and Normal Color MDM Differential Diagnosis Differential Diagnosis: Bronchitis, CHF, Dysrhythmia, Hyponatremia, Mycardial Infarction, Pneumonia, Pneumothorax, Pulmonary embolism, Respiratory Insufficiency, Sinusitis and URI COURSE Treatment Treatment: SEE ORDERS. Consultation Consultation Comments: PATIENT ADMITTED TO DR. POND SERVICE. Education/Counseling Education/Counseling: Patient Educated On: Diagnosis ROR Labs Reviewed Laboratory Results Reviewed?: Yes Result Diagrams: 01/01/19 04:22 01/01/19 04:22 Laboratory: 12/28/18 01:10 Blood Blood Culture - Final 12/28/18 00:20 Blood Blood Culture - Final WBC 11.7 X10^3/uL (3.6-10.0) H 12/28/18 05:35 RBC 5.30 X10^6/uL (4.7-6.0) 12/28/18 05:35 Hgb 12.0 g/dL (13.5-18.0) L 12/28/18 05:35 Hct 39.6 % (42.0-54.0) L 12/28/18 05:35 MCV 74.8 fL (80.0-100.0) L 12/28/18 05:35 MCH 22.6 pg (27.0-34.0) L 12/28/18 05:35 MCHC 30.2 g/dL (33.0-35.0) L 12/28/18 05:35 RDW 22.4 % (11.6-16.5) H 12/28/18 05:35 Plt Count 262 X10^3/uL (150.0-450.0) 12/28/18 05:35 Plt Count Comment Adequate (ADEQUATE) 12/28/18 05:35 MPV 8.9 fL (7.4-11.0) 12/28/18 05:35 Neut % (Auto) 69.0 % (42.0-75.0) 12/28/18 05:35 Lymph % (Auto) 17.2 % (21.0-51.0) L 12/28/18 05:35 Allen % (Auto) 11.5 % (0.0-13.0) 12/28/18 05:35 Eos % (Auto) 1.3 % (0.9-2.9) 12/28/18 05:35 Baso % (Auto) 1.0 % (0.2-1.0) 12/28/18 05:35 Neut # (Auto) 8.1 x10^3/uL (2.2-4.8) H 12/28/18 05:35 Lymph # (Auto) 2.0 X10^3/uL (1.3-2.9) 12/28/18 05:35 Allen # (Auto) 1.3 x10^3/uL (0.3-0.8) H 12/28/18 05:35 Eos # (Auto) 0.2 x10^3/uL (0.0-0.2) 12/28/18 05:35 Baso # (Auto) 0.1 X10^3/uL (0.0-0.1) 12/28/18 05:35 Absolute Nucleated RBC 0.2 /100WBC 12/28/18 05:35 Plt Morphology Comment Normal (NORMAL) 12/28/18 05:35 RBC Morphology Abnormal (NORMAL) 12/28/18 05:35 Hypochromasia 1+ A 12/28/18 05:35 Anisocytosis 1+ A 12/28/18 05:35 Ovalocytes Present 12/28/18 01:12 Crenated Cell Slight A 12/28/18 05:35 PT 22.4 SECONDS (11.8-14.3) 12/28/18 05:35 INR Target Range - 12/28/18 05:35 INR 2.05 (0.8-1.3) H 12/28/18 05:35 APTT 33.9 SECONDS (22.9-36.5) 12/28/18 05:35 PTT Comment - 12/28/18 05:35 D-Dimer 1350 ng/mL (0-400) H* 12/28/18 01:12 Sodium 139 mmol/L (136-145) 12/28/18 06:35 Corrected Sodium TNP 12/28/18 06:35 Potassium 5.1 mmol/L (3.5-5.1) 12/28/18 06:35 Chloride 106 mmol/L (98-107) 12/28/18 06:35 Carbon Dioxide 14.8 mmol/L (21-32) L* 12/28/18 06:35 BUN 37 mg/dL (7-18) H 12/28/18 06:35 Creatinine 3.10 mg/dL (0.70-1.30) H 12/28/18 06:35 Est GFR (MDRD) Af Amer 29 (>60) L 12/28/18 06:35 Est GFR (MDRD) Non-Af 24 (>60) L 12/28/18 06:35 Glucose 176 mg/dL (65-99) H 12/28/18 06:40 POC Glucose (mg/dL) 58 mg/dL (65-99) L 12/28/18 09:48 Calcium 8.8 mg/dL (8.5-10.1) 12/28/18 06:35 Corrected Calcium TNP 12/28/18 06:35 Magnesium 2.3 mg/dL (1.7-2.9) 12/28/18 06:35 Total Bilirubin 2.00 mg/dL (0.2-1.0) H 12/28/18 06:35 AST 67 Units/L (15-37) H 12/28/18 06:35 ALT 63 Units/L (12-78) 12/28/18 06:35 Alkaline Phosphatase 140 Units/L (46-116) H 12/28/18 06:35 Creatine Kinase 47 Units/L (39-308) 12/28/18 06:35 CK-MB (CK-2) 2.7 ng/mL (0-4.0) 12/28/18 06:35 CK/CKMB % Calc 5.7 % (<4) 12/28/18 06:35 Troponin I 0.03 ng/mL (0-1.5) 12/28/18 06:35 B-Natriuretic Peptide > 5000 pg/mL (0-79) H* 12/28/18 01:12 Total Protein 7.1 g/dL (6.4-8.2) 12/28/18 06:35 Albumin 3.7 g/dL (3.4-5.0) 12/28/18 06:35 Globulin 3.4 g/dL (2.5-4.5) 12/28/18 06:35 Albumin/Globulin Ratio 1.1 Ratio (1.1-2.1) 12/28/18 06:35 Triglycerides 84 mg/dL (0-150) 12/28/18 06:35 Cholesterol 106 mg/dL (0-200) 12/28/18 06:35 LDL Cholesterol, Calc 34 mg/dL (0-100) 12/28/18 06:35 HDL Cholesterol 55 mg/dL (40-60) 12/28/18 06:35 Cholesterol/HDL Ratio 1.9 (0.0-5.0) 12/28/18 06:35 Specimen Type Random urine 12/28/18 03:40 Urine Color Dark yellow (YELLOW) 12/28/18 03:40 Urine Appearance Clear (CLEAR) 12/28/18 03:40 Urine pH 5.0 (5.0 - 8.0) 12/28/18 03:40 Ur Specific [place] 1.015 (1.000-1.030) 12/28/18 03:40 Urine Protein 3+ (NEGATIVE) 12/28/18 03:40 Urine Glucose (UA) Negative (NEGATIVE) 12/28/18 03:40 Urine Ketones 1+ (NEGATIVE) 12/28/18 03:40 Urine Occult Blood Negative (NEGATIVE) 12/28/18 03:40 Urine Nitrite Negative (NEGATIVE) 12/28/18 03:40 Urine Bilirubin Negative (NEGATIVE) 12/28/18 03:40 Urine Urobilinogen 2+ (NORMAL) 12/28/18 03:40 Ur Leukocyte Esterase 1+ (NEGATIVE) 12/28/18 03:40 Urine RBC None seen /HPF (0-3) 12/28/18 03:40 Urine WBC 3-5 /HPF (0-5) 12/28/18 03:40 Ur Squamous Epith Cells Few /HPF (NEGATIVE) 12/28/18 03:40 Urine Bacteria Negative /HPF (NEGATIVE) 12/28/18 03:40 Hyaline Casts Few /LPF (NEGATIVE) 12/28/18 03:40 Ur Culture Indicated? No/not indicated 12/28/18 03:40 Urine Opiates Screen Negative (NEG=<300) 12/28/18 03:40 Urine Methadone Screen Negative (NEG=<300) 12/28/18 03:40 Ur Barbiturates Screen Negative (NEG=<200) 12/28/18 03:40 Ur Phencyclidine Scrn Negative (NEG=<25) 12/28/18 03:40 Ur Amphetamines Screen Positive (NEG=<1000) 12/28/18 03:40 U Benzodiazepines Scrn Negative (NEG=<200) 12/28/18 03:40 Urine Cocaine Screen Negative (NEG=<300) 12/28/18 03:40 U Marijuana (THC) Screen Negative (NEG=<50) 12/28/18 03:40 XRAY XRAY Interpreted by: Radiologist XRAY Findings: REPORT NOTED AND DISCUSSED WITH PATIENT. EKG Rate: 84 [place]: Normal Rhythm: NSR Block: None Hypertrophy: LAE ST: Old, Ant, Infarct and Nonsp Opioid Opioid Risk Tool Personal Hx of Substance Abuse: Illegal Drugs Age (Benjie box if 16-45): Yes Total: 1 Total Score Risk Category: Low Risk Copyright: [facility] predicting aberrant behaviors Diagnosis Discharge Problem: Acute respiratory distress Chest pain Qualifiers: Chest pain type: precordial pain Qualified Code(s): R07.2 - Precordial pain CHF (congestive heart failure) Qualifiers: Heart failure type: combined systolic and diastolic Heart failure chronicity: acute on chronic Qualified Code(s): I50.43 - Acute on chronic combined systolic (congestive) and diastolic (congestive) heart failure Pulmonary edema Qualifiers: Chronicity: acute Qualified Code(s): J81.0 - Acute pulmonary edema Instructions Instructions: Furosemide tablets Smoking Tobacco Information, Adult Health Risks of Smoking Heart Failure, [id number] Living With Heart Failure Forms: Excuse From Work or School Patient Portal
--- NOTE | 2018-12-28 00:15 | RAD ---
Chest, one view Indication: Shortness of breath, chest pain Comparison: 10/17/2018 Findings: Cardiac silhouette is markedly enlarged. There is pulmonary vascular congestion and mild bilateral interstitial prominence, suggestive for edema. No focal infiltrate or significant effusion. Left-sided AICD is unchanged. No pneumothorax. Impression: Moderate cardiomegaly and mild interstitial edema. Reported By:
[2018-12-28 01:23] LABS: EOSINOPHILS # (AUTO) 0.1 x10^3/uL (0.0-0.2); MONOCYTES # (AUTO) 1.3 x10^3/uL (0.3-0.8); WHITE BLOOD COUNT 10.6 X10^3/uL (3.6-10.0)
[2018-12-28 01:40] LABS: BASOPHILS # (AUTO) 0.2 X10^3/uL (0.0-0.1); BASOPHILS % (AUTO) 1.5 % (0.2-1.0); EOSINOPHILS % (AUTO) 1.2 % (0.9-2.9); HEMOGLOBIN 12.6 g/dL (13.5-18.0); LYMPHOCYTES # (AUTO) 1.6 X10^3/uL (1.3-2.9); LYMPHOCYTES % (AUTO) 15.2 % (21.0-51.0); MEAN CORPUSCULAR HEMOGLOBIN 22.9 pg (27.0-34.0); MEAN CORPUSCULAR HGB CONC 30.7 g/dL (33.0-35.0); MEAN CORPUSCULAR VOLUME 74.5 fL (80.0-100.0); MEAN PLATELET VOLUME 7.6 fL (7.4-11.0); MONOCYTES % (AUTO) 12.6 % (0.0-13.0); NEUTROPHILS # (AUTO) 7.4 x10^3/uL (2.2-4.8); NEUTROPHILS % (AUTO) 69.5 % (42.0-75.0); PLATELET COUNT 260 X10^3/uL (150.0-450.0); RED CELL DISTRIBUTION WIDTH 22.2 % (11.6-16.5)
[2018-12-28 01:43] LABS: ANISOCYTOSIS 2+; HYPOCHROMASIA 1+; OVALOCYTES PRESENT; PLATELET MORPHOLOGY COMMENT NORMAL (NORMAL)
[2018-12-28 01:44] LABS: BLOOD UREA NITROGEN 35 mg/dL (7-18); CARBON DIOXIDE 22.1 mmol/L (21-32); CHLORIDE 105 mmol/L (98-107); CREATININE 3.07 mg/dL (0.70-1.30); SODIUM 140 mmol/L (136-145); TROPONIN I 0.03 ng/mL (0-1.5); eGFR NON BLACK RACES 24 (>60)
[2018-12-28 01:48] LABS: ALANINE AMINOTRANSFERASE 48 Units/L (12-78); ALBUMIN 4.1 g/dL (3.4-5.0); ALKALINE PHOSPHATASE 151 Units/L (46-116); ASPARTATE AMINO TRANSFERASE 55 Units/L (15-37); CREATINE KINASE 52 Units/L (39-308); CREATINE KINASE MB 3.1 ng/mL (0-4.0); MAGNESIUM 2.3 mg/dL (1.7-2.9); TOTAL PROTEIN 7.8 g/dL (6.4-8.2)
[2018-12-28] MEDS ORDERED: LASIX IVP ONE ×2 (02:05→02:21)
[2018-12-28 03:52] LABS: BILIRUBIN,URINE NEGATIVE (NEGATIVE); BLOOD/HEMOGLOBIN,URINE NEGATIVE (NEGATIVE); GLUCOSE, URINE NEGATIVE (NEGATIVE); KETONES,URINE 1+ (NEGATIVE); LEUKOCYTE ESTERASE ,URINE 1+ (NEGATIVE); NITRITES,URINE NEGATIVE (NEGATIVE); PROTEIN,URINE 3+ (NEGATIVE); UROBILINOGEN,URINE 2+ (NORMAL)
[2018-12-28 03:56] LABS: APPEARANCE,URINE CLEAR (CLEAR); COLOR,URINE DARK YELLOW (YELLOW)
[2018-12-28 03:57] LABS: BACTERIA,URINE NEGATIVE /HPF (NEGATIVE); HYALINE CASTS, URINE FEW /LPF (NEGATIVE); RBC,URINE NONE SEEN /HPF (0-3); SQUAMOUS EPITHELIAL CELL,UR FEW /HPF (NEGATIVE)
[2018-12-28] MEDS ORDERED: NITROGLYCERIN IV PREMIX 50 MG 50 MG/250 ML BAG IV PRN (04:24)
[2018-12-28] MEDS ORDERED: GLUTOSE 15 GEL ORAL PO PRN (04:58)
[2018-12-28] MEDS ORDERED: GLUTOSE 15 GEL ORAL PO ONE (05:03)
[2018-12-28] MEDS ORDERED: MORPHINE SULFATE INJ 4 MG ONE (05:15)
[2018-12-28] MEDS: MORPHINE SULFATE INJ 4 MG IVP PRN ×2 (05:21→09:36)
[2018-12-28 06:09] VITALS: BMI 25.2
[2018-12-28] MEDS ORDERED: D50W ABBOJECT SYR IV ONE ×3 (06:17→20:26)
[2018-12-28] MEDS ORDERED: D50W ABBOJECT SYR ONE ×4 (06:20→20:27)
[2018-12-28 07:13] LABS: BASOPHILS # (AUTO) 0.1 X10^3/uL (0.0-0.1); EOSINOPHILS # (AUTO) 0.2 x10^3/uL (0.0-0.2); EOSINOPHILS % (AUTO) 1.3 % (0.9-2.9); HEMATOCRIT 39.6 % (42.0-54.0); LYMPHOCYTES % (AUTO) 17.2 % (21.0-51.0); MEAN CORPUSCULAR HEMOGLOBIN 22.6 pg (27.0-34.0); MEAN CORPUSCULAR HGB CONC 30.2 g/dL (33.0-35.0); MEAN CORPUSCULAR VOLUME 74.8 fL (80.0-100.0); MEAN PLATELET VOLUME 8.9 fL (7.4-11.0); MONOCYTES # (AUTO) 1.3 x10^3/uL (0.3-0.8); MONOCYTES % (AUTO) 11.5 % (0.0-13.0); NEUTROPHILS # (AUTO) 8.1 x10^3/uL (2.2-4.8); PLATELET COUNT 262 X10^3/uL (150.0-450.0); RED CELL DISTRIBUTION WIDTH 22.4 % (11.6-16.5); WHITE BLOOD COUNT 11.7 X10^3/uL (3.6-10.0)
[2018-12-28 07:23] LABS: ALANINE AMINOTRANSFERASE 63 Units/L (12-78); ALBUMIN 3.7 g/dL (3.4-5.0); ALKALINE PHOSPHATASE 140 Units/L (46-116); ASPARTATE AMINO TRANSFERASE 67 Units/L (15-37); BLOOD UREA NITROGEN 37 mg/dL (7-18); CALCIUM 8.8 mg/dL (8.5-10.1); CHLORIDE 106 mmol/L (98-107); CHOL/HDL RATIO 1.9 (0.0-5.0); CHOLESTEROL 106 mg/dL (0-200); CKMB % 5.7 % (<4); CREATINE KINASE 47 Units/L (39-308); CREATINE KINASE MB 2.7 ng/mL (0-4.0); HDL CHOLESTEROL 55 mg/dL (40-60); MAGNESIUM 2.3 mg/dL (1.7-2.9); SODIUM 139 mmol/L (136-145); TOTAL PROTEIN 7.1 g/dL (6.4-8.2); TRIGLYCERIDES 84 mg/dL (0-150); TROPONIN I 0.03 ng/mL (0-1.5); eGFR NON BLACK RACES 24 (>60)
[2018-12-28 07:25] LABS: CARBON DIOXIDE 14.8 mmol/L (21-32)
[2018-12-28 07:31] LABS: ANISOCYTOSIS 1+; CRENATED RBC SLIGHT; HYPOCHROMASIA 1+; PLATELET MORPHOLOGY COMMENT NORMAL (NORMAL)
[2018-12-28] MEDS ORDERED: COLCRYS TAB 0.6 MG PO PRN (08:42)
[2018-12-28] MEDS ORDERED: ENTRESTO 24/26 MG TAB PO SCH (09:00)
[2018-12-28] MEDS: ASPIRIN PO SCH (09:36)
[2018-12-28] MEDS: ZOFRAN INJ 4 MG VIAL IVP PRN ×2 (09:44→20:37)
[2018-12-28] MEDS ORDERED: NS 1000 ML 1,000 ML IV SCH (11:00)
[2018-12-28] MEDS: ALBUMIN HUMAN 25%- 100 ML 100 ML IV SCH (11:03)
[2018-12-28] MEDS: LOVENOX INJ 30 MG SYR SC SCH (11:04)
[2018-12-28 12:30] LABS: CKMB % 7.5 % (<4); CREATINE KINASE MB 3.6 ng/mL (0-4.0); TROPONIN I 0.04 ng/mL (0-1.5)
[2018-12-28] MEDS: GLUTOSE 15 GEL ORAL PO PRN (15:45)
[2018-12-28] MEDS: D50W ABBOJECT SYR IV ONE ×2 (16:40→16:51)
[2018-12-28] MEDS: ZOCOR TAB 20 MG PO SCH (20:25)
[2018-12-28] MEDS: SNACK - Diabetic Appropriate PO SCH (21:00)
[2018-12-28] MEDS ORDERED: D5 NS 1000 ML 1,000 ML IV ONE (22:45)
[2018-12-28] MEDS ORDERED: D5 NS 1000 ML 1,000 ML IV SCH (23:00)
[2018-12-29] MEDS: MORPHINE SULFATE INJ 4 MG IVP PRN ×4 (00:19→21:02)
--- NOTE | 2018-12-29 05:54 | RAD ---
Chest, one view Indication: Shortness of breath Comparison: 12/28/2018 Findings: There is stable enlargement of the cardiac silhouette. Pulmonary edema appears improved since prior. Left-sided AICD is unchanged. No focal infiltrate or significant effusion. No pneumothorax. Impression: Stable cardiomegaly without acute chest process. Reported By:
[2018-12-29 06:47] LABS: BASOPHILS # (AUTO) 0.1 X10^3/uL (0.0-0.1); BASOPHILS % (AUTO) 1.3 % (0.2-1.0); EOSINOPHILS # (AUTO) 0.2 x10^3/uL (0.0-0.2); EOSINOPHILS % (AUTO) 2.3 % (0.9-2.9); HEMATOCRIT 40.8 % (42.0-54.0); HEMOGLOBIN 12.5 g/dL (13.5-18.0); LYMPHOCYTES % (AUTO) 21.4 % (21.0-51.0); MEAN CORPUSCULAR HEMOGLOBIN 22.9 pg (27.0-34.0); MEAN CORPUSCULAR HGB CONC 30.8 g/dL (33.0-35.0); MEAN CORPUSCULAR VOLUME 74.4 fL (80.0-100.0); MEAN PLATELET VOLUME 7.9 fL (7.4-11.0); MONOCYTES # (AUTO) 1.1 x10^3/uL (0.3-0.8); PLATELET COUNT 284 X10^3/uL (150.0-450.0); RED BLOOD COUNT 5.48 X10^6/uL (4.7-6.0); RED CELL DISTRIBUTION WIDTH 22.2 % (11.6-16.5); WHITE BLOOD COUNT 9.5 X10^3/uL (3.6-10.0)
[2018-12-29 07:05] LABS: ALANINE AMINOTRANSFERASE 162 Units/L (12-78); ALBUMIN 4.3 g/dL (3.4-5.0); ALKALINE PHOSPHATASE 152 Units/L (46-116); ASPARTATE AMINO TRANSFERASE 160 Units/L (15-37); BLOOD UREA NITROGEN 44 mg/dL (7-18); CALCIUM 8.5 mg/dL (8.5-10.1); CARBON DIOXIDE 22.9 mmol/L (21-32); CHLORIDE 104 mmol/L (98-107); CREATININE 3.52 mg/dL (0.70-1.30); SODIUM 141 mmol/L (136-145); TOTAL PROTEIN 7.8 g/dL (6.4-8.2); eGFR NON BLACK RACES 21 (>60)
[2018-12-29 07:25] LABS: PLATELET MORPHOLOGY COMMENT NORMAL (NORMAL)
[2018-12-29 07:26] LABS: ANISOCYTOSIS 1+; CRENATED RBC SLIGHT; HYPOCHROMASIA 1+
[2018-12-29] MEDS ORDERED: D50W ABBOJECT SYR IV ONE ×2 (08:08→14:17)
[2018-12-29] MEDS: ZOFRAN INJ 4 MG VIAL IVP PRN (08:19)
[2018-12-29] MEDS: ALBUMIN HUMAN 25%- 100 ML 100 ML IV SCH (09:53)
[2018-12-29] MEDS: LOVENOX INJ 30 MG SYR SC SCH (09:55)
[2018-12-29] MEDS: ASPIRIN PO SCH (09:56)
[2018-12-29] MEDS ORDERED: D50W ABBOJECT SYR ONE (10:19)
[2018-12-29] MEDS ORDERED: D50W ABBOJECT SYR IVP NR (11:00)
[2018-12-29] MEDS ORDERED: MAALOX or MYLANTA ONE (13:34)
[2018-12-29] MEDS: MAALOX or MYLANTA PO PRN ×2 (13:45→21:02)
[2018-12-29] MEDS: D5W 1000 ML IV 1,000 ML IV SCH ×2 (15:10→16:15)
--- NOTE | 2018-12-29 17:58 | DR.H&P ---
H&P - History & Physical for Day of: H&P Date: 12/28/18 - Chief Complaint Chief Complaint: CP - History of Present Illness History of Present Illness: 38 WM ER ADMISSION AFTER PRESENTING WITH CO CHEST PAIN, ER REPORTS PT STATES" I BEEN FEELING WEAK FOR 2 DAYS MY CHEST HURTS AND I NEED A COKE TO HELP WITH MY WEAKNESS". PT HAS A PMH OF NONISCHEMIC CARDIOMYOPATHY, CHF, HX OF NON COMPLIANCE AND DRUG ABUSE. PT CMP REVEALED RENAL INSUFFICIENCY AND CXR WITH CHF. PT ADMITTED FOR TREATMENT OF ACUTE ILLNESS. - Past Medical History Past Medical History: Coronary Artery Disease, Hypertension, Renal Disease, Depression, Anxiety, CHF Additional Medical History: Enlarged Tonsils - Past Surgical History Surgical History: Tonsillectomy, Other - Family History Family Medical History: Diabetes Mellitus, Cancer, [place], Coronary Artery Disease, Heart Failure, Hypertension - Social History Does patient currently use any type of tobacco product: Yes Have you used tobacco products in the last 12 months: Yes Type of Tobacco Use: Cigarettes Does any household member use tobacco: Yes Alcohol Use: None Drug Use: Methamphetamine - Medications Home Medications: No Known Drug Allergies Allergy (Verified 09/21/18 23:54) CONTINUE taking the following medications colchicine 0.6 mg PO BID PRN 12/28/18 [History] furosemide [Lasix] 40 mg PO BID 12/28/18 [History] losartan 25 mg PO DAILY 12/28/18 [History] metolazone 5 mg PO BID 12/28/18 [History] metoprolol tartrate 50 mg PO BID 12/28/18 [History] naproxen 500 mg PO BID 12/28/18 [History] sacubitril-valsartan [Entresto] 1 tab PO BID 12/28/18 [History] simvastatin 20 mg PO QHS 12/28/18 [History] spironolactone 25 mg PO DAILY 12/28/18 [History] - Review of Systems Constitutional: Weakness Eyes: No Symptoms Reported ENT: No Symptoms Reported Respiratory: Shortness of Breath Cardiovascular: Chest Pain Gastrointestinal: No Symptoms Reported Genitourinary: No Symptoms Reported Musculoskeletal: No Symptoms Reported Skin: No Symptoms Reported Neurological: Weakness - Physical Exam Vital Signs: Temperature 97.8 F Pulse Rate [Apical] 77 Pulse Rate 58 Respiratory Rate 12 Blood Pressure [Right Arm] 133/89 Blood Pressure [Left Arm] 115/58 Blood Pressure 103/65 O2 Sat by Pulse Oximetry 87 Oriented: Normal Eyes: Normal Ear: Right Nose: Normal Throat: Normal Respiratory: RLL Diminished, LLL Diminished Cardiovascular: Normal, Other (PACER PRESENT). negative: Edema : Normal Auscultation: Bowel Sounds: Normal Palpation: Normal Tenderness: Normal Skin: Normal Musculoskeletal: Normal Psychiatric: Normal Speech Pattern: Clear, Appropriate - Assessment/Plan (1) Chest pain, rule out acute myocardial infarction Status: Acute Plan: ADMIT, SERIAL CE AND EKG. VERIFY HOME MEDICATION. LOVENOX PROPHALAXIS. CARDIAC MONITORING, SUPPLEMENTAL O2. STRICT I& OS, REPEAT AM LABS AND CXR (2) CHF (congestive heart failure) Status: Acute (3) Cardiomyopathy Status: Acute (4) Anemia in CKD (chronic kidney disease) Status: Acute (5) Elevated LFTs Status: Acute - Allergies Allergies/Adverse Reactions: Allergies Allergy/AdvReac Type Severity Reaction Status Date / Time No Known Drug Allergies Allergy Verified 09/21/18 23:54
[2018-12-29] MEDS: SNACK - Diabetic Appropriate PO SCH (20:08)
[2018-12-29] MEDS: PEPCID TAB 20 MG PO SCH (21:01)
[2018-12-29] MEDS: ZOCOR TAB 20 MG PO SCH (21:01)
[2018-12-30] MEDS: D5W 1000 ML IV 1,000 ML IV SCH ×2 (05:09→20:50)
[2018-12-30] MEDS: GLUTOSE 15 GEL ORAL PO PRN (05:54)
--- NOTE | 2018-12-30 06:05 | RAD ---
Examination: Portable AP chest History: SOB Comparison 12/29/2018 Findings: Continued marked enlargement of the heart. Stable position of pacing device. The lungs are essentially clear although the left lower lung is partly obscured by the heart. Impression: No interval change or developing abnormality noted since 12/29/2018. Reported By:
[2018-12-30] MEDS: ALBUMIN HUMAN 25%- 100 ML 100 ML IV SCH ×2 (09:37→14:03)
[2018-12-30] MEDS: ASPIRIN PO SCH (09:38)
[2018-12-30] MEDS: PEPCID TAB 20 MG PO SCH ×2 (09:38→21:50)
[2018-12-30] MEDS: LOVENOX INJ 30 MG SYR SC SCH (10:21)
[2018-12-30] MEDS: MILK OF MAGNESIA PO SCH ×2 (10:23→18:01)
[2018-12-30] MEDS: SNACK - Diabetic Appropriate PO SCH (20:49)
[2018-12-30] MEDS: COLACE CAP 100 MG PO SCH (21:48)
[2018-12-30] MEDS: ZOCOR TAB 20 MG PO SCH (21:49)
[2018-12-31 05:04] LABS: BASOPHILS # (AUTO) 0.1 X10^3/uL (0.0-0.1); BASOPHILS % (AUTO) 1.1 % (0.2-1.0); EOSINOPHILS # (AUTO) 0.2 x10^3/uL (0.0-0.2); EOSINOPHILS % (AUTO) 2.1 % (0.9-2.9); HEMATOCRIT 34.2 % (42.0-54.0); HEMOGLOBIN 10.8 g/dL (13.5-18.0); LYMPHOCYTES # (AUTO) 1.3 X10^3/uL (1.3-2.9); MEAN CORPUSCULAR HEMOGLOBIN 22.9 pg (27.0-34.0); MEAN CORPUSCULAR HGB CONC 31.4 g/dL (33.0-35.0); MEAN CORPUSCULAR VOLUME 73.1 fL (80.0-100.0); MEAN PLATELET VOLUME 7.6 fL (7.4-11.0); MONOCYTES # (AUTO) 0.9 x10^3/uL (0.3-0.8); MONOCYTES % (AUTO) 11.2 % (0.0-13.0); NEUTROPHILS # (AUTO) 5.5 x10^3/uL (2.2-4.8); NEUTROPHILS % (AUTO) 69.6 % (42.0-75.0); PLATELET COUNT 243 X10^3/uL (150.0-450.0); RED BLOOD COUNT 4.69 X10^6/uL (4.7-6.0); RED CELL DISTRIBUTION WIDTH 21.8 % (11.6-16.5); WHITE BLOOD COUNT 7.9 X10^3/uL (3.6-10.0)
[2018-12-31 05:14] LABS: ALANINE AMINOTRANSFERASE 95 Units/L (12-78); ALBUMIN 3.3 g/dL (3.4-5.0); ALKALINE PHOSPHATASE 122 Units/L (46-116); ASPARTATE AMINO TRANSFERASE 61 Units/L (15-37); BLOOD UREA NITROGEN 24 mg/dL (7-18); CALCIUM 8.2 mg/dL (8.5-10.1); CARBON DIOXIDE 24.8 mmol/L (21-32); CHLORIDE 107 mmol/L (98-107); COR CA(FOR HYPOALB) 8.8 mg/dL (8.5-10.1); CREATININE 1.82 mg/dL (0.70-1.30); SODIUM 142 mmol/L (136-145); TOTAL PROTEIN 6.3 g/dL (6.4-8.2); eGFR NON BLACK RACES 45 (>60)
[2018-12-31 05:29] LABS: ANISOCYTOSIS 1+; HYPOCHROMASIA 1+; PLATELET MORPHOLOGY COMMENT NORMAL (NORMAL)
--- NOTE | 2018-12-31 05:44 | RAD ---
Examination: AP chest History: SOB Comparison 12/30/2018 Findings: Continued marked cardiac enlargement with stable position of pacer. There is mild central pulmonary vascular congestion. No pulmonary consolidation, pleural fluid or pulmonary edema is noted. Impression: Cardiac enlargement with mild pulmonary vascular congestion. Reported By:
[2018-12-31] MEDS: D5W 1000 ML IV 1,000 ML IV SCH (05:54)
[2018-12-31] MEDS: LOVENOX INJ 30 MG SYR SC SCH (10:01)
[2018-12-31] MEDS: ASPIRIN PO SCH (10:01)
[2018-12-31] MEDS: ALBUMIN HUMAN 25%- 100 ML 100 ML IV SCH (10:02)
[2018-12-31] MEDS: MILK OF MAGNESIA PO SCH (10:02)
[2018-12-31] MEDS: PEPCID TAB 20 MG PO SCH ×2 (10:02→20:53)
[2018-12-31] MEDS: LOPRESSOR TAB 25 MG PO SCH ×2 (10:46→20:52)
[2018-12-31] MEDS ORDERED: LASIX IVP SCH (11:00)
[2018-12-31] MEDS: LASIX PO SCH ×2 (12:01→16:30)
[2018-12-31] MEDS ORDERED: ENTRESTO 24/26 MG TAB PO SCH (15:15)
[2018-12-31] MEDS: SNACK - Diabetic Appropriate PO SCH (20:27)
[2018-12-31] MEDS: COLACE CAP 100 MG PO SCH (20:51)
[2018-12-31] MEDS: ENTRESTO 24/26 MG TAB PO SCH (20:52)
[2018-12-31] MEDS: ZOCOR TAB 20 MG PO SCH (20:52)
[2019-01-01 05:19] LABS: BASOPHILS # (AUTO) 0.1 X10^3/uL (0.0-0.1); BASOPHILS % (AUTO) 0.9 % (0.2-1.0); EOSINOPHILS # (AUTO) 0.2 x10^3/uL (0.0-0.2); EOSINOPHILS % (AUTO) 2.3 % (0.9-2.9); HEMATOCRIT 33.6 % (42.0-54.0); HEMOGLOBIN 10.3 g/dL (13.5-18.0); LYMPHOCYTES # (AUTO) 1.5 X10^3/uL (1.3-2.9); LYMPHOCYTES % (AUTO) 21.2 % (21.0-51.0); MEAN CORPUSCULAR HEMOGLOBIN 22.7 pg (27.0-34.0); MEAN CORPUSCULAR HGB CONC 30.8 g/dL (33.0-35.0); MEAN CORPUSCULAR VOLUME 73.9 fL (80.0-100.0); MEAN PLATELET VOLUME 7.6 fL (7.4-11.0); MONOCYTES % (AUTO) 13.1 % (0.0-13.0); NEUTROPHILS # (AUTO) 4.6 x10^3/uL (2.2-4.8); NEUTROPHILS % (AUTO) 62.5 % (42.0-75.0); PLATELET COUNT 237 X10^3/uL (150.0-450.0); RED BLOOD COUNT 4.55 X10^6/uL (4.7-6.0); RED CELL DISTRIBUTION WIDTH 22.6 % (11.6-16.5); WHITE BLOOD COUNT 7.3 X10^3/uL (3.6-10.0)
[2019-01-01 05:40] LABS: ALANINE AMINOTRANSFERASE 77 Units/L (12-78); ALBUMIN 3.3 g/dL (3.4-5.0); ALKALINE PHOSPHATASE 119 Units/L (46-116); ASPARTATE AMINO TRANSFERASE 46 Units/L (15-37); BLOOD UREA NITROGEN 19 mg/dL (7-18); CALCIUM 8.6 mg/dL (8.5-10.1); CARBON DIOXIDE 26.5 mmol/L (21-32); CHLORIDE 103 mmol/L (98-107); COR CA(FOR HYPOALB) 9.2 mg/dL (8.5-10.1); COR NA(FOR HYPERGLY) 140 mmol/L (136-145); CREATININE 1.56 mg/dL (0.70-1.30); SODIUM 139 mmol/L (136-145); TOTAL PROTEIN 6.4 g/dL (6.4-8.2); eGFR NON BLACK RACES 53 (>60)
[2019-01-01] MEDS: LASIX PO SCH (06:36)
[2019-01-01] MEDS: LOVENOX INJ 30 MG SYR SC SCH (09:25)
[2019-01-01] MEDS: PEPCID TAB 20 MG PO SCH (09:25)
[2019-01-01] MEDS: ENTRESTO 24/26 MG TAB PO SCH (09:25)
[2019-01-01] MEDS: ASPIRIN PO SCH (09:25)
[2019-01-01] MEDS: LOPRESSOR TAB 25 MG PO SCH (09:26)
[2019-01-01] MEDS: MILK OF MAGNESIA PO SCH (09:26)
[2019-01-01 09:45] VITALS: BP 120/73
== END 2019-01-01 10:55 | disposition home or self-care (01) | DRG 291 ==
LOC: ICU 23:33 → ER 23:33 → INTOOBSV 12-28 03:38 → OBSVTOIN 12-28 03:38 → ICU 12-28 04:36
PROVIDERS: ADMIT Internal Medicine; ATTEND Internal Medicine
DX: R07.89 Other chest pain; R79.1 Abnormal coagulation profile; R53.1 Weakness; I50.9 Heart failure, unspecified; N18.9 Chronic kidney disease, unspecified; E87.2 Acidosis; R06.02 Shortness of breath; R94.31 Abnormal electrocardiogram [ECG] [EKG]; I25.10 Atherosclerotic heart disease of native coronary artery without angina pectoris; N17.8 Other acute kidney failure; R94.5 Abnormal results of liver function studies; F15.90 Other stimulant use, unspecified, uncomplicated; I13.0 Hypertensive heart and chronic kidney disease with heart failure and stage 1 through stage 4 chronic kidney disease, or unspecified chronic kidney disease; R73.09 Other abnormal glucose; D63.1 Anemia in chronic kidney disease; J81.0 Acute pulmonary edema
CPT/HCPCS: 36415; 71010; 71045; 80053; 80061; 80307; 81001; 82550; 82553; 82947; 83735; 83880; 84484; 85025; 85378; 85610; 85730; 87040; 93005; 96365; 96374; 96375; 99285; A4216; A4222; P9047; G0378; G0434; J1650; J1940; J2270; J2405; J3490; J7030; J7042; J7060

== ENCOUNTER 2019-03-22 18:04 | Inpatient (IN) ==
[2019-03-22] MEDS ORDERED: LOVENOX INJ 100 MG SYR SC ONE ×2 (18:44→19:04)
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
[2019-03-22] MEDS ORDERED: LASIX IVP ONE ×2 (18:47→19:04)
[2019-03-22] MEDS ORDERED: NS 1000 ML 1,000 ML ONE (19:04)
[2019-03-22] MEDS ORDERED: LASIX ONE (19:04)
[2019-03-22 19:14] LABS: BASOPHILS # (AUTO) 0.1 X10^3/uL (0.0-0.1); EOSINOPHILS # (AUTO) 0.2 x10^3/uL (0.0-0.2); EOSINOPHILS % (AUTO) 2.6 % (0.9-2.9); HEMATOCRIT 35.8 % (42.0-54.0); HEMOGLOBIN 11.1 g/dL (13.5-18.0); LYMPHOCYTES % (AUTO) 14.5 % (21.0-51.0); MEAN CORPUSCULAR HEMOGLOBIN 22.8 pg (27.0-34.0); MEAN CORPUSCULAR VOLUME 73.6 fL (80.0-100.0); MEAN PLATELET VOLUME 7.2 fL (7.4-11.0); MONOCYTES # (AUTO) 0.6 x10^3/uL (0.3-0.8); MONOCYTES % (AUTO) 8.9 % (0.0-13.0); NEUTROPHILS # (AUTO) 4.9 x10^3/uL (2.2-4.8); PLATELET COUNT 257 X10^3/uL (150.0-450.0); RED BLOOD COUNT 4.87 X10^6/uL (4.7-6.0); RED CELL DISTRIBUTION WIDTH 22.6 % (11.6-16.5); WHITE BLOOD COUNT 6.7 X10^3/uL (3.6-10.0)
[2019-03-22 19:16] LABS: PLATELET MORPHOLOGY COMMENT NORMAL (NORMAL)
[2019-03-22 19:17] LABS: ANISOCYTOSIS 2+; HYPOCHROMASIA 1+; OVALOCYTES 1+
[2019-03-22 19:22] LABS: BLOOD UREA NITROGEN 19 mg/dL (7-18); CALCIUM 8.3 mg/dL (8.5-10.1); CARBON DIOXIDE 26.6 mmol/L (21-32); CHLORIDE 105 mmol/L (98-107); COR NA(FOR HYPERGLY) 142 mmol/L (136-145); CREATININE 1.57 mg/dL (0.70-1.30); SODIUM 141 mmol/L (136-145); TROPONIN I 0.06 ng/mL (0-1.5); eGFR NON BLACK RACES 53 (>60)
[2019-03-22 19:26] LABS: ALANINE AMINOTRANSFERASE 44 Units/L (12-78); ALBUMIN 3.2 g/dL (3.4-5.0); ALKALINE PHOSPHATASE 116 Units/L (46-116); ASPARTATE AMINO TRANSFERASE 34 Units/L (15-37); CKMB % 5.4 % (<4); COR CA(FOR HYPOALB) 8.9 mg/dL (8.5-10.1); CREATINE KINASE 71 Units/L (39-308); CREATINE KINASE MB 3.8 ng/mL (0-4.0); MAGNESIUM 1.5 mg/dL (1.7-2.9); TOTAL PROTEIN 6.6 g/dL (6.4-8.2)
--- NOTE | 2019-03-22 19:34 | RAD ---
HISTORYCHEST PAINSTUDYCHEST, 1 VIEWCOMPARISONOctober 2018FINDINGSThe trachea is midline. The cardiac silhouette is enlarged. The lungs are clear without focal infiltrate or effusion. A left-sided cardiac pacemaker is demonstrated.IMPRESSIONCardiomegaly.Electronically signed by: LUIS CARLOS ARAIZA (Mar 22, 2019 19:33:27)
[2019-03-22] MEDS: NS 1000 ML 1,000 ML IV SCH (19:55)
[2019-03-22] MEDS ORDERED: TORADOL 30 MG VIAL IVP ONE (20:25)
[2019-03-22] MEDS ORDERED: TORADOL 30 MG VIAL ONE (20:57)
[2019-03-22] MEDS: LASIX IVP SCH (22:13)
[2019-03-22 22:36] LABS: CKMB % 4.7 % (<4); CREATINE KINASE MB 3.7 ng/mL (0-4.0); TROPONIN I 0.07 ng/mL (0-1.5)
[2019-03-23 00:59] VITALS: BMI 30.5
[2019-03-23 03:18] LABS: BASOPHILS # (AUTO) 0.2 X10^3/uL (0.0-0.1); BASOPHILS % (AUTO) 2.2 % (0.2-1.0); EOSINOPHILS # (AUTO) 0.2 x10^3/uL (0.0-0.2); EOSINOPHILS % (AUTO) 3.1 % (0.9-2.9); HEMATOCRIT 37.1 % (42.0-54.0); HEMOGLOBIN 11.3 g/dL (13.5-18.0); LYMPHOCYTES # (AUTO) 1.9 X10^3/uL (1.3-2.9); LYMPHOCYTES % (AUTO) 26.4 % (21.0-51.0); MEAN CORPUSCULAR HEMOGLOBIN 22.4 pg (27.0-34.0); MEAN CORPUSCULAR HGB CONC 30.5 g/dL (33.0-35.0); MEAN CORPUSCULAR VOLUME 73.5 fL (80.0-100.0); MONOCYTES # (AUTO) 0.8 x10^3/uL (0.3-0.8); MONOCYTES % (AUTO) 11.8 % (0.0-13.0); NEUTROPHILS % (AUTO) 56.5 % (42.0-75.0); PLATELET COUNT 261 X10^3/uL (150.0-450.0); RED BLOOD COUNT 5.05 X10^6/uL (4.7-6.0); RED CELL DISTRIBUTION WIDTH 22.8 % (11.6-16.5); WHITE BLOOD COUNT 7.1 X10^3/uL (3.6-10.0)
[2019-03-23 03:26] LABS: ALANINE AMINOTRANSFERASE 45 Units/L (12-78); ALBUMIN 3.3 g/dL (3.4-5.0); ALKALINE PHOSPHATASE 124 Units/L (46-116); ASPARTATE AMINO TRANSFERASE 36 Units/L (15-37); BLOOD UREA NITROGEN 21 mg/dL (7-18); CALCIUM 8.2 mg/dL (8.5-10.1); CARBON DIOXIDE 25.4 mmol/L (21-32); CHLORIDE 104 mmol/L (98-107); COR CA(FOR HYPOALB) 8.8 mg/dL (8.5-10.1); CREATININE 1.77 mg/dL (0.70-1.30); SODIUM 141 mmol/L (136-145); TOTAL PROTEIN 6.9 g/dL (6.4-8.2); eGFR NON BLACK RACES 46 (>60)
[2019-03-23 03:34] LABS: ANISOCYTOSIS 2+; HYPOCHROMASIA 1+; OVALOCYTES PRESENT; PLATELET MORPHOLOGY COMMENT NORMAL (NORMAL)
[2019-03-23 03:35] LABS: CKMB % 5.9 % (<4); CREATINE KINASE MB 3.9 ng/mL (0-4.0); TROPONIN I 0.08 ng/mL (0-1.5)
[2019-03-23] MEDS: NORCO 7.5/325 MG TAB PO PRN (07:32)
[2019-03-23] MEDS: LASIX IVP SCH ×2 (08:29→21:15)
[2019-03-23] MEDS: LOVENOX INJ 40 MG SYR SC SCH (08:29)
--- NOTE | 2019-03-23 09:17 | DR.H&P ---
H&P - History & Physical for Day of: H&P Date: 03/22/19 - Chief Complaint Chief Complaint: CHEST PAIN, SOB, SWELLING - History of Present Illness History of Present Illness: IS A 38 YEAR OLD WHITE MALE WHO PRESENTED TO THE EMERGENCY ROOM WITH COMPLAINTS OF SHORTNESS OF BREATH, CHEST PAIN, LEFT LEG PAIN, AND SWELLING TO THE UPPER AND LOWER EXTREMITIES. HE REPORTS THAT SYMPTOMS STARTED TWO DAYS AGO AND HAVE PROGRESSIVELY GOTTEN WORSE. HE REPORTS THAT PAIN IS LOCATED TO THE RIGHT SIDE OF THE CHEST, IS SHARP, AND COMES AND GOES. HE HAS A MEDICAL HISTORY SIGNIFICANT FOR CHF WITH AN EJECTION FRACTION OF 10% AND SUBSTANCE ABUSE. HE HAS IN IMPLANTED DEFIBRILLATOR. HE IS NOTED WITH BILATERAL UPPER AND LOWER EXTREMITY SWELLING. AUSCULTATION OF LUNG DOYLE REVEAL SCATTERED WHEEZING. ON ARRIVAL, VITALS WERE 97.7-078-69-100%-139/63. LABS WERE OBTAINED. ABNORMAL LAB VALUES INCLUDE THE FOLLOWING: HGB 11.1, HCT 35.8, BUN 19, CREATININE 1.57, GLUCOSE 124, CALCIUM 8.3, MAGNESIUM 1.5, BNP 2330, ALBUMIN 3.2. CARDIAC ENZYMES WITHIN NORMAL LIMITS. CHEST XRAY REVEALED: CARDIOMEGALY WITHOUT FOCAL INFILTRATE OR EFFUSION OF THE LUNGS. EKG REVEALED: SINUS TACHYCARDIA, WITH HR 115. HE WAS GIVEN TORADOL 30MG IM X 1, LASIX 60MG IV X 1, AND LOVENOX 100MG SC X 1 IN THE ER. HE WAS ADMITTED FOR FURTHER EVALUATION AND TREATMENT OF CHF EXACERBATION AND CHEST PAIN R/O ACUTE VT. WE WILL RESUME HIS HOME MEDICATIONS AND REPEAT SERIAL CARDIAC ENZYMES AND EKGs. WE WILL ALSO START LASIX 40MG IV BID, NORCO 7.5/325MG PO Q6H PRN, LOVENOX 40MG SC DAILY, AND NS AT 50ML/HR. OTHERWISE, WE WILL FOLLOW UP WITH AM LABS AND CHEST XRAY AND CONTINUE TO MONITOR. - Past Medical History Past Medical History: Coronary Artery Disease, Hypertension, Renal Disease, Depression, Anxiety, CHF Additional Medical History: Enlarged Tonsils - Past Surgical History Surgical History: Ortho Surgery, Tonsillectomy - Family History Family Medical History: Diabetes Mellitus, Cancer, Coronary Artery Disease, Heart Failure, Hypertension - Social History Does patient currently use any type of tobacco product: Yes Have you used tobacco products in the last 12 months: Yes Type of Tobacco Use: Cigarettes Does any household member use tobacco: Yes Alcohol Use: None Drug Use: Methamphetamine Prescription drug monitoring program results: PDMP was not reviewed - Medications Home Medications: No Known Drug Allergies Allergy (Verified 09/21/18 23:54) - Review of Systems Constitutional: Weakness Eyes: No Symptoms Reported ENT: No Symptoms Reported Respiratory: Cough, Shortness of Breath, SOB with Excertion, Wheezing Cardiovascular: Chest Pain, Edema (BILATERAL UPPER AND LOWER EXTREMITY 1+ PITTING EDEMA ) Gastrointestinal: No Symptoms Reported Genitourinary: No Symptoms Reported Musculoskeletal: No Symptoms Reported Skin: No Symptoms Reported Neurological: Weakness - Physical Exam Vital Signs: Temperature 97.6 F Pulse Rate [Brachial] 103 Pulse Rate 101 Respiratory Rate 14 Blood Pressure [Right Arm] 136/84 Blood Pressure 112/59 O2 Sat by Pulse Oximetry 99 Oriented: Normal Eyes: Normal Ear: Normal Nose: Normal Throat: Normal Respiratory: Wheezes Throughout Cardiovascular: Tachycardia, Edema (BILATERAL UPPER AND LOWER EXTREMITY 1+ PITTING EDEMA ) : Normal Auscultation: Bowel Sounds: Normal Palpation: Normal Tenderness: Normal Skin: Normal Musculoskeletal: Normal Psychiatric: Normal Mood Description: Calm Affect: Normal Speech Pattern: Clear - Assessment/Plan (1) CHF (congestive heart failure) Qualifiers: Heart failure type: unspecified Heart failure chronicity: acute on chronic Qualified Code(s): I50.9 - Heart failure, unspecified Status: Acute Plan: ADMIT, IV LASIX, SUPPLEMENTAL OXYGEN, CONTINUE TO MONITOR (2) Chest pain Qualifiers: Chest pain type: unspecified Qualified Code(s): R07.9 - Chest pain, unspecified Status: Acute Plan: SERIAL CARDIAC ENZYMES AND EKGS, CONTINUE TO MONITOR - Review H&P Reviewed: Yes Patient was examined?: Yes - Allergies Allergies/Adverse Reactions: Allergies Allergy/AdvReac Type Severity Reaction Status Date / Time No Known Drug Allergies Allergy Verified 09/21/18 23:54
[2019-03-23 10:24] LABS: CKMB % 4.4 % (<4); CREATINE KINASE MB 3.7 ng/mL (0-4.0); TROPONIN I 0.06 ng/mL (0-1.5)
[2019-03-23] MEDS: COREG TAB 3.125 MG PO SCH ×2 (11:21→21:15)
[2019-03-23] MEDS: MORPHINE SULFATE INJ 2 MG INJ IVP PRN ×3 (11:22→19:37)
[2019-03-23] MEDS: NS 1000 ML 1,000 ML IV SCH ×2 (12:32→14:52)
[2019-03-24] MEDS: MORPHINE SULFATE INJ 2 MG INJ IVP PRN ×6 (00:04→20:58)
[2019-03-24] MEDS: NS 1000 ML 1,000 ML IV SCH ×3 (02:19→13:27)
[2019-03-24 06:16] LABS: BASOPHILS # (AUTO) 0.1 X10^3/uL (0.0-0.1); BASOPHILS % (AUTO) 1.1 % (0.2-1.0); EOSINOPHILS # (AUTO) 0.2 x10^3/uL (0.0-0.2); EOSINOPHILS % (AUTO) 2.9 % (0.9-2.9); HEMATOCRIT 37.2 % (42.0-54.0); HEMOGLOBIN 11.4 g/dL (13.5-18.0); LYMPHOCYTES # (AUTO) 1.5 X10^3/uL (1.3-2.9); LYMPHOCYTES % (AUTO) 22.2 % (21.0-51.0); MEAN CORPUSCULAR HEMOGLOBIN 22.8 pg (27.0-34.0); MEAN CORPUSCULAR HGB CONC 30.8 g/dL (33.0-35.0); MEAN PLATELET VOLUME 7.5 fL (7.4-11.0); MONOCYTES # (AUTO) 0.7 x10^3/uL (0.3-0.8); MONOCYTES % (AUTO) 9.8 % (0.0-13.0); NEUTROPHILS # (AUTO) 4.4 x10^3/uL (2.2-4.8); PLATELET COUNT 272 X10^3/uL (150.0-450.0); RED BLOOD COUNT 5.02 X10^6/uL (4.7-6.0); RED CELL DISTRIBUTION WIDTH 22.5 % (11.6-16.5); WHITE BLOOD COUNT 6.9 X10^3/uL (3.6-10.0)
--- NOTE | 2019-03-24 06:26 | RAD ---
HISTORYShortness of breathSTUDYCHEST, 1 [id number]/08/2020FINDINGSPatient is rotated to the left. There is a pacemaker present on the left obscuring a portion of the left upper lobe. The heart remains markedly enlarged. No congestive heart failure is noted. No acute alveolar infiltrates or pleural effusions are identified. Bony thorax is unremarkable.IMPRESSIONContinued marked cardiomegaly without congestive heart failureNo infiltratesElectronically signed by: SHOLA YOUNGBLOOD (Mar 24, 2019 06:24:45)
[2019-03-24 06:50] LABS: ALANINE AMINOTRANSFERASE 46 Units/L (12-78); ALBUMIN 3.4 g/dL (3.4-5.0); ALKALINE PHOSPHATASE 121 Units/L (46-116); ASPARTATE AMINO TRANSFERASE 46 Units/L (15-37); BLOOD UREA NITROGEN 25 mg/dL (7-18); CALCIUM 7.9 mg/dL (8.5-10.1); CARBON DIOXIDE 22.9 mmol/L (21-32); CHLORIDE 102 mmol/L (98-107); CREATININE 1.84 mg/dL (0.70-1.30); SODIUM 137 mmol/L (136-145); TOTAL PROTEIN 7.1 g/dL (6.4-8.2); eGFR NON BLACK RACES 44 (>60)
[2019-03-24 07:05] LABS: ANISOCYTOSIS 2+; HYPOCHROMASIA 1+; PLATELET MORPHOLOGY COMMENT NORMAL (NORMAL)
[2019-03-24] MEDS: LASIX IVP SCH ×3 (08:34→20:58)
[2019-03-24] MEDS: LOVENOX INJ 40 MG SYR SC SCH (08:34)
[2019-03-24] MEDS: COREG TAB 3.125 MG PO SCH ×2 (08:34→20:57)
[2019-03-24] MEDS ORDERED: LASIX ONE (10:49)
--- NOTE | 2019-03-24 11:48 | VAS ---
HISTORYBIL LEG PAINSTUDYLOWER EXT VENOUS, BILATERALCOMPARISONNoneTECHNIQUEMultiple etienne scale and color flow Doppler images of the deep venous system were obtained of the right and left lower extremity.FINDINGSThe deep venous system of the right and left lower extremities was evaluated from the level of the common femoral vein through the popliteal vein. Normal color flow and augmentation can be observed. In addition, normal compression is seen throughout the deep venous system.IMPRESSIONNegative for DVT.Electronically signed by: LUIS CARLOS ARAIZA (Mar 24, 2019 11:47:39)
--- NOTE | 2019-03-24 11:49 | VAS ---
HISTORYBilateral arm swellingSTUDYBilateral arm venous DopplerCOMPARISONNoneFINDINGSThe upper extremity veins are evaluated from jugular and subclavian veins to radial and ulnar veins.The veins are widely patent and show appropriate compression and augmentation.IMPRESSIONNo evidence for deep venous thrombosis of the upper extremitiesElectronically signed by: ARNULFO VO (Mar 24, 2019 11:48:19)
[2019-03-24] MEDS: NORCO 7.5/325 MG TAB PO PRN ×2 (15:52→22:47)
[2019-03-25] MEDS: MORPHINE SULFATE INJ 2 MG INJ IVP PRN ×6 (00:54→21:23)
[2019-03-25] MEDS: NS 1000 ML 1,000 ML IV SCH ×2 (04:41→19:28)
[2019-03-25 05:33] LABS: BASOPHILS % (AUTO) 0.7 % (0.2-1.0); EOSINOPHILS # (AUTO) 0.2 x10^3/uL (0.0-0.2); EOSINOPHILS % (AUTO) 2.8 % (0.9-2.9); HEMATOCRIT 35.1 % (42.0-54.0); HEMOGLOBIN 10.9 g/dL (13.5-18.0); LYMPHOCYTES # (AUTO) 1.5 X10^3/uL (1.3-2.9); LYMPHOCYTES % (AUTO) 21.8 % (21.0-51.0); MEAN CORPUSCULAR HEMOGLOBIN 22.6 pg (27.0-34.0); MEAN PLATELET VOLUME 7.2 fL (7.4-11.0); MONOCYTES % (AUTO) 13.8 % (0.0-13.0); NEUTROPHILS # (AUTO) 4.3 x10^3/uL (2.2-4.8); NEUTROPHILS % (AUTO) 60.9 % (42.0-75.0); PLATELET COUNT 262 X10^3/uL (150.0-450.0); RED BLOOD COUNT 4.82 X10^6/uL (4.7-6.0); RED CELL DISTRIBUTION WIDTH 22.2 % (11.6-16.5); WHITE BLOOD COUNT 7.1 X10^3/uL (3.6-10.0)
[2019-03-25 05:45] LABS: ALANINE AMINOTRANSFERASE 47 Units/L (12-78); ALBUMIN 3.4 g/dL (3.4-5.0); ALKALINE PHOSPHATASE 121 Units/L (46-116); ASPARTATE AMINO TRANSFERASE 38 Units/L (15-37); BLOOD UREA NITROGEN 26 mg/dL (7-18); CALCIUM 7.7 mg/dL (8.5-10.1); CARBON DIOXIDE 26.5 mmol/L (21-32); CHLORIDE 101 mmol/L (98-107); CREATININE 1.74 mg/dL (0.70-1.30); SODIUM 138 mmol/L (136-145); TOTAL PROTEIN 7.2 g/dL (6.4-8.2); eGFR NON BLACK RACES 47 (>60)
[2019-03-25] MEDS: NORCO 7.5/325 MG TAB PO PRN ×3 (05:46→20:13)
[2019-03-25 06:05] LABS: ANISOCYTOSIS 2+; HYPOCHROMASIA 1+; PLATELET MORPHOLOGY COMMENT NORMAL (NORMAL); POIKILOCYTOSIS 1+
--- NOTE | 2019-03-25 06:36 | RAD ---
HISTORYSOB CHFSTUDYPortable AP [id number]/2020FINDINGSContinued marked cardiac enlargement with stable position of pacemak er. The lungs are probably clear. The left lower lobe is partly obscured by the heart. There is no de finite edema, pneumothorax or large pleural effusion.IMPRESSIONStable cardiomegaly. No definite pulmo nary or pleural abnormality identified.Electronically signed by: MANPREET NOBLE (Mar 25, 2019 06:35:2 9)
[2019-03-25] MEDS: LOVENOX INJ 40 MG SYR SC SCH (08:55)
[2019-03-25] MEDS: LASIX IVP SCH ×2 (08:55→20:13)
[2019-03-25] MEDS: COREG TAB 3.125 MG PO SCH ×2 (08:55→20:13)
[2019-03-25] MEDS ORDERED: TORADOL 30 MG VIAL ONE (12:17)
[2019-03-25] MEDS ORDERED: TORADOL 30 MG VIAL IVP PRN (12:30)
[2019-03-25] MEDS: TORADOL 30 MG VIAL IVP SCH (18:13)
--- NOTE | 2019-03-25 21:38 | PCM.PROG ---
Progress Note - Progress Note for Day of Date of Exam: 03/24/19 - Subjective Subjective: WAS ADMITTED FOR TREATMENT OF CHF EXACERBATION AND CHEST PAIN. HE CONTINUES WITH SHORTNESS OF BREATH AND SWELLING TODAY. ON EXAMINATION, HEART IS REGULAR IN RATE AND RHYTHM. BILATERAL LUNGS ARE NOTED WITH DIMINISHED LUNG SOUNDS THROUGHOUT. ABDOMEN IS ROUND, SOFT, AND NON-TENDER WITH NORMAL BOWEL SOUNDS NOTED IN ALL QUADRANTS. BILATERAL UPPER AND LOWER EXTREMITIES ARE NOTED WITH 1+ PITTING EDEMA. HIS VITALS THIS MORNING ARE: 97.6-96-20-99%-142/89. LABS WERE OBTAINED. ABNORMAL LAB VALUES INCLUDE THE FOLLOWING: HGB 11.4, HCT 37.2, BUN 25, CREATININE 1.84, CALCIUM 7.9, AST 46, ALK PHOS 121. CARDIAC ENZYMES ARE WITHIN NORMAL LIMITS. TODAYS CHEST XRAY REVEALED: Continued marked cardiomegaly without congestive heart failure. No infiltrates. TODAY, WE WILL OBTAIN BILATERAL UPPER AND LOWER EXTREMITY VENOUS DOPPLERS TO RULE OUT DVT. WE WILL INCREASE LASIX TO 60MG IV Q12H. OTHERWISE, WE PLAN TO FOLLOW UP WITH AM LABS AND CHEST XRAY AND CONTINUE TO MONITOR. - Past Medical Family Social History Past Med/Fam/Surg Hx: No changes since H&P Allergies: Allergies No Known Drug Allergies Allergy (Verified 09/21/18 23:54) - Review of Systems ROS: No change since H&P - Vital Signs and I&O's Vital Signs: Temperature 97.2 F Pulse Rate [Brachial] 103 Pulse Rate 100 Respiratory Rate 20 Blood Pressure [Right Arm] 136/84 Blood Pressure 129/63 O2 Sat by Pulse Oximetry 100 Intake and Output: Intake & Output 03/23/19 03/24/19 03/25/19 03/26/19 11:59 11:59 11:59 11:59 Intake Total 560 / 560 3559 / 3559 4126 / 4126 2805 / 2805 Output Total 300 / 300 1850 / 1850 4325 / 4325 2250 / 2250 Balance 260 / 260 1709 / 1709 -199 / -199 555 / 555 - Physical Exam Oriented: Normal Eyes: Normal Ear: Normal Nose: Normal Throat: Normal Respiratory: Generalized, Diminished Cardiovascular: Normal, Edema (BILATERAL UPPER AND LOWER EXTREMITY 1+ PITTING EDEMA ) : Normal Auscultation: Bowel Sounds: Normal Palpation: Normal Tenderness: Normal Skin: Normal Musculoskeletal: Normal Psychiatric: Normal Mood Description: Calm Affect: Normal Speech Pattern: Clear, Appropriate - Laboratory and Diagnostics Result Diagrams: 03/25/19 04:34 03/25/19 04:34 Labs: Laboratory WBC 7.1 X10^3/uL (3.6-10.0) 03/25/19 04:34 RBC 4.82 X10^6/uL (4.7-6.0) 03/25/19 04:34 Hgb 10.9 g/dL (13.5-18.0) L 03/25/19 04:34 Hct 35.1 % (42.0-54.0) L 03/25/19 04:34 MCV 73.0 fL (80.0-100.0) L 03/25/19 04:34 MCH 22.6 pg (27.0-34.0) L 03/25/19 04:34 MCHC 31.0 g/dL (33.0-35.0) L 03/25/19 04:34 RDW 22.2 % (11.6-16.5) H 03/25/19 04:34 Plt Count 262 X10^3/uL (150.0-450.0) 03/25/19 04:34 Plt Count Comment Adequate (ADEQUATE) 03/25/19 04:34 MPV 7.2 fL (7.4-11.0) L 03/25/19 04:34 Neut % (Auto) 60.9 % (42.0-75.0) 03/25/19 04:34 Lymph % (Auto) 21.8 % (21.0-51.0) 03/25/19 04:34 [place] % (Auto) 13.8 % (0.0-13.0) H 03/25/19 04:34 Eos % (Auto) 2.8 % (0.9-2.9) 03/25/19 04:34 Baso % (Auto) 0.7 % (0.2-1.0) 03/25/19 04:34 Neut # (Auto) 4.3 x10^3/uL (2.2-4.8) 03/25/19 04:34 Lymph # (Auto) 1.5 X10^3/uL (1.3-2.9) 03/25/19 04:34 [place] # (Auto) 1.0 x10^3/uL (0.3-0.8) H 03/25/19 04:34 Eos # (Auto) 0.2 x10^3/uL (0.0-0.2) 03/25/19 04:34 Baso # (Auto) 0.0 X10^3/uL (0.0-0.1) 03/25/19 04:34 Absolute Nucleated RBC 0.1 /100WBC 03/25/19 04:34 Plt Morphology Comment Normal (NORMAL) 03/25/19 04:34 RBC Morphology Abnormal (NORMAL) 03/25/19 04:34 Hypochromasia 1+ A 03/25/19 04:34 Poikilocytosis 1+ A 03/25/19 04:34 Anisocytosis 2+ A 03/25/19 04:34 Ovalocytes Present 03/23/19 03:05 PT 15.0 SECONDS (11.8-14.3) 03/22/19 18:55 INR Target Range - 03/22/19 18:55 INR 1.23 (0.8-1.3) 03/22/19 18:55 D-Dimer < 100 ng/mL (0-400) 03/22/19 18:55 Sodium 138 mmol/L (136-145) 03/25/19 04:34 Corrected Sodium TNP 03/25/19 04:34 Potassium 3.5 mmol/L (3.5-5.1) 03/25/19 04:34 Chloride 101 mmol/L (98-107) 03/25/19 04:34 Carbon Dioxide 26.5 mmol/L (21-32) 03/25/19 04:34 BUN 26 mg/dL (7-18) H 03/25/19 04:34 Creatinine 1.74 mg/dL (0.70-1.30) H 03/25/19 04:34 Est GFR (MDRD) Af Amer 57 (>60) L 03/25/19 04:34 Est GFR (MDRD) Non-Af 47 (>60) L 03/25/19 04:34 Glucose 107 mg/dL (65-99) H 03/25/19 04:34 Calcium 7.7 mg/dL (8.5-10.1) L 03/25/19 04:34 Corrected Calcium TNP 03/25/19 04:34 Magnesium 1.5 mg/dL (1.7-2.9) L 03/22/19 18:55 Total Bilirubin 0.70 mg/dL (0.2-1.0) 03/25/19 04:34 AST 38 Units/L (15-37) H 03/25/19 04:34 ALT 47 Units/L (12-78) 03/25/19 04:34 Alkaline Phosphatase 121 Units/L (46-116) H 03/25/19 04:34 Creatine Kinase 84 Units/L (39-308) 03/23/19 09:37 CK-MB (CK-2) 3.7 ng/mL (0-4.0) 03/23/19 09:37 CK/CKMB % Calc 4.4 % (<4) 03/23/19 09:37 Troponin I 0.06 ng/mL (0-1.5) 03/23/19 09:37 B-Natriuretic Peptide 2330 pg/mL (0-79) H* 03/22/19 18:55 Total Protein 7.2 g/dL (6.4-8.2) 03/25/19 04:34 Albumin 3.4 g/dL (3.4-5.0) 03/25/19 04:34 Globulin 3.8 g/dL (2.5-4.5) 03/25/19 04:34 Albumin/Globulin Ratio 0.9 Ratio (1.1-2.1) L 03/25/19 04:34 - Plan (1) CHF (congestive heart failure) Status: Acute Qualifiers: Heart failure type: unspecified Heart failure chronicity: acute on chronic Qualified Code(s): I50.9 - Heart failure, unspecified Plan: ADMIT, IV LASIX, SUPPLEMENTAL OXYGEN, CONTINUE TO MONITOR (2) Chest pain Status: Acute Qualifiers: Chest pain type: unspecified Qualified Code(s): R07.9 - Chest pain, unspecified Plan: SERIAL CARDIAC ENZYMES AND EKGS, CONTINUE TO MONITOR
[2019-03-26] MEDS: TORADOL 30 MG VIAL IVP SCH ×5 (00:18→22:00)
[2019-03-26] MEDS: MORPHINE SULFATE INJ 2 MG INJ IVP PRN ×5 (01:17→23:38)
[2019-03-26] MEDS: NORCO 7.5/325 MG TAB PO PRN ×2 (03:08→10:15)
[2019-03-26 05:46] LABS: ALANINE AMINOTRANSFERASE 41 Units/L (12-78); ALBUMIN 3.2 g/dL (3.4-5.0); ALKALINE PHOSPHATASE 113 Units/L (46-116); ASPARTATE AMINO TRANSFERASE 32 Units/L (15-37); BLOOD UREA NITROGEN 34 mg/dL (7-18); CALCIUM 7.4 mg/dL (8.5-10.1); CARBON DIOXIDE 28.1 mmol/L (21-32); CHLORIDE 98 mmol/L (98-107); CREATININE 2.12 mg/dL (0.70-1.30); SODIUM 135 mmol/L (136-145); eGFR NON BLACK RACES 37 (>60)
[2019-03-26 05:59] LABS: BASOPHILS % (AUTO) 0.5 % (0.2-1.0); EOSINOPHILS # (AUTO) 0.2 x10^3/uL (0.0-0.2); EOSINOPHILS % (AUTO) 2.2 % (0.9-2.9); HEMATOCRIT 33.9 % (42.0-54.0); HEMOGLOBIN 10.4 g/dL (13.5-18.0); LYMPHOCYTES # (AUTO) 1.4 X10^3/uL (1.3-2.9); LYMPHOCYTES % (AUTO) 17.8 % (21.0-51.0); MEAN CORPUSCULAR HEMOGLOBIN 22.6 pg (27.0-34.0); MEAN CORPUSCULAR HGB CONC 30.8 g/dL (33.0-35.0); MEAN CORPUSCULAR VOLUME 73.3 fL (80.0-100.0); MEAN PLATELET VOLUME 7.1 fL (7.4-11.0); MONOCYTES # (AUTO) 1.4 x10^3/uL (0.3-0.8); MONOCYTES % (AUTO) 17.3 % (0.0-13.0); NEUTROPHILS # (AUTO) 4.9 x10^3/uL (2.2-4.8); NEUTROPHILS % (AUTO) 62.2 % (42.0-75.0); PLATELET COUNT 239 X10^3/uL (150.0-450.0); RED BLOOD COUNT 4.62 X10^6/uL (4.7-6.0); RED CELL DISTRIBUTION WIDTH 22.6 % (11.6-16.5); WHITE BLOOD COUNT 7.9 X10^3/uL (3.6-10.0)
[2019-03-26] MEDS: NS 1000 ML 1,000 ML IV SCH ×2 (07:11→23:37)
[2019-03-26 07:13] LABS: ANISOCYTOSIS 2+; HYPOCHROMASIA 1+; OVALOCYTES SLIGHT; PLATELET MORPHOLOGY COMMENT NORMAL (NORMAL)
[2019-03-26] MEDS ORDERED: MILK OF MAGNESIA PO PRN (07:58)
--- NOTE | 2019-03-26 08:27 | RAD ---
HISTORYSOBSTUDYCHEST, 1 [id number]/11/2020.FINDINGSThe trachea is midline. There is unchanged enlargement of the cardiac silhouette. AICD is present on the left. The lungs are clear without focal consolidation, pleural effusion or pneumothorax. The bony thorax is grossly intact. ArdiacIMPRESSION1. Unchanged cardiomegaly.2. No evidence of an acute pulmonary process.Electronically signed by: DESTINY GEE (Mar 26, 2019 08:26:53)
[2019-03-26] MEDS: COLACE CAP 100 MG PO SCH (10:14)
[2019-03-26] MEDS: COREG TAB 3.125 MG PO SCH ×2 (10:14→20:07)
[2019-03-26] MEDS: LASIX IVP SCH ×3 (10:15→20:07)
--- NOTE | 2019-03-26 10:57 | PCM.PROG ---
Progress Note - Progress Note for Day of Date of Exam: 03/25/19 - Subjective Subjective: WAS ADMITTED FOR TREATMENT OF CHF EXACERBATION AND CHEST PAIN. HE CONTINUES WITH SHORTNESS OF BREATH AND SWELLING TODAY. ON EXAMINATION, HEART IS REGULAR IN RATE AND RHYTHM. BILATERAL LUNGS ARE NOTED WITH DIMINISHED LUNG SOUNDS THROUGHOUT. ABDOMEN IS ROUND, SOFT, AND NON-TENDER WITH NORMAL BOWEL SOUNDS NOTED IN ALL QUADRANTS. BILATERAL UPPER AND LOWER EXTREMITIES ARE NOTED WITH 1+ PITTING EDEMA. HIS VITALS THIS MORNING ARE: 97.6-93-18-100%-159/81.LABS WERE OBTAINED. ABNORMAL LAB VALUES INCLUDE THE FOLLOWING: HG 10.9, HCT 35.1, BUN 26, CREATININE 1.74, GLUCOSE 107, CALCIUM 7.7, AST 38, ALK PHOS 121. TODAYS CHEST XRAY REVEALED: Stable cardiomegaly. No definite pulmonary or pleural abnormality identified. VENOUS DOPPLERS WERE NEGATIVE FOR DVT. WE WILL CONTINUE WITH CURRENT PLAN OF CARE TODAY. OTHERWISE, WE PLAN TO FOLLOW UP WITH AM LABS AND CHEST XRAY AND CONTINUE TO MONITOR. - Past Medical Family Social History Past Med/Fam/Surg Hx: No changes since H&P Allergies: Allergies No Known Drug Allergies Allergy (Verified 09/21/18 23:54) - Review of Systems ROS: No change since H&P - Vital Signs and I&O's Vital Signs: Temperature 97.1 F Pulse Rate [Brachial] 103 Pulse Rate 85 Respiratory Rate 24 Blood Pressure [Right Arm] 136/84 Blood Pressure 130/64 O2 Sat by Pulse Oximetry 98 Intake and Output: Intake & Output 03/23/19 03/24/19 03/25/19 03/26/19 11:59 11:59 11:59 11:59 Intake Total 560 / 560 3559 / 3559 4126 / 4126 5125 / 5125 Output Total 300 / 300 1850 / 1850 4325 / 4325 2700 / 2700 Balance 260 / 260 1709 / 1709 -199 / -199 2425 / 2425 - Physical Exam Oriented: Normal Eyes: Normal Ear: Normal Nose: Normal Throat: Normal Respiratory: Generalized, Diminished Cardiovascular: Normal, Edema (BILATERAL UPPER AND LOWER EXTREMITY 1+ PITTING EDEMA ) : Normal Auscultation: Bowel Sounds: Normal Tenderness: Normal Skin: Normal Musculoskeletal: Normal Psychiatric: Normal Mood Description: Calm Affect: Normal Speech Pattern: Clear, Appropriate - Laboratory and Diagnostics Result Diagrams: 03/26/19 04:11 03/26/19 04:11 Labs: Laboratory WBC 7.9 X10^3/uL (3.6-10.0) 03/26/19 04:11 RBC 4.62 X10^6/uL (4.7-6.0) L 03/26/19 04:11 Hgb 10.4 g/dL (13.5-18.0) L 03/26/19 04:11 Hct 33.9 % (42.0-54.0) L 03/26/19 04:11 MCV 73.3 fL (80.0-100.0) L 03/26/19 04:11 MCH 22.6 pg (27.0-34.0) L 03/26/19 04:11 MCHC 30.8 g/dL (33.0-35.0) L 03/26/19 04:11 RDW 22.6 % (11.6-16.5) H 03/26/19 04:11 Plt Count 239 X10^3/uL (150.0-450.0) 03/26/19 04:11 Plt Count Comment Adequate (ADEQUATE) 03/26/19 04:11 MPV 7.1 fL (7.4-11.0) L 03/26/19 04:11 Neut % (Auto) 62.2 % (42.0-75.0) 03/26/19 04:11 Lymph % (Auto) 17.8 % (21.0-51.0) L 03/26/19 04:11 [place] % (Auto) 17.3 % (0.0-13.0) H 03/26/19 04:11 Eos % (Auto) 2.2 % (0.9-2.9) 03/26/19 04:11 Baso % (Auto) 0.5 % (0.2-1.0) 03/26/19 04:11 Neut # (Auto) 4.9 x10^3/uL (2.2-4.8) H 03/26/19 04:11 Lymph # (Auto) 1.4 X10^3/uL (1.3-2.9) 03/26/19 04:11 [place] # (Auto) 1.4 x10^3/uL (0.3-0.8) H 03/26/19 04:11 Eos # (Auto) 0.2 x10^3/uL (0.0-0.2) 03/26/19 04:11 Baso # (Auto) 0.0 X10^3/uL (0.0-0.1) 03/26/19 04:11 Absolute Nucleated RBC 0.1 /100WBC 03/26/19 04:11 Plt Morphology Comment Normal (NORMAL) 03/26/19 04:11 RBC Morphology Abnormal (NORMAL) 03/26/19 04:11 Hypochromasia 1+ A 03/26/19 04:11 Poikilocytosis 1+ A 03/25/19 04:34 Anisocytosis 2+ A 03/26/19 04:11 Ovalocytes Slight A 03/26/19 04:11 PT 15.0 SECONDS (11.8-14.3) 03/22/19 18:55 INR Target Range - 03/22/19 18:55 INR 1.23 (0.8-1.3) 03/22/19 18:55 D-Dimer < 100 ng/mL (0-400) 03/22/19 18:55 Sodium 135 mmol/L (136-145) L 03/26/19 04:11 Corrected Sodium TNP 03/26/19 04:11 Potassium 3.7 mmol/L (3.5-5.1) 03/26/19 04:11 Chloride 98 mmol/L (98-107) 03/26/19 04:11 Carbon Dioxide 28.1 mmol/L (21-32) 03/26/19 04:11 BUN 34 mg/dL (7-18) H 03/26/19 04:11 Creatinine 2.12 mg/dL (0.70-1.30) H 03/26/19 04:11 Est GFR (MDRD) Af Amer 45 (>60) L 03/26/19 04:11 Est GFR (MDRD) Non-Af 37 (>60) L 03/26/19 04:11 Glucose 76 mg/dL (65-99) 03/26/19 04:11 Calcium 7.4 mg/dL (8.5-10.1) L 03/26/19 04:11 Corrected Calcium 8.0 mg/dL (8.5-10.1) L 03/26/19 04:11 Magnesium 1.5 mg/dL (1.7-2.9) L 03/22/19 18:55 Total Bilirubin 1.00 mg/dL (0.2-1.0) 03/26/19 04:11 AST 32 Units/L (15-37) 03/26/19 04:11 ALT 41 Units/L (12-78) 03/26/19 04:11 Alkaline Phosphatase 113 Units/L (46-116) 03/26/19 04:11 Creatine Kinase 84 Units/L (39-308) 03/23/19 09:37 CK-MB (CK-2) 3.7 ng/mL (0-4.0) 03/23/19 09:37 CK/CKMB % Calc 4.4 % (<4) 03/23/19 09:37 Troponin I 0.06 ng/mL (0-1.5) 03/23/19 09:37 B-Natriuretic Peptide 2330 pg/mL (0-79) H* 03/22/19 18:55 Total Protein 7.0 g/dL (6.4-8.2) 03/26/19 04:11 Albumin 3.2 g/dL (3.4-5.0) L 03/26/19 04:11 Globulin 3.8 g/dL (2.5-4.5) 03/26/19 04:11 Albumin/Globulin Ratio 0.8 Ratio (1.1-2.1) L 03/26/19 04:11 - Plan (1) CHF (congestive heart failure) Status: Acute Qualifiers: Heart failure type: unspecified Heart failure chronicity: acute on chronic Qualified Code(s): I50.9 - Heart failure, unspecified Plan: ADMIT, IV LASIX, SUPPLEMENTAL OXYGEN, CONTINUE TO MONITOR (2) Chest pain Status: Acute Qualifiers: Chest pain type: unspecified Qualified Code(s): R07.9 - Chest pain, unspecified Plan: SERIAL CARDIAC ENZYMES AND EKGS, CONTINUE TO MONITOR
[2019-03-26] MEDS: LOVENOX INJ 40 MG SYR SC SCH (13:28)
--- NOTE | 2019-03-26 21:14 | PCM.PROG ---
Progress Note - Progress Note for Day of Date of Exam: 03/26/19 - Subjective Subjective: WAS ADMITTED FOR TREATMENT OF CHF EXACERBATION AND CHEST PAIN. HE CONTINUES WITH SHORTNESS OF BREATH AND SWELLING TODAY. ON EXAMINATION, HEART IS REGULAR IN RATE AND RHYTHM. BILATERAL LUNGS ARE NOTED WITH DIMINISHED LUNG SOUNDS THROUGHOUT. ABDOMEN IS ROUND, SOFT, AND NON-TENDER WITH NORMAL BOWEL SOUNDS NOTED IN ALL QUADRANTS. BILATERAL UPPER AND LOWER EXTREMITIES CONTINUE WITH EDEMA. HIS VITALS THIS MORNING ARE: 97.2-94-26-100%-151/71. LABS WERE OBTAINED. ABNORMAL LAB VALUES INCLUDE THE FOLLOWING: RBC 4.62, HGB 10.4, HCT 33.9, SODIUM 135, BUN 34, CREATININE 2.12, CALCIUM 7.4, ALBUMIN 3.2. TODAYS CHEST XRAY REVEALED: 1. Unchanged cardiomegaly. 2. No evidence of an acute pulm onary process. TODAY, WE WILL DECREASED LASIX TO 20MG IV BID AND OBTAIN A URIC ACID LEVEL. OTHERWISE, WE PLAN TO FOLLOW UP WITH AM LABS AND CHEST XRAY AND CONTINUE TO MONITOR. - Past Medical Family Social History Past Med/Fam/Surg Hx: No changes since H&P Allergies: Allergies No Known Drug Allergies Allergy (Verified 09/21/18 23:54) - Review of Systems ROS: No change since H&P - Vital Signs and I&O's Vital Signs: Temperature 97.8 F Pulse Rate [Brachial] 103 Pulse Rate 95 Respiratory Rate 16 Blood Pressure [Right Arm] 136/84 Blood Pressure 133/81 O2 Sat by Pulse Oximetry 100 Intake and Output: Intake & Output 03/24/19 03/25/19 03/26/19 03/27/19 11:59 11:59 11:59 11:59 Intake Total 3559 / 3559 4126 / 4126 5125 / 5125 2875 / 2875 Output Total 1850 / 1850 4325 / 4325 2700 / 2700 525 / 525 Balance 1709 / 1709 -199 / -199 2425 / 2425 2350 / 2350 - Physical Exam Oriented: Normal Eyes: Normal Ear: Normal Nose: Normal Throat: Normal Respiratory: Generalized, Diminished Cardiovascular: Normal, Edema (BILATERAL UPPER AND LOWER EXTREMITY 1+ PITTING EDEMA ) : Normal Auscultation: Bowel Sounds: Normal Palpation: Normal Tenderness: Normal Skin: Normal Musculoskeletal: Right, Left, Arm, Knee, Leg, Swelling, Tender Psychiatric: Normal Mood Description: Calm Affect: Normal Speech Pattern: Clear, Appropriate - Laboratory and Diagnostics Result Diagrams: 03/26/19 04:11 03/26/19 04:11 Labs: Laboratory WBC 7.9 X10^3/uL (3.6-10.0) 03/26/19 04:11 RBC 4.62 X10^6/uL (4.7-6.0) L 03/26/19 04:11 Hgb 10.4 g/dL (13.5-18.0) L 03/26/19 04:11 Hct 33.9 % (42.0-54.0) L 03/26/19 04:11 MCV 73.3 fL (80.0-100.0) L 03/26/19 04:11 MCH 22.6 pg (27.0-34.0) L 03/26/19 04:11 MCHC 30.8 g/dL (33.0-35.0) L 03/26/19 04:11 RDW 22.6 % (11.6-16.5) H 03/26/19 04:11 Plt Count 239 X10^3/uL (150.0-450.0) 03/26/19 04:11 Plt Count Comment Adequate (ADEQUATE) 03/26/19 04:11 MPV 7.1 fL (7.4-11.0) L 03/26/19 04:11 Neut % (Auto) 62.2 % (42.0-75.0) 03/26/19 04:11 Lymph % (Auto) 17.8 % (21.0-51.0) L 03/26/19 04:11 [place] % (Auto) 17.3 % (0.0-13.0) H 03/26/19 04:11 Eos % (Auto) 2.2 % (0.9-2.9) 03/26/19 04:11 Baso % (Auto) 0.5 % (0.2-1.0) 03/26/19 04:11 Neut # (Auto) 4.9 x10^3/uL (2.2-4.8) H 03/26/19 04:11 Lymph # (Auto) 1.4 X10^3/uL (1.3-2.9) 03/26/19 04:11 [place] # (Auto) 1.4 x10^3/uL (0.3-0.8) H 03/26/19 04:11 Eos # (Auto) 0.2 x10^3/uL (0.0-0.2) 03/26/19 04:11 Baso # (Auto) 0.0 X10^3/uL (0.0-0.1) 03/26/19 04:11 Absolute Nucleated RBC 0.1 /100WBC 03/26/19 04:11 Plt Morphology Comment Normal (NORMAL) 03/26/19 04:11 RBC Morphology Abnormal (NORMAL) 03/26/19 04:11 Hypochromasia 1+ A 03/26/19 04:11 Poikilocytosis 1+ A 03/25/19 04:34 Anisocytosis 2+ A 03/26/19 04:11 Ovalocytes Slight A 03/26/19 04:11 PT 15.0 SECONDS (11.8-14.3) 03/22/19 18:55 INR Target Range - 03/22/19 18:55 INR 1.23 (0.8-1.3) 03/22/19 18:55 D-Dimer < 100 ng/mL (0-400) 03/22/19 18:55 Sodium 135 mmol/L (136-145) L 03/26/19 04:11 Corrected Sodium TNP 03/26/19 04:11 Potassium 3.7 mmol/L (3.5-5.1) 03/26/19 04:11 Chloride 98 mmol/L (98-107) 03/26/19 04:11 Carbon Dioxide 28.1 mmol/L (21-32) 03/26/19 04:11 BUN 34 mg/dL (7-18) H 03/26/19 04:11 Creatinine 2.12 mg/dL (0.70-1.30) H 03/26/19 04:11 Est GFR (MDRD) Af Amer 45 (>60) L 03/26/19 04:11 Est GFR (MDRD) Non-Af 37 (>60) L 03/26/19 04:11 Glucose 76 mg/dL (65-99) 03/26/19 04:11 Uric Acid 11.9 mg/dL (3.5-7.2) H 03/26/19 04:11 Calcium 7.4 mg/dL (8.5-10.1) L 03/26/19 04:11 Corrected Calcium 8.0 mg/dL (8.5-10.1) L 03/26/19 04:11 Magnesium 1.5 mg/dL (1.7-2.9) L 03/22/19 18:55 Total Bilirubin 1.00 mg/dL (0.2-1.0) 03/26/19 04:11 AST 32 Units/L (15-37) 03/26/19 04:11 ALT 41 Units/L (12-78) 03/26/19 04:11 Alkaline Phosphatase 113 Units/L (46-116) 03/26/19 04:11 Creatine Kinase 84 Units/L (39-308) 03/23/19 09:37 CK-MB (CK-2) 3.7 ng/mL (0-4.0) 03/23/19 09:37 CK/CKMB % Calc 4.4 % (<4) 03/23/19 09:37 Troponin I 0.06 ng/mL (0-1.5) 03/23/19 09:37 B-Natriuretic Peptide 2330 pg/mL (0-79) H* 03/22/19 18:55 Total Protein 7.0 g/dL (6.4-8.2) 03/26/19 04:11 Albumin 3.2 g/dL (3.4-5.0) L 03/26/19 04:11 Globulin 3.8 g/dL (2.5-4.5) 03/26/19 04:11 Albumin/Globulin Ratio 0.8 Ratio (1.1-2.1) L 03/26/19 04:11 - Plan (1) CHF (congestive heart failure) Status: Acute Qualifiers: Heart failure type: unspecified Heart failure chronicity: acute on chronic Qualified Code(s): I50.9 - Heart failure, unspecified Plan: ADMIT, IV LASIX, SUPPLEMENTAL OXYGEN, CONTINUE TO MONITOR (2) Chest pain Status: Resolved Qualifiers: Chest pain type: unspecified Qualified Code(s): R07.9 - Chest pain, unspecified Plan: CONTINUE TO MONITOR
[2019-03-27] MEDS: TORADOL 30 MG VIAL IVP SCH ×2 (03:00→11:03)
[2019-03-27] MEDS: MORPHINE SULFATE INJ 2 MG INJ IVP PRN ×2 (03:56→07:54)
[2019-03-27 06:44] LABS: BASOPHILS # (AUTO) 0.1 X10^3/uL (0.0-0.1); BASOPHILS % (AUTO) 0.6 % (0.2-1.0); EOSINOPHILS # (AUTO) 0.2 x10^3/uL (0.0-0.2); EOSINOPHILS % (AUTO) 1.8 % (0.9-2.9); HEMOGLOBIN 9.9 g/dL (13.5-18.0); LYMPHOCYTES # (AUTO) 1.1 X10^3/uL (1.3-2.9); LYMPHOCYTES % (AUTO) 12.2 % (21.0-51.0); MEAN CORPUSCULAR HEMOGLOBIN 22.6 pg (27.0-34.0); MEAN CORPUSCULAR VOLUME 72.7 fL (80.0-100.0); MEAN PLATELET VOLUME 7.1 fL (7.4-11.0); MONOCYTES # (AUTO) 1.2 x10^3/uL (0.3-0.8); MONOCYTES % (AUTO) 12.7 % (0.0-13.0); NEUTROPHILS # (AUTO) 6.7 x10^3/uL (2.2-4.8); NEUTROPHILS % (AUTO) 72.7 % (42.0-75.0); PLATELET COUNT 217 X10^3/uL (150.0-450.0); RED BLOOD COUNT 4.41 X10^6/uL (4.7-6.0); RED CELL DISTRIBUTION WIDTH 22.1 % (11.6-16.5); WHITE BLOOD COUNT 9.2 X10^3/uL (3.6-10.0)
[2019-03-27 06:45] LABS: ALANINE AMINOTRANSFERASE 36 Units/L (12-78); ALKALINE PHOSPHATASE 109 Units/L (46-116); ASPARTATE AMINO TRANSFERASE 36 Units/L (15-37); BLOOD UREA NITROGEN 39 mg/dL (7-18); CALCIUM 7.5 mg/dL (8.5-10.1); CARBON DIOXIDE 23.1 mmol/L (21-32); CHLORIDE 100 mmol/L (98-107); COR CA(FOR HYPOALB) 8.3 mg/dL (8.5-10.1); CREATININE 1.88 mg/dL (0.70-1.30); SODIUM 133 mmol/L (136-145); TOTAL PROTEIN 6.7 g/dL (6.4-8.2); eGFR NON BLACK RACES 43 (>60)
[2019-03-27 07:10] LABS: ANISOCYTOSIS 2+; HYPOCHROMASIA 1+; PLATELET MORPHOLOGY COMMENT NORMAL (NORMAL)
[2019-03-27 08:23] VITALS: BP 116/86
[2019-03-27] MEDS: COREG TAB 3.125 MG PO SCH (08:25)
[2019-03-27] MEDS: COLACE CAP 100 MG PO SCH (08:25)
[2019-03-27] MEDS: LASIX IVP SCH (08:27)
--- NOTE | 2019-03-27 08:43 | RAD ---
HISTORYShortness of breathSTUDYPortable AP chestCOMPARISONJanuary 2019FINDINGSModerately severe cardiomegaly persists with an intact AICD wires via the left subclavian vein. There is no effusion evident. There is minimal vascular congestion. No significant bony abnormality is demonstrated.IMPRESSIONUnchanged moderately severe cardiomegaly. Minimal vascular congestion.Electronically signed by: ARNULFO VO (Mar 27, 2019 08:41:39)
[2019-03-27] MEDS: NS 1000 ML 1,000 ML IV SCH (12:30)
== END 2019-03-27 12:05 | disposition home or self-care (01) | DRG 293 ==
LOC: ER 18:05 → ICU 18:05 → MED/SURG 03-26 17:05
PROVIDERS: ADMIT Internal Medicine; ATTEND Internal Medicine
DX: I50.9 Heart failure, unspecified; R94.31 Abnormal electrocardiogram [ECG] [EKG]; M79.605 Pain in left leg; Z95.810 Presence of automatic (implantable) cardiac defibrillator; R07.89 Other chest pain; R06.02 Shortness of breath; R60.0 Localized edema
CPT/HCPCS: 36415; 71010; 71045; 80053; 82550; 82553; 83735; 83880; 84484; 84550; 85025; 85378; 85610; 93005; 93970; 96365; 96367; 96372; 96374; 96375; 99284; A4216; A4222; G0378; J1650; J1885; J1940; J2270; J7030

== ENCOUNTER 2019-03-29 09:23 | Observation (INO) ==
[2019-03-29 09:25] VITALS: BMI 32.4
--- NOTE | 2019-03-29 09:33 | DR.CP ---
HPI Time Seen Time Seen by Provider: 03/29/19 09:32 PCP Primary Care Physician: PRASHANT Complaint Chief Complaint Doctor Comments: Patient is a 38 year old male who presents with sternal chest pain. He says this pain started last night. He states that the pain is moderate, sharp to pressure like, and is intermittent. Patient states that during this time he is also noticed increase swelling in his extremities and shortness of breath. Patient has a history of CHF with an ejection fraction approximately 20% , drug abuse , tachycardia, pace maker implant. Patient states that he was recently discharged from the hospital and has progressively gotten w orse. He denies recent drug abuse. He also has had some swelling in his face. He denies contact with new cleaning/hygiene products/ substances/ or new medications. Chief Complaint:: PT. C/O CHEST PAIN AND SHORTNESS OF BREATH X 1 DAY. SWELLING NOTED TO FACE. Reviewed Nurses Notes Review: Yes Source History Provided: Patient Mode of Arrival Mode of Arrival: Ambulatory Timing Onset of Chief Complaint: 03/28/19 PMH PMH Past Medical History: Yes Past Medical History: Anxiety, CHF, Coronary Artery Disease, Depression, Hypertension and Renal Disease Past Surgical History: Yes Surgical History: Ortho Surgery and Tonsillectomy Family History History of Family Medical Conditions: Yes Family Medical History: Diabetes Mellitus, Cancer, Coronary Artery Disease, Heart Failure and Hypertension Social History Does patient currently use any type of tobacco product: Yes Have you used tobacco products in the last 12 months: Yes Type of Tobacco Use: Cigarettes Does any household member use tobacco: Yes Alcohol Use: None Do you use any recreational Drugs:: Yes Lives With: Family Lives Where: Home infectious screening In the last 2 months have you had wt loss of >10#?: NO Have you had fever, night sweats or hemotysis?: No Have you traveled outside the country in the last 6 months?: No Isolation: Standard ROS Review of Systems Constitutional: Weakness and Fatigue Eyes: No Symptoms Reported ENTM: No Symptoms Reported Respiratoy: Short of Breath Cardiovascular: No Symptoms Reported Gastrointestinal/Abdominal: No Symptoms Reported Genitourinary: No Symptoms Reported Neurological: No Symptoms Reported Musculoskeletal: No Symptoms Reported and Other (edema in B/L LE's ) Integumentary: No Symptoms Reported Hematologic/Lymphatic: No Symptoms Reported Psychiatric: No Symptoms Reported All Other Systems: Reviewed and Negative PE Vitals Vitals: Temperature 97.4 F Pulse Rate 116 Respiratory Rate 16 Blood Pressure [Right Arm] 136/84 Blood Pressure [Left Arm] 119/76 Blood Pressure 144/93 O2 Sat by Pulse Oximetry 100 General Limitations: No Limitations General Appearance: Alert and In No Apparent Distress Head Head Exam: Normal Inspection, Atraumatic and Normocephalic Eyes Eye exam: Normal Appearance and EOMI ENT ENT Exam: Normal Exam Chest Chest Inspection: Normal Inspection Respiratory Respiratory Exam: Normal Lung Sounds Bilat and Respiratory Distress Respiratory Exam: Bilateral: Rales and Lower: Rales Cardiovascular Cardiovascular Exam: Regular Rate and Normal Rhythm Pulse: Normal Edema: 3, Bilateral, Lower and Extremity (below the knee ) Abdominal Exam Abdominal Exam: Normal Inspection, Normal Bowel Sounds and Soft Extremities Extremities Exam: Normal Inspection, Full ROM and Edema Back Back Exam: Normal Inspection Neurologic Neurological Exam: Alert, Oriented X3, CN II-XII Intact and Normal Gait Psychiatric Psychiatric Exam: Normal Affect and Normal Mood Skin Skin Exam: Warm, Dry, Intact and Normal Color MDM Additional Information Additional Information Obtained From: Old Records Differential Diagnosis Differential Diagnosis: Angina, Chest Wall Pain, CHF, Costochondritis, Pleuritis, Pneumonia and Pulmonary Embolus COURSE Treatment Treatment: Lasix, O2 supplementation, Education/Counseling Education/Counseling: Patient, Family, Education and Counseling Educated On: Treatment, Diagnosis, Prognosis and Needs for Follow Up ROR Labs Reviewed Laboratory Results Reviewed?: Yes Result Diagrams: 03/29/19 09:35 03/29/19 09:35 Laboratory: WBC 7.7 X10^3/uL (3.6-10.0) 03/29/19 09:35 RBC 4.65 X10^6/uL (4.7-6.0) L 03/29/19 09:35 Hgb 10.5 g/dL (13.5-18.0) L 03/29/19 09:35 Hct 33.7 % (42.0-54.0) L 03/29/19 09:35 MCV 72.4 fL (80.0-100.0) L 03/29/19 09:35 MCH 22.6 pg (27.0-34.0) L 03/29/19 09:35 MCHC 31.2 g/dL (33.0-35.0) L 03/29/19 09:35 RDW 22.7 % (11.6-16.5) H 03/29/19 09:35 Plt Count 299 X10^3/uL (150.0-450.0) 03/29/19 09:35 Plt Count Comment Adequate (ADEQUATE) 03/29/19 09:35 MPV 6.8 fL (7.4-11.0) L 03/29/19 09:35 Neut % (Auto) 75.1 % (42.0-75.0) H 03/29/19 09:35 Lymph % (Auto) 12.7 % (21.0-51.0) L 03/29/19 09:35 [place] % (Auto) 10.3 % (0.0-13.0) 03/29/19 09:35 Eos % (Auto) 1.1 % (0.9-2.9) 03/29/19 09:35 Baso % (Auto) 0.8 % (0.2-1.0) 03/29/19 09:35 Neut # (Auto) 5.8 x10^3/uL (2.2-4.8) H 03/29/19 09:35 Lymph # (Auto) 1.0 X10^3/uL (1.3-2.9) L 03/29/19 09:35 [place] # (Auto) 0.8 x10^3/uL (0.3-0.8) 03/29/19 09:35 Eos # (Auto) 0.1 x10^3/uL (0.0-0.2) 03/29/19 09:35 Baso # (Auto) 0.1 X10^3/uL (0.0-0.1) 03/29/19 09:35 Absolute Nucleated RBC 0.1 /100WBC 03/29/19 09:35 Plt Morphology Comment Normal (NORMAL) 03/29/19 09:35 RBC Morphology Abnormal (NORMAL) 03/29/19 09:35 Hypochromasia Slight A 03/29/19 09:35 Anisocytosis 1+ A 03/29/19 09:35 PT 14.3 SECONDS (11.8-14.3) 03/29/19 09:35 INR Target Range - 03/29/19 09:35 INR 1.15 (0.8-1.3) 03/29/19 09:35 APTT 26.1 SECONDS (22.9-36.5) 03/29/19 09:35 PTT Comment - 03/29/19 09:35 Sodium 138 mmol/L (136-145) 03/29/19 09:35 Corrected Sodium TNP 03/29/19 09:35 Potassium 3.8 mmol/L (3.5-5.1) 03/29/19 09:35 Chloride 102 mmol/L (98-107) 03/29/19 09:35 Carbon Dioxide 27.3 mmol/L (21-32) 03/29/19 09:35 BUN 20 mg/dL (7-18) H 03/29/19 09:35 Creatinine 1.40 mg/dL (0.70-1.30) H 03/29/19 09:35 Est GFR (MDRD) Af Amer > 60 (>60) 03/29/19 09:35 Est GFR (MDRD) Non-Af > 60 (>60) 03/29/19 09:35 Glucose 104 mg/dL (65-99) H 03/29/19 09:35 Calcium 8.9 mg/dL (8.5-10.1) 03/29/19 09:35 Corrected Calcium 9.5 mg/dL (8.5-10.1) 03/29/19 09:35 Total Bilirubin 0.70 mg/dL (0.2-1.0) 03/29/19 09:35 AST 31 Units/L (15-37) 03/29/19 09:35 ALT 37 Units/L (12-78) 03/29/19 09:35 Alkaline Phosphatase 122 Units/L (46-116) H 03/29/19 09:35 Creatine Kinase 69 Units/L (39-308) 03/29/19 09:35 CK-MB (CK-2) 2.3 ng/mL (0-4.0) 03/29/19 09:35 CK/CKMB % Calc 3.3 % (<4) 03/29/19 09:35 Troponin I 0.05 ng/mL (0-1.5) 03/29/19 09:35 B-Natriuretic Peptide 4750 pg/mL (0-79) H* 03/29/19 09:35 Total Protein 7.4 g/dL (6.4-8.2) 03/29/19 09:35 Albumin 3.3 g/dL (3.4-5.0) L 03/29/19 09:35 Globulin 4.1 g/dL (2.5-4.5) 03/29/19 09:35 Albumin/Globulin Ratio 0.8 Ratio (1.1-2.1) L 03/29/19 09:35 Specimen Type Clean catch urine 03/29/19 10:03 Urine Color Yellow (YELLOW) 03/29/19 10:03 Urine Appearance Clear (CLEAR) 03/29/19 10:03 Urine pH 7.0 (5.0 - 8.0) 03/29/19 10:03 Ur Specific [place] 1.010 (1.000-1.030) 03/29/19 10:03 Urine Protein 2+ (NEGATIVE) 03/29/19 10:03 Urine Glucose (UA) Negative (NEGATIVE) 03/29/19 10:03 Urine Ketones Negative (NEGATIVE) 03/29/19 10:03 Urine Occult Blood Negative (NEGATIVE) 03/29/19 10:03 Urine Nitrite Negative (NEGATIVE) 03/29/19 10:03 Urine Bilirubin Negative (NEGATIVE) 03/29/19 10:03 Urine Urobilinogen 2+ (NORMAL) 03/29/19 10:03 Ur Leukocyte Esterase Negative (NEGATIVE) 03/29/19 10:03 Urine RBC 0-2 /HPF (0-3) 03/29/19 10:03 Urine WBC 0-2 /HPF (0-5) 03/29/19 10:03 Ur Squamous Epith Cells Rare /HPF (NEGATIVE) 03/29/19 10:03 Urine Bacteria Negative /HPF (NEGATIVE) 03/29/19 10:03 Ur Culture Indicated? No/not indicated 03/29/19 10:03 Urine Opiates Screen Negative (NEG=<300) 03/29/19 10:03 Urine Methadone Screen Negative (NEG=<300) 03/29/19 10:03 Ur Barbiturates Screen Negative (NEG=<200) 03/29/19 10:03 Ur Phencyclidine Scrn Negative (NEG=<25) 03/29/19 10:03 Ur Amphetamines Screen Negative (NEG=<1000) 03/29/19 10:03 U Benzodiazepines Scrn Negative (NEG=<200) 03/29/19 10:03 Urine Cocaine Screen Negative (NEG=<300) 03/29/19 10:03 U Marijuana (THC) Screen Negative (NEG=<50) 03/29/19 10:03 Other Results Comments: preliminary reading: cardiac enlargement similar to prior images, costophrenic angle blunting. XRAY XRAY Interpreted by: Radiologist EKG Compared to prior EKG Dated: 10/17/18 (no significant change ) Rate: 122 [place]: LAD Rhythm: ST Block: None (LAFB) Hypertrophy: LAE ST: Normal, Old, Lat and Infarct Opioid Opioid Risk Tool Personal Hx of Substance Abuse: Illegal Drugs Age (Benjie box if 16-45): Yes History of Preadolescent Sexual Abuse: No Total: 1 Total Score Risk Category: Low Risk Copyright: Tomas VIZCAINO predicting aberrant behaviors Diagnosis Discharge Problem: Acute exacerbation of CHF (congestive heart failure) Qualifiers: Heart failure type: systolic Qualified Code(s): I50.23 - Acute on chronic systolic (congestive) heart failure Narrative Support Text: Admitted to hospitalist for observation @ 10:53
[2019-03-29] MEDS ORDERED: LASIX IVP ONE ×2 (09:37→09:38)
[2019-03-29 09:50] LABS: BASOPHILS # (AUTO) 0.1 X10^3/uL (0.0-0.1); BASOPHILS % (AUTO) 0.8 % (0.2-1.0); EOSINOPHILS # (AUTO) 0.1 x10^3/uL (0.0-0.2); EOSINOPHILS % (AUTO) 1.1 % (0.9-2.9); HEMATOCRIT 33.7 % (42.0-54.0); HEMOGLOBIN 10.5 g/dL (13.5-18.0); LYMPHOCYTES % (AUTO) 12.7 % (21.0-51.0); MEAN CORPUSCULAR HEMOGLOBIN 22.6 pg (27.0-34.0); MEAN CORPUSCULAR HGB CONC 31.2 g/dL (33.0-35.0); MEAN CORPUSCULAR VOLUME 72.4 fL (80.0-100.0); MEAN PLATELET VOLUME 6.8 fL (7.4-11.0); MONOCYTES # (AUTO) 0.8 x10^3/uL (0.3-0.8); MONOCYTES % (AUTO) 10.3 % (0.0-13.0); NEUTROPHILS # (AUTO) 5.8 x10^3/uL (2.2-4.8); NEUTROPHILS % (AUTO) 75.1 % (42.0-75.0); PLATELET COUNT 299 X10^3/uL (150.0-450.0); RED BLOOD COUNT 4.65 X10^6/uL (4.7-6.0); RED CELL DISTRIBUTION WIDTH 22.7 % (11.6-16.5); WHITE BLOOD COUNT 7.7 X10^3/uL (3.6-10.0)
[2019-03-29 10:07] LABS: BLOOD UREA NITROGEN 20 mg/dL (7-18); CALCIUM 8.9 mg/dL (8.5-10.1); CARBON DIOXIDE 27.3 mmol/L (21-32); CHLORIDE 102 mmol/L (98-107); SODIUM 138 mmol/L (136-145); TROPONIN I 0.05 ng/mL (0-1.5); eGFR NON BLACK RACES > 60 (>60)
[2019-03-29 10:08] LABS: PLATELET MORPHOLOGY COMMENT NORMAL (NORMAL)
[2019-03-29 10:09] LABS: ANISOCYTOSIS 1+; HYPOCHROMASIA SLIGHT
[2019-03-29 10:12] LABS: ALANINE AMINOTRANSFERASE 37 Units/L (12-78); ALBUMIN 3.3 g/dL (3.4-5.0); ALKALINE PHOSPHATASE 122 Units/L (46-116); ASPARTATE AMINO TRANSFERASE 31 Units/L (15-37); CKMB % 3.3 % (<4); COR CA(FOR HYPOALB) 9.5 mg/dL (8.5-10.1); CREATINE KINASE 69 Units/L (39-308); CREATINE KINASE MB 2.3 ng/mL (0-4.0); TOTAL PROTEIN 7.4 g/dL (6.4-8.2)
--- NOTE | 2019-03-29 10:14 | RAD ---
HISTORYSOBSTUDYCHEST, 1 [id number] heart is moderately enlarged but unchanged. The pulmonary vessels are slightly more prominent centrally. The lungs are hyperinflated. No consolidation or effusion is seen. There is a left pacemaker and unipolar lead in place in good position.IMPRESSIONStable cardiomegaly with minimal central pulmonary congestion or pulmonary artery hypertension which is slightly more prominent with no obvious acute infiltrate or effusion.Electronically signed by: CORINNE HUDDLESTON (Mar 29, 2019 10:08:37)
[2019-03-29 10:17] LABS: BILIRUBIN,URINE NEGATIVE (NEGATIVE); BLOOD/HEMOGLOBIN,URINE NEGATIVE (NEGATIVE); GLUCOSE, URINE NEGATIVE (NEGATIVE); KETONES,URINE NEGATIVE (NEGATIVE); LEUKOCYTE ESTERASE ,URINE NEGATIVE (NEGATIVE); NITRITES,URINE NEGATIVE (NEGATIVE); PROTEIN,URINE 2+ (NEGATIVE); UROBILINOGEN,URINE 2+ (NORMAL)
[2019-03-29 10:27] LABS: APPEARANCE,URINE CLEAR (CLEAR); BACTERIA,URINE NEGATIVE /HPF (NEGATIVE); COLOR,URINE YELLOW (YELLOW); RBC,URINE 0-2 /HPF (0-3); SQUAMOUS EPITHELIAL CELL,UR RARE /HPF (NEGATIVE)
[2019-03-29] MEDS ORDERED: MORPHINE SULFATE INJ 4 MG IVP ONE (10:37)
[2019-03-29] MEDS ORDERED: MORPHINE SULFATE INJ 4 MG ONE (10:39)
[2019-03-29] MEDS ORDERED: DILAUDID INJ IVP ONE (12:17)
[2019-03-29] MEDS ORDERED: DILAUDID INJ ONE (12:18)
[2019-03-29] MEDS: NS 1000 ML 1,000 ML IV SCH (12:43)
[2019-03-29] MEDS ORDERED: NORCO 7.5/325 MG TAB PO PRN (14:59)
[2019-03-29] MEDS: MORPHINE SULFATE INJ 2 MG INJ IVP PRN ×2 (16:30→20:32)
[2019-03-29 16:39] LABS: CKMB % 5.4 % (<4); CREATINE KINASE MB 3.6 ng/mL (0-4.0); TROPONIN I 0.05 ng/mL (0-1.5)
[2019-03-29] MEDS: COREG TAB 3.125 MG PO SCH (20:32)
[2019-03-29] MEDS: LASIX IVP SCH (20:32)
[2019-03-29] MEDS: COLCRYS TAB 0.6 MG PO SCH (20:32)
[2019-03-29 22:18] LABS: CKMB % 5.3 % (<4); CREATINE KINASE MB 3.7 ng/mL (0-4.0); TROPONIN I 0.05 ng/mL (0-1.5)
[2019-03-30] MEDS: NS 1000 ML 1,000 ML IV SCH ×2 (01:37→14:12)
[2019-03-30] MEDS: MORPHINE SULFATE INJ 2 MG INJ IVP PRN ×4 (01:37→12:37)
--- NOTE | 2019-03-30 06:29 | RAD ---
HISTORYChest painSTUDYCHEST, 1 [id number]/2020FINDINGSThe heart remains enlarged. No congestive heart failure is noted. No acute alveolar infiltrates or pleural effusions are identified. Bony thorax is unremarkable. There is a left-sided pacemaker obscuring a portion of the left lung apex.IMPRESSIONCardiomegaly without congestive heart failureNo infiltratesElectronically signed by: SHOLA YOUNGBLOOD (Mar 30, 2019 06:28:08)
[2019-03-30 06:36] LABS: BASOPHILS # (AUTO) 0.1 X10^3/uL (0.0-0.1); BASOPHILS % (AUTO) 1.6 % (0.2-1.0); EOSINOPHILS # (AUTO) 0.2 x10^3/uL (0.0-0.2); EOSINOPHILS % (AUTO) 3.3 % (0.9-2.9); HEMATOCRIT 31.6 % (42.0-54.0); HEMOGLOBIN 9.8 g/dL (13.5-18.0); LYMPHOCYTES # (AUTO) 1.4 X10^3/uL (1.3-2.9); LYMPHOCYTES % (AUTO) 20.5 % (21.0-51.0); MEAN CORPUSCULAR HEMOGLOBIN 22.6 pg (27.0-34.0); MEAN CORPUSCULAR HGB CONC 31.1 g/dL (33.0-35.0); MEAN CORPUSCULAR VOLUME 72.6 fL (80.0-100.0); MEAN PLATELET VOLUME 6.8 fL (7.4-11.0); MONOCYTES # (AUTO) 0.8 x10^3/uL (0.3-0.8); MONOCYTES % (AUTO) 11.5 % (0.0-13.0); NEUTROPHILS # (AUTO) 4.3 x10^3/uL (2.2-4.8); NEUTROPHILS % (AUTO) 63.1 % (42.0-75.0); PLATELET COUNT 272 X10^3/uL (150.0-450.0); RED BLOOD COUNT 4.35 X10^6/uL (4.7-6.0); RED CELL DISTRIBUTION WIDTH 22.7 % (11.6-16.5); WHITE BLOOD COUNT 6.8 X10^3/uL (3.6-10.0)
[2019-03-30 06:50] LABS: ALANINE AMINOTRANSFERASE 35 Units/L (12-78); ALBUMIN 3.1 g/dL (3.4-5.0); ALKALINE PHOSPHATASE 115 Units/L (46-116); ASPARTATE AMINO TRANSFERASE 37 Units/L (15-37); BLOOD UREA NITROGEN 20 mg/dL (7-18); CALCIUM 8.3 mg/dL (8.5-10.1); CARBON DIOXIDE 27.4 mmol/L (21-32); CHLORIDE 102 mmol/L (98-107); COR NA(FOR HYPERGLY) 138 mmol/L (136-145); CREATININE 1.53 mg/dL (0.70-1.30); SODIUM 138 mmol/L (136-145); TOTAL PROTEIN 6.8 g/dL (6.4-8.2); eGFR NON BLACK RACES 54 (>60)
[2019-03-30 07:07] LABS: HYPOCHROMASIA 1+; PLATELET MORPHOLOGY COMMENT NORMAL (NORMAL)
[2019-03-30 07:08] LABS: ANISOCYTOSIS 2+
--- NOTE | 2019-03-30 08:37 | DR.H&P ---
H&P - History & Physical for Day of: H&P Date: 03/29/19 - Chief Complaint Chief Complaint: CHEST PAIN, SOB, SWELLING - History of Present Illness History of Present Illness: IS A 38 YEAR OLD WHITE MALE WHO PRESENTED TO THE OFFICE WITH COMPLAINTS OF SUBSTERNAL CHEST PAIN AND SHORTNESS OF BREATH. PAIN IS DESCRIBED MODERATE AND PRESSURE LIKE. PAIN IS INTERMITTENT. HE ALSO REPORTS AN INCREASE IN SWELLING OF THE EXTREMITIES. HE HAS A HISTORY OF CHF WITH AN EJECTION FRACTION OF 10-15%. HE HAS AN INTERNAL DEFIBRILLATOR. HE WAS RECENTLY DISCHARGED FROM THE HOSPITAL FOR TREATMENT OF CHF EXACERBATION AND REPORTS THAT SYMPTOMS HAVE PROGRESSIVELY WORSENED SINCE THEN. ON ARRIVAL, VITALS WERE 97.4-120-24-95%-147/79. LABS WERE OBTAINED. ABNORMAL LAB VALUES INCLUDE THE FOLLOWING: RBC 4.65, HGB 10.5, HCT 33.7, BUN 20, CREATININE 1.40, GLUCOSE 104, ALK PHOS 122, BNP 4750, ALBUMIN 3.3. CARDIAC ENZYMES ARE WITHIN NORMAL LIMITS. EKG REVEALED: SINUS TACHYCARDIA WITH HR 122. CHEST XRAY REVEALED: Stable cardiomegaly with minimal central pulmonary congestion or pulmonary artery hypertension which is slightly more prominent with no obvious acute infiltrate or effusion. HE WAS GIVEN DILAUDID 2MG IV X 1, MORPHINE 4MG IV X 1, AND LASIX 40MG IV X 1 IN THE ER. HE WAS ADMITTED FOR FURTHER EVALUATION AND TREATMENT OF CHF EXACERBATION. HE WAS STARTED ON NS AT KVO, MORPHINE 2MG IV Q4H PRN, LASIX 40MG IV BID, NORCO 7.5/325MG PO Q6H PRN, AND HOME MEDICATIONS WERE RESUMED. WE WILL OBTAIN SERIAL CARDIAC ENZYMES AND EKGS. OTHERWISE, WE WILL FOLLOW UP WITH AM LABS AND CONTINUE TO MONITOR. - Past Medical History Past Medical History: Coronary Artery Disease, Hypertension, Renal Disease, Depression, Anxiety, CHF Additional Medical History: Enlarged Tonsils - Past Surgical History Surgical History: Ortho Surgery, Tonsillectomy - Family History Family Medical History: Diabetes Mellitus, Cancer, Coronary Artery Disease, Heart Failure, Hypertension - Social History Does patient currently use any type of tobacco product: Yes Have you used tobacco products in the last 12 months: Yes Type of Tobacco Use: Cigarettes Does any household member use tobacco: Yes Alcohol Use: None Drug Use: None - Medications Home Medications: No Known Drug Allergies Allergy (Verified 09/21/18 23:54) - Review of Systems Constitutional: Weakness Eyes: No Symptoms Reported ENT: No Symptoms Reported Respiratory: See HPI, Shortness of Breath, SOB with Excertion Cardiovascular: Chest Pain, Edema (2+ PITTING EDEMA TO EXTREMITIES ) Gastrointestinal: No Symptoms Reported Genitourinary: No Symptoms Reported Musculoskeletal: No Symptoms Reported Skin: No Symptoms Reported Neurological: Weakness - Physical Exam Vital Signs: Temperature 97.9 F Pulse Rate [Left Brachial] 94 Pulse Rate 113 Respiratory Rate 20 Blood Pressure [Right Arm] 136/84 Blood Pressure [Left Arm] 125/83 Blood Pressure 134/86 O2 Sat by Pulse Oximetry 100 Oriented: Normal Eyes: Normal Ear: Normal Nose: Normal Throat: Normal Respiratory: Diminished Throughout Cardiovascular: Tachycardia, Edema (2+ PITTING EDEMA TO EXTREMITIES ). negative: S3, S4, Murmur : Normal Auscultation: Bowel Sounds: Normal Palpation: Normal Tenderness: Normal Skin: Normal Musculoskeletal: Normal Psychiatric: Normal Mood Description: Calm Affect: Normal Speech Pattern: Clear - Assessment/Plan (1) Acute exacerbation of CHF (congestive heart failure) Qualifiers: Heart failure type: systolic Qualified Code(s): I50.23 - Acute on chronic systolic (congestive) heart failure Status: Acute Plan: ADMIT, LASIX 40MG IV BID, SUPPLEMENTAL OXYGEN, CONTINUE TO MONITOR (2) Chest pain Qualifiers: Chest pain type: unspecified Qualified Code(s): R07.9 - Chest pain, unspecified Status: Resolved Plan: OBTAIN SERIAL CARDIAC ENZYMES AND EKGS, CONTINUE TO MONITOR - Allergies Allergies/Adverse Reactions: Allergies Allergy/AdvReac Type Severity Reaction Status Date / Time No Known Drug Allergies Allergy Verified 09/21/18 23:54
[2019-03-30] MEDS: COLCRYS TAB 0.6 MG PO SCH (08:57)
[2019-03-30] MEDS: COREG TAB 3.125 MG PO SCH (08:58)
[2019-03-30] MEDS: LASIX IVP SCH (08:58)
[2019-03-30] MEDS ORDERED: ZESTRIL TAB 5 MG PO SCH (09:00)
[2019-03-30] MEDS ORDERED: LASIX IVP ONE (10:02)
[2019-03-30] MEDS ORDERED: POTASSIUM CHLORIDE LIQ 20 MEQ UDC PO PRN (12:38)
[2019-03-30] MEDS ORDERED: K-RIDER 10 MEQ/NS 100 ML 10 MEQ/100 ML BAG IV PRN (12:38)
[2019-03-30] MEDS ORDERED: K-DUR TAB 20 MEQ PO PRN (12:38)
[2019-03-30] MEDS ORDERED: POTASSIUM CHL 60 MEQ/NS 0.45% 500 ML IV PRN (12:38)
[2019-03-30] MEDS ORDERED: POTASSIUM CHL 40 MEQ/NS 0.45% 500 ML IV PRN (12:38)
[2019-03-30] MEDS ORDERED: MICRO K EXTEN CAP 10 MEQ PO PRN (12:38)
[2019-03-30] MEDS ORDERED: KLOR-CON PO PRN (12:38)
[2019-03-30 14:07] VITALS: BP 105/67
== END 2019-03-30 14:40 | disposition home or self-care (01) ==
LOC: ER 09:23 → MED/SURG 09:23
PROVIDERS: ADMIT Internal Medicine; ATTEND Internal Medicine
CPT/HCPCS: 36415; 71010; 71045; 80053; 80307; 81001; 82550; 82553; 83735; 83880; 84484; 85025; 85610; 85730; 93005; 94760; 96365; 96374; 96375; 99284; A4222; G0378; G0434; J1170; J1940; J2270; J7030

== ENCOUNTER 2019-04-04 15:04 | Observation (INO) ==
[2019-04-04 15:17] VITALS: BMI 32.4
[2019-04-04] MEDS ORDERED: ASPIRIN ONE (18:19)
[2019-04-04 18:40] LABS: BASOPHILS # (AUTO) 0.1 X10^3/uL (0.0-0.1); BASOPHILS % (AUTO) 1.5 % (0.2-1.0); EOSINOPHILS # (AUTO) 0.2 x10^3/uL (0.0-0.2); EOSINOPHILS % (AUTO) 1.9 % (0.9-2.9); HEMATOCRIT 35.9 % (42.0-54.0); LYMPHOCYTES # (AUTO) 1.7 X10^3/uL (1.3-2.9); MEAN CORPUSCULAR HEMOGLOBIN 22.6 pg (27.0-34.0); MEAN CORPUSCULAR HGB CONC 30.8 g/dL (33.0-35.0); MEAN CORPUSCULAR VOLUME 73.4 fL (80.0-100.0); MEAN PLATELET VOLUME 7.1 fL (7.4-11.0); MONOCYTES # (AUTO) 1.2 x10^3/uL (0.3-0.8); MONOCYTES % (AUTO) 13.4 % (0.0-13.0); NEUTROPHILS # (AUTO) 5.8 x10^3/uL (2.2-4.8); NEUTROPHILS % (AUTO) 64.2 % (42.0-75.0); PLATELET COUNT 328 X10^3/uL (150.0-450.0); RED BLOOD COUNT 4.89 X10^6/uL (4.7-6.0); RED CELL DISTRIBUTION WIDTH 21.9 % (11.6-16.5)
--- NOTE | 2019-04-04 18:41 | RAD ---
HISTORYChest pain and shortness of breath.STUDYCHEST, 1 VIEWCOMPARISONNone.FINDINGSThe trachea is midline. The cardiac silhouette is enlarged. There is a cardiac pacemaker versus AICD in place. There is mild central pulmonary vascular congestion. There is no significant interstitial edema. The lungs are clear of consolidation, focal infiltrate, effusion or pneumothorax. The bony thorax is unremarkable.IMPRESSION1. Cardiomegaly with mild central pulmonary vascular congestion. No significant interstitial edema.2. No acute pulmonary abnormality.Electronically signed by: AJIT SANTANA (Apr 04, 2019 18:39:40)
[2019-04-04] MEDS ORDERED: IMDUR PO ONE (18:42)
[2019-04-04] MEDS: ISOSORBIDE MONONITRATE ER PO SCH (18:43)
[2019-04-04 18:52] LABS: ANISOCYTOSIS 1+; HYPOCHROMASIA 1+; PLATELET MORPHOLOGY COMMENT NORMAL (NORMAL)
[2019-04-04 19:04] LABS: ALANINE AMINOTRANSFERASE 35 Units/L (12-78); ALBUMIN 3.5 g/dL (3.4-5.0); ALKALINE PHOSPHATASE 130 Units/L (46-116); ASPARTATE AMINO TRANSFERASE 37 Units/L (15-37); BLOOD UREA NITROGEN 30 mg/dL (7-18); CALCIUM 8.8 mg/dL (8.5-10.1); CARBON DIOXIDE 22.6 mmol/L (21-32); CHLORIDE 101 mmol/L (98-107); CKMB % 4.5 % (<4); CREATINE KINASE 126 Units/L (39-308); CREATININE 1.91 mg/dL (0.70-1.30); SODIUM 137 mmol/L (136-145); TOTAL PROTEIN 7.6 g/dL (6.4-8.2); TROPONIN I 0.06 ng/mL (0-1.5); eGFR NON BLACK RACES 42 (>60)
[2019-04-04 19:19] LABS: CREATINE KINASE MB 5.7 ng/mL (0-4.0)
--- NOTE | 2019-04-04 19:33 | DR.GENAD ---
HPI Time Seen Time Seen by Provider: 04/04/19 17:56 PCP Primary Care Physician: DR. CERDA Complaint/Symptoms Chief Complaint:: PATIENT STATES HE ISN'T HAVING MUCH SWELLING BUT IS HAVING SHORTNESS OF BREATH ON EXERTION AND AT REST. STATES HE GETS MORE SOB ON EXERTION. STATES HE IS HAVING A DRY COUGH. STATES HE IS HURTING ON THE LEFT SIDE OF HIS CHEST, LEFT ARM, AND LEFT NECK. Source History Provided: Patient Mode of Arrival Mode of Arrival: Ambulatory Timing Onset of Chief Complaint: 04/04/19 PMH PMH Past Medical History: Yes Past Medical History: Anxiety, CHF, Coronary Artery Disease, Depression, Hypertension and Renal Disease Past Medical History Comment: HEP C Past Surgical History: Yes Surgical History: Ortho Surgery and Tonsillectomy Past Surgical History Comment: PACEMAKER Family History History of Family Medical Conditions: Yes Family Medical History: Diabetes Mellitus, Cancer, Coronary Artery Disease, Heart Failure and Hypertension Social History Does any household member use tobacco: No Alcohol Use: None Do you use any recreational Drugs:: No ("RECENTLY QUIT, SHOULD BE CLEAN") Lives With: Friend Lives Where: Home infectious screening Have you traveled outside the country in the last 6 months?: No Isolation: Standard ROS Review of Systems Constitutional: No Symptoms Reported Eyes: No Symptoms Reported ENTM: No Symptoms Reported Respiratoy: No Symptoms Reported Cardiovascular: No Symptoms Reported, See HPI and Chest Pain Gastrointestinal/Abdominal: No Symptoms Reported Genitourinary: No Symptoms Reported Neurological: No Symptoms Reported Musculoskeletal: No Symptoms Reported Integumentary: No Symptoms Reported Hematologic/Lymphatic: No Symptoms Reported Endocrine: No Symptoms Reported Psychiatric: No Symptoms Reported All Other Systems: Reviewed and Negative PE Vital Signs Vitals: Temperature 98.8 F Pulse Rate 119 Respiratory Rate 26 Blood Pressure [Right Arm] 105/67 Blood Pressure 124/65 O2 Sat by Pulse Oximetry 99 COURSE Reevaluation 1st: Unchanged (Still with tachycardia and still c/o chest pain) ROR Labs Reviewed Laboratory Results Reviewed?: Yes Result Diagrams: 04/04/19 18:11 04/04/19 18:11 Laboratory: WBC 9.0 X10^3/uL (3.6-10.0) 04/04/19 18:11 RBC 4.89 X10^6/uL (4.7-6.0) 04/04/19 18:11 Hgb 11.0 g/dL (13.5-18.0) L 04/04/19 18:11 Hct 35.9 % (42.0-54.0) L 04/04/19 18:11 MCV 73.4 fL (80.0-100.0) L 04/04/19 18:11 MCH 22.6 pg (27.0-34.0) L 04/04/19 18:11 MCHC 30.8 g/dL (33.0-35.0) L 04/04/19 18:11 RDW 21.9 % (11.6-16.5) H 04/04/19 18:11 Plt Count 328 X10^3/uL (150.0-450.0) 04/04/19 18:11 Plt Count Comment Adequate (ADEQUATE) 04/04/19 18:11 MPV 7.1 fL (7.4-11.0) L 04/04/19 18:11 Neut % (Auto) 64.2 % (42.0-75.0) 04/04/19 18:11 Lymph % (Auto) 19.0 % (21.0-51.0) L 04/04/19 18:11 [place] % (Auto) 13.4 % (0.0-13.0) H 04/04/19 18:11 Eos % (Auto) 1.9 % (0.9-2.9) 04/04/19 18:11 Baso % (Auto) 1.5 % (0.2-1.0) H 04/04/19 18:11 Neut # (Auto) 5.8 x10^3/uL (2.2-4.8) H 04/04/19 18:11 Lymph # (Auto) 1.7 X10^3/uL (1.3-2.9) 04/04/19 18:11 [place] # (Auto) 1.2 x10^3/uL (0.3-0.8) H 04/04/19 18:11 Eos # (Auto) 0.2 x10^3/uL (0.0-0.2) 04/04/19 18:11 Baso # (Auto) 0.1 X10^3/uL (0.0-0.1) 04/04/19 18:11 Absolute Nucleated RBC 0.0 /100WBC 04/04/19 18:11 Plt Morphology Comment Normal (NORMAL) 04/04/19 18:11 RBC Morphology Abnormal (NORMAL) 04/04/19 18:11 Hypochromasia 1+ A 04/04/19 18:11 Anisocytosis 1+ A 04/04/19 18:11 Sodium 137 mmol/L (136-145) 04/04/19 18:11 Corrected Sodium TNP 04/04/19 18:11 Potassium 3.7 mmol/L (3.5-5.1) 04/04/19 18:11 Chloride 101 mmol/L (98-107) 04/04/19 18:11 Carbon Dioxide 22.6 mmol/L (21-32) 04/04/19 18:11 BUN 30 mg/dL (7-18) H 04/04/19 18:11 Creatinine 1.91 mg/dL (0.70-1.30) H 04/04/19 18:11 Est GFR (MDRD) Af Amer 51 (>60) L 04/04/19 18:11 Est GFR (MDRD) Non-Af 42 (>60) L 04/04/19 18:11 Glucose 107 mg/dL (65-99) H 04/04/19 18:11 Calcium 8.8 mg/dL (8.5-10.1) 04/04/19 18:11 Corrected Calcium TNP 04/04/19 18:11 Total Bilirubin 1.20 mg/dL (0.2-1.0) H 04/04/19 18:11 AST 37 Units/L (15-37) 04/04/19 18:11 ALT 35 Units/L (12-78) 04/04/19 18:11 Alkaline Phosphatase 130 Units/L (46-116) H 04/04/19 18:11 Creatine Kinase 113 Units/L (39-308) 04/04/19 22:02 CK-MB (CK-2) 4.4 ng/mL (0-4.0) H* 04/04/19 22:02 CK/CKMB % Calc 3.9 % (<4) 04/04/19 22:02 Troponin I 0.09 ng/mL (0-1.5) 04/04/19 22:02 Total Protein 7.6 g/dL (6.4-8.2) 04/04/19 18:11 Albumin 3.5 g/dL (3.4-5.0) 04/04/19 18:11 Globulin 4.1 g/dL (2.5-4.5) 04/04/19 18:11 Albumin/Globulin Ratio 0.9 Ratio (1.1-2.1) L 04/04/19 18:11 Other Results Comments: HISTORY Chest pain and shortness of breath. STUDY CHEST, 1 VIEW COMPARISON None. FINDINGS The trachea is midline. The cardiac silhouette is enlarged. There is a cardiac pacemaker versus AICD in place. There is mild central pulmonary vascular congestion. There is no significant interstitial edema. The lungs are clear of consolidation, focal infiltrate, effusion or pneumothorax. The bony thorax is unremarkable. IMPRESSION 1. Cardiomegaly with mild central pulmonary vascular congestion. No significant interstitial edema. 2. No acute pulmonary abnormality. Electronically signed by: AJIT SANTANA (Apr 04, 2019 18:39:40) EKG Rate: 124 [place]: LAD Block: IVCD ST: Old, Ant, Lat and Infarct Opioid Opioid Risk Tool Personal Hx of Substance Abuse: Illegal Drugs Age (Benjie box if 16-45): Yes History of Preadolescent Sexual Abuse: No Total: 1 Total Score Risk Category: Low Risk Copyright: Tomas VIZCAINO predicting aberrant behaviors Diagnosis Discharge Problem: Substance abuse, Methamphetamine abuse Chest pain Qualifiers: Chest pain type: unspecified Qualified Code(s): R07.9 - Chest pain, unspecified Instructions Forms: Excuse From Work Patient Portal
[2019-04-04] MEDS ORDERED: TYLENOL 325 MG TAB PO ONE ×2 (20:37→20:40)
[2019-04-04 23:15] LABS: CKMB % 3.9 % (<4); TROPONIN I 0.09 ng/mL (0-1.5)
[2019-04-04 23:24] LABS: CREATINE KINASE MB 4.4 ng/mL (0-4.0)
[2019-04-04] MEDS ORDERED: NITRO-BID OINT 2% UD (E.R. USE ONLY) TD ONE (23:41)
[2019-04-04] MEDS ORDERED: ATIVAN INJ 2 MG VIAL IVP ONE (23:41)
[2019-04-05] MEDS ORDERED: ATIVAN INJ 2 MG VIAL ONE (00:45)
[2019-04-05 04:27] LABS: BASOPHILS # (AUTO) 0.2 X10^3/uL (0.0-0.1); BASOPHILS % (AUTO) 1.7 % (0.2-1.0); EOSINOPHILS # (AUTO) 0.3 x10^3/uL (0.0-0.2); EOSINOPHILS % (AUTO) 2.9 % (0.9-2.9); LYMPHOCYTES # (AUTO) 2.4 X10^3/uL (1.3-2.9); LYMPHOCYTES % (AUTO) 24.7 % (21.0-51.0); MEAN CORPUSCULAR HEMOGLOBIN 21.9 pg (27.0-34.0); MEAN CORPUSCULAR HGB CONC 29.9 g/dL (33.0-35.0); MEAN CORPUSCULAR VOLUME 73.2 fL (80.0-100.0); MEAN PLATELET VOLUME 7.3 fL (7.4-11.0); MONOCYTES # (AUTO) 1.2 x10^3/uL (0.3-0.8); MONOCYTES % (AUTO) 12.3 % (0.0-13.0); NEUTROPHILS # (AUTO) 5.7 x10^3/uL (2.2-4.8); NEUTROPHILS % (AUTO) 58.4 % (42.0-75.0); PLATELET COUNT 335 X10^3/uL (150.0-450.0); RED BLOOD COUNT 4.67 X10^6/uL (4.7-6.0); RED CELL DISTRIBUTION WIDTH 21.9 % (11.6-16.5); WHITE BLOOD COUNT 9.7 X10^3/uL (3.6-10.0)
[2019-04-05 04:29] LABS: ALANINE AMINOTRANSFERASE 36 Units/L (12-78); ALBUMIN 3.3 g/dL (3.4-5.0); ALKALINE PHOSPHATASE 121 Units/L (46-116); ASPARTATE AMINO TRANSFERASE 42 Units/L (15-37); BLOOD UREA NITROGEN 31 mg/dL (7-18); CALCIUM 8.2 mg/dL (8.5-10.1); CARBON DIOXIDE 23.7 mmol/L (21-32); CHLORIDE 101 mmol/L (98-107); COR CA(FOR HYPOALB) 8.8 mg/dL (8.5-10.1); CREATININE 1.82 mg/dL (0.70-1.30); SODIUM 137 mmol/L (136-145); TOTAL PROTEIN 6.7 g/dL (6.4-8.2); eGFR NON BLACK RACES 45 (>60)
[2019-04-05 04:46] LABS: HEMATOCRIT 33.4 % (42.0-54.0); HEMOGLOBIN 10.3 g/dL (13.5-18.0)
[2019-04-05 04:47] LABS: ANISOCYTOSIS 2+; HYPOCHROMASIA 1+; PLATELET MORPHOLOGY COMMENT NORMAL (NORMAL)
[2019-04-05 04:48] LABS: MICROCYTOSIS SLIGHT; OVALOCYTES PRESENT
[2019-04-05 05:06] LABS: CKMB % 4.2 % (<4); TROPONIN I 0.08 ng/mL (0-1.5)
[2019-04-05 05:08] LABS: CREATINE KINASE MB 4.1 ng/mL (0-4.0)
[2019-04-05] MEDS ORDERED: NORCO 10/325 TAB PO PRN ×2 (08:54→12:39)
[2019-04-05] MEDS: ASPIRIN PO SCH (09:37)
[2019-04-05] MEDS: ISOSORBIDE MONONITRATE ER PO SCH (09:37)
[2019-04-05] MEDS: LOVENOX INJ 40 MG SYR SC SCH (09:38)
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
[2019-04-05] MEDS: COREG TAB 3.125 MG PO SCH ×2 (11:19→20:38)
[2019-04-05] MEDS: ALDACTONE TAB 25 MG PO SCH (11:19)
[2019-04-05] MEDS: LASIX PO SCH ×2 (11:19→20:39)
[2019-04-05] MEDS: MORPHINE SULFATE INJ 2 MG INJ IVP PRN ×2 (13:13→18:30)
[2019-04-06] MEDS: MORPHINE SULFATE INJ 2 MG INJ IVP PRN ×3 (00:24→08:19)
[2019-04-06 06:58] LABS: BASOPHILS # (AUTO) 0.1 X10^3/uL (0.0-0.1); BASOPHILS % (AUTO) 1.2 % (0.2-1.0); EOSINOPHILS # (AUTO) 0.1 x10^3/uL (0.0-0.2); EOSINOPHILS % (AUTO) 1.8 % (0.9-2.9); HEMATOCRIT 32.5 % (42.0-54.0); HEMOGLOBIN 10.1 g/dL (13.5-18.0); LYMPHOCYTES # (AUTO) 1.6 X10^3/uL (1.3-2.9); LYMPHOCYTES % (AUTO) 19.5 % (21.0-51.0); MEAN CORPUSCULAR HEMOGLOBIN 22.4 pg (27.0-34.0); MEAN CORPUSCULAR HGB CONC 31.1 g/dL (33.0-35.0); MEAN CORPUSCULAR VOLUME 71.9 fL (80.0-100.0); MEAN PLATELET VOLUME 7.1 fL (7.4-11.0); MONOCYTES # (AUTO) 0.8 x10^3/uL (0.3-0.8); NEUTROPHILS # (AUTO) 5.7 x10^3/uL (2.2-4.8); NEUTROPHILS % (AUTO) 67.5 % (42.0-75.0); PLATELET COUNT 301 X10^3/uL (150.0-450.0); RED BLOOD COUNT 4.52 X10^6/uL (4.7-6.0); RED CELL DISTRIBUTION WIDTH 21.9 % (11.6-16.5); WHITE BLOOD COUNT 8.4 X10^3/uL (3.6-10.0)
[2019-04-06 07:18] LABS: ALBUMIN 3.2 g/dL (3.4-5.0); CARBON DIOXIDE 22.5 mmol/L (21-32); COR CA(FOR HYPOALB) 8.6 mg/dL (8.5-10.1); CREATININE 2.13 mg/dL (0.70-1.30); TOTAL PROTEIN 6.7 g/dL (6.4-8.2)
[2019-04-06 07:32] LABS: PLATELET MORPHOLOGY COMMENT NORMAL (NORMAL)
[2019-04-06 07:33] LABS: ANISOCYTOSIS 1+; HYPOCHROMASIA 1+
[2019-04-06] MEDS: ALDACTONE TAB 25 MG PO SCH (08:22)
[2019-04-06] MEDS: LASIX PO SCH (08:22)
[2019-04-06] MEDS: LOVENOX INJ 40 MG SYR SC SCH (08:24)
[2019-04-06] MEDS: ISOSORBIDE MONONITRATE ER PO SCH (08:24)
[2019-04-06] MEDS: COREG TAB 3.125 MG PO SCH (08:24)
[2019-04-06] MEDS ORDERED: K-DUR TAB 20 MEQ PO SCH (10:00)
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
[2019-04-06] MEDS: ASPIRIN PO SCH (11:27)
[2019-04-06 13:20] VITALS: BP 108/70
== END 2019-04-06 13:55 | disposition home or self-care (01) ==
LOC: ER 15:05 → ICU 15:05 → OBS 04-05 10:00 → MED/SURG 04-05 10:03
PROVIDERS: ADMIT Internal Medicine; ATTEND Internal Medicine
DX: N18.9 Chronic kidney disease, unspecified; R07.89 Other chest pain; I50.9 Heart failure, unspecified; I13.0 Hypertensive heart and chronic kidney disease with heart failure and stage 1 through stage 4 chronic kidney disease, or unspecified chronic kidney disease; F15.10 Other stimulant abuse, uncomplicated
CPT/HCPCS: 36415; 71010; 71045; 80053; 80307; 82550; 82553; 84484; 85025; 93005; 94760; 96365; 96374; 97162; 99284; A4216; A4222; G0378; J1650; J2060; J2270; J3490